=== PATIENT | female | born 1960 | race African-American/Black ===

== ENCOUNTER 2019-08-06 11:22 | Emergency (ER) | payer OTHER, SELFPAY ==
[2019-08-06 11:31] VITALS: BP 119/72; PULSE 82; RESP 16; TEMP 36.3; O2SAT 100
--- NOTE | 2019-08-06 11:45 | ED.BACK ---
HPI - Back Pain/Injury General Chief Complaint: Back Pain/Injury Stated Complaint: BACK/SIDE PAIN Source: patient Mode of arrival: ambulatory Limitations: no limitations History of Present Illness HPI Narrative: 59-year-old female presents to urgent with complaints of left low back pain for the past 3 to 4 months. Patient reports that she was evaluated here and by her primary care provider for same complaint. Patient has been taking Flexeril as needed and also completed a round of prednisone. Patient reports that the pain is much worse with movement or deep breathing. Patient denies spinal tenderness. Patient denies numbness, tingling, fever, bites, chills or urinary problems MD elicited complaint: back pain Pertinent past history: prior back pain Onset (ago): month(s) (3-4 months ) Timing: intermittent Quality: sharp Radiation: none Exacerbating factors: movement Relieving factors: none Associated symptoms: denies other symptoms Work related injury: No Related Data Home Medications Medication Instructions Recorded Confirmed albuterol sulfate INHALATION 05/09/19 07/16/19 amitriptyline 25 mg PO 05/09/19 07/16/19 bupropion HCl 100 mg PO 05/09/19 07/16/19 fluticasone propionate INTRANASAL 05/09/19 07/16/19 levothyroxine 05/09/19 07/16/19 metoprolol tartrate 05/09/19 07/16/19 rosuvastatin mg 05/09/19 07/16/19 tiotropium bromide [Spiriva with INHALATION 05/09/19 07/16/19 HandiHaler] triamterene-hydrochlorothiazid cap 05/09/19 07/16/19 Allergies Allergy/AdvReac Type Severity Reaction Status Date / Time morphine Allergy Mild ITCHING,RASH, Verified 06/23/19 13:37 HIVES propoxyphene Allergy Mild RASH/HIVES Verified 06/23/19 13:37 ampicillin Allergy Unknown RASH/HIVES Verified 06/23/19 13:37 aspirin Allergy Unknown Abdominal Verified 06/23/19 13:37 Pain clindamycin Allergy Unknown Hives Verified 06/23/19 13:37 doxycycline Allergy Unknown Hives Verified 06/23/19 13:37 erythromycin base Allergy Unknown RASH/HIVES Verified 06/23/19 13:37 hydrocodone Allergy Unknown Hives Verified 06/23/19 13:37 Penicillins Allergy Unknown Hives Verified 06/23/19 13:37 Sulfa (Sulfonamide Allergy Unknown Swelling Verified 06/23/19 13:37 Antibiotics) of Lip/Tongue/Throat acetaminophen AdvReac Unknown TOLERATES Verified 06/23/19 13:37 APAP IF EATS PRIOR TO DOSE HYDROCODONE BIT Allergy Unknown RASH/HIVES Uncoded 03/05/19 08:49 Review of Systems Review of Systems: All systems reviewed & are unremarkable except as noted in HPI and below Constitutional: Constitutional: Denies chills, Denies fatigue, Denies fever(s) and Denies weakness Cardiovascular: Cardiovascular: Denies chest pain and Denies radiating jaw, neck or arm pain Respiratory: Respiratory: Denies cough, Denies dyspnea and Denies wheezing Gastrointestinal: Gastrointestinal: Denies abdominal pain, Denies constipation, Denies diarrhea, Denies nausea and Denies vomiting Musculoskeletal: Musculoskeletal: Reports back pain, Denies myalgias, Denies arthralgias and Denies muscle cramps Neurologic: Denies vertigo, Denies dizziness and Denies syncope Endocrine: Endocrine: Denies fatigue [facility] Family History Family History Father Family history of malignant neoplasm Family history of heart disease in male family member before age 55 Social History Social History Smoking status: Never smoker Alcohol intake: current Exam Const: General: healthy appearing, no acute distress and alert; No diaphoretic Orientation/consciousness: patient oriented x3 Limitations: No altered mental status Eyes: Pupils: Equal, round and reactive pupils present Neck: Neck: normal visual inspection and no lymphadenopathy Resp: Effort & Inspection: normal respiratory effort, not labored and not tachypneic Auscultation: clear to auscultation bilaterally and no
== END 2019-08-06 12:00 | disposition home or self-care (01) ==
PROVIDERS: Emergency Provider Nurse Practitioner Family; PCP Internal Medicine
DX: M54.5 Low back pain (principal)
CPT/HCPCS: 99213; G0463

== ENCOUNTER 2019-11-01 12:20 | Emergency (ER) | payer OTHER, SELFPAY ==
[2019-11-01 12:31] VITALS: BP 137/75; PULSE 73; RESP 18; TEMP 36.7; O2SAT 100
--- NOTE | 2019-11-01 12:32 | ED.URI ---
HPI - URI/Sore Throat General Chief Complaint: Upper Respiratory Infection Stated Complaint: sore throat Time Seen by Provider: 11/01/19 12:33 Source: patient and RN notes reviewed History of Present Illness HPI Narrative: Patient is a 59-year-old female that presents the urgent care with complaints of a 4 to 5-day history of left jaw pain radiating to her throat and left neck. Patient states that she has been clenching her teeth at night due to her increase of anxiety . Patient states that she takes anxiety and depression medication. Patient states that she does have a history of TMJ. Patient also reports of some discomfort on the left side of her neck radiating to the ear at times. Patient denies any fever, nausea, vomiting, upper respiratory symptoms. No other acute complaints. No acute distress noted. Patient read the plan of care. Related Data Home Medications Medication Instructions Recorded Confirmed albuterol sulfate INHALATION 05/09/19 08/14/19 bupropion HCl 100 mg PO 05/09/19 08/14/19 fluticasone propionate INTRANASAL 05/09/19 08/14/19 levothyroxine 05/09/19 08/14/19 metoprolol tartrate 05/09/19 07/16/19 rosuvastatin mg 05/09/19 07/16/19 loratadine mg 11/01/19 methocarbamol mg 11/01/19 tiotropium bromide [Spiriva with INHALATION 11/01/19 HandiHaler] triamterene-hydrochlorothiazid cap 11/01/19 Allergies Allergy/AdvReac Type Severity Reaction Status Date / Time morphine Allergy Mild ITCHING,RASH, Verified 06/23/19 13:37 HIVES propoxyphene Allergy Mild RASH/HIVES Verified 06/23/19 13:37 ampicillin Allergy Unknown RASH/HIVES Verified 06/23/19 13:37 aspirin Allergy Unknown Abdominal Verified 06/23/19 13:37 Pain clindamycin Allergy Unknown Hives Verified 06/23/19 13:37 doxycycline Allergy Unknown Hives Verified 06/23/19 13:37 erythromycin base Allergy Unknown RASH/HIVES Verified 06/23/19 13:37 hydrocodone Allergy Unknown Hives Verified 06/23/19 13:37 Penicillins Allergy Unknown Hives Verified 06/23/19 13:37 Sulfa (Sulfonamide Allergy Unknown Swelling Verified 06/23/19 13:37 Antibiotics) of Lip/Tongue/Throat acetaminophen AdvReac Unknown TOLERATES Verified 06/23/19 13:37 APAP IF EATS PRIOR TO DOSE HYDROCODONE BIT Allergy Unknown RASH/HIVES Uncoded 03/05/19 08:49 Review of Systems Review of Systems: Narrative: CONSTITUTIONAL: Denies fever, chills, or sweats. EYES: Denies visual changes, redness, or discharge. ENT: Reports of mild pain to the left jaw, left ear and possible sore throat CARDIOVASCULAR: Denies chest pain, palpitations, or edema. RESPIRATORY: Denies cough or dyspnea. GASTROINTESTINAL: Denies abdominal pain, nausea, vomiting, or diarrhea. GENITOURINARY: Denies dysuria or hematuria. SKIN: Denies rash or itching. MUSCULOSKELETAL: Denies back pain, joint pain, or myalgia. NEUROLOGIC: Denies headache, numbness, or weakness. All other systems reviewed are negative, except as documented in HPI. PMFSH Social History Social History Smoking status: Never smoker Alcohol intake: current Comments At the time of my signature, I reviewed and agree with the nursing past medical, surgical, social, and family history. There is no relevant family history pertinent to the patient complaint. Exam Narrative: Exam Narrative: GENERAL: This is a well-nourished, well-developed patient, in no apparent distress. HEAD: normocephalic, atraumatic. EYES: PERRL. Sclera clear/white. Vision is grossly intact. EARS: External ears normal, auditory canals clear and without drainage, TMs normal without perforation. Hearing grossly intact. NOSE: External nose normal with no obvious nasal discharge, nares without redness, no rhinorrhea. THROAT: Mucous membranes moist, posterior pharynx clear. Small pinpoint cold sore noted to the left posterior oropharynx. Pain with left TMJ palpated assessment and mild snapping NECK: Neck supple, non
== END 2019-11-01 13:07 | disposition home or self-care (01) ==
PROVIDERS: Emergency Provider Nurse Practitioner Family; PCP Internal Medicine
DX: M26.622 Arthralgia of left temporomandibular joint (principal); I25.10 Atherosclerotic heart disease of native coronary artery without angina pectoris; I10 Essential (primary) hypertension; J44.9 Chronic obstructive pulmonary disease, unspecified; Z86.73 Personal history of transient ischemic attack (TIA), and cerebral infarction without residual deficits
CPT/HCPCS: 99211; G0463

== ENCOUNTER 2020-03-24 02:12 | Outpatient (CLI) | payer OTHER, SELFPAY ==
[2020-03-24 18:39] LABS: SARS-CoV-2 RNA PCR Negative
== END 2020-03-24 02:13 | disposition home or self-care (01) ==
LOC: ANHCOVIDDT 02:12
PROVIDERS: PCP Internal Medicine; Visit Provider Internal Medicine Gastroenterology
DX: Z01.812 Encounter for preprocedural laboratory examination (principal); Z11.59 Encounter for screening for other viral diseases
CPT/HCPCS: 87635; C9803; U0003

== ENCOUNTER 2020-03-26 01:33 | Day surgery (SDC) | payer OTHER, SELFPAY ==
[2020-03-18 14:54] VITALS: BMI 26.6
[2020-03-26 09:33] VITALS: BP 113/96; PULSE 100; RESP 16; TEMP 35.4; O2SAT 98; BMI 25.1
[2020-03-26] MEDS: LACTATED RINGERS 1,000 ML 150 ML IV CONT (09:50)
--- NOTE | 2020-03-26 10:11 | PM.HPGS ---
History of Present Illness History of Present Illness Consent: Risks, benefits, and alternatives have been discussed and questions answered. Patient agrees to proceed with procedure. Chief complaint: nausea, IBS, weight loss Narrative: Phyllis Torre is a 59 year old female with nausea, IBS with chronic diarrhea, last colonoscopy years ago, also recently weight loss. Review of Systems Constitutional: Constitutional: Denies headache(s) and Denies weakness Eyes: Eyes: Denies blurry vision ENT: Reports Normal hearing present, Denies headache(s) and Denies neck pain Cardiovascular: Cardiovascular: Denies chest pain and Denies dyspnea Respiratory: Respiratory: Denies dyspnea Gastrointestinal: Gastrointestinal: Reports no additional gastrointestinal complaints Genitourinary: Genitourinary: Denies dysuria Musculoskeletal: Musculoskeletal: Denies neck pain Integumentary/Breasts: Skin/Breast: Denies dry skin Neurologic: Reports Normal hearing present, Denies headache(s) and Denies weakness Psychiatric: Psychiatric: Denies anxiety Endocrine: Endocrine: Denies change in body appearance Hematologic/Lymphatic: Hematologic/Lymphatic: Denies easy bleeding Allergic/Immunologic: Allergic/Immunologic: Denies urticaria PMFSH Past Medical History Medical History (Updated 02/20/20 @ 15:12 by Ezequiel Merlos MD) Alcohol use disorder Dyshidrosis Elevated liver enzymes Irritable bowel syndrome with diarrhea Nausea Weight loss Social History Social History Smoking packs per day: 0.5 Smoking cigarettes per day: 10.0 Smoking status: Current every day smoker Alcohol intake: current Drinks per week: 21 Living arrangements: with family Gender identity (if verbalized by the patient): Female Spiritual care concerns: No Meds Home Medications and Allergies Home Medications Medication Instructions Recorded Confirmed Type bupropion HCl 100 mg PO BID 05/09/19 03/18/20 History fluticasone propionate 1 spray INTRANASAL DAILY 05/09/19 03/18/20 History potassium chloride 10 mEq 10 meq PO BID #180 tablet 05/19/19 03/18/20 Rx tablet,extended release paroxetine HCl 30 mg tablet 30 mg PO DAILY #90 tablet 05/26/19 03/18/20 Rx esomeprazole magnesium 40 mg 40 mg PO DAILY #90 cap 07/16/19 03/18/20 Rx capsule,delayed release allopurinol 300 mg tablet 300 mg PO DAILY #90 tablet 08/11/19 03/18/20 Rx amitriptyline 25 mg tablet 25 mg PO .hs #90 tablet 09/12/19 03/18/20 Rx loratadine 10 mg PO DAILY 11/01/19 03/18/20 History tiotropium bromide [Spiriva with 18 mcg INHALATION DAILY 11/01/19 03/26/20 History HandiHaler] triamterene-hydrochlorothiazid 1 cap PO DAILY 11/01/19 03/18/20 History albuterol sulfate 90 mcg/actuation 2 inhalation INHALATION Q4-6H #8.5 11/05/19 03/26/20 Rx aerosol inhaler gm rosuvastatin 10 mg tablet 10 mg PO DAILY #90 tablet 11/13/19 03/18/20 Rx triamcinolone acetonide 0.1 % 1 applic TOPICAL BID #60 ml 12/17/19 03/18/20 Rx lotion levothyroxine 50 mcg tablet 50 mcg PO DAILY #90 tablet 01/05/20 03/18/20 Rx peg 3350-electrolytes 236 240 ml PO Q10M #4000 ml 02/27/20 03/18/20 Rx gram-22.74 gram-6.74 gram-5.86 gram solution colchicine 0.6 mg capsule See Rx Instructions .ROUTE 03/15/20 03/18/20 Rx .COMPLEX #60 cap cyclobenzaprine 10 mg PO DAILY 03/18/20 03/18/20 History metoprolol tartrate 25 mg PO BID 03/18/20 03/18/20 History Allergies Allergy/AdvReac Type Severity Reaction Status Date / Time morphine Allergy Mild ITCHING,RASH, Verified 03/26/20 09:33 HIVES propoxyphene Allergy Mild RASH/HIVES Verified 03/26/20 09:33 ampicillin Allergy Unknown RASH/HIVES Verified 03/26/20 09:33 aspirin Allergy Unknown Abdominal Verified 03/26/20 09:33 Pain clindamycin Allergy Unknown Hives Verified 03/26/20 09:33 doxycycline Allergy Unknown Hives Verified 03/26/20 09:33 erythromycin base Allergy Unknown RASH/HIVES Ve
--- NOTE | 2020-03-26 10:12 | P.PNAN_ITS ---
Anes - Initial Pre Proc Eval Procedure: Operation Date: 03/26/20 10:30 Proposed Procedures p Esophagogastroduodenoscopy & Colonoscopy - Ezequeil Merlos MD Date/Time: 03/26/20 10:12 Surgeon: Ezequiel Merlos MD Pre Op Diagnosis: nausea, IBS, weight loss Patient Data Age: 59 Gender: F Height: 5 ft 6 in Weight: 70.7 kg Last Vital Signs Temp 95.7 F L 03/26/20 09:33 Pulse 100 03/26/20 09:33 Resp 16 03/26/20 09:33 BP 113/96 H 03/26/20 09:33 Pulse Ox 98 03/26/20 09:33 Allergies Allergy/AdvReac Type Severity Reaction Status Date / Time morphine Allergy Mild ITCHING,RASH, Verified 03/26/20 09:33 HIVES propoxyphene Allergy Mild RASH/HIVES Verified 03/26/20 09:33 ampicillin Allergy Unknown RASH/HIVES Verified 03/26/20 09:33 aspirin Allergy Unknown Abdominal Verified 03/26/20 09:33 Pain clindamycin Allergy Unknown Hives Verified 03/26/20 09:33 doxycycline Allergy Unknown Hives Verified 03/26/20 09:33 erythromycin base Allergy Unknown RASH/HIVES Verified 03/26/20 09:33 hydrocodone Allergy Unknown Hives Verified 03/26/20 09:33 Penicillins Allergy Unknown Hives Verified 03/26/20 09:33 Sulfa (Sulfonamide Allergy Unknown Swelling Verified 03/26/20 09:33 Antibiotics) of Lip/Tongue/Throat acetaminophen AdvReac Unknown TOLERATES Verified 03/18/20 14:47 APAP IF EATS PRIOR TO DOSE HYDROCODONE BIT Allergy Unknown RASH/HIVES Uncoded 03/18/20 14:47 Home Medications Medication Instructions Recorded Confirmed Type bupropion HCl 100 mg PO BID 05/09/19 03/18/20 History fluticasone propionate 1 spray INTRANASAL DAILY 05/09/19 03/18/20 History potassium chloride 10 mEq 10 meq PO BID #180 tablet 05/19/19 03/18/20 Rx tablet,extended release paroxetine HCl 30 mg tablet 30 mg PO DAILY #90 tablet 05/26/19 03/18/20 Rx esomeprazole magnesium 40 mg 40 mg PO DAILY #90 cap 07/16/19 03/18/20 Rx capsule,delayed release allopurinol 300 mg tablet 300 mg PO DAILY #90 tablet 08/11/19 03/18/20 Rx amitriptyline 25 mg tablet 25 mg PO .hs #90 tablet 09/12/19 03/18/20 Rx loratadine 10 mg PO DAILY 11/01/19 03/18/20 History tiotropium bromide [Spiriva with 18 mcg INHALATION DAILY 11/01/19 03/26/20 History HandiHaler] triamterene-hydrochlorothiazid 1 cap PO DAILY 11/01/19 03/18/20 History albuterol sulfate 90 mcg/actuation 2 inhalation INHALATION Q4-6H #8.5 11/05/19 03/26/20 Rx aerosol inhaler gm rosuvastatin 10 mg tablet 10 mg PO DAILY #90 tablet 11/13/19 03/18/20 Rx triamcinolone acetonide 0.1 % 1 applic TOPICAL BID #60 ml 12/17/19 03/18/20 Rx lotion levothyroxine 50 mcg tablet 50 mcg PO DAILY #90 tablet 01/05/20 03/18/20 Rx peg 3350-electrolytes 236 240 ml PO Q10M #4000 ml 02/27/20 03/18/20 Rx gram-22.74 gram-6.74 gram-5.86 gram solution colchicine 0.6 mg capsule See Rx Instructions .ROUTE 03/15/20 03/18/20 Rx .COMPLEX #60 cap cyclobenzaprine 10 mg PO DAILY 03/18/20 03/18/20 History metoprolol tartrate 25 mg PO BID 03/18/20 03/18/20 History Patient hx anesthesia problems: none Family hx anesthesia problems: none PMFSH Past Medical History Medi
[2020-03-26 10:41] VITALS: BP 96/51; PULSE 71; RESP 18; O2SAT 99
[2020-03-26 10:51] VITALS: BP 97/54; PULSE 77; RESP 18; O2SAT 100
[2020-03-26 11:01] VITALS: BP 117/63; PULSE 76; RESP 19; O2SAT 100
== END 2020-03-26 11:14 | disposition home or self-care (01) ==
PROVIDERS: PCP Internal Medicine; Visit Provider Internal Medicine Gastroenterology
PROC: 0DJ08ZZ Inspection of Upper Intestinal Tract, Via Natural or Artificial Opening Endoscopic (ICD-10-PCS; CPT 43235; principal; 2020-03-26 10:30)
DX: K52.831 Collagenous colitis (principal); K52.832 Lymphocytic colitis; R11.0 Nausea; R63.4 Abnormal weight loss; K64.8 Other hemorrhoids; K29.70 Gastritis, unspecified, without bleeding; K44.9 Diaphragmatic hernia without obstruction or gangrene; L30.1 Dyshidrosis [pompholyx]; F17.200 Nicotine dependence, unspecified, uncomplicated; Z72.89 Other problems related to lifestyle; R74.8 Abnormal levels of other serum enzymes
CPT/HCPCS: 45380; 43239; 88305; J2704; J7120

== ENCOUNTER 2020-04-12 08:10 | Outpatient (CLI) | payer OTHER, SELFPAY ==
--- NOTE | ~2020-04-12 | US_ITS ---
EXAMINATION: US right upper quadrant DATE: 04/12/2020 09:17 INDICATION: Abnormal levels of other serum enzymes. TECHNIQUE: Multiple grayscale and Doppler ultrasound images of the abdomen were obtained. COMPARISON: Ultrasound 02/18/2016, chest CT 10/22/2017 FINDINGS: The visualized portions of the head, body, and tail of the pancreas are normal. There is di ffuse hepatic steatosis. No liver surface nodularity. There is normal flow in main portal vein. The g allbladder is absent. The common duct is normal and measures 2 mm. IMPRESSION: 1. Diffuse hepatic steatosis. Reviewed, dictated and finalized at location A.
== END 2020-04-12 08:11 | disposition home or self-care (01) ==
PROVIDERS: PCP Internal Medicine; Visit Provider Internal Medicine Gastroenterology
DX: R74.8 Abnormal levels of other serum enzymes (principal); K76.0 Fatty (change of) liver, not elsewhere classified
CPT/HCPCS: 76705

== ENCOUNTER 2020-07-29 11:30 | Outpatient (NON) | payer OTHER, SELFPAY ==
[2020-07-29 21:41] LABS: SARS-CoV-2 RNA PCR Negative
== END 2020-07-29 11:31 ==
LOC: ANHCOVIDDT 11:31
PROVIDERS: Family Provider Internal Medicine; PCP Internal Medicine; Visit Provider Internal Medicine
DX: Z20.822 Contact with and (suspected) exposure to COVID-19 (principal); R68.89 Other general symptoms and signs
CPT/HCPCS: C9803; U0003; U0005

== ENCOUNTER → 2020-09-17 10:32 | Outpatient (CLI) | payer OTHER, SELFPAY ==
--- NOTE | ~2020-09-17 | CT_ITS ---
EXAMINATION: CT brain wo con DATE: 09/17/2020 10:46 INDICATION: Unspecified symptoms and signs involving cognitive functions and awareness. Headache. Mem ory loss. Loss of coordination. TECHNIQUE: Computed tomography (CT) of the head was performed without intravenous contrast. The mA wa s adjusted according to patient size. Iterative reconstruction technique was employed. The dose-lengt h product was 599.57 mGy-cm. COMPARISON: Head CT 11/04/2008 FINDINGS: There is no intracranial hemorrhage, acute infarction, or abnormal intracranial mass lesion . The ventricles are normal in size. There is mild mucosal thickening in the paranasal sinuses. The o rbits are normal. The mastoid air cells are normal. IMPRESSION: 1. Normal brain. Reviewed, dictated and finalized at location A. IMPRESSION: 1. Normal brain.
== END ==
PROVIDERS: PCP Internal Medicine; Visit Provider Internal Medicine
DX: R41.9 Unspecified symptoms and signs involving cognitive functions and awareness (principal)
CPT/HCPCS: 70450

== ENCOUNTER 2020-09-22 11:45 | Emergency (ER) | payer OTHER, SELFPAY ==
--- NOTE | ~2020-09-22 | XR_ITS ---
XR lumbar spine 2-3V 09/22/2020 12:57 Indication: Low back pain Procedure: 3 views lumbar spine Comparison: No prior studies for comparison. Findings: There is mild disc narrowing at all lumbar levels. There are mild lower lumbar facet degene rative changes. No fracture or traumatic malalignment. There is atherosclerosis. Normal alignment. Th ere are cholecystectomy clips. Impression: 1: Mild lumbar spondylosis. Reviewed, dictated and finalized at location A. Impression: 1: Mild lumbar spondylosis.
[2020-09-22 12:08] VITALS: BP 143/74; PULSE 81; RESP 16; TEMP 36; O2SAT 100
--- NOTE | 2020-09-22 12:26 | ED.GENADULT ---
HPI - General Adult General Chief complaint: Back Pain/Injury Stated complaint: fell mid back Time Seen by Provider: 09/22/20 12:26 Source: patient and RN notes reviewed Mode of arrival: ambulatory Limitations: no limitations History of Present Illness HPI narrative: 60-year-old -[place] female presents with complaints of diffused lower back pain for the past 9 days. Phyllis reports falling on buttocks and has continuos pain in back which radiates to right groin. No treatment. Recent fall. Denies numbness or tingling. Denies fever or chills. No new upper or lower extremity pain or weakness. Exacerbating factors consist of prolong movement, standing, and bending. Denies nausea, vomiting, or abdominal pain. Tolerating po intake well. Denies problems with urinating or having a bowel movement, LBM this morning per patient and normal. No flank pain or hematuria or dysuria. The patient reports she have not been diagnosed with COVID-19. The patient reports she is not waiting for the results of a COVID-19 lab test. The patient reports she do not have weakness or fatigue. The patient reports she do not have a new or worsening cough or shortness of breath. Denies chest pain. The patient reports she do not have any rhinorrhea, congestion, sore throat, loss of taste or smell, and diarrhea. Denies recent traveling. Denies concerns for COVID-19 or exposures been home with limited outdoor exposure except for essential household needs and return home. At this time, patient is not suspected of having COVID-19. Some parts of this dictation were generated by voice recognition software and may contain typographical and/or grammatical inaccuracies. Related Data Home Medications Medication Instructions Recorded Confirmed bupropion HCl 100 mg PO BID 05/09/19 08/03/20 fluticasone propionate 1 spray INTRANASAL DAILY 05/09/19 08/03/20 loratadine 10 mg PO DAILY 11/01/19 08/03/20 tiotropium bromide [Spiriva with 18 mcg INHALATION DAILY 11/01/19 08/03/20 HandiHaler] triamterene-hydrochlorothiazid 1 cap PO DAILY 11/01/19 08/03/20 cyclobenzaprine 10 mg PO DAILY 03/18/20 08/03/20 metoprolol tartrate 25 mg PO BID 03/18/20 08/03/20 Allergies Allergy/AdvReac Type Severity Reaction Status Date / Time morphine Allergy Mild ITCHING,RASH, Verified 06/23/20 13:19 HIVES propoxyphene Allergy Mild RASH/HIVES Verified 06/23/20 13:19 ampicillin Allergy Unknown RASH/HIVES Verified 06/23/20 13:19 aspirin Allergy Unknown Abdominal Verified 06/23/20 13:19 Pain clindamycin Allergy Unknown Hives Verified 06/23/20 13:19 doxycycline Allergy Unknown Hives Verified 06/23/20 13:19 erythromycin base Allergy Unknown RASH/HIVES Verified 06/23/20 13:19 hydrocodone Allergy Unknown Hives Verified 06/23/20 13:19 Penicillins Allergy Unknown Hives Verified 06/23/20 13:19 Sulfa (Sulfonamide Allergy Unknown Swelling Verified 06/23/20 13:19 Antibiotics) of Lip/Tongue/Throat acetaminophen AdvReac Unknown TOLERATES Verified 06/23/20 13:19 APAP IF EATS PRIOR TO DOSE HYDROCODONE BIT Allergy Unknown RASH/HIVES Uncoded 06/23/20 13:19 Review of Systems Review of Systems: Narrative: CONSTITUTIONAL: Denies fever, chills, sweats. EYES: Denies visual changes, redness, discharge. ENT: Denies rhinorrhea, congestion, sore throat, otalgia. CARDIOVASCULAR: Denies chest pain, palpitations, edema. RESPIRATORY: Denies dyspnea, wheezing, cough. GASTROINTESTINAL: Denies abdominal pain, nausea, vomiting, diarrhea. GENITOURINARY: Denies dysuria, hematuria, abnormal discharge. SKIN: Denies rash or itching. MUSCULOSKELETAL: Complains of diffused lower back pain. Denies joint pain or myalgia. NEUROLOGIC: Denies numbness or focal weakness. PSYCHIATRIC: Denies anxiety or depression. All systems reviewed & are unremarkable except as noted in HPI and below. [facility] Past Medical History Medical History (Updated 09/26/20 @ 15:55 by DERRICK Dinero) [facility]
[2020-09-22] MEDS: KETOROLAC (*BKC) 60 MG/2 ML VIAL IM (12:38)
== END 2020-09-22 13:48 | disposition home or self-care (01) ==
PROVIDERS: Emergency Provider Nurse Practitioner Family; PCP Internal Medicine
DX: M54.5 Low back pain (principal); W19.XXXA Unspecified fall, initial encounter; I12.9 Hypertensive chronic kidney disease with stage 1 through stage 4 chronic kidney disease, or unspecified chronic kidney disease; N18.9 Chronic kidney disease, unspecified; M50.30 Other cervical disc degeneration, unspecified cervical region; E89.0 Postprocedural hypothyroidism; F32.9 Major depressive disorder, single episode, unspecified
CPT/HCPCS: 72100; 96372; 99213; G0463; J1885

== ENCOUNTER → 2020-11-03 07:58 | Outpatient (CLI) | payer OTHER, SELFPAY ==
--- NOTE | ~2020-11-03 | XR_ITS ---
EXAMINATION: XR hip RT min 2V DATE: 11/03/2020 08:28 INDICATION: Right hip pain TECHNIQUE: Two views of right hip were obtained. COMPARISON: CT, 06/05/2014 FINDINGS: Bone alignment is normal. There is no fracture. Mild osteoarthritis is noted. There is a [place] of the proximal femur. IMPRESSION: 1. Mild osteoarthritis. Reviewed, dictated and finalized at location A. IMPRESSION: 1. Mild osteoarthritis.
== END ==
PROVIDERS: PCP Internal Medicine; Visit Provider Internal Medicine
DX: M16.11 Unilateral primary osteoarthritis, right hip (principal)
CPT/HCPCS: 73502

== ENCOUNTER 2020-11-04 12:08 | Emergency (ER) | payer OTHER, SELFPAY ==
--- NOTE | ~2020-11-04 | XR_ITS ---
EXAMINATION: XR pelvis 1-2V EXAM DATE: 11/04/2020 13:14 INDICATION: Pelvic pain, more on the right. TECHNIQUE: Pelvis frontal projection(s) obtained and reviewed. Correlation is made to right hip exami [facility] from yesterday. FINDINGS: There is 1.3 cm sclerotic focus right intertrochanteric region appears to be stable compare d to a CT scan 2009 consistent with bone island. There are no acute fractures or dislocations identif ied. There is no subcutaneous gas. The soft tissue is unremarkable. There are no radiopaque forei gn bodies. There is mild symmetric bilateral hip primary osteoarthritis. No evidence of avascular n ecrosis. IMPRESSION: Mild symmetric bilateral hip osteoarthritis. Bone island. Reviewed, dictated and finalized at location B.
--- NOTE | ~2020-11-04 | CT_ITS ---
EXAMINATION: CT lumbar spine wo [facility] EXAM DATE: 11/04/2020 13:07 INDICATION: Fell 1 month ago. Worsening back pain. TECHNIQUE: Spiral CT of the lumbar spine was performed without contrast. Axial, coronal and sagittal images lumbar spine were reviewed. The dose-length product (DLP) for this examination was 876.08 mG y-cm. The exposure was tailored according to patient size (auto mA exposure control), and iterative reconstruction (ASIR) was used as additional dose reduction technique. There is no prior study for comparison. FINDINGS: There are no acute fractures identified. Sacroiliac joints are intact. Paraspinal soft tiss ue is unremarkable. Mild disc disease at all lumbar levels. The vertebral bodies are aligned in the A P dimension. Level by level evaluation: T12-L1: Disc does not extend beyond the endplate margin. Facet arthropathy: None. Neural foraminal stenosis: No stenosis. Central canal stenosis: No stenosis. L1-L2: Disc does not extend beyond the endplate margin. Facet arthropathy: Mild bilateral. Neural foraminal stenosis: No stenosis. Central canal stenosis: No stenosis. L2-L3: There is a mild diffuse disc bulge. Facet arthropathy: Mild. Neural foraminal stenosis: Minimal bilateral. Central canal stenosis: Minimal. L3-L4: There is a mild to moderate diffuse disc bulge. Facet arthropathy: Mild. Neural foraminal stenosis: Mild to moderate left, mild right. Central canal stenosis: Mild. L4-L5: There is a mild to moderate diffuse disc bulge. Facet arthropathy: Mild to moderate. Neural foraminal stenosis: Moderate bilateral. Central canal stenosis: Mild to moderate. L5-S1: There is a mild to moderate diffuse disc bulge. Facet arthropathy: Mild to moderate. Neural foraminal stenosis: Mild to moderate bilateral. Central canal stenosis: Mild. IMPRESSION: 1. Mild to moderate lumbar spondylosis. 2. No acute or subacute fractures. Reviewed, dictated and finalized at location B.
[2020-11-04 12:13] VITALS: BP 124/74; PULSE 73; RESP 18; TEMP 36.1; O2SAT 98
--- NOTE | 2020-11-04 14:58 | ED.GENADULT ---
HPI - General Adult General Chief complaint: Extremity Injury, Lower Stated complaint: right hip pain, fell a month ago Time Seen by Provider: 11/04/20 12:26 Source: patient, family, RN notes reviewed and old records reviewed Mode of arrival: ambulatory Limitations: no limitations History of Present Illness HPI narrative: Patient is a 60-year-old female who presents with 6 weeks duration of right groin pelvic pain after sustaining a ground-level fall seen primary care for this had outpatient x-rays was also seen at an urgent care and had x-rays which were unremarkable patient presents today noting she has continued to have aching pain worse with activity and movement patient has continued to stay busy and ambulate and shopping which could be exacerbating the pain is located in the right hip does not radiate has been taking Tylenol with minimal improvement scheduled to see orthopedic surgery this month Related Data Home Medications Medication Instructions Recorded Confirmed bupropion HCl 100 mg PO BID 05/09/19 08/03/20 fluticasone propionate 1 spray INTRANASAL DAILY 05/09/19 08/03/20 loratadine 10 mg PO DAILY 11/01/19 08/03/20 tiotropium bromide [Spiriva with 18 mcg INHALATION DAILY 11/01/19 08/03/20 HandiHaler] triamterene-hydrochlorothiazid 1 cap PO DAILY 11/01/19 08/03/20 cyclobenzaprine 10 mg PO DAILY 03/18/20 08/03/20 metoprolol tartrate 25 mg PO BID 03/18/20 08/03/20 Allergies Allergy/AdvReac Type Severity Reaction Status Date / Time morphine Allergy Mild ITCHING,RASH, Verified 11/04/20 14:34 HIVES propoxyphene Allergy Mild RASH/HIVES Verified 11/04/20 14:34 ampicillin Allergy Unknown RASH/HIVES Verified 11/04/20 14:34 aspirin Allergy Unknown Abdominal Verified 11/04/20 14:34 Pain clindamycin Allergy Unknown Hives Verified 11/04/20 14:34 doxycycline Allergy Unknown Hives Verified 11/04/20 14:34 erythromycin base Allergy Unknown RASH/HIVES Verified 11/04/20 14:34 hydrocodone Allergy Unknown Hives Verified 11/04/20 14:34 Penicillins Allergy Unknown Hives Verified 11/04/20 14:34 Sulfa (Sulfonamide Allergy Unknown Swelling Verified 11/04/20 14:34 Antibiotics) of Lip/Tongue/Throat acetaminophen AdvReac Unknown TOLERATES Verified 11/04/20 14:34 APAP IF EATS PRIOR TO DOSE Review of Systems Review of Systems: All systems reviewed & are unremarkable except as noted in HPI and below PMFSH Past Medical History Medical History Alcohol use disorder Chronic bronchitis, obstructive Collagenous colitis Dyshidrosis Elevated liver enzymes Hypertensive chronic kidney disease with stage 1 through stage 4 chronic kidney disease, or unspecified chronic kidney disease Irritable bowel syndrome with diarrhea Major depressive disorder, single episode, moderate Migraine without aura and with status migrainosus, not intractable Nausea Other cervical disc degeneration, unspecified cervical region Postprocedural hypothyroidism Weight loss Surgical History Surgical History History of cervical spinal surgery History of cholecystectomy History of hysterectomy Family History Family History Father Family history of malignant neoplasm Family history of heart disease in male family member before age 55 Social History Social History Smoking packs per day: 0.5 Smoking cigarettes per day: 10.0 Smoking status: Current every day smoker Tobacco type: cigarettes Alcohol intake: current Drinks per week: 21 Substance use: never Substance use type: does not use Gender identity (if verbalized by the patient): Female Spiritual care concerns: No Exam Narrative: Exam Narrative: GENERAL: Well-appearing, well-nourished, and in no acute distress. HEAD: Normocephalic, atr
[2020-11-04] MEDS: LIDOCAINE 5% PATCH 1 PATCH TRANSDERM (15:27)
[2020-11-04] MEDS: METAXALONE 800 MG TABLET PO (15:28)
== END 2020-11-04 15:35 | disposition home or self-care (01) ==
PROVIDERS: Emergency Provider Emergency Medicine; PCP Internal Medicine
DX: M25.551 Pain in right hip (principal); I12.9 Hypertensive chronic kidney disease with stage 1 through stage 4 chronic kidney disease, or unspecified chronic kidney disease; N18.9 Chronic kidney disease, unspecified; K58.0 Irritable bowel syndrome with diarrhea; F32.9 Major depressive disorder, single episode, unspecified; E89.0 Postprocedural hypothyroidism; M50.30 Other cervical disc degeneration, unspecified cervical region; J44.9 Chronic obstructive pulmonary disease, unspecified; F17.210 Nicotine dependence, cigarettes, uncomplicated; M16.0 Bilateral primary osteoarthritis of hip; M47.816 Spondylosis without myelopathy or radiculopathy, lumbar region
CPT/HCPCS: 72131; 72170; 99284; A9270

== ENCOUNTER 2020-12-01 10:23 | Outpatient (CLI) | payer OTHER, SELFPAY ==
--- NOTE | ~2020-12-01 | XR_ITS ---
EXAMINATION: XR lg joint inject/asp w image DATE: 12/01/2020 11:05 INDICATION: Unilateral primary osteoarthritis, right hip. TECHNIQUE: A time-out was performed to verify the patient's name, date of , and procedure to b e performed. The procedure including the risks, benefits, and alternatives was discussed with the pat ient. Risks discussed included bleeding and infection. The patient understood the risks and agreed to proceed. The skin overlying the right hip joint was prepped and draped in usual sterile fashion. A nesthetic was administered with 1% lidocaine subcutaneously. A 22 G needle was advanced under fluoro scopic guidance into the joint. Injection of 1 mL of Omnipaque 240 confirmed intra-articular positio n of the needle. Subsequently, injectate consisting of 5 mL 1% lidocaine and 2 mL 10 mg/mL Kenalog w as instilled. The needle was removed and the entry site was cleaned and dressed. There were no imme diate complications. Fluoroscopy exposure time was 0.1 minutes. The total number of images was 2. FINDINGS: Real-time fluoroscopy demonstrates the needle in the right hip joint. Patient's pain prior to procedure:01/08. Patient's pain following the procedure: 02/08. IMPRESSION: 1. Fluoroscopy guided right hip joint injection of local anesthetic and steroid. Reviewed, dictated and finalized at location A. IMPRESSION: 1. Fluoroscopy guided right hip joint injection of local anesthetic and steroid .
== END 2020-12-01 10:24 | disposition home or self-care (01) ==
PROVIDERS: PCP Internal Medicine; Visit Provider Orthopaedic Surgery
DX: M16.11 Unilateral primary osteoarthritis, right hip (principal)
CPT/HCPCS: 20610; 77002; J3301; Q9966

== ENCOUNTER 2021-01-12 12:47 | Outpatient (CLI) | payer OTHER, SELFPAY ==
--- NOTE | ~2021-01-12 | MR_ITS ---
EXAMINATION: MR hip RT wo con DATE: 01/12/2021 13:58 INDICATION: Right hip pain TECHNIQUE: Magnetic resonance imaging (MRI) of the right hip was performed without intravenous contr ast. Sequences included full-field axial PD-weighted FS FSE and T1-weighted FSE, coronal of the pelvi s with PD-weighted FS FSE, small field of view of the right hip with axial PD-weighted FS FSE, sagit lucy PD-weighted FS FSE and coronal PD weighted FS FSE. Additional radial T1-weighted FGR oriented ort hogonal to the acetabular rim were obtained for evaluation of the labrum. COMPARISON: None FINDINGS: Bones/labrum/cartilage: Alignment is normal. Large low signal intensity bone island at the intertrochanteric right femur whic h appears unchanged dating back to CT dated 08/27/2009. There is avascular necrosis with double line s ign along the margins of the region which involves a majority of the cephalad half of the femoral hea d. There is also a rim sign along portions of the margin of the region of avascular necrosis with flu id signal intensity cleft which appears to extend across the articular cortex at the posterior superi or lateral aspect of the femoral head suggesting developing fragmentation and potential instability. No evident avascular necrosis at the contralateral left femoral head. No pathologic marrow replacing process. Old osteoarthritis at the right hip with partial thickness cartilage loss primarily at the m argins of the joint space with mild subarticular cystic change at the superolateral rim of the right acetabulum. There are small marginal osteophytes along the acetabulum which extends into the base of the acetabular labrum with decrease in size of the more peripheral labral tissue. There is a more dis crete tear of the anterosuperior labrum. Mild lumbar spondylosis. Fluid: Small right hip joint effusion. Physiologic amount fluid in the contralateral left hip joint. No othe r abnormal fluid collections. Soft tissues: No asymmetric muscle atrophy of the pelvis or proximal thighs. The iliopsoas, gluteal and proximal gloria mstring tendons are normal. Mild increased fluid signal at the left ischial tuberosity origin of the left hamstring tendons consistent with mild left ischial bursitis. The uterus is not identified and h as likely been surgically resected. Limited evaluation of visceral organs of the pelvis is otherwi se unremarkable. No pathologically enlarged pelvic/inguinal lymphadenopathy. IMPRESSION: 1. Extensive avascular necrosis involving the majority of the cephalad aspect of the right femoral he ad with fluid filled cleft along a portion of the margin of the region of osteonecrosis including inv olvement of the cortex suggesting developing fragmentation and potential instability but without iliana apse of the articular cortex. 2. Mild right hip osteoarthritis with small tear of the anterosuperior labrum. 2. Likely reactive small right hip joint effusion. Reviewed, dictated and finalized at location A. IMPRESSION: 1. Extensive avascular necrosis involving the majority of the cephalad aspect o f the right femoral head with fluid filled cleft along a portion of the margin of the region of osteonecrosis including involvement of the cortex suggesting d eveloping fragmentation and potential instability but without collapse of the a rticular cortex. 2. Mild right hip osteoarthritis with small tear of the anterosuperior labrum. 2. Likely reactive small right hip joint effusion.
== END 2021-01-12 12:48 ==
PROVIDERS: PCP Internal Medicine; Visit Provider Orthopaedic Surgery
DX: M25.551 Pain in right hip (principal); M87.9 Osteonecrosis, unspecified; M16.11 Unilateral primary osteoarthritis, right hip; M25.451 Effusion, right hip
CPT/HCPCS: 73721

== ENCOUNTER 2021-06-28 07:58 | Outpatient (CLI) | payer OTHER, SELFPAY ==
--- NOTE | 2021-06-28 08:56 | ECG_ITS ---
Measurements Intervals [place] Rate: 73 P: -20 TX: 178 QRS: 28 QRSD: 87 T: 20 QT: 408 QTc: 450 Interpretive Statements SINUS RHYTHM POOR R WAVE PROGRESSION, ANTERIOR LEADS BORDERLINE ST-T WAVE ABNORMALITY- DIFFUSE LEADS BASELINE WANDER- I, III BORDERLINE ECG Electronically Signed On 06-28-2021 9:45:17 CASHIER RECEPTIONIST by Miguel Rockwell D.O.
[2021-06-28 09:37] LABS: Basophils Percent Auto 0.1 % (0.2-1.2); Eosinophils Absolute Auto 0.2 K/mm3 (0-0.3); Eosinophils Percent Auto 2.9 % (0-4.4); Hematocrit 37.5 % (37.0-47.0); Hemoglobin 12.6 g/dL (12.0-15.0); Immature Granulocyte Absolute 0.02 K/mm3 (0.00-0.031); Immature Granulocyte Percent A 0.3 % (0-0.5); Lymphocytes Percent Auto 22.2 % (18.3-44.2); Mean Corpuscular HGB Conc 33.6 g/dl (32-36); Mean Corpuscular Hemoglobin 30.1 pg (26-34); Mean Corpuscular Volume 89.7 fl (80-100); Mean Platelet Volume 9.5 fl (7.4-10.4); Monocytes Absolute Auto 0.3 K/mm3 (0.1-0.6); Monocytes Percent Auto 4.4 % (2.6-8.5); Neutrophils Percent Auto 70.1 % (45.5-73.1); Platelet Count Result 195 k/mm3 (150-375); Red Blood Count 4.18 M/mm3 (4.2-5.4); Red Cell Distribution Width 13.1 % (11.5-14.5); White Blood Count 7.2 K/mm3 (4.5-10.0)
[2021-06-28 09:47] LABS: Albumin Level 4.5 g/dL (3.5-5.1)
[2021-06-28 09:48] LABS: Prothrombin Time 12.8 Seconds (11.1-14.7); Urine Cotinine NEGATIVE
[2021-06-28 09:49] LABS: Partial Thromboplastin Time 32.9 SECONDS (22.3-36.8)
[2021-06-28 09:51] LABS: Anion Gap 4 mmol/L (8-16); Blood Urea Nitrogen 16 mg/dL (7-17); Carbon Dioxide 27 mmol/L (22-30); Chloride 103 mmol/L (98-107); Estimated Glomerular Filt Rate > 60; Glucose 103 mg/dL (65-110); Sodium 134 mmol/L (137-145)
[2021-06-28 10:04] LABS: Hemoglobin A1C 6.2 % (<5.7)
== END 2021-06-28 07:59 | disposition home or self-care (01) ==
LOC: ANHSURGERY 08:01
PROVIDERS: Anesthesiology; PCP Internal Medicine; Visit Provider Orthopaedic Surgery
DX: Z01.818 Encounter for other preprocedural examination (principal); N18.30 Chronic kidney disease, stage 3 unspecified; M87.051 Idiopathic aseptic necrosis of right femur
CPT/HCPCS: 80048; 80307; 82040; 83036; 85025; 85610; 85730; 86850; 86900; 86901; 87081; 93005

== ENCOUNTER → 2021-07-05 02:23 | Outpatient (CLI) | payer OTHER, SELFPAY ==
[2021-07-06 20:50] LABS: SARS-CoV-2 RNA PCR Negative
== END ==
PROVIDERS: PCP Internal Medicine; Visit Provider Internal Medicine
DX: Z20.822 Contact with and (suspected) exposure to COVID-19 (principal); R68.89 Other general symptoms and signs
CPT/HCPCS: C9803; U0003; U0005

== ENCOUNTER 2021-07-06 07:27 | Emergency (ER) | payer OTHER, SELFPAY ==
--- NOTE | ~2021-07-06 | US_ITS ---
EXAMINATION: US venous doppler [facility] DATE: 07/06/2021 10:33 INDICATION: Left lower limb pain. TECHNIQUE: Grayscale ultrasound images without and with compression and Doppler ultrasound images of the left lower extremity veins were obtained. COMPARISON: Ultrasound 09/09/2018 FINDINGS: The visualized portions of left common femoral vein, profunda (deep) femoral vein, femoral vein, popl iteal vein, peroneal veins, posterior tibial veins, and greater saphenous vein outflow are patent. IMPRESSION: 1. No deep venous thrombosis. Reviewed, dictated and finalized at location A. ON FARMER
--- NOTE | ~2021-07-06 | CT_ITS ---
EXAMINATION: CTA chest PE protocol DATE: 07/06/2021 09:47 INDICATION: Shortness of breath. TECHNIQUE: Computed tomography angiography (CTA) of the chest was performed with 100 mL Omnipaque-350 intravenous contrast timed to evaluate the pulmonary arteries. Coronal maximum intensity projection 3D-reconstructions were created by the technologist. Automated exposure control and iterative reconst ruction technique were employed. The dose-length product was 379.39 mGy-cm. COMPARISON: Chest CT 10/22/2017 FINDINGS: There is mild emphysema. There is mild atelectasis bilaterally. There are trace pleural eff usions. The heart size is normal. No pericardial effusion. There are coronary artery calcifications. There is no pulmonary embolus. There are changes of cholecystectomy. There are changes of anterior fu reggie procedure in cervical spine. IMPRESSION: 1. No pulmonary embolus. 2. Mild emphysema. Reviewed, dictated and finalized at location A. [employer]FF SERVICES MANAGER
--- NOTE | ~2021-07-06 | XR_ITS ---
EXAMINATION: XR chest 1V portable DATE: 07/06/2021 08:49 INDICATION: Cough. Congestion. Sore throat. TECHNIQUE: A single frontal view of the chest was obtained. COMPARISON: Chest 2 views 10/22/2017, chest CT 10/22/2017 FINDINGS: There is mild atelectasis at the lung bases. No pleural effusion or pneumothorax. The heart size is normal. There are surgical clips in left axilla. There are changes of anterior fusion proced ure in cervical spine. There are surgical clips in right neck. IMPRESSION: 1. Mild atelectasis at the lung bases. Reviewed, dictated and finalized at location A. MATION QA LEAD
[2021-07-06 07:32] VITALS: BP 148/84; PULSE 94; RESP 16; TEMP 37.2; O2SAT 98
[2021-07-06 07:35] VITALS: BP 148/84; PULSE 94; RESP 20; TEMP 37.2; O2SAT 98
--- NOTE | 2021-07-06 08:06 | ED.GENADULT ---
HPI - General Adult General Chief complaint: Upper Respiratory Infection Stated complaint: cough Time Seen by Provider: 07/06/21 07:38 History of Present Illness HPI narrative: Patient is a 61-year-old female who presents ER with cough. Persistent over the last 5 days. She obtained a Covid test yesterday and has not received the results. Reports this feels similar to the asthma flare she has had a couple years ago and thinks she needs a Z-Meir and steroids. Denies fever or body aches. She is without nausea/vomiting/diarrhea. No loss of taste or smell. She was exposed to a family member who had Covid just before . Patient also reports discomfort posterior left leg that she is concerned could be a blood clot. Related Data Home Medications Medication Instructions Recorded Confirmed loratadine 10 mg PO QAM 11/01/19 06/30/21 tiotropium bromide [Spiriva with 18 mcg INHALATION DAILY 11/01/19 06/30/21 HandiHaler] melatonin 10 mg tablet 10 mg PO QHS 11/23/20 06/30/21 allopurinol 300 mg QAM 06/28/21 06/30/21 bupropion HCl 100 mg PO BID 06/28/21 06/30/21 esomeprazole magnesium 40 mg QAM 06/28/21 06/30/21 levothyroxine [Euthyrox] 50 mcg QAM 06/28/21 06/30/21 paroxetine HCl 30 mg HS 06/28/21 06/30/21 rosuvastatin 40 mg PO QAM 06/28/21 06/30/21 bupropion HCl PO 07/06/21 colchicine mg 07/06/21 Allergies Allergy/AdvReac Type Severity Reaction Status Date / Time morphine Allergy Mild ITCHING,RASH, Unverified 07/06/21 07:42 HIVES propoxyphene Allergy Mild RASH/HIVES Verified 06/30/21 10:25 ampicillin Allergy Unknown RASH/HIVES Verified 06/30/21 10:25 aspirin Allergy Unknown Abdominal Verified 06/30/21 10:25 Pain clindamycin Allergy Unknown Hives Verified 06/30/21 10:25 doxycycline Allergy Unknown Hives Verified 06/30/21 10:25 erythromycin base Allergy Unknown RASH/HIVES Verified 06/30/21 10:25 hydrocodone Allergy Unknown Hives Verified 06/30/21 10:25 Penicillins Allergy Unknown Hives Verified 06/30/21 10:25 Sulfa (Sulfonamide Allergy Unknown Swelling Verified 06/30/21 10:25 Antibiotics) of Lip/Tongue/Throat Review of Systems Review of Systems: All systems reviewed & are unremarkable except as noted in HPI and below Constitutional: Constitutional: Denies chills, Denies fever(s) and Denies weakness ENT: Denies nasal congestion and Denies sore throat Cardiovascular: Cardiovascular: Denies chest pain, Denies rapid heart rate and Denies radiating jaw, neck or arm pain Respiratory: Respiratory: Reports cough, Reports dyspnea and Denies wheezing Gastrointestinal: Gastrointestinal: Denies abdominal pain, Denies nausea and Denies vomiting PMFSH Past Medical History Medical History Alcohol use disorder Avascular necrosis of bone of right hip Chronic bronchitis, obstructive Collagenous colitis Dyshidrosis Elevated liver enzymes Hypertensive chronic kidney disease with stage 1 through stage 4 chronic kidney disease, or unspecified chronic kidney disease Irritable bowel syndrome with diarrhea Major depressive disorder, single episode, moderate Migraine without aura and with status migrainosus, not intractable Nausea Other cervical disc degeneration, unspecified cervical region Postprocedural hypothyroidism Right leg pain Weight loss Surgical History Surgical History History of cervical spinal surgery History of cholecystectomy History of hysterectomy Family History Family History Father Family history of malignant neoplasm Family history of heart disease in male family member before age 55 Other Sickle cell anemia Social History Social History Smoking packs per day: 0.5 Smoking cigarettes per day: 10.0 Smoking status: Former smoker Tobacco type: cigarettes Second hand tobacco
[2021-07-06 08:55] LABS: Basophils Percent Auto 0.3 % (0.2-1.2); Eosinophils Absolute Auto 0.2 K/mm3 (0-0.3); Eosinophils Percent Auto 3.3 % (0-4.4); Hematocrit 36.8 % (37.0-47.0); Hemoglobin 12.2 g/dL (12.0-15.0); Immature Granulocyte Absolute 0.01 K/mm3 (0.00-0.031); Immature Granulocyte Percent A 0.1 % (0-0.5); Lymphocytes Absolute Auto 1.92 K/mm3 (0.9-3.2); Lymphocytes Percent Auto 27.9 % (18.3-44.2); Mean Corpuscular HGB Conc 33.2 g/dl (32-36); Mean Corpuscular Hemoglobin 29.5 pg (26-34); Mean Corpuscular Volume 89.1 fl (80-100); Mean Platelet Volume 9.2 fl (7.4-10.4); Monocytes Absolute Auto 0.6 K/mm3 (0.1-0.6); Neutrophils Absolute Auto 4.2 K/mm3 (1.3-6.7); Neutrophils Percent Auto 60.4 % (45.5-73.1); Platelet Count Result 242 k/mm3 (150-375); Red Blood Count 4.13 M/mm3 (4.2-5.4); White Blood Count 6.9 K/mm3 (4.5-10.0)
[2021-07-06] MEDS: BENZONATATE 100 MG CAPSULE 200 MG PO (08:55)
[2021-07-06 08:58] LABS: Alanine Aminotransferase 27 U/L (4-35); Albumin Level 4.3 g/dL (3.5-5.1); Alkaline Phosphatase 146 U/L (38-126); Anion Gap 10 mmol/L (8-16); Aspartate Amino Transferase 33 U/L (14-36); Bilirubin,Total 0.4 mg/dL (0.2-1.3); Blood Urea Nitrogen 11 mg/dL (7-17); Calcium 10.1 mg/dL (8.4-10.2); Carbon Dioxide 26 mmol/L (22-30); Chloride 102 mmol/L (98-107); Estimated CRCL calculation 54 ml/min; Estimated Glomerular Filt Rate > 60; Glucose 110 mg/dL (65-110); Potassium 3.7 mmol/L (3.4-5.0); Sodium 138 mmol/L (137-145)
[2021-07-06 09:00] VITALS: PULSE 95; RESP 18; O2SAT 96
[2021-07-06 09:02] LABS: D Dimer 2.03 ug/mL (<0.48)
[2021-07-06 09:03] VITALS: BP 132/79
[2021-07-06 12:00] VITALS: BP 108/83; PULSE 84; O2SAT 99
[2021-07-06 12:46] VITALS: BP 131/77; PULSE 81; RESP 20; TEMP 36.6; O2SAT 100
== END 2021-07-06 12:50 | disposition home or self-care (01) ==
PROVIDERS: Emergency Provider Emergency Medicine; PCP Internal Medicine
DX: J40 Bronchitis, not specified as acute or chronic (principal); Z20.822 Contact with and (suspected) exposure to COVID-19; F17.210 Nicotine dependence, cigarettes, uncomplicated; I12.9 Hypertensive chronic kidney disease with stage 1 through stage 4 chronic kidney disease, or unspecified chronic kidney disease; N18.9 Chronic kidney disease, unspecified; K58.9 Irritable bowel syndrome, unspecified; F32.9 Major depressive disorder, single episode, unspecified
CPT/HCPCS: 36415; 71045; 71275; 80053; 85025; 85380; 93971; 99284; A9270; Q9967

== ENCOUNTER → 2021-07-19 09:49 | Outpatient (CLI) | payer OTHER, SELFPAY ==
[2021-07-19 19:53] LABS: SARS-CoV-2 RNA PCR Negative
== END ==
PROVIDERS: PCP Internal Medicine; Visit Provider Internal Medicine
DX: R09.89 Other specified symptoms and signs involving the circulatory and respiratory systems (principal); Z20.822 Contact with and (suspected) exposure to COVID-19
CPT/HCPCS: C9803; U0003; U0005

== ENCOUNTER 2021-08-08 09:20 | Outpatient (CLI) | payer OTHER, SELFPAY ==
--- NOTE | ~2021-08-08 | CT_ITS ---
EXAMINATION: CT sinus wo con DATE: 08/08/2021 09:43 INDICATION: Chronic sinusitis. Chronic congestion. TECHNIQUE: Computed tomography (CT) of the paranasal sinuses was performed without contrast. Iterativ e reconstruction technique was employed. Exam dose: 303.01 mGy-cm total exam DLP. COMPARISON: None FINDINGS: There is rightward deviation of nasal septum. There is jocelyne bullosa of both middle nasal turbinates. There is symmetric prominent soft tissue swe lling of the middle and inferior nasal turbinates. There is minimal mucoperiosteal soft tissue thickening of the frontal sinuses and ethmoid air cells. There is minimal opacity along the roof of the right maxillary sinus and the right maxillary ostium, without occlusion of the infundibulum. The mastoid air cells are normally developed and aerated. IMPRESSION: Rightward deviation of nasal septum Jocelyne bullosa of both middle nasal turbinates; soft tissue swelling of the middle and inferior nasal turbinates Minimal mucosal thickening of the paranasal sinuses including at the right maxillary ostium Reviewed, dictated and finalized at Location A. Reviewed, dictated and finalized at location A. ORS MOTIVATIONAL IMPRESSION: Rightward deviation of nasal septum Jocelyne bullosa of both middle nasal turbinates; soft tissue swelling of the mid dle and inferior nasal turbinates Minimal mucosal thickening of the paranasal sinuses including at the right maxi llary ostium
== END 2021-08-08 09:21 ==
PROVIDERS: PCP Internal Medicine; Visit Provider Internal Medicine
DX: J32.9 Chronic sinusitis, unspecified (principal); J34.2 Deviated nasal septum; J34.89 Other specified disorders of nose and nasal sinuses; M79.89 Other specified soft tissue disorders
CPT/HCPCS: 70486

== ENCOUNTER 2021-10-07 10:00 | Outpatient (CLI) | payer OTHER, SELFPAY ==
--- NOTE | 2021-10-07 12:44 | WPDPFTINT ---
PFT Procedure Performed PFT Procedure Performed Spirometry with Pre/Post Bronchodilator Plethysmography (Lung Vol) Diffusing Cap (DLCO) Flow Vol Loop PFT Interpretation This is a pulmonary function test with pre and post-bronchodilator spirometry, plethysmography and diffusing capacity. The test was performed and results interpreted in accordance with the 2019 and 2005 ATS/ERS Task Force guidelines respectively using the Global Lung Function Initiative-2012 reference equations. Patient demonstrated good effort and cooperation. Reproducibility criteria were met. The quality of the pre bronchodilator spirometry maneuver was Grade A and post bronchodilator spirometry maneuver was Grade A. Findings: Spirometry: The contour the inspiratory and expiratory flow tracing are normal. The pre bronchodilator FVC is 2.93 L, 103% predicted. The pre bronchodilator FEV1 is 2.12 L, 95% predicted. The FEV1: FVC ratio 72%. The post bronchodilator FVC is 2.77 L, representing a 5% decrease. The post bronchodilator FEV1 is 2.10 L, representing 1% decrease. The post bronchodilator FEV1: FVC ratio is 76%. Plethysmography: The total lung capacity is 4.75 L, 101% predicted. The functional residual capacity is 2.17 L, 73% predicted. The residual volume is 1.80 L, 90% predicted. Diffusion capacity: The diffusing capacity unadjusted for hemoglobin and carboxyhemoglobin is 13.8, 63% predicted. The diffusing capacity adjusted for alveolar volume is 3.55, 82% predicted. Impression: The spirometry is normal without evidence of an obstructive abnormality. There is no significant improvement after inhaling a single dose of albuterol. The diffusing capacity unadjusted for hemoglobin and carboxyhemoglobin is mildly decreased and normalizes when adjusted for alveolar volume. There are no prior studies for comparison
== END 2021-10-07 10:01 | disposition home or self-care (01) ==
PROVIDERS: PCP Internal Medicine; Visit Provider Internal Medicine Pulmonary Disease
DX: R06.00 Dyspnea, unspecified (principal)
CPT/HCPCS: 94060; 94375; 94726; 94729

== ENCOUNTER 2021-11-08 09:51 | Outpatient (CLI) | payer OTHER, SELFPAY ==
[2021-11-08 11:26] LABS: Basophils Percent Auto 0.2 % (0.2-1.2); Eosinophils Absolute Auto 0.1 K/mm3 (0-0.3); Eosinophils Percent Auto 2.5 % (0-4.4); Hematocrit 37.8 % (37.0-47.0); Hemoglobin 12.2 g/dL (12.0-15.0); Immature Granulocyte Absolute 0.02 K/mm3 (0.00-0.031); Immature Granulocyte Percent A 0.4 % (0-0.5); Mean Corpuscular HGB Conc 32.3 g/dl (32-36); Mean Corpuscular Hemoglobin 29.3 pg (26-34); Mean Corpuscular Volume 90.9 fl (80-100); Mean Platelet Volume 9.6 fl (7.4-10.4); Monocytes Absolute Auto 0.3 K/mm3 (0.1-0.6); Monocytes Percent Auto 5.4 % (2.6-8.5); Neutrophils Absolute Auto 3.2 K/mm3 (1.3-6.7); Neutrophils Percent Auto 56.5 % (45.5-73.1); Platelet Count Result 191 k/mm3 (150-375); Red Blood Count 4.16 M/mm3 (4.2-5.4); Red Cell Distribution Width 13.7 % (11.5-14.5); White Blood Count 5.7 K/mm3 (4.5-10.0)
[2021-11-08 11:35] LABS: Urine Cotinine NEGATIVE
[2021-11-08 11:36] LABS: Hemoglobin A1C 5.9 % (<5.7)
[2021-11-08 11:38] LABS: Albumin Level 4.4 g/dL (3.5-5.1)
[2021-11-08 11:40] LABS: Anion Gap 7 mmol/L (8-16); Blood Urea Nitrogen 21 mg/dL (7-17); Calcium 9.4 mg/dL (8.4-10.2); Carbon Dioxide 30 mmol/L (22-30); Chloride 103 mmol/L (98-107); Estimated Glomerular Filt Rate > 60; Glucose 100 mg/dL (65-110); INR 1.1; Prothrombin Time 13.3 Seconds (11.1-14.7); Sodium 140 mmol/L (137-145)
[2021-11-08 11:41] LABS: Partial Thromboplastin Time 36.7 SECONDS (22.3-36.8)
== END 2021-11-08 09:52 | disposition home or self-care (01) ==
PROVIDERS: Anesthesiology; PCP Internal Medicine; Visit Provider Orthopaedic Surgery
DX: Z01.812 Encounter for preprocedural laboratory examination (principal); M87.051 Idiopathic aseptic necrosis of right femur; N18.30 Chronic kidney disease, stage 3 unspecified; Z51.81 Encounter for therapeutic drug level monitoring; Z79.899 Other long term (current) drug therapy
CPT/HCPCS: 36415; 80048; 80307; 82040; 83036; 85025; 85610; 85730; 87081

== ENCOUNTER 2021-11-22 00:27 | Day surgery (SDC) | payer OTHER, SELFPAY ==
[2021-11-08 10:19] VITALS: BP 113/74; PULSE 64; RESP 16; TEMP 36.1; O2SAT 98; BMI 28.2
--- NOTE | 2021-11-08 10:37 | PC.NURSE ---
Report to the Outpatient Waiting Room, entrance under the green pavilion located off [address], at time __6:00AM on date ___11/22/21____. OR Time: _7:30AM . - You and your visitor will be asked a series of questions to screen for COVID 19 for your protection. - Only one visitor is allowed at this time. - The patient visitor is requested to leave or wait in car when not with patient. - A mask is required within the hospital. Patients may have clear liquids (water, carbonated beverages, clear teas, apple juice) until 3 hours prior to surgery with a maximum of 20 ounces. - No food from midnight until time of surgery - Infants may have breast milk until 4 hours before surgery, formula 6 hours prior to surgery. - Children will be allowed to drink immediately following surgery. If applicable, please bring a bottle or sippy cup to assist with drinking. Juice, water, soda, and popsicles are readily available. For infants on formula, please bring formula the day of surgery. Pacifiers are allowed. Take the following medications with a SIP of water the morning of surgery: ___ADVAIR DISCUS, OTHER INHALERS NEEDED, LEVOTHYROXINE, BUPROPION, METOPROLOL Medications to discontinue per physician ALL VITAMINS/SUPPLEMENTS 3 DAYS PRE-OP.__XERALTO IS TO BE STARTED AFTER SURGERY/NOT TAKING PRE-OP Date to take last dose___11/18/21 Please no make-up, nail lithuanian, hairspray, perfume, deodorant, or body powder the day of surgery. No jewelry (including any body piercings) or valuables the day of surgery, leave them at home. Please take a shower or bath the night before, or the morning of, surgery with an antibacterial soap. Wear comfortable, loose fitting clothing. Children are encouraged to wear pajamas. - Jewelry must be removed prior to entering the operating room. Rings and piercings that are not removed may be cut off. - The hospital will not accept responsibility for valuables. - Please leave all valuables, including medications, at home the day of surgery. If you are going home after surgery, a licensed tractor trailer driver must drive you home. - NO public transportation without another adult. - We recommend that an adult stay with you for 24 hours following discharge. - We also recommend that you do not drive, make important decision, drink alcoholic beverages, or take any drugs that were not prescribed by your health care provider for at least 24 hours after your discharge time. For Pediatric surgeries, we recommend two adults accompany the child home (only one inside the building at this time). Follow any additional instructions given to you from your surgeon. If you or anyone in your household have experienced Covid symptoms in the past week, please notify your surgeon or the nurse liaison at the phone number below for possible testing. Telephone instructions given to _PATIENT and asked if any additional questions and then verbalized understanding. Patient advised to call surgeon office or pre surgery nurse liaison [phone] if any additional questions.
--- NOTE | 2021-11-21 16:55 | WPDANESEPPF ---
Anes - Initial Pre Proc Eval Procedure: Operation Date: 11/22/21 07:30 Proposed Procedures p Right Total Hip Arthroplasty Anterior Approach - Cristiano Garzon MD Date/Time: 11/21/21 16:55 Surgeon: Cristiano Garzon MD Pre Op Diagnosis: stage 3 avn right hip Patient Data Age: 61 Gender: F Height: 1.68 m Weight: 79.4 kg Last Vital Signs Temp 36.1 C L 11/08/21 10:19 Pulse 64 11/08/21 10:19 Resp 16 11/08/21 10:19 BP 113/74 11/08/21 10:19 Pulse Ox 98 11/08/21 10:19 Allergies Allergy/AdvReac Type Severity Reaction Status Date / Time Sulfa (Sulfonamide Allergy Severe Swelling Verified 11/22/21 06:25 Antibiotics) of Lip/Tongue/Throat ampicillin Allergy Intermediate RASH/HIVES Verified 11/22/21 06:25 clindamycin Allergy Intermediate Hives Verified 11/22/21 06:25 doxycycline Allergy Intermediate Hives Verified 11/22/21 06:25 erythromycin base Allergy Intermediate RASH/HIVES Verified 11/22/21 06:25 hydrocodone Allergy Intermediate Rash Verified 11/22/21 06:25 Penicillins Allergy Intermediate Hives/AGITA Verified 11/22/21 06:25 TION morphine Allergy Mild ITCHING,RASH, Verified 11/22/21 06:25 HIVES propoxyphene Allergy Mild NIGHTMARES/ Verified 11/22/21 06:25 TREMORS/YORDY H/HIVES aspirin AdvReac Intermediate Abdominal Verified 11/22/21 06:25 Pain Home Medications Medication Instructions Recorded Confirmed Type loratadine 10 mg tablet 10 mg PO QAM 11/01/19 11/22/21 History triamcinolone acetonide 0.1 % 1 applic topical BID #60 mL 12/17/19 11/22/21 Rx lotion potassium chloride 10 mEq 10 meq PO BID #180 tabs 09/20/20 11/22/21 Rx tablet,extended release melatonin 10 mg tablet 10 mg PO QHS 11/23/20 11/22/21 History amitriptyline 25 mg tablet 25 mg PO .hs #90 tabs 01/10/21 11/22/21 Rx metoprolol tartrate 25 mg tablet 25 mg PO BID #180 tabs 06/06/21 11/22/21 Rx bupropion HCl 100 mg tablet 100 mg PO BID 06/28/21 11/22/21 History esomeprazole magnesium 40 mg 40 mg PO QAM 06/28/21 11/22/21 History capsule,delayed release paroxetine HCl 30 mg tablet 30 mg PO HS 06/28/21 11/22/21 History rosuvastatin 40 mg tablet 40 mg PO QAM 06/28/21 11/22/21 History fluticasone propionate 50 1 spray intranasal DAILY PRN 06/29/21 11/22/21 Rx mcg/actuation nasal Congestion #16 grams spray,suspension rivaroxaban 10 mg tablet (Xarelto) 10 mg PO DAILY S/P Right Hip repla 07/04/21 11/22/21 Rx #14 tabs albuterol sulfate 90 mcg/actuation 2 inh inhalation Q4-6H PRN 08/16/21 11/22/21 Rx aerosol inhaler Wheezing #6.7 grams levothyroxine 50 mcg tablet 50 mcg PO QAM #90 tabs 10/07/21 11/22/21 Rx (Euthyrox) acetaminophen 650 mg 1,300 mg PO BID 11/08/21 11/22/21 History tablet,extended release (Tylenol Arthritis Pain) fluticasone 500 mcg-salmeterol 50 1 inh inhalation Q12H 11/08/21 11/22/21 History mcg/dose blistr powdr for inhalation (Wixela Inhub) ipratropium 0.5 mg-albuterol 3 mg 3 ml inhalation QID PRN Dyspnea 11/08/21 11/22/21 History (2.5 mg base)/3 mL nebulization soln triamterene 37.5 1 cap PO QAM 11/08/21 11/22/21 History mg-hydrochlorothiazide 25 mg capsule Advair Diskus 500 mcg-50 mcg/dose See Rx Instructions .Route 11/16/21 11/22/21 Rx powder for inhalation (fluticasone .COMPLEX #60 ea propion-salmeterol) montelukast 10 mg tablet 10 mg PO DAILY 11/22/21 11/22/21 History ECG: Date of Service: 06/28/21 Procedure(s): CA 12 lead EKG Accession Number(s): [id number] cc: ~ ? Measurements Intervals? [place]? Rate: ? 73 ? P:? -20 NM: ? 178? QRS:? 28 QRSD: ? 87 ? T:? 20 QT: ? 408? QTc:? 450? Interpretive Statements SINUS RHYTHM POOR R WAVE PROG
[2021-11-22] VITALS (15 sets, daily range): BP systolic 120–145; BP diastolic 62–95; PULSE 68–87; RESP 13–20; TEMP 36.1–36.8; O2SAT 94–100; BMI 10.0
--- NOTE | ~2021-11-22 | XR_ITS ---
EXAMINATION: XR surgery orthopedic DATE: 11/22/2021 10:17 INDICATION: Anterior approach right total hip arthroplasty. TECHNIQUE: 2 fluoroscopic images of the right hip were obtained during procedure performed by Dr. Efrain mejia. Radiologist was not present for the imaging or procedure. The amount of fluoroscopy time used duri ng this procedure was 0.5 minutes. COMPARISON: 09/28/2021 FINDINGS: Interval placement of a noncemented right total hip arthroplasty which appears well seated in near-an atomic alignment. No fracture. Expected soft tissue gas the operative bed. IMPRESSION: 1. Expected appearance during right total hip arthroplasty. See procedure note for further detail. Reviewed, dictated and finalized at location B.
[2021-11-22] MEDS: LACTATED RINGERS 1,000 ML 30 ML IV CONT ×2 (06:43→11:07)
[2021-11-22] MEDS: ACETAMINOPHEN 500 MG TABLET 1000 MG PO (06:51)
[2021-11-22] MEDS: TRANEXAMIC ACID 1,000MG/ISO100 1,000 MG/100 ML BAG 200 MG IVPB (07:08)
--- NOTE | 2021-11-22 07:09 | WPDHPUPDATE1 ---
History and Physical Update Update Date/Time: 11/22/21 07:09 History and Physical has been reviewed, including an updated exam of the patient. There are NO changes in the patient's condition. Risks, benefits, and alternatives have been discussed and questions answered. Patient agrees to proceed with procedure.
[2021-11-22] MEDS: ceFAZolin 2 GM/D5W 50 ML 2 GM/50 ML BAG IVPB ×3 (07:35→23:42)
[2021-11-22] MEDS: ceFAZolin SODIUM 1 GM VIAL IV PUSH (10:10)
--- NOTE | 2021-11-22 10:59 | W.PM.PROC2 ---
Procedure Note - Detailed Date of Procedure 11/22/21 Pre-op Diagnosis stage 3 avn right hip Post-op Diagnosis Same Procedure Performed right total hip replacement through anterior approach with fluoroscopic assistance Surgeon Cristiano Garzon MD Supply Coordinator Sandra Newberry Anesthesia General Description of Procedure The patient was identified, proper side identified, and then taken to the operating room. After induction of general anesthesia with intubation, she was then transferred over to the [place] table positioning supine in the usual manner for an anterior hip procedure. Positioning was assessed fluoroscopically after which the right hip and thigh was prepped and draped in the usual sterile fashion. 10 cc of the arthroplasty solution was injected into the subcutaneous tissue over the TFL muscle belly. Longitudinal incision was made over the muscle belly. Subcutaneous tissue was sharply dissected down to the TFL fascia which was incised in line with the fibers the TFL. The TFL was retracted laterally and the rectus femoris medially. The rectus fascia was divided. The branches of the anterior femoral circumflex artery were identified and cauterized allowing for access to the hip capsule. Pericapsular fatty tissue was removed. The capsule was divided in an inverted T-fashion. The neck cut was made one fingerbreadth above the level of the lesser trochanter. Head fragment was removed and the acetabulum cleared of debris. Acetabulum was sequentially reamed under fluoroscopic visualization up to 49 mm. A size 50 G7 cup was inserted under fluoroscopic visualization in approximately 40? of abduction and 15? of anteversion following the patient's anatomy. The liner for the size 36 head was placed. The femur was then delivered up into the wound with the appropriate releases. The proximal femur was prepared for the size 10 stem and a trial reduction was undertaken. Overall alignment was assessed fluoroscopically in the AP and lateral views noting it to be satisfactory. Trial components were removed. The wound was irrigated with pulsatile lavage. The real size 10 high offset micro plasty stem was then seated in about 15? of anteversion. This did not follow the patient's femoral neck as it was a in neutral to slight retroversion. This construct with a minus three, size 36 head gave excellent jain of leg lengths and stability so the real size 36, minus three bushing and ceramic head was attached to the neck of the femoral component after it had been cleaned and dried. Hip was again reduced and stability assessed, and it was noted to be stable. After final lavage of the wound, the periarticular tissues were injected with an additional 50 cc of the arthroplasty solution. A 3 minute dilute Betadine wash was left in place and then cleaned out . The capsule was reapproximated with #2 Vicryl suture, the TFL fascia with 0 looped PDS suture, the subcu with two of strata fix in the deeper layers and two of strata fix subcuticular stitch. Tissue adhesive was used for the skin. Sterile dressing was applied. He tolerated the procedure well. He was transferred back to a bed and taken to recovery area in stable condition. There were no known intraoperative complications. Estimated blood loss was 150 cc. She received perioperative antibiotics. Estimated Blood Loss 150 Drains No Packing No Pathology None sent Complications No immediate complications Condition Stable Disposition PACU
--- NOTE | 2021-11-22 11:20 | SUR.PHASEI ---
RN asked the body design checker if x-rays were needed in PACU and she stated, no. The GEOPHYSICIST confirmed as well.
[2021-11-22] MEDS: fentaNYL CITRATE INJ (*CRX) 100 MCG/2 ML VIAL 25 MCG IV PUSH ×4 (11:45→12:18)
--- NOTE | 2021-11-22 12:40 | ADMGEN ---
This patient, Phyllis Torre, was admitted to Medical Room 242-01. Patient/family oriented to hospital policies and general routines including ID bracelet, bed and alarms, visiting hours, pain management, procedures, bathroom and other care routines, personal items, smoking policy, room service/diet, and visiting hours. Information on how to activate the Rapid Response Team has been discussed. Patient/Family are encouraged to report perceived risks to care and to ask questions if they do not understand what they are told or what they should do.
--- NOTE | 2021-11-22 12:46 | PC.NURSE ---
patient to room 242 from OR
[2021-11-22] MEDS: SODIUM CHLORIDE 0.9% IV 1,000 ML 125 ML IV CONT (13:21)
--- NOTE | 2021-11-22 13:34 | PCOTNOTE ---
Attempted to evaluate pt. for occupational therapy. Pt. too drowsy to follow directions. Will follow for evaluation when appropriate
[2021-11-22] MEDS: LORATADINE 10 MG TABLET PO (13:38)
[2021-11-22] MEDS: ROSUVASTATIN 10 MG TABLET 40 MG PO (13:38)
[2021-11-22] MEDS: MONTELUKAST SODIUM 10 MG TABLET PO (13:38)
[2021-11-22] MEDS: PANTOPRAZOLE 40 MG TABLET PO (13:38)
[2021-11-22] MEDS: TRIAMTERENE 37.5 MG/HCTZ 25 MG (MAXZIDE) TABLET 1 TAB PO (13:38)
--- NOTE | 2021-11-22 16:00 | WPDCN ---
Assessment and Plan Assessment and plan (1) Avascular necrosis of bone of right hip: Code(s): M87.051 - Idiopathic aseptic necrosis of right femur Status: Chronic Assessment and Plan: Postoperative day 0 status post right total hip replacement through anterior approach. Wound care, pain control, and DVT prophylaxis deferred to Dr. Garzon. (2) Chronic obstructive pulmonary disease: Code(s): J44.9 - Chronic obstructive pulmonary disease, unspecified Status: Acute Assessment and Plan: No acute issues or bronchospasm. Continue maintenance inhalers. (3) Hypertension: Code(s): I10 - Essential (primary) hypertension Status: Acute Assessment and Plan: Blood pressures were reviewed and they are stable. Continue antihypertensives and monitor closely. (4) Other hyperlipidemia: Code(s): E78.49 - Other hyperlipidemia Status: Acute Assessment and Plan: Continue statin check LFTs in a.m. (5) Hypothyroidism: Code(s): E03.9 - Hypothyroidism, unspecified Status: Acute Assessment and Plan: Continue levothyroxine and check TSH. Additional Plan Thank you for allowing us to participate in this patient's care. Please do not hesitate to contact us with any questions. Supervising physician for this medical consultation is Dr. Jose Kebede. HPI Data of Consult Date/Time: 11/22/21 16:00 Requesting Physician: Cristiano Garzon MD Reason for consultation: Postoperative medical management. Consult Narrative Narrative: This is a pleasant 61-year-old female with hypertension, dyslipidemia, mild nonobstructive coronary artery disease noted on cardiac catheterization in September 2017, COPD, asthma, and hypothyroidism whom the hospitalist service has been consulted for help managing her medical conditions postoperatively. She presented today for elective right total hip replacement due to ongoing right hip and groin pain related to stage III avascular necrosis of that right hip. Her surgery was performed under general anesthesia with no immediate complications documented an estimated blood loss of 150 mL. Postoperatively she is in a quite a bit of pain, stating that she has a significant ache in her groin although she seems a bit somnolent at the time my evaluation. She has been up with physical therapy and was doing okay. She denies fever, chills, sweats, nausea, and vomiting. She also denies paresthesias, skin color, and temperature changes distal to the surgical site. Review of Systems Review of Systems: Twelve systems were reviewed. No recent cold or flu symptoms. No chest pain or shortness of breath. No personal or family history of venous thromboembolism. Except as documented, all other systems were reviewed and are negative. [facility] Past Medical History Medical History (Updated 11/22/21 @ 21:30 by Omayra Lopez PA-C) Alcohol use disorder Anxiety Asthma Chronic interstitial cystitis without hematuria Chronic kidney disease, stage III (moderate) Chronic obstructive pulmonary disease Collagenous colitis Degenerative disc disease History of fall from ladder Hypertension Irritable bowel syndrome with diarrhea Major depressive disorder, single episode, moderate Migraine headache Mild coronary artery disease Mild, nonobstructive coronary artery disease on cardiac catheterization in September 2017. Followed by Dr. Mireles. Other hyperlipidemia Postprocedural hypothyroidism Tobacco abuse Surgical History Surgical History (Updated 11/22/21 @ 21:24 by Omayra Lopez PA-C) History of cardiac catheterization (09/2017) Mild, nonobstructive coronary artery disease. About 30% stenosis in the mid-LAD with minor irregularities in the proximal mid RCA. History of cervical spinal surgery History of cholecystectomy History of hysterectomy History of left breast biopsy History of resectio
[2021-11-22] MEDS: TAPENTADOL HCL (*CRX) 50 MG TABLET PO ×2 (17:07→20:14)
[2021-11-22] MEDS: METOPROLOL TARTRATE 25 MG TABLET PO (17:27)
[2021-11-22] MEDS: POTASSIUM CHLORIDE 10 MEQ TABLET.ER PO (17:27)
[2021-11-22] MEDS: SENNA/DOCUSATE SODIUM TABLET 2 TAB PO (17:27)
[2021-11-22] MEDS: buPROPion HCL 100 MG TABLET PO (17:33)
[2021-11-22] MEDS: TRIAMCINOLONE ACET 0.1% CREAM 15 GM TUBE 1 APPLIC TOPICAL (17:34)
[2021-11-22] MEDS: ACETAMINOPHEN 325 MG TABLET 650 MG PO ×2 (17:40→23:42)
[2021-11-22] MEDS: FAMOTIDINE 20 MG TABLET PO (20:14)
[2021-11-22] MEDS: PARoxetine 10 MG TABLET 30 MG PO (20:14)
[2021-11-22] MEDS: MELATONIN 5 MG TABLET 10 MG PO (20:14)
[2021-11-22] MEDS: AMITRIPTYLINE HCL 25 MG TABLET PO (22:13)
[2021-11-23 00:19] VITALS: BP 127/62; PULSE 70; RESP 20; TEMP 36.3; O2SAT 94
[2021-11-23] MEDS: TAPENTADOL HCL (*CRX) 50 MG TABLET PO ×4 (00:19→11:30)
[2021-11-23 03:57] VITALS: BP 121/62; PULSE 73; RESP 18; TEMP 36.3; O2SAT 92
[2021-11-23] MEDS: ACETAMINOPHEN 325 MG TABLET 650 MG PO ×2 (05:11→12:09)
[2021-11-23] MEDS: LEVOTHYROXINE SODIUM 50 MCG TABLET PO (05:11)
[2021-11-23 05:39] LABS: Hematocrit 33.6 % (37.0-47.0); Hemoglobin 11.3 g/dL (12.0-15.0); Mean Corpuscular HGB Conc 33.6 g/dl (32-36); Mean Corpuscular Hemoglobin 29.7 pg (26-34); Mean Corpuscular Volume 88.4 fl (80-100); Mean Platelet Volume 10.3 fl (7.4-10.4); Platelet Count Result 192 k/mm3 (150-375); Red Cell Distribution Width 13.9 % (11.5-14.5); White Blood Count 12.2 K/mm3 (4.5-10.0)
[2021-11-23 05:49] LABS: Alanine Aminotransferase 43 U/L (6-35); Albumin Level 4.2 g/dL (3.5-5.1); Alkaline Phosphatase 111 U/L (38-126); Anion Gap 9 mmol/L (8-16); Aspartate Amino Transferase 76 U/L (14-36); Bilirubin,Total 0.8 mg/dL (0.2-1.3); Blood Urea Nitrogen 16 mg/dL (7-17); Calcium 8.7 mg/dL (8.4-10.2); Carbon Dioxide 24 mmol/L (22-30); Chloride 97 mmol/L (98-107); Estimated CRCL calculation 70 ml/min; Estimated Glomerular Filt Rate > 60; Glucose 122 mg/dL (65-110); Magnesium 1.7 mg/dL (1.6-2.3); Potassium 4.1 mmol/L (3.4-5.0); Sodium 130 mmol/L (137-145)
[2021-11-23 06:56] LABS: Thyroid Stimulating Hormone Reflex 0.743 uIU/mL (0.465-4.68)
--- NOTE | 2021-11-23 07:26 | PM.DS ---
DS: Admitting Diagnosis Discharge Date 11/23/2021 Admitting Diagnosis Avascular necrosis of right hip DS: Discharge Diagnosis Discharge Diagnosis (1) S/P total right hip arthroplasty: Code(s): Z96.641 - Presence of right artificial hip joint Status: Acute Assessment and Plan: 61-year-old female postop day 1 after total right hip replacement with Dr. Garzon. She did struggle yesterday with therapy and is struggling again this morning to really get the hip moving. She was informed that she needs to continue with therapy exercises and keep the leg elevated with a pillow under the calf to decrease swelling and edema of the leg. Plan to see her in the office in 2 weeks for wound check. (2) Chronic obstructive pulmonary disease: Code(s): J44.9 - Chronic obstructive pulmonary disease, unspecified Status: Acute Assessment and Plan: No acute issues or bronchospasm. Continue maintenance inhalers. (3) Hypertension: Code(s): I10 - Essential (primary) hypertension Status: Acute Assessment and Plan: Blood pressures were reviewed and stable. Continue antihypertensives and monitor. (4) Hypothyroidism: Code(s): E03.9 - Hypothyroidism, unspecified Status: Acute Assessment and Plan: Continue levothyroxine. TSH within normal range. (5) Other hyperlipidemia: Code(s): E78.49 - Other hyperlipidemia Status: Acute Assessment and Plan: Continue statin. Mildly elevated LFTs this morning. Monitor and plan for follow-up with PCP. DS: Summary Hospital Course Reason for hospitalization: Observation after outpatient procedure. Hospital Course: 61-year-old female who underwent right total hip replacement with Dr. Garzon. She was seen by therapy yesterday and plan to be seen again today prior to discharge. Hospitalist was consulted due to patient's chronic hypertension, hyperlipidemia, COPD and hyperthyroidism. Labs were drawn this morning which revealed slight anemia, hyponatremia and mildly elevated LFTs. Anemia and hyponatremia likely secondary to recent surgical procedure. Mildly elevated LFTs likely due to patient's statin medication. Status at Discharge Functional status at discharge: uses cane/walker Overall status at discharge: patient is progressing back to baseline Time Spent with Patient Time attestation: Total time spent providing and/or coordinating discharge services: Time spent: Less than 30 minutes Exam Const: General: comfortable and no acute distress HENMT: Mouth: Yes moist mucous membranes Eyes: General: appearance normal, both eyes and all related structures Resp: Effort & Inspection: normal respiratory effort GI: Inspection: non-distended GI Palp: No Tenderness to palpation present (GI) Skin: General skin exam: normal color and no rashes or lesions noted Extrem: Other: Exam of the right lower extremity reveals a clean and dry surgical dressing. Mild swelling to the right lower extremity noted. She is able to wiggle her toes without difficulty and denies any numbness down the leg. Neurovascular status of the right lower extremity is unremarkable. Psych: Mental Status: mental status grossly normal DS: Data Data Completed and Pending Labs on day of discharge: Labs from last 24 hours 11/23/21 11/23/21 11/23/21 05:01 05:01 05:01 WBC 12.2 H RBC 3.80 L Hgb 11.3 L Hct 33.6 L MCV 88.4 MCH 29.7 MCHC 33.6 RDW 13.9 Plt Count 192 MPV 10.3 Sodium 130 L Potassium 4.1 Chloride 97 L Carbon Dioxide 24 Anion Gap 9 BUN 16 Creatinine 0.80 Estim Creat Clear Calc 70 Estimated GFR > 60 Glucose 122 H Calcium 8.7 Magnesium 1.7 Total Bilirubin 0.8 AST 76 H ALT 43 H Alkaline Phosphatase 111 Total Protein 7.0 Albumin 4.2 TSH (Reflex) 0.743 Blood Type Antibody Screen 11/22/21 06:11 WBC RBC Hgb Hct MCV MCH MCHC
--- NOTE | 2021-11-23 07:30 | WPDANESPN ---
Anes - Prog Note Post-Op Date/Time: 11/23/21 07:30 Cardiovascular status: normal Respiratory status: normal Airway patency: baseline Mental status: baseline Post-Op hydration status: normal Vital Signs: Last Vital Signs Temp 97.3 F L 11/23/21 03:57 Pulse 73 11/23/21 03:57 Resp 18 11/23/21 03:57 BP 121/62 11/23/21 03:57 Pulse Ox 92 11/23/21 03:57 O2 Del Method Room Air 11/22/21 20:00 O2 Flow Rate 2 11/22/21 14:55 Pain Score (VAS): 07/11 I/O: Intake & Output 11/22/21 11/22/21 11/23/21 15:59 23:59 07:59 Intake Total 550 450 290 Output Total 1200 Balance 550 450 -910 Laboratory Tests 11/23/21 05:01 11/23/21 05:01 11/22/21 11/23/21 11/23/21 06:11 05:01 05:01 WBC 12.2 H RBC 3.80 L Hgb 11.3 L Hct 33.6 L MCV 88.4 MCH 29.7 MCHC 33.6 RDW 13.9 Plt Count 192 MPV 10.3 Sodium 130 L Potassium 4.1 Chloride 97 L Carbon Dioxide 24 Anion Gap 9 BUN 16 Creatinine 0.80 Estim Creat Clear Calc 70 Estimated GFR > 60 Glucose 122 H Calcium 8.7 Magnesium 1.7 Total Bilirubin 0.8 AST 76 H ALT 43 H Alkaline Phosphatase 111 Total Protein 7.0 Albumin 4.2 TSH (Reflex) Blood Type O Positive Antibody Screen Negative 11/23/21 05:01 WBC RBC Hgb Hct MCV MCH MCHC RDW Plt Count MPV Sodium Potassium Chloride Carbon Dioxide Anion Gap BUN Creatinine Estim Creat Clear Calc Estimated GFR Glucose Calcium Magnesium Total Bilirubin AST ALT Alkaline Phosphatase Total Protein Albumin TSH (Reflex) 0.743 Blood Type Antibody Screen Post-procedural complaints: none Patient Feedback: Patient satisfied with anesthetic care.
[2021-11-23] MEDS: TRIAMCINOLONE ACET 0.1% CREAM 15 GM TUBE 1 APPLIC TOPICAL (09:39)
[2021-11-23] MEDS: ROSUVASTATIN 10 MG TABLET 40 MG PO (09:39)
[2021-11-23 09:40] VITALS: PULSE 82
[2021-11-23] MEDS: FAMOTIDINE 20 MG TABLET PO (09:40)
[2021-11-23] MEDS: TRIAMTERENE 37.5 MG/HCTZ 25 MG (MAXZIDE) TABLET 1 TAB PO (09:40)
[2021-11-23] MEDS: METOPROLOL TARTRATE 25 MG TABLET PO (09:40)
[2021-11-23] MEDS: MONTELUKAST SODIUM 10 MG TABLET PO (09:40)
[2021-11-23] MEDS: LORATADINE 10 MG TABLET PO (09:41)
[2021-11-23] MEDS: POTASSIUM CHLORIDE 10 MEQ TABLET.ER PO (09:41)
[2021-11-23] MEDS: SENNA/DOCUSATE SODIUM TABLET 2 TAB PO (09:41)
[2021-11-23] MEDS: polyethylene glycoL 3350 17 GM POWD.PACK PO (09:42)
[2021-11-23] MEDS: PANTOPRAZOLE 40 MG TABLET PO (09:42)
[2021-11-23] MEDS: RIVAROXABAN 10 MG TABLET PO (09:42)
[2021-11-23] MEDS: ceFAZolin 2 GM/D5W 50 ML 2 GM/50 ML BAG IVPB (09:42)
[2021-11-23] MEDS: buPROPion HCL 100 MG TABLET PO (09:53)
[2021-11-23 09:54] VITALS: PULSE 82
[2021-11-23 10:08] VITALS: BP 144/72; PULSE 77; RESP 18; TEMP 36.4; O2SAT 98
[2021-11-23] MEDS: FLUTICASONE/SALMETEROL 230-21 MCG INHALER 1 PUFF 2 PUFF INHALATION (10:19)
[2021-11-23 10:20] VITALS: O2SAT 94
== END 2021-11-23 12:20 | disposition home or self-care (01) ==
LOC: ANHSURGERY 06:00 → ANH2MED 12:46
PROVIDERS: Physician Assistant; PCP Internal Medicine; Visit Provider Orthopaedic Surgery
PROC: (CPT 27130; principal; 2021-11-22 07:30)
DX: M87.051 Idiopathic aseptic necrosis of right femur (principal); J44.9 Chronic obstructive pulmonary disease, unspecified; E78.49 Other hyperlipidemia; I12.9 Hypertensive chronic kidney disease with stage 1 through stage 4 chronic kidney disease, or unspecified chronic kidney disease; N18.30 Chronic kidney disease, stage 3 unspecified; I25.10 Atherosclerotic heart disease of native coronary artery without angina pectoris; E89.0 Postprocedural hypothyroidism; F41.9 Anxiety disorder, unspecified; K58.0 Irritable bowel syndrome with diarrhea; F32.1 Major depressive disorder, single episode, moderate; Z87.891 Personal history of nicotine dependence; Z79.01 Long term (current) use of anticoagulants; Z79.51 Long term (current) use of inhaled steroids
CPT/HCPCS: 27130; 36415; 80053; 83735; 84443; 85027; 86850; 86900; 86901; 97110; 97116; 97161; 97165; 97530; 97535; A9270; C1776; J0171; J0330; J0690; J1100; J1170; J2250; J2370; J2405; J2704; J2710; J2795; J3010; J7030; J7120

== ENCOUNTER 2021-12-15 09:00 | Outpatient (RCR) | payer OTHER, SELFPAY ==
[2021-11-14 12:33] VITALS: BP_SYST 170
--- NOTE | 2021-11-14 13:41 | PTOPEVAL ---
Thank you for referring Phyllis Torre to [facility].? The patient is scheduled to be seen for therapy 2 x/week for 4 weeks. Please review, sign, date and return this plan of care KENA. I agree with and certify that the following plan of care is medically necessary. Referring Physician Date Attending Provider: Tl Barrett APN Referring Provider: Dr. Cristiano Garzon MD Diagnosis right shoulder pain Onset 6 months ago Additional Evaluation Detail She will having THR next Sun due to AVN. carlos NTOS decompression x ~20 yrs. S/p extra rib removal carlos Subjective Information She had a fall 09/19 when her Query Text:As Reported By Patient/ legs gave out. She landed on Family her buttocks. She has been using a walker due to her hip issues. C/o pain in the ant chest region to the lateral GH joint region. She reports limitations with reaching motion and ADL's due to pain.She is performing some shoulder stretching motions. Pain Assessment Right Shoulder(s) Reported Pain Level 7 Pain Description Radiating,Sharp,Soreness Pain Radiation Right Arm Pain Frequency Chronic Lowest Pain Intensity 2 Greatest Pain Intensity 8 Pain Aggravating Factors ADL's,Exercise/Activity Upper Extremity Range of Motion Scapular/ Shoulder Range of Motion Left Shoulder Flexion - Active 160 Shoulder Extension - Active 60 Shoulder Abduction - Active 160 Shoulder Medial Rotation - Active T7:Reach Behind the Back Right Shoulder Flexion - Active 135 Shoulder Flexion - Passive 170 Shoulder Extension - Active 60 Shoulder Abduction - Active 160 Shoulder Abduction - Passive 170 Shoulder Medial Rotation - Active 80 Shoulder Medial Rotation - Active T7:Reach Behind the Back Shoulder Lateral Rotation - Active 90 Scapular/Shoulder Range of Motion Pain Limitations Upper Extremity Muscle Strength Testing General Upper Extremity Strength Gross Upper Extremity Strength Comments left shoulder flex/abd: 4/5, ext: 5/5, med/lat. rotation 5/ 5 Scapular/Shoulder Right Scapular Retraction - Middle Trapezius 2+ Poor + Scapular Retraction - Lower Trapezius 2+ Poor + Shoulder Flexion Strength 4- Good - Shoulder Extension Strength 4+ Good + Shoulder Abduction Strength 4- Good - Shoulder Medial Rotation Strength 4 Good Shoulder Lateral Rotation Strengt
--- NOTE | 2021-12-15 09:53 | PTOPEVAL ---
PHYSICAL THERAPY DISCHARGE NOTE Thank you for referring Phyllis Torre to [facility].? Phyllis participated in physical therapy to address right shoulder pain after a fall. She has met all goals and presents with no shoulder pain today. She will be d/c'd from PT. Please review, sign, date and return this plan of care KENA. I agree with and certify that the following plan of care is medically necessary. Referring Physician Date Attending Provider: Tl Barrett APN Discharge right shoulder pain Subjective Information Shoulder has been doing very Query Text:As Reported By Patient/ well and states it is very Family good. Pain Score Pain Score 0: Self Report Upper Extremity Range of Motion Scapular/ Shoulder Range of Motion Left Shoulder Flexion - Active 160 Shoulder Extension - Active 60 Shoulder Abduction - Active 160 Shoulder Medial Rotation - Active T7 Query Text:Reach Behind the Back Right Shoulder Flexion - Active 160 Shoulder Extension - Active 60 Shoulder Abduction - Active 160 Shoulder Medial Rotation - Active 80 Shoulder Medial Rotation - Active T7 Query Text:Reach Behind the Back Shoulder Lateral Rotation - Active 90 Scapular/Shoulder Range of Motion Pain Limitations Upper Extremity Muscle Strength Testing Scapular/Shoulder Right Scapular Retraction - Middle Trapezius 3 Fair Scapular Retraction - Lower Trapezius 3 Fair Shoulder Flexion Strength 5 Normal Shoulder Extension Strength 4+ Good + Shoulder Abduction Strength 5 Normal Shoulder Medial Rotation Strength 5 Normal Shoulder Lateral Rotation Strength 5 Normal PT Clinical Summary Shoulder Pain and Disability Index (SPADI) 10% impaired Assessment: Phyllis presents with normal shoulder ROM and strength and has restored scapulo-humberal rhythm. She has no pain in the shoulder. Cristiana is ready to D/C form PT.
== END 2021-12-15 11:57 | disposition home or self-care (01) ==
LOC: ANHPT 09:00
PROVIDERS: PCP Internal Medicine; Referring Provider Nurse Practitioner; Visit Provider Nurse Practitioner
DX: M25.512 Pain in left shoulder (principal)
CPT/HCPCS: 97035; 97110; 97112; 97140; 97162

== ENCOUNTER 2021-12-24 17:33 | Emergency (ER) | payer OTHER, SELFPAY ==
[2021-12-24 17:42] VITALS: BP 138/88; PULSE 74; RESP 16; TEMP 36.4; O2SAT 100
[2021-12-24] MEDS: diphenhydrAMINE HCl CAP 25 MG CAPSULE PO (18:21)
[2021-12-24] MEDS: FAMOTIDINE 20 MG TABLET PO (18:21)
[2021-12-24] MEDS: methylPREDNISolone SOD SUCC 125 MG VIAL IM (18:21)
--- NOTE | 2021-12-24 18:44 | ED.SKABFB ---
HPI - Skin/Abscess/Foreign Bdy General Chief complaint: Allergic Reaction Stated complaint: Allergic Reaction Time Seen by Provider: 12/24/21 18:00 Source: patient Mode of arrival: ambulatory Limitations: no limitations History of Present Illness HPI narrative: 61 yo F presents with swelling to L side of face since this AM. States that she was in her granddaughters car and touched her air freshener. Thinks it caused an allergic reaction. hx of several allergic reactions, a lot related to fragrances . No SOB or difficulty swallowing. Speaking in full sentences. Finished prednisone over a wk ago for allergic reaction to tramadol. Plans to see an allergest. All systems reviewed and negative except as noted above. Related Data Home Medications Medication Instructions Recorded Confirmed loratadine 10 mg tablet 10 mg PO QAM 11/01/19 12/14/21 melatonin 10 mg tablet 10 mg PO QHS 11/23/20 12/14/21 bupropion HCl 100 mg tablet 100 mg PO BID 06/28/21 12/14/21 rosuvastatin 40 mg tablet 40 mg PO QAM 06/28/21 12/14/21 acetaminophen 650 mg 1,300 mg PO BID 11/08/21 12/14/21 tablet,extended release (Tylenol Arthritis Pain) ipratropium 0.5 mg-albuterol 3 mg 3 ml inhalation QID PRN Dyspnea 11/08/21 12/14/21 (2.5 mg base)/3 mL nebulization soln triamterene 37.5 1 cap PO QAM 11/08/21 12/14/21 mg-hydrochlorothiazide 25 mg capsule montelukast 10 mg tablet 10 mg PO DAILY 11/22/21 12/14/21 Allergies Allergy/AdvReac Type Severity Reaction Status Date / Time Sulfa (Sulfonamide Allergy Severe Swelling Verified 12/19/21 09:19 Antibiotics) of Lip/Tongue/Throat ampicillin Allergy Intermediate RASH/HIVES Verified 12/19/21 09:19 clindamycin Allergy Intermediate Hives Verified 12/19/21 09:19 doxycycline Allergy Intermediate Hives Verified 12/19/21 09:19 erythromycin base Allergy Intermediate RASH/HIVES Verified 12/19/21 09:19 hydrocodone Allergy Intermediate Rash Verified 12/19/21 09:19 Penicillins Allergy Intermediate Hives/AGITA Verified 12/19/21 09:19 TION tramadol Allergy Intermediate Hives Verified 12/19/21 09:19 morphine Allergy Mild ITCHING,RASH, Verified 12/19/21 09:19 HIVES propoxyphene Allergy Mild NIGHTMARES/ Verified 12/19/21 09:19 TREMORS/YORDY H/HIVES aspirin AdvReac Intermediate Abdominal Verified 12/19/21 09:19 Pain Review of Systems Review of Systems: CONSTITUTIONAL: Denies fever, chills, or sweats. EYES: Denies visual changes, redness, or discharge. ENT: Denies rhinorrhea, congestion, sore throat, or otalgia. CARDIOVASCULAR: Denies chest pain, palpitations, or edema. RESPIRATORY: Denies cough or dyspnea. GASTROINTESTINAL: Denies abdominal pain, nausea, vomiting, or diarrhea. GENITOURINARY: Denies dysuria or hematuria. SKIN: Denies rash or itching. Swelling to left side of face. MUSCULOSKELETAL: Denies back pain, joint pain, or myalgia. NEUROLOGIC: Denies headache, numbness, or weakness. PSYCHIATRIC: Denies anxiety or depression. All other systems reviewed are negative, except as documented in HPI. [facility] Past Medical History Medical History Alcohol use disorder Anxiety Asthma Chronic interstitial cystitis without hematuria Chronic kidney disease, stage III (moderate) Chronic obstructive pulmonary disease Collagenous colitis Degenerative disc disease History of fall from ladder Hypertension Irritable bowel syndrome with diarrhea Major depressive disorder, single episode, moderate Migraine headache Mild coronary artery disease Mild, nonobstructive coronary artery disease on cardiac catheterization in September 2017. Followed by Dr. Mireles. Other hyperlipidemia Postprocedural hypothyroidism Tobacco abuse Surgical History Surgical History History of cardiac catheterization (09/2017) Mild, nonobstructive coronary artery disease. About 30% stenosis in the mid-LAD with minor
== END 2021-12-24 18:52 | disposition home or self-care (01) ==
PROVIDERS: Emergency Provider Nurse Practitioner Family; PCP Internal Medicine
DX: R22.0 Localized swelling, mass and lump, head (principal); T78.40XA Allergy, unspecified, initial encounter; Z87.891 Personal history of nicotine dependence; I12.9 Hypertensive chronic kidney disease with stage 1 through stage 4 chronic kidney disease, or unspecified chronic kidney disease; N18.30 Chronic kidney disease, stage 3 unspecified; J44.9 Chronic obstructive pulmonary disease, unspecified; I25.10 Atherosclerotic heart disease of native coronary artery without angina pectoris; F41.9 Anxiety disorder, unspecified; F32.A Depression, unspecified; E89.0 Postprocedural hypothyroidism
CPT/HCPCS: 96372; 99213; A9270; G0463; J2930

== ENCOUNTER 2022-01-05 16:45 | Inpatient (IN) | payer OTHER, SELFPAY ==
[2022-01-05] VITALS (27 sets, daily range): BP systolic 100–156; BP diastolic 69–105; PULSE 81–114; RESP 16–30; TEMP 35.9–36.4; O2SAT 98–100; BMI 28.8
--- NOTE | ~2022-01-05 | XR_ITS ---
XR abdomen NG/feed tube insert DATE: 01/05/2022 21:41 INDICATION: NG tube placement TECHNIQUE: Portable supine AP view on 01/05/2022 2138 hours COMPARISON: None FINDINGS: NG tube is present in the lower body of the stomach, the proximal side-port 9.5 cm distal t o the diaphragmatic hiatus. Nonspecific bowel gas pattern. There is bilateral excretion of contrast material without evidence of hydroureteronephrosis. Included skeletal structures are unremarkable. IMPRESSION: NG tube in lower body of stomach Reviewed, dictated and finalized at [facility]. Reviewed, dictated and finalized at location A.
--- NOTE | ~2022-01-05 | CT_ITS ---
EXAMINATION: CT soft tissue neck w con DATE: 01/05/2022 21:40 INDICATION: Airway edema TECHNIQUE: Computed tomography (CT) of the neck was performed with 75 mL Omnipaque-350 intravenous co ntrast. Automated exposure control and iterative reconstruction technique were employed. Exam dose: 531.58 mGy-cm total exam DLP. COMPARISON: 01/05/2022 chest FINDINGS: Bilateral carotid siphon internal carotid artery calcifications are noted. An endotracheal tube is present in the trachea; there is generalized soft tissue swelling in the oral pharynx and supraglottic region causing severe narrowing of the airway. Above the colonic region the airway is completely compromised except for the lumen of the endotracheal tube. No abscess cavity is identified. The parotid and submandibular glands are unremarkable. The thyroid gland appears normal. No cervical mass lesion or lymphadenopathy is noted. No superior mediastinal mass lesion or lymphadenopathy. Normal diameter of the thoracic aortic arch. The lung apices are clear. There is a nasogastric tube in the esophagus. Status post anterior interbody spinal fusion at C3-C6. IMPRESSION: Prominent nonspecific soft tissue swelling of the oropharynx and supraglottic area compr omising the supraglottic airway, which is maintained only by the endotracheal tube in the supraglotti c area Reviewed, dictated and finalized at [facility]. Reviewed, dictated and finalized at location A. IMPRESSION: Prominent nonspecific soft tissue swelling of the oropharynx and s upraglottic area compromising the supraglottic airway, which is maintained only by the endotracheal tube in the supraglottic area
--- NOTE | ~2022-01-05 | XR_ITS ---
EXAMINATION: XR chest 1V portable DATE: 01/07/2022 05:54 INDICATION: Respiratory failure TECHNIQUE: frontal view of the chest was obtained. COMPARISON: Chest radiograph dated 01/05/22 FINDINGS: Endotracheal tube tip 4.6 cm above the alexey. Nasogastric tube extends below the left hemidiaphragm with distal tip collimated off the study. Lung volumes are decreased and there are new airspace opacities at the medial aspect of the bilateral lower lung zones which could represent atelectasis or pneumonia. The cardiomediastinal silhouette is normal. Cholecystectomy clips in right upper quadrant. Surgical clips at the right side of the neck and at the left axilla. Plate and screw fixation for cervical anterior spinal fusion. IMPRESSION: 1. Decreased lung volumes with new airspace opacities at the medial aspect of the bilateral lower jacinto g zones which could represent atelectasis or pneumonia. Reviewed, dictated and finalized at location A. IMPRESSION: 1. Decreased lung volumes with new airspace opacities at the medial aspect of t he bilateral lower lung zones which could represent atelectasis or pneumonia.
--- NOTE | ~2022-01-05 | XR_ITS ---
EXAMINATION: XR chest PICC line DATE: 01/07/2022 11:37 INDICATION: PICC line insertion TECHNIQUE: frontal view of the chest was obtained. COMPARISON: Chest radiograph dated 01/07/2022 FINDINGS: Left upper extremity peripherally inserted central venous catheter (PICC) tip at the superior labral junction. Endotracheal tube tip 4.0 cm above the alexey. Nasogastric tube extends below the left h emidiaphragm with distal tip collimated off the study. Persistent opacities at the medial aspect of the bilateral lower lung zones. No pleural effusion or p neumothorax. Cardiomediastinal silhouette is normal. Surgical clips at the left axilla and right neck . Partially visualized plate and screw fixation for anterior cervical spinal fusion. IMPRESSION: 1. Left MD PICC line tip at the superior cavoatrial junction. 2. Opacities at the medial aspect of the bilateral lower lung zones which could represent atelectasis or pneumonia. Reviewed, dictated and finalized at location A.
--- NOTE | ~2022-01-05 | XR_ITS ---
EXAMINATION: XR chest ET placement INDICATION: Endotracheal tube insertion TECHNIQUE: Portable AP chest at 1747 hours COMPARISON: 07/06/2021 FINDINGS: The endotracheal tube ends approximately 3.9 cm above the alexey. The lungs are free of acu te opacities. No pleural effusion or pneumothorax. The cardiomediastinal silhouette is normal. Surgic al clips are noted in the right neck, the left axilla, and the right upper quadrant. There are partia lly imaged changes of cervical fusion procedure. IMPRESSION: 1. Endotracheal tube approximately 3.9 cm above the alexey. No acute cardia pulmonary abnormality. Reviewed, dictated and finalized at location B. IMPRESSION: 1. Endotracheal tube approximately 3.9 cm above the alexey. No acute cardia pul monary abnormality.
--- NOTE | ~2022-01-05 | XR_ITS ---
EXAMINATION: XR chest 1V portable DATE: 01/08/2022 07:40 INDICATION: Respiratory failure TECHNIQUE: frontal view of the chest was obtained. COMPARISON: Chest radiograph dated 01/07/2022 FINDINGS: Endotracheal tube tip 2.7 cm above the alexey. Nasogastric tube in the stomach. Left upper extremity peripherally inserted central venous catheter (PICC) tip at the superior cavoatrial junction. Persistent airspace opacities at the medial aspect of the bilateral lower lung zones. No pulmonary ed shruthi, pleural effusion or pneumothorax. The cardiomediastinal silhouette is normal. Cholecystectomy cl ips the additional surgical clips at the left axilla. IMPRESSION: 1. Persistent opacities at the medial aspect of the bilateral lower lung zones which could represent atelectasis or pneumonia. Reviewed, dictated and finalized at location A.
--- NOTE | 2022-01-05 16:59 | ED.GENADULT ---
HPI - General Adult General Chief complaint: Unspecified <RAFFI Nelson Last Filed: 01/05/22 17:14> Stated complaint: tongue swelling <RAFFI Nelson Last Filed: 01/05/22 17:14> Time Seen by Provider: 01/05/22 16:52 <RAFFI Nelson Last Filed: 01/05/22 17:14> History of Present Illness HPI narrative: Patient is a 61-year-old female with a history of frequent allergic reactions here for evaluation of tongue swelling for the past 7 hours. Patient states that the right side of her tongue was mildly swollen this morning and is increased in nature ever since, now swollen down the right side of her neck. She has taken 2 Benadryl without relief. Does note trouble swallowing but denies itchiness or throat tightness, difficulty breathing. No new medications or known exposures to allergens. No ACEI use. <RAFFI Nelson Last Filed: 01/05/22 17:14> Related Data Home medications: Home Medications Medication Instructions Recorded Confirmed loratadine 10 mg tablet 10 mg PO QAM 11/01/19 12/14/21 melatonin 10 mg tablet 10 mg PO QHS 11/23/20 12/14/21 bupropion HCl 100 mg tablet 100 mg PO BID 06/28/21 12/14/21 rosuvastatin 40 mg tablet 40 mg PO QAM 06/28/21 12/14/21 acetaminophen 650 mg 1,300 mg PO BID 11/08/21 12/14/21 tablet,extended release (Tylenol Arthritis Pain) ipratropium 0.5 mg-albuterol 3 mg 3 ml inhalation QID PRN Dyspnea 11/08/21 12/14/21 (2.5 mg base)/3 mL nebulization soln montelukast 10 mg tablet 10 mg PO DAILY 11/22/21 12/14/21 <RAFFI Nelson Last Filed: 01/05/22 17:14> Allergies/adverse reactions: Allergies Allergy/AdvReac Type Severity Reaction Status Date / Time Sulfa (Sulfonamide Allergy Severe Swelling Verified 01/05/22 16:59 Antibiotics) of Lip/Tongue/Throat ampicillin Allergy Intermediate RASH/HIVES Verified 01/05/22 16:59 clindamycin Allergy Intermediate Hives Verified 01/05/22 16:59 doxycycline Allergy Intermediate Hives Verified 01/05/22 16:59 erythromycin base Allergy Intermediate RASH/HIVES Verified 01/05/22 16:59 hydrocodone Allergy Intermediate Rash Verified 01/05/22 16:59 Penicillins Allergy Intermediate Hives/AGITA Verified 01/05/22 16:59 TION tramadol Allergy Intermediate Hives Verified 01/05/22 16:59 morphine Allergy Mild ITCHING,RASH, Verified 01/05/22 16:59 HIVES propoxyphene Allergy Mild NIGHTMARES/ Verified 01/05/22 16:59 TREMORS/YORDY H/HIVES aspirin AdvReac Intermediate Abdominal Verified 12/19/21 09:19 Pain <Misty Westbrook PA-C - Last Filed: 01/05/22 17:14> Review of Systems Review of Systems: Gen: Denies fevers or chills Eyes: Denies eye pain or visual change ENT: Reports tongue swelling. Respiratory: Denies shortness of breath or cough CV: Denies chest pain or palpitations GI: Denies abdominal pain nausea, emesis or diarrhea : denies burning, urgency, frequency or hematuria Musculoskeletal: Denies back pain or muscle pain Neuro: Denies numbness, tingling, weakness or focal weakness Skin: Denies rash Except as documented, all other systems reviewed and negative <Misty Westbrook PA-C - Last Filed: 01/05/22 17:14> [facility] Past Medical History Medical History: Medical History Alcohol use disorder Anxiety Asthma Chronic interstitial cystitis without hematuria Chronic kidney disease, stage III (moderate) Chronic obstructive pulmonary disease Collagenous colitis Degenerative disc disease History of fall from ladder Hypertension Irritable bowel syndrome with diarrhea Major depressive disorder, single episode, moderate Migraine headache Mild coronary artery disease Mild, nonobstructive coronary artery disease on cardiac catheterization in September 2017. Followed by Dr. Mireles. Other hyperlipidemia Postprocedural hypothyroidism Tobacco abuse <Misty Quinn
[2022-01-05] MEDS: EPINEPHrine HCL INJ 1 MG/ML AMPUL 0.3 MG IM (17:14)
[2022-01-05] MEDS: FAMOTIDINE 20 MG/2 ML VIAL IV PUSH ×2 (17:18→22:22)
[2022-01-05] MEDS: diphenhydrAMINE HCl INJ 50 MG/ML VIAL 25 MG IV PUSH ×2 (17:19→22:22)
[2022-01-05] MEDS: methylPREDNISolone SOD SUCC 125 MG VIAL IV PUSH (17:19)
--- NOTE | 2022-01-05 17:27 | PC.NURSE ---
pt conditioning worsening and tongue swelling increasing after medications. EDP at bedside for intubation.
--- NOTE | 2022-01-05 17:30 | PM.IMHP ---
H&P: HPI History of Present Illness Date/Time: 01/05/22 17:30 Chief Complaint: Tongue swelling. Narrative: This is a 61-year-old female with hypertension, dyslipidemia, mild nonobstructive coronary artery disease noted on cardiac cath in September 2017, COPD, asthma, and hypothyroidism who presented to the ED for evaluation of tongue swelling for the past 7 hours. She woke up this morning with swelling of the right side of her tongue and that has gotten progressively worse over the past 7 hours. She took Benadryl at home without much relief and thus she came in for evaluation. In the ED she continued to have progressive swelling and difficulties tolerating secretions and she was electively intubated. On chart review it is noted that the patient recently had a right hip replacement on 11/22/2021 and she was taking tramadol but developed hives to her arms and she was put on a short course of prednisone several weeks ago. It is noted that she was seen at urgent care on 12/24/2021 with swelling to the left side of her face which she thought may have been due to exposure to an air freshener in her granddaughter scar as she apparently has history of allergic reactions to fragrances. She was given another 5 day course of prednisone in addition to famotidine. Prior to these recent episodes, she apparently has not had a history of angioedema. There is no reports of hereditary angioedema and she is not on an GIL-inhibitor. She has been taking naproxen but has no known and said allergies though aspirin is listed which causes abdominal pain. Review of Systems Review of Systems: Unable to obtain given current clinical condition. [facility] Past Medical History Medical History (Updated 01/05/22 @ 23:47 by Omayra Lopez PA-C) Alcohol use disorder Significantly cut back on alcohol consumption in May 2021. Anxiety Asthma Chronic interstitial cystitis without hematuria Chronic kidney disease, stage III (moderate) Chronic obstructive pulmonary disease Collagenous colitis Degenerative disc disease History of fall from ladder Hypertension Irritable bowel syndrome with diarrhea Major depressive disorder, single episode, moderate Migraine headache Mild coronary artery disease Mild, nonobstructive coronary artery disease on cardiac catheterization in September 2017. Followed by Dr. Mireles. Other hyperlipidemia Postprocedural hypothyroidism Tobacco abuse Surgical History Surgical History History of cardiac catheterization (09/2017) Mild, nonobstructive coronary artery disease. About 30% stenosis in the mid-LAD with minor irregularities in the proximal mid RCA. History of cervical spinal surgery History of cholecystectomy History of hysterectomy History of left breast biopsy History of resection of rib Bilateral for thoracic outlet obstruction. History of total right hip arthroplasty (11/22/21) Family History Family History Father Family history of malignant neoplasm Family history of heart disease in male family member before age 55 Other Sickle cell anemia Social History Social History (Updated 01/05/22 @ 23:47 by Omayra Lopez PA-C) Social History: Code status: Full code. Smoking packs per day: 0.5 Smoking cigarettes per day: 10.0 Years smoked: 25 Smoking pack-years: 12.50 Smoking status: Current every day smoker Tobacco type: cigarettes Second hand tobacco smoke exposure: No Smoking end date: 10/06/21 Additional smoking assessment comments: SMOKING INTERMITTENLY, LAST CIG 10/06/21 Alcohol intake: current Drinks per week: 1 Alcohol use details: IN PAST 6/NIGHT (42/WK), REDUCED ALCOHOL ~05/2021 Substance use: never Substance use type: does not use Living arrangements: with family Additional living arrangements comments: Lives in [place] with her and son. 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
--- NOTE | 2022-01-05 17:33 | PC.NURSE ---
EDP at bedside. 30mg of Etomidate administered.100mg of Succinylcholine administered.
--- NOTE | 2022-01-05 17:35 | PC.NURSE ---
EDP attempting intubation. pt being ventilated w/ bag valve mask.
--- NOTE | 2022-01-05 17:40 | PC.NURSE ---
pt intubated at this time. 6.5 mm tube. 23cm at the lip.
--- NOTE | 2022-01-05 17:43 | PC.NURSE ---
60mg of Propofol administered SHAUNA Winters.
[2022-01-05] MEDS: PROPOFOL IV EMULSION 100 ML 2.38 MG IV CONT (17:47)
--- NOTE | 2022-01-05 17:56 | PC.NURSE ---
pt hooked up to Ventilator.
--- NOTE | 2022-01-05 18:08 | PC.NURSE ---
4mg of Versed administered per ART Winters.
[2022-01-05] MEDS: FENTANYL 2,500MCG/NS250ML(*CRX 2,500 MCG/250 ML BAG IV CONT (18:28)
[2022-01-05] MEDS: MIDAZOLAM 100MG/NS 100ML(*CRX) 100 MG/100 ML BAG IV CONT (18:31)
[2022-01-05 18:43] LABS: Alveolar/Arterial O2 Gradient 174.5 mmHg; Base Excess ABG -2.9 mEq/l (+/-2.0); Device VENTILATOR; Fractional Inspired Oxygen 50 %; HCO3 ABG 20.9 mEq/l (22.0-26.0); Modified Allen's Test Pass; Oxygen Content ABG 18.1 %vol (16.0-22.0); Oxygen Saturation ABG 98.9 % (95.0-100.0); Oxyhemoglobin 96.2 % THb (90.0-100.0); PCO2 ABG 33.8 mmHg (35.0-45.0); PO2 FiO2 Ratio Arterial Blood 2.88 %; Site Drawn RIGHT RADIAL; Total Hemoglobin 13.2 g/dL (12.0-18.0)
[2022-01-05 18:44] LABS: Arterial Blood Gas PEEP 5 cmH2O; Arterial Blood Gas Tidal Volume 400 ml; Arterial Blood Gas Vent Mode CMV; Arterial Blood Gas Ventilator rate 16 /MIN
[2022-01-05] MEDS: SODIUM CHLORIDE 0.9% IV 1,000 ML 125 ML IV CONT (19:03)
[2022-01-05 19:07] LABS: Basophils Percent Auto 0.2 % (0.2-1.2); Eosinophils Absolute Auto 0.1 K/mm3 (0-0.3); Eosinophils Percent Auto 0.7 % (0-4.4); Hematocrit 37.2 % (37.0-47.0); Hemoglobin 12.1 g/dL (12.0-15.0); Immature Granulocyte Absolute 0.07 K/mm3 (0.00-0.031); Immature Granulocyte Percent A 0.7 % (0-0.5); Lymphocytes Absolute Auto 0.87 K/mm3 (0.9-3.2); Lymphocytes Percent Auto 9.3 % (18.3-44.2); Mean Corpuscular HGB Conc 32.5 g/dl (32-36); Mean Corpuscular Hemoglobin 29.4 pg (26-34); Mean Corpuscular Volume 90.5 fl (80-100); Mean Platelet Volume 9.4 fl (7.4-10.4); Monocytes Absolute Auto 0.3 K/mm3 (0.1-0.6); Monocytes Percent Auto 3.2 % (2.6-8.5); Neutrophils Absolute Auto 8.1 K/mm3 (1.3-6.7); Neutrophils Percent Auto 85.9 % (45.5-73.1); Platelet Count Result 163 k/mm3 (150-375); Red Blood Count 4.11 M/mm3 (4.2-5.4); White Blood Count 9.4 K/mm3 (4.5-10.0)
[2022-01-05 19:16] LABS: Alanine Aminotransferase 32 U/L (6-35); Albumin Level 4.3 g/dL (3.5-5.1); Alkaline Phosphatase 154 U/L (38-126); Anion Gap 5 mmol/L (8-16); Aspartate Amino Transferase 34 U/L (14-36); Bilirubin,Total 1.3 mg/dL (0.2-1.3); Blood Urea Nitrogen 12 mg/dL (7-17); Calcium 9.1 mg/dL (8.4-10.2); Carbon Dioxide 24 mmol/L (22-30); Chloride 104 mmol/L (98-107); Estimated CRCL calculation 54 ml/min; Estimated Glomerular Filt Rate > 60; Glucose 144 mg/dL (65-110); Potassium 3.5 mmol/L (3.4-5.0); Sodium 133 mmol/L (137-145)
[2022-01-05 19:18] LABS: Prothrombin Time 13.2 Seconds (11.1-14.7)
[2022-01-05 19:19] LABS: Partial Thromboplastin Time 32.9 SECONDS (22.3-36.8)
[2022-01-05] MEDS: MIDAZOLAM HCL (*CRX) 2 MG/2 ML VIAL (19:25)
--- NOTE | 2022-01-05 19:25 | PC.NURSE ---
gave pt 2mg of Versed per ART Winters. Steel Plate Caulker requesting for Versed to be administered at 7mg/hr.
--- NOTE | 2022-01-05 19:33 | PC.NURSE ---
multiple attempts at OG/NG without success.
[2022-01-05 19:43] LABS: SARS-CoV-2 RNA PCR Negative
[2022-01-05 20:00] LABS: CRP 3.9 mg/dL (<1.0)
[2022-01-05 20:22] LABS: Erythrocyte Sedimentation Rate 81 mm/hr (0-20)
--- NOTE | 2022-01-05 22:57 | PC.NURSE ---
This patient, Phyllis Torre, was admitted to Intensive Care Unit-2 [id number]. Patient/family oriented to hospital policies and general routines including ID bracelet, bed and alarms, visiting hours, pain management, procedures, bathroom and other care routines, personal items, smoking policy, room service/diet, and visiting hours. Information on how to activate the Rapid Response Team has been discussed. Patient/Family are encouraged to report perceived risks to care and to ask questions if they do not understand what they are told or what they should do.
[2022-01-06] VITALS (33 sets, daily range): BP systolic 92–122; BP diastolic 52–75; PULSE 50–98; RESP 16–22; TEMP 36.2–36.9; O2SAT 97–100
[2022-01-06] MEDS: SODIUM CHLORIDE 0.9% IV 1,000 ML 999 ML IV CONT (00:54)
[2022-01-06] MEDS: methylPREDNISolone SOD SUCC 125 MG VIAL 60 MG IV PUSH ×4 (00:54→17:11)
[2022-01-06] MEDS: SODIUM CHLORIDE 0.9% IV 1,000 ML 125 ML IV CONT ×3 (00:54→17:13)
[2022-01-06 04:57] LABS: Alveolar/Arterial O2 Gradient 89.9 mmHg; Carboxyhemoglobin 0.3 % THb (0-2.0); Fractional Inspired Oxygen 30 %; HCO3 ABG 21.2 mEq/l (22.0-26.0); Methemoglobin ABG 0.4 %THb (0-1.5); Oxygen Content ABG 15.2 %vol (16.0-22.0); Oxygen Saturation ABG 96.3 % (95.0-100.0); Oxyhemoglobin 94.5 % THb (90.0-100.0); PCO2 ABG 35.1 mmHg (35.0-45.0); PO2 ABG 82.8 mmHg (80.0-100.0); PO2 FiO2 Ratio Arterial Blood 2.76 %; Reduced Hemoglobin 4.8 %THb (0-5.0); Total Hemoglobin 11.4 g/dL (12.0-18.0); pH ABG 7.399 (7.350-7.450)
[2022-01-06 04:59] LABS: Device VENTILATOR; Modified Allen's Test Pass; Site Drawn RIGHT RADIAL
[2022-01-06 05:01] LABS: Arterial Blood Gas PEEP 5 cmH2O; Arterial Blood Gas Tidal Volume 400 ml; Arterial Blood Gas Vent Mode CMV; Arterial Blood Gas Ventilator rate 16 /MIN
[2022-01-06] MEDS: diphenhydrAMINE HCl INJ 50 MG/ML VIAL 25 MG IV PUSH ×3 (05:16→17:10)
[2022-01-06] MEDS: MIDAZOLAM 100MG/NS 100ML(*CRX) 100 MG/100 ML BAG IV CONT (07:42)
[2022-01-06 08:14] LABS: Basophils Percent Auto 0.1 % (0.2-1.2); Hemoglobin 11.8 g/dL (12.0-15.0); Immature Granulocyte Absolute 0.06 K/mm3 (0.00-0.031); Immature Granulocyte Percent A 0.8 % (0-0.5); Lymphocytes Absolute Auto 0.82 K/mm3 (0.9-3.2); Lymphocytes Percent Auto 10.7 % (18.3-44.2); Mean Corpuscular HGB Conc 31.1 g/dl (32-36); Mean Corpuscular Hemoglobin 28.9 pg (26-34); Mean Corpuscular Volume 93.1 fl (80-100); Mean Platelet Volume 9.8 fl (7.4-10.4); Monocytes Absolute Auto 0.2 K/mm3 (0.1-0.6); Monocytes Percent Auto 2.5 % (2.6-8.5); Neutrophils Absolute Auto 6.6 K/mm3 (1.3-6.7); Neutrophils Percent Auto 85.9 % (45.5-73.1); Platelet Count Result 139 k/mm3 (150-375); Red Blood Count 4.08 M/mm3 (4.2-5.4); Red Cell Distribution Width 14.6 % (11.5-14.5); White Blood Count 7.6 K/mm3 (4.5-10.0)
[2022-01-06 08:33] LABS: Anion Gap 6 mmol/L (8-16); Blood Urea Nitrogen 12 mg/dL (7-17); Calcium 7.8 mg/dL (8.4-10.2); Carbon Dioxide 18 mmol/L (22-30); Chloride 110 mmol/L (98-107); Estimated CRCL calculation 69 ml/min; Estimated Glomerular Filt Rate > 60; Glucose 147 mg/dL (65-110); Potassium 3.7 mmol/L (3.4-5.0); Sodium 134 mmol/L (137-145)
[2022-01-06] MEDS: MONTELUKAST SODIUM 10 MG TABLET PO (09:15)
[2022-01-06] MEDS: ENOXAPARIN 40 MG/0.4 ML SYRINGE SUB-Q (09:15)
[2022-01-06] MEDS: BUDESONIDE 3 MG CAP.SR.24H 6 MG PO (09:15)
[2022-01-06] MEDS: FAMOTIDINE 20 MG/2 ML VIAL IV PUSH ×2 (09:15→20:11)
--- NOTE | 2022-01-06 11:29 | WPDCNINT ---
Assessment and Plan Assessment and plan (1) Acute respiratory failure: Code(s): J96.00 - Acute respiratory failure, unspecified whether with hypoxia or hypercapnia Status: Acute Assessment and Plan: Acute Respiratory failure secondary to angioedema. Patient does have a history of asthma/COPD details of which are unknown. Patient does not appear to be in exacerbation of either Patient was intubated with difficulty in ER and has a size 6 ET tube Continue full mechanical ventilation support to prevent hypoxemia/hypercarbia and end organ damage. ABG and PCXR reviewed and will repeat in am. Low tidal volume ventilation strategy to prevent volutrauma Her weaning will depend on improvement of her neck swelling ENT consulted and Dr. Bonilla is planning to do fiberoptic laryngoscopy later today May need to repeat CT scan in 24-48 hours Bronchodilators (2) Angioedema: Code(s): T78.3XXA - Angioneurotic edema, initial encounter Status: Acute Assessment and Plan: Etiology unknown at this point patient does have history of multiple allergic reactions in the past. She presented to ER in November with swelling of her left side of her face. To that she had allergic reaction to tramadol. CRP 3.9, ESR 81, Complement C4 level was elevated at 50.4 Patient is not on any Zachery inhibitors or NSAIDs Tryptase level has been sent out Check C1 esterase inhibitor She did get epinephrine in the ER Continue Solu-Medrol, Benadryl, Pepcid. Add loratadine Patient is currently hemodynamic stable (3) Hypothyroidism: Code(s): E03.9 - Hypothyroidism, unspecified Status: Acute Assessment and Plan: Resume levothyroxine (4) Hypertension: Code(s): I10 - Essential (primary) hypertension Status: Acute Assessment and Plan: Blood pressure adequately controlled this time hold antihypertensive Additional Plan DVT prophylaxis -Lovenox Stress ulcer prophylaxis -patient on Pepcid Nutrition -start Tube Feeds Code Status - Full Code Patient's and daughter updated at bedside Total Critical Care Time - 35 minutes Due to a high probability of clinically significant, life threatening deterioration, the patient required my highest level of preparedness to intervene emergently and I personally spent this critical care time directly and personally managing the patient. This critical care time included obtaining a history; examining the patient; pulse oximetry; ordering and review of studies; arranging urgent treatment with development of a management plan; evaluation of patient's response to treatment; frequent reassessment; and discussions with other providers. It was exclusive of separately billable procedures and treating other patients and teaching time. Please see Assessment and Plan section and the rest of the note for further information on patient assessment and treatment [facility] Consult Note Consult date: 01/06/22 Reason for consult: Acute respiratory failure, angioedema HPI: Phyllis Torre is a 61-year-old female with past medical history of hypertension, dyslipidemia, mild nonobstructive coronary artery disease noted on cardiac cath in September 2017, COPD, asthma, and hypothyroidism who presented to the ED for evaluation of tongue swelling for the past 7 hours. Patient has multiple allergies listed on her allergy list. She had ER visit last month with complaint of swelling of left side of face she was treated with steroids. Prior to that she had allergic reaction to tramadol which was started after her hip surgery. Yesterday she presented chief complaint of swelling of her right side of the tongue since morning. Her swelling had gotten progressively worse over the day. She took Benadryl at home without much relief and thus she came in for evaluation with her In the ED she continued to have progressive swelling and difficulties tolerating secretions and she was electively intubated.
[2022-01-06] MEDS: LORATADINE 10 MG TABLET FEED TUBE (11:50)
[2022-01-06 12:13] LABS: Glucose Point of Care 114 mg/dl (65-105)
[2022-01-06 14:35] LABS: Procalcitonin 0.2 ng/mL
--- NOTE | 2022-01-06 14:57 | WPDCN ---
Assessment and Plan Assessment and plan (1) Angioedema: Code(s): T78.3XXA - Angioneurotic edema, initial encounter Status: Acute Assessment and Plan: Scope shows significant boggy angioedema of the vocal processes. Otherwise fairly normal exam. Tongue edema may be related to biting on tongue. Recommend aggressive bite block usage make sure the patient is never biting her tongue. Would do steroids, typical dose we used in training was 8-10 mg of Decadron q.8 hours or something comparable. Call me with any questions happy to reschedule. (2) Acute respiratory failure: Code(s): J96.00 - Acute respiratory failure, unspecified whether with hypoxia or hypercapnia Status: Acute HPI Data of Consult Date/Time: 01/06/22 14:57 Requesting Physician: Sanjuana Smith DO Primary Care Provider: Mamadou Momin MD Consult Narrative Narrative: Phyllis Torre is a 61 year old female with a history of a recent swelling of the face mouth. Intubated yesterday electively for oral swelling loss of airway. ENT consult for angioedema airway evaluation. Review of Systems Review of Systems: ROS unobtainable: Yes unobtainable due to endotracheal tube PMFSH Past Medical History Medical History Alcohol use disorder Significantly cut back on alcohol consumption in May 2021. Anxiety Asthma Chronic interstitial cystitis without hematuria Chronic kidney disease, stage III (moderate) Chronic obstructive pulmonary disease Collagenous colitis Degenerative disc disease History of fall from ladder Hypertension Irritable bowel syndrome with diarrhea Major depressive disorder, single episode, moderate Migraine headache Mild coronary artery disease Mild, nonobstructive coronary artery disease on cardiac catheterization in September 2017. Followed by Dr. Mireles. Other hyperlipidemia Postprocedural hypothyroidism Tobacco abuse Surgical History Surgical History History of cardiac catheterization (09/2017) Mild, nonobstructive coronary artery disease. About 30% stenosis in the mid-LAD with minor irregularities in the proximal mid RCA. History of cervical spinal surgery History of cholecystectomy History of hysterectomy History of left breast biopsy History of resection of rib Bilateral for thoracic outlet obstruction. History of total right hip arthroplasty (11/22/21) Family History Family History Father Family history of malignant neoplasm Family history of heart disease in male family member before age 55 Other Sickle cell anemia Social History Social History Social History: Code status: Full code. Smoking packs per day: 0.5 Smoking cigarettes per day: 10.0 Years smoked: 25 Smoking pack-years: 12.50 Smoking status: Current every day smoker Tobacco type: cigarettes Second hand tobacco smoke exposure: No Smoking end date: 10/06/21 Additional smoking assessment comments: SMOKING INTERMITTENLY, LAST CIG 10/06/21 Alcohol intake: current Drinks per week: 1 Alcohol use details: IN PAST 6/NIGHT (42/WK), REDUCED ALCOHOL ~05/2021 Substance use: never Substance use type: does not use Living arrangements: with family Additional living arrangements comments: Lives in [place] with her and son. Occupation/Education: retired Spiritual care concerns: No Meds Home Medications and Allergies Home Medications Medication Instructions Recorded Confirmed Type loratadine 10 mg tablet 10 mg PO QAM 11/01/19 01/05/22 History melatonin 10 mg tablet 10 mg PO QHS 11/23/20 01/05/22 History metoprolol tartrate 25 mg tablet 25 mg PO BID #180 tabs 06/06/21 01/05/22 Rx bupropion HCl 100 mg tablet 100 mg PO BID 06/28/21 01/05/22 History rosuvastatin 40 mg tablet 40 mg PO QAM
[2022-01-06] MEDS: MIDAZOLAM HCL (*CRX) 2 MG/2 ML VIAL 4 MG IV PUSH ×2 (15:25→20:50)
--- NOTE | 2022-01-06 15:36 | WPDPROCEDUR ---
Procedures Laryngoscopy Laryngoscopy Comments: Lubricant applied to the flexible scope in the ICU. Flexible is a flexible scope passed through the left nasal passage this occurred after consent was given by the family. Normal nasal passage normal nasopharynx normal oropharynx the pharyngeal laryngeal examination is significant for exquisite bogginess of the laryngeal inlet almost completely obstructing it.
[2022-01-06 17:41] LABS: Glucose Point of Care 134 mg/dl (65-105)
[2022-01-07] VITALS (32 sets, daily range): BP systolic 90–137; BP diastolic 60–83; PULSE 53–109; RESP 14–22; TEMP 36.4–37.2; O2SAT 93–100
[2022-01-07] LABS: Glucose Point of Care 139 mg/dl (65-105)
[2022-01-07] MEDS: diphenhydrAMINE HCl INJ 50 MG/ML VIAL 25 MG IV PUSH ×5 (00:37→23:10)
[2022-01-07] MEDS: methylPREDNISolone SOD SUCC 125 MG VIAL 60 MG IV PUSH ×5 (00:37→23:10)
[2022-01-07] MEDS: SODIUM CHLORIDE 0.9% IV 1,000 ML 125 ML IV CONT (01:32)
[2022-01-07] MEDS: FENTANYL 2,500MCG/NS250ML(*CRX 2,500 MCG/250 ML BAG 7.5 MCG IV CONT (01:36)
[2022-01-07] MEDS: MIDAZOLAM HCL (*CRX) 2 MG/2 ML VIAL 4 MG IV PUSH ×2 (03:23→22:21)
[2022-01-07 04:51] LABS: Hematocrit 32.4 % (37.0-47.0); Hemoglobin 10.4 g/dL (12.0-15.0); Mean Corpuscular HGB Conc 32.1 g/dl (32-36); Mean Corpuscular Hemoglobin 29.5 pg (26-34); Mean Corpuscular Volume 91.8 fl (80-100); Mean Platelet Volume 9.9 fl (7.4-10.4); Platelet Count Result 158 k/mm3 (150-375); Red Blood Count 3.53 M/mm3 (4.2-5.4); Red Cell Distribution Width 14.6 % (11.5-14.5)
[2022-01-07 05:03] LABS: Alanine Aminotransferase 24 U/L (6-35); Albumin Level 3.6 g/dL (3.5-5.1); Alkaline Phosphatase 107 U/L (38-126); Anion Gap 6 mmol/L (8-16); Aspartate Amino Transferase 24 U/L (14-36); Bilirubin,Total 0.1 mg/dL (0.2-1.3); Blood Urea Nitrogen 17 mg/dL (7-17); Calcium 8.7 mg/dL (8.4-10.2); Carbon Dioxide 22 mmol/L (22-30); Chloride 109 mmol/L (98-107); Estimated CRCL calculation 69 ml/min; Estimated Glomerular Filt Rate > 60; Glucose 187 mg/dL (65-110); Magnesium 1.9 mg/dL (1.6-2.3); Potassium 3.8 mmol/L (3.4-5.0); Sodium 137 mmol/L (137-145)
[2022-01-07 05:18] LABS: Alveolar/Arterial O2 Gradient 88.4 mmHg; Base Excess ABG -3.8 mEq/l (+/-2.0); Carboxyhemoglobin 0.2 % THb (0-2.0); Fractional Inspired Oxygen 30 %; HCO3 ABG 21.5 mEq/l (22.0-26.0); Methemoglobin ABG 0.5 %THb (0-1.5); Oxyhemoglobin 93.1 % THb (90.0-100.0); PCO2 ABG 40.1 mmHg (35.0-45.0); PO2 ABG 78.4 mmHg (80.0-100.0); PO2 FiO2 Ratio Arterial Blood 2.61 %; Reduced Hemoglobin 6.2 %THb (0-5.0); Total Hemoglobin 11.4 g/dL (12.0-18.0); pH ABG 7.347 (7.350-7.450)
[2022-01-07 05:19] LABS: Arterial Blood Gas Ventilator rate 16 /MIN; Device VENTILATOR; Modified Allen's Test Unable to perform; Site Drawn RIGHT RADIAL
[2022-01-07 05:20] LABS: Arterial Blood Gas PEEP 5 cmH2O; Arterial Blood Gas Tidal Volume 400 ml; Arterial Blood Gas Vent Mode CMV
[2022-01-07] MEDS: LEVOTHYROXINE SODIUM 50 MCG TABLET FEED TUBE (05:27)
[2022-01-07] MEDS: MIDAZOLAM 100MG/NS 100ML(*CRX) 100 MG/100 ML BAG IV CONT (08:15)
[2022-01-07] MEDS: FAMOTIDINE 20 MG/2 ML VIAL IV PUSH ×2 (08:31→20:06)
[2022-01-07] MEDS: BUDESONIDE 3 MG CAP.SR.24H 6 MG PO (08:31)
[2022-01-07] MEDS: ENOXAPARIN 40 MG/0.4 ML SYRINGE SUB-Q (08:31)
[2022-01-07] MEDS: LORATADINE 10 MG TABLET FEED TUBE (08:32)
[2022-01-07] MEDS: MONTELUKAST SODIUM 10 MG TABLET PO (08:32)
--- NOTE | 2022-01-07 08:33 | WPDINTPN ---
Progress Note: A&P Assessment and Plan (1) Acute respiratory failure: Code(s): J96.00 - Acute respiratory failure, unspecified whether with hypoxia or hypercapnia Status: Acute Assessment and Plan: Acute Respiratory failure secondary to angioedema. Patient does have a history of asthma/COPD details of which are unknown. Patient does not appear to be in exacerbation of either Patient was intubated with difficulty in ER and has a size 6 ET tube Flexible bronchoscopy was done by ENT on 01/06 and significant amount of swelling was seen at laryngeal inlet. I checked cuff leak today and there was no significant drop in tidal volumes on a ventilator when her cuff was deflated. I will repeat CT scan of soft tissue neck in 24 hours Continue current treatment at this time Will continue mechanical ventilation at this time and treatment. Continue full mechanical ventilation support to prevent hypoxemia/hypercarbia and end organ damage. ABG and PCXR reviewed and will repeat in am. Low tidal volume ventilation strategy to prevent volutrauma Her weaning will depend on improvement of her neck swelling Hold sedation holiday still avoid losing endotracheal tube (2) Angioedema: Code(s): T78.3XXA - Angioneurotic edema, initial encounter Status: Acute Assessment and Plan: Etiology unknown at this point patient does have history of multiple allergic reactions in the past. She presented to ER in November with swelling of her left side of her face. Prior to that she had allergic reaction to tramadol. She has never been officially tested for allergies and has not seen a specialist CRP 3.9, ESR 81, Complement C4 level was elevated at 50.4 Patient is not on any Zachery inhibitors or NSAIDs Tryptase level has been sent out Pending C1 esterase inhibitor She did get epinephrine in the ER Continue Solu-Medrol, Benadryl, Pepcid and loratadine Patient is currently hemodynamic stable Plan to repeat CT scan tomorrow ENT is following (3) Hypothyroidism: Code(s): E03.9 - Hypothyroidism, unspecified Status: Acute Assessment and Plan: Continue levothyroxine (4) Hypertension: Code(s): I10 - Essential (primary) hypertension Status: Acute Assessment and Plan: Blood pressure adequately controlled this time hold antihypertensive Additional Plan DVT prophylaxis -Lovenox Stress ulcer prophylaxis -patient on Pepcid Nutrition -continue Tube Feeds Code Status - Full Code 01/06 Patient's and daughter updated at bedside Total Critical Care Time - 32 minutes Due to a high probability of clinically significant, life threatening deterioration, the patient required my highest level of preparedness to intervene emergently and I personally spent this critical care time directly and personally managing the patient. This critical care time included obtaining a history; examining the patient; pulse oximetry; ordering and review of studies; arranging urgent treatment with development of a management plan; evaluation of patient's response to treatment; frequent reassessment; and discussions with other providers. It was exclusive of separately billable procedures and treating other patients and teaching time. Please see Assessment and Plan section and the rest of the note for further information on patient assessment and treatment Subjective Date/time seen: 01/07/22 08:33 Overnight events reviewed. Afebrile Continues to be on mechanical ventilation Continues to be sedated with Versed and fentanyl Vitals acceptable Review of Systems Review of Systems: ROS unobtainable: Yes unobtainable due to endotracheal tube, unobtainable due to medical condition and unobtainable due to mental status Exam Narrative: General: Pt is sedated, intubated and on mechanical ventilation Lungs/Chest: Trachea central Coarse BS B/L, No crackles or wheezing. Cardiac: RRR. Normal S1 S2. No murmurs Circulation: Pedal pulses
--- NOTE | 2022-01-07 11:20 | P.PNCROSS_ITS ---
Event Note Event Note Event Note: Spoke to transfer center at [facility] and they state that [facility] is not current ly accepting any transfers I spoke to [facility] and they have have placed patient on wait list. They will accept patient was they have a bed available. I spoken to Dr. Valdes and Dr. Pierre will be accepting physician.
[2022-01-07 12:15] LABS: Glucose Point of Care 159 mg/dl (65-105)
--- NOTE | 2022-01-07 14:11 | PM.IMPN ---
Progress Note: A&P Assessment and Plan (1) Acute respiratory failure: Code(s): J96.00 - Acute respiratory failure, unspecified whether with hypoxia or hypercapnia Status: Acute Assessment and Plan: Per Critical Care notation: Acute Respiratory failure secondary to angioedema. Patient does have a history of asthma/COPD details of which are unknown. Patient does not appear to be in exacerbation of either Patient was intubated with difficulty in ER and has a size 6 ET tube Flexible bronchoscopy was done by ENT on 01/06 and significant amount of swelling was seen at laryngeal inlet. I checked cuff leak today and there was no significant drop in tidal volumes on a ventilator when her cuff was deflated. I will repeat CT scan of soft tissue neck in 24 hours Continue current treatment at this time Will continue mechanical ventilation at this time and treatment. Continue full mechanical ventilation support to prevent hypoxemia/hypercarbia and end organ damage. ABG and PCXR reviewed and will repeat in am. Low tidal volume ventilation strategy to prevent volutrauma Her weaning will depend on improvement of her neck swelling Hold sedation holiday still to avoid losing endotracheal tube 01/07: Chart reviewed, spoke with patient's family, unsure of etiology of recurrent hives and angioedema since having her hip replaced November 22. Agree with transfer to [facility] for allergy/immunology consultation. Differential diagnosis includes mast cell activation syndrome versus idiopathic urticaria/angioedema ???Reaction to hardware/physiologic versus emotional stress from hip surgery (2) Angioedema: Code(s): T78.3XXA - Angioneurotic edema, initial encounter Status: Acute Assessment and Plan: Etiology unknown at this point patient does have history of multiple allergic reactions in the past. She presented to ER in November with swelling of her left side of her face. Prior to that she had allergic reaction to tramadol. She has never been officially tested for allergies and has not seen a specialist CRP 3.9, ESR 81, Complement C4 level was elevated at 50.4 Patient is not on any Zachery inhibitors or NSAIDs Tryptase level has been sent out Pending C1 esterase inhibitor She did get epinephrine in the ER Continue Solu-Medrol, Benadryl, Pepcid and loratadine Patient is currently hemodynamic stable Plan to repeat CT scan tomorrow ENT is following 01/07: Appreciate ENT and critical care consultation, continue current management, follow-up CT results tomorrow (3) Hypothyroidism: Code(s): E03.9 - Hypothyroidism, unspecified Status: Acute Assessment and Plan: Continue levothyroxine (4) Hypertension: Code(s): I10 - Essential (primary) hypertension Status: Acute Assessment and Plan: Blood pressure adequately controlled this time hold antihypertensive Additional Plan DVT prophylaxis -Lovenox Stress ulcer prophylaxis -patient on Pepcid Nutrition -continue Tube Feeds Code Status - Full Code Subjective Date/time seen: 01/07/22 14:11 Interval history: int/sed Family at bedside, the states that ever since patient had her hip replaced November 22 she has had intermittent hives and episodes of [id number] angioedema. She has been to the ER several times for treatment of this and was on Benadryl and prednisone at home. However, the last episode became so severe that the patient was unable to breathe. She had severe angioedema requiring intubation in the ER. She remains intubated and sedated at this time. No overnight events noted. Review of Systems Review of Systems: ROS unobtainable: Yes unobtainable due to endotracheal tube Exam Narrative: General: Pt is sedated, intubated and on mechanical ventilation Lungs/Chest: Coarse BS B/L, No crackles or wheezing. Cardiac: RRR. Normal S1 S2. No murmurs Circulation: Pedal pulses are intact and symmetrical. Extremities: No clubbing, cyanosis or ed
[2022-01-07 17:18] LABS: Glucose Point of Care 165 mg/dl (65-105)
[2022-01-07] MEDS: CENTRAL LINE FLUSH 10 ML IV PUSH ×2 (18:00→20:07)
[2022-01-07] MEDS: MINERAL OIL/WHITE PETROLATUM OINTMENT 1 APPLIC EACH EYE (20:07)
[2022-01-07 23:23] LABS: Glucose Point of Care 178 mg/dl (65-105)
[2022-01-08] VITALS (11 sets, daily range): BP systolic 129–164; BP diastolic 65–84; PULSE 46–95; RESP 16–19; TEMP 36.4–36.9; O2SAT 93–98
[2022-01-08] MEDS: MIDAZOLAM HCL (*CRX) 2 MG/2 ML VIAL 4 MG IV PUSH (02:19)
[2022-01-08] MEDS: MIDAZOLAM 100MG/NS 100ML(*CRX) 100 MG/100 ML BAG IV CONT (04:04)
[2022-01-08] MEDS: FENTANYL 2,500MCG/NS250ML(*CRX 2,500 MCG/250 ML BAG 10 MCG IV CONT (04:05)
[2022-01-08] MEDS: diphenhydrAMINE HCl INJ 50 MG/ML VIAL 25 MG IV PUSH (05:32)
[2022-01-08] MEDS: methylPREDNISolone SOD SUCC 125 MG VIAL 60 MG IV PUSH (05:32)
[2022-01-08] MEDS: LEVOTHYROXINE SODIUM 50 MCG TABLET FEED TUBE (05:33)
[2022-01-08] MEDS: CENTRAL LINE FLUSH 10 ML IV PUSH (05:33)
[2022-01-08 05:41] LABS: Carboxyhemoglobin 0.3 % THb (0-2.0); Fractional Inspired Oxygen 30 %; HCO3 ABG 23.6 mEq/l (22.0-26.0); Methemoglobin ABG 0.4 %THb (0-1.5); Oxygen Content ABG 16.5 %vol (16.0-22.0); Oxygen Saturation ABG 97.7 % (95.0-100.0); Oxyhemoglobin 96.4 % THb (90.0-100.0); PCO2 ABG 38.9 mmHg (35.0-45.0); PO2 ABG 102.2 mmHg (80.0-100.0); PO2 FiO2 Ratio Arterial Blood 3.41 %; Reduced Hemoglobin 2.9 %THb (0-5.0); Total Hemoglobin 12.1 g/dL (12.0-18.0); pH ABG 7.401 (7.350-7.450)
[2022-01-08 05:42] LABS: Site Drawn RIGHT RADIAL
[2022-01-08 05:43] LABS: Arterial Blood Gas PEEP 5 cmH2O; Arterial Blood Gas Tidal Volume 400 ml; Arterial Blood Gas Vent Mode CMV; Arterial Blood Gas Ventilator rate 16 /MIN; Device VENTILATOR; Modified Allen's Test Pass
[2022-01-08 05:51] LABS: Hematocrit 31.5 % (37.0-47.0); Mean Corpuscular HGB Conc 31.7 g/dl (32-36); Mean Corpuscular Hemoglobin 29.7 pg (26-34); Mean Corpuscular Volume 93.5 fl (80-100); Mean Platelet Volume 9.6 fl (7.4-10.4); Platelet Count Result 154 k/mm3 (150-375); Red Blood Count 3.37 M/mm3 (4.2-5.4); Red Cell Distribution Width 14.6 % (11.5-14.5); White Blood Count 8.8 K/mm3 (4.5-10.0)
[2022-01-08 06:04] LABS: Alanine Aminotransferase 28 U/L (6-35); Albumin Level 3.3 g/dL (3.5-5.1); Alkaline Phosphatase 98 U/L (38-126); Anion Gap 5 mmol/L (8-16); Aspartate Amino Transferase 27 U/L (14-36); Bilirubin,Total 0.2 mg/dL (0.2-1.3); Blood Urea Nitrogen 25 mg/dL (7-17); Calcium 8.7 mg/dL (8.4-10.2); Carbon Dioxide 24 mmol/L (22-30); Chloride 109 mmol/L (98-107); Estimated CRCL calculation 81 ml/min; Estimated Glomerular Filt Rate > 60; Glucose 135 mg/dL (65-110); Magnesium 2.3 mg/dL (1.6-2.3); Potassium 4.5 mmol/L (3.4-5.0); Sodium 138 mmol/L (137-145)
--- NOTE | 2022-01-08 08:56 | WPDINTPN ---
Progress Note: A&P Assessment and Plan (1) Acute respiratory failure: Code(s): J96.00 - Acute respiratory failure, unspecified whether with hypoxia or hypercapnia Status: Acute Assessment and Plan: Acute Respiratory failure secondary to angioedema. Patient does have a history of asthma/COPD details of which are unknown. Patient does not appear to be in exacerbation of either Patient was intubated with difficulty in ER and has a size 6 ET tube Flexible bronchoscopy was done by ENT on 01/06 and significant amount of swelling was seen at laryngeal inlet. 01/07 I checked cuff leak today and there was no significant drop in tidal volumes on a ventilator when her cuff was deflated. Plan was to repeat CT scan of soft tissue neck today Patient's son requested patient to be transferred to either [facility] or [facility] yesterday. I spoke to both transfer centers and patient has been accepted by [facility] and is awaiting transfer hence will hold further imaging and testing at this point and defer further management and weaning from ventilator to accepting physician team. Continue current treatment at this time Will continue mechanical ventilation at this time and treatment. Continue full mechanical ventilation support to prevent hypoxemia/hypercarbia and end organ damage. ABG and PCXR reviewed and will repeat in am. Low tidal volume ventilation strategy to prevent volutrauma Her weaning will depend on improvement of her neck swelling Hold sedation holiday still avoid losing endotracheal tube (2) Angioedema: Code(s): T78.3XXA - Angioneurotic edema, initial encounter Status: Acute Assessment and Plan: Etiology unknown at this point patient does have history of multiple allergic reactions in the past. She presented to ER in November with swelling of her left side of her face. Prior to that she had allergic reaction to tramadol. She has never been officially tested for allergies and has not seen a specialist CRP 3.9, ESR 81, Complement C4 level was elevated at 50.4 Patient is not on any Zachery inhibitors or NSAIDs Tryptase level has been sent out Pending C1 esterase inhibitor She did get epinephrine in the ER Continue Solu-Medrol, Benadryl, Pepcid and loratadine Patient is currently hemodynamic stable ENT is following Reviewed database of drugs that can cause angioedema and there have been some reports of angioedema associated with metoprolol and paroxetine.? Patient on both of these drugs but are currently off. (3) Hypothyroidism: Code(s): E03.9 - Hypothyroidism, unspecified Status: Acute Assessment and Plan: Continue levothyroxine (4) Hypertension: Code(s): I10 - Essential (primary) hypertension Status: Acute Assessment and Plan: Blood pressure adequately controlled this time hold antihypertensive Additional Plan DVT prophylaxis -Lovenox Stress ulcer prophylaxis -patient on Pepcid Nutrition -currently Tube Feeds are on hold Code Status - Full Code Patient has a bed at [facility] and we are waiting for EMS to transfer patient at this time Patient's was updated at bedside Total Critical Care Time - 30 minutes Due to a high probability of clinically significant, life threatening deterioration, the patient required my highest level of preparedness to intervene emergently and I personally spent this critical care time directly and personally managing the patient. This critical care time included obtaining a history; examining the patient; pulse oximetry; ordering and review of studies; arranging urgent treatment with development of a management plan; evaluation of patient's response to treatment; frequent reassessment; and discussions with other providers. It was exclusive of separately billable procedures and treating other patients and teaching time. Please see Assessment and Plan section and the rest of the note for
[2022-01-08] MEDS: MONTELUKAST SODIUM 10 MG TABLET PO (09:00)
[2022-01-08] MEDS: FAMOTIDINE 20 MG/2 ML VIAL IV PUSH (09:00)
[2022-01-08] MEDS: ENOXAPARIN 40 MG/0.4 ML SYRINGE SUB-Q (09:00)
[2022-01-08] MEDS: BUDESONIDE 3 MG CAP.SR.24H 6 MG PO (09:00)
[2022-01-08] MEDS: LORATADINE 10 MG TABLET FEED TUBE (09:01)
[2022-01-08 09:19] LABS: Glucose Point of Care 129 mg/dl (65-105)
--- NOTE | 2022-01-08 11:24 | PC.NURSE ---
Pt discharged via ambulance. VSS stable at discharge. PICC intact, Fentanyl and Versed infusing. RN at [facility] updated on patient condition, recent meds, and ETA.
[2022-01-12 05:57] LABS: C1 Esterase Inhibitor >100 % (>=68)
--- NOTE | 2022-01-14 12:47 | PM.TDS ---
Transfer Discharge Sum: Prov Provider Date of admission: 01/05/22 18:05 Primary care physician: Mamadou Momin MD Admitting clinician: Sanjuana Smith DO Consults: 01/05/22 18:07 Consult to Physician Routine Comment: aware Consulting Provider: Jorge Bonilla inbound call center representative/MD group to consult: Chad Reason for consultation: respiratory fialure, angioedema Has provider been notified: Yes 01/06/22 Consult to Physician Routine Comment: Consulting Provider: Osvaldo Bonilla inbound call center representative/MD group to consult: ENT Reason for consultation: Angioedema Has provider been notified: Yes DS: Admitting Diagnosis Discharge Date 01/08/22 Admitting Diagnosis Angioedema DS: Discharge Diagnosis Discharge Diagnosis (1) Acute respiratory failure: Code(s): J96.00 - Acute respiratory failure, unspecified whether with hypoxia or hypercapnia Status: Acute Assessment and Plan: Acute Respiratory failure secondary to angioedema. Patient does have a history of asthma/COPD details of which are unknown. Patient does not appear to be in exacerbation of either Patient was intubated with difficulty in ER and has a size 6 ET tube Flexible bronchoscopy was done by ENT on 01/06 and significant amount of swelling was seen at laryngeal inlet. 01/07 I checked cuff leak today and there was no significant drop in tidal volumes on a ventilator when her cuff was deflated. Plan was to repeat CT scan of soft tissue neck today Patient's son requested patient to be transferred to either [facility] or [facility] yesterday. I spoke to both transfer centers and patient has been accepted by [facility] and is awaiting transfer hence will hold further imaging and testing at this point and defer further management and weaning from ventilator to accepting physician team. Continue current treatment at this time Will continue mechanical ventilation at this time and treatment. Continue full mechanical ventilation support to prevent hypoxemia/hypercarbia and end organ damage. ABG and PCXR reviewed and will repeat in am. Low tidal volume ventilation strategy to prevent volutrauma Her weaning will depend on improvement of her neck swelling Hold sedation holiday still avoid losing endotracheal tube (2) Angioedema: Code(s): T78.3XXA - Angioneurotic edema, initial encounter Status: Acute Assessment and Plan: Etiology unknown at this point patient does have history of multiple allergic reactions in the past. She presented to ER in November with swelling of her left side of her face. Prior to that she had allergic reaction to tramadol. She has never been officially tested for allergies and has not seen a specialist CRP 3.9, ESR 81, Complement C4 level was elevated at 50.4 Patient is not on any Zachery inhibitors or NSAIDs Tryptase level has been sent out Pending C1 esterase inhibitor She did get epinephrine in the ER Continue Solu-Medrol, Benadryl, Pepcid and loratadine Patient is currently hemodynamic stable ENT is following Reviewed database of drugs that can cause angioedema and there have been some reports of angioedema associated with metoprolol and paroxetine.? Patient on both of these drugs but are currently off. (3) Hypothyroidism: Code(s): E03.9 - Hypothyroidism, unspecified Status: Acute Assessment and Plan: Continue levothyroxine (4) Hypertension: Code(s): I10 - Essential (primary) hypertension Status: Acute Assessment and Plan: Blood pressure adequately controlled this time hold antihypertensive Plan Transfer range to [facility] and was completed sometime during the day of January 08, 2022, patient was not seen by the hospitalist team prior to discharge was only seen by the ICU team Transfer Discharge Sum: Med Medications Active and Home Medications: Home Medications loratadine 10 mg tablet 10 mg PO QAM 11/01/19 [History
== END 2022-01-08 10:55 | disposition short-term general hospital (02) | DRG 915 ==
LOC: ANHED 17:28 → ANHICU 20:27
PROVIDERS: Physician Assistant; Admitting Provider Student in an Organized Health Care Education/Training Program; Emergency Provider Emergency Medicine; PCP Internal Medicine; Visit Provider Internal Medicine
DX: T78.3XXA Angioneurotic edema, initial encounter (principal); J96.01 Acute respiratory failure with hypoxia; E03.9 Hypothyroidism, unspecified; E78.5 Hyperlipidemia, unspecified; I25.10 Atherosclerotic heart disease of native coronary artery without angina pectoris; J44.9 Chronic obstructive pulmonary disease, unspecified; Z20.822 Contact with and (suspected) exposure to COVID-19; I12.9 Hypertensive chronic kidney disease with stage 1 through stage 4 chronic kidney disease, or unspecified chronic kidney disease; N18.30 Chronic kidney disease, stage 3 unspecified; Z96.641 Presence of right artificial hip joint; Z90.49 Acquired absence of other specified parts of digestive tract; Z90.710 Acquired absence of both cervix and uterus; Z87.891 Personal history of nicotine dependence
CPT/HCPCS: 31500; 36415; 36569; 36600; 51702; 70491; 71045; 80048; 80053; 82375; 82805; 82948; 83050; 83520; 83735; 84145; 85025; 85027; 85610; 85652; 85730; 86140; 86160; 94003; 96365; 96372; 96375; 99291; A9270; C1751; C9803; J0171; J0330; J1200; J1650; J2250; J2704; J2930; J3010; J7030; Q9967; U0003; U0005

== ENCOUNTER 2022-02-27 14:00 | Outpatient (CLI) | payer OTHER, SELFPAY ==
--- NOTE | ~2022-02-27 | CT_ITS ---
EXAMINATION: CT brain wo con DATE: 02/27/2022 14:25 INDICATION: Neurological deficits. Weakness. TECHNIQUE: Computed tomography (CT) of the head was performed without intravenous contrast. The mA wa s adjusted according to patient size. Iterative reconstruction technique was employed. The dose-lengt h product was 674.51 mGy-cm. COMPARISON: Head CT 09/17/2020 FINDINGS: There is no intracranial hemorrhage, acute infarction, or abnormal intracranial mass lesion . The ventricles are normal in size. The orbits are normal. The paranasal sinuses are clear. The mast oid air cells are normal. IMPRESSION: 1. Normal brain. Reviewed, dictated and finalized at location A. IMPRESSION: 1. Normal brain.
== END 2022-02-27 14:01 ==
LOC: MICIMG 14:01
PROVIDERS: PCP Family Medicine; Visit Provider Family Medicine
DX: R29.818 Other symptoms and signs involving the nervous system (principal)
CPT/HCPCS: 70450

== ENCOUNTER 2022-05-29 09:06 | Outpatient (CLI) | payer OTHER, SELFPAY ==
[2022-05-29 09:57] LABS: Anion Gap 8 mmol/L (8-16); Blood Urea Nitrogen 13 mg/dL (7-17); Calcium 9.8 mg/dL (8.4-10.2); Carbon Dioxide 28 mmol/L (22-30); Chloride 102 mmol/L (98-107); Estimated Glomerular Filt Rate > 60; Glucose 92 mg/dL (65-110); INR 1.1; Potassium 3.7 mmol/L (3.4-5.0); Prothrombin Time 13.3 Seconds (11.1-14.7); Sodium 138 mmol/L (137-145)
[2022-05-29 09:58] LABS: Partial Thromboplastin Time 35.7 SECONDS (22.3-36.8)
[2022-05-29 10:00] LABS: Hematocrit 37.5 % (37.0-47.0); Hemoglobin 12.3 g/dL (12.0-15.0)
== END 2022-05-29 09:07 | disposition home or self-care (01) ==
LOC: ANHSURGERY 09:10
PROVIDERS: Anesthesiology; PCP Family Medicine; Visit Provider Otolaryngology
DX: N18.30 Chronic kidney disease, stage 3 unspecified (principal); D64.9 Anemia, unspecified; Z01.818 Encounter for other preprocedural examination
CPT/HCPCS: 36415; 80048; 85014; 85018; 85610; 85730

== ENCOUNTER 2022-06-06 01:46 | Day surgery (SDC) | payer OTHER, SELFPAY ==
[2022-05-24 12:04] VITALS: BMI 26.9
--- NOTE | 2022-05-24 12:10 | PC.NURSE ---
Report to the Outpatient Waiting Room, entrance under the green pavilion located off [facility], at time 6:00 on date 06/06/22. Planned Procedure Time: 7:30. Time changes happen often and if your time is changed the preop area will call you the afternoon before. - You and your visitor will be asked to self-screen and do not enter if you have any COVID symptoms. - Only one visitor is requested with a max of two and NO children visitors are allowed at this time. - The patient visitor may be requested to leave or wait in car when not with patient due to distancing restrictions. - A mask is optional within the hospital. Patients may have clear liquids (water, carbonated beverages, clear teas, apple juice) until 3 hours prior to surgery (4:30) with a maximum of 20 ounces. - No food from midnight until time of surgery Take the following medications with a SIP of water the morning of surgery: INHALERS, AMLODIPINE, CITALOPRAM, LEVOTHYROXINE, METOPROLOL, PREDNISONE Medications to discontinue per physician: VITAMINS/SUPPLEMENTS Date to take last dose: 06/02/22 Please no make-up, nail danish, hairspray, perfume, deodorant, or body powder the day of surgery. No jewelry (including any body piercings) or valuables the day of surgery, leave them at home. Please take a shower or bath the night before, or the morning of, surgery with an antibacterial soap. Wear comfortable, loose fitting clothing. - Jewelry must be removed prior to entering the operating room. Rings and piercings that are not removed may be cut off. - The hospital will not accept responsibility for valuables. - Please leave all valuables, including medications, at home the day of surgery. If you are going home after surgery, a licensed catshovel driver must drive you home. - NO public transportation without another adult if you receive anesthesia. - We recommend that an adult stay with you for 24 hours following discharge. - We also recommend that you do not drive, make important decision, drink alcoholic beverages, or take any drugs that were not prescribed by your health care provider for at least 24 hours after your discharge time. Follow any additional instructions given to you from your surgeon. If you or anyone in your household have experienced Covid symptoms in the past week, please notify your surgeon or the nurse liaison at the phone number below for possible testing. Telephone instructions given to PT & SPOUSE and asked if any additional questions and then verbalized understanding. Patient advised to call surgeon office or pre surgery nurse liaison [phone] if any additional questions.
--- NOTE | 2022-06-05 17:00 | PM.IMHP ---
H&P: HPI History of Present Illness Date/Time: 06/05/22 17:00 Chief Complaint: pharyngeal granuloma/lesion Narrative: planned surgical procedure Review of Systems Review of Systems: All systems reviewed & are unremarkable except as noted in HPI and below [facility] Past Medical History Medical History Alcohol use disorder Significantly cut back on alcohol consumption in May 2021. Anxiety Asthma Chronic interstitial cystitis without hematuria Chronic kidney disease, stage III (moderate) Chronic obstructive pulmonary disease Collagenous colitis Degenerative disc disease History of fall from ladder Hypertension Irritable bowel syndrome with diarrhea Major depressive disorder, single episode, moderate Migraine headache Mild coronary artery disease Mild, nonobstructive coronary artery disease on cardiac catheterization in September 2017. Followed by Dr. Mireles. Other hyperlipidemia Postprocedural hypothyroidism Tobacco abuse Surgical History Surgical History History of cardiac catheterization (09/2017) Mild, nonobstructive coronary artery disease. About 30% stenosis in the mid-LAD with minor irregularities in the proximal mid RCA. History of cervical spinal surgery History of cholecystectomy History of hysterectomy History of left breast biopsy History of resection of rib Bilateral for thoracic outlet obstruction. History of total right hip arthroplasty (11/22/21) anterior approach November 22, 2021 Family History Family History Father Family history of malignant neoplasm Family history of heart disease in male family member before age 55 Other Sickle cell anemia Social History Social History Social History: Code status: Full code. Caffeine-daily Smoking packs per day: 0.5 Smoking cigarettes per day: 10.0 Years smoked: 20 Smoking pack-years: 10.00 Smoking status: Former smoker Tobacco type: cigarettes Second hand tobacco smoke exposure: No Smoking end date: 05/02/21 Additional smoking assessment comments: SMOKING INTERMITTENLY, LAST CIG 10/06/21 Alcohol intake: former Drinks per week: 1 Alcohol use details: QUIT MAY 2021 Substance use: never Substance use type: does not use Additional living arrangements comments: Lives in [place] with her and son. Spiritual care concerns: No Meds Home Medications and Allergies Home Medications Medication Instructions Recorded Confirmed Type metoprolol tartrate 25 mg tablet 25 mg PO BID #180 tabs 06/06/21 05/24/22 Rx albuterol sulfate 90 mcg/actuation 2 inh inhalation Q4-6H PRN 08/16/21 05/24/22 Rx aerosol inhaler Wheezing #6.7 grams ipratropium 0.5 mg-albuterol 3 mg 3 ml inhalation QID PRN Dyspnea 11/08/21 05/24/22 History (2.5 mg base)/3 mL nebulization soln potassium chloride 10 mEq 10 meq PO BID #180 tabs 02/21/22 05/24/22 Rx tablet,extended release amlodipine 5 mg tablet 5 mg PO DAILY #90 tabs 02/28/22 05/24/22 Rx fluticasone propionate 50 1 spray intranasal DAILY PRN 03/14/22 05/24/22 Rx mcg/actuation nasal Congestion #16 grams spray,suspension ferrous sulfate 325 mg (65 mg 325 mg PO DAILY #30 tabs 03/20/22 05/24/22 Rx iron) tablet,delayed release levothyroxine 50 mcg tablet 50 mcg PO DAILY #30 tabs 03/20/22 05/24/22 Rx rosuvastatin 40 mg tablet (Crestor) 40 mg PO DAILY #90 tabs 03/20/22 05/24/22 Rx citalopram 20 mg tablet (Celexa) 20 mg PO DAILY #30 tabs 04/06/22 05/24/22 Rx hydrochlorothiazide 25 mg tablet 25 mg PO DAILY #30 tabs 05/11/22 05/24/22 Rx prednisone 5 mg tablet 5 mg PO DAILY #10 tabs 05/23/22 05/24/22 Rx montelukast 10 mg tablet 10 mg PO DAILY #90 tabs 05/24/22 Rx famotidine 20 mg tablet (Pepcid) 20 mg PO BID #90 tabs 06/01/22 Rx Allergies Allergy/AdvReac Type Se
[2022-06-06] VITALS (9 sets, daily range): BP systolic 99–147; BP diastolic 49–70; PULSE 50–63; RESP 10–16; TEMP 36.1–36.2; O2SAT 94–100
[2022-06-06] MEDS: LACTATED RINGERS 1,000 ML 30 ML IV CONT (06:40)
--- NOTE | 2022-06-06 07:10 | WPDANESEPPF ---
Anes - Initial Pre Proc Eval Procedure: Operation Date: 06/06/22 07:30 Proposed Procedures p Microdirect Laryngoscopy with Excision of Right Vocal Cord Granuloma - Osvaldo Bonilla MD Date/Time: 06/06/22 07:10 Surgeon: Osvaldo Bonilla MD Pre Op Diagnosis: dysphonia Patient Data Age: 62 Gender: F Height: 1.63 m Weight: 69.2 kg Last Vital Signs Temp 36.1 C L 06/06/22 06:46 Pulse 50 L 06/06/22 06:46 Resp 16 06/06/22 06:46 BP 99/67 L 06/06/22 06:46 Pulse Ox 100 06/06/22 06:46 O2 Del Method Room Air 06/06/22 06:46 Allergies Allergy/AdvReac Type Severity Reaction Status Date / Time NSAIDS (Non-Steroidal Allergy Severe Swelling Verified 06/06/22 06:26 Anti-Inflamma Sulfa (Sulfonamide Allergy Severe Swelling Verified 06/06/22 06:26 Antibiotics) of Lip/Tongue/Throat ampicillin Allergy Intermediate RASH/HIVES Verified 06/06/22 06:26 clindamycin Allergy Intermediate Hives Verified 06/06/22 06:26 doxycycline Allergy Intermediate Hives Verified 06/06/22 06:26 erythromycin base Allergy Intermediate RASH/HIVES Verified 06/06/22 06:26 hydrocodone Allergy Intermediate Rash Verified 06/06/22 06:26 Penicillins Allergy Intermediate Hives/AGITA Verified 06/06/22 06:26 TION tramadol Allergy Intermediate Hives Verified 06/06/22 06:26 morphine Allergy Mild ITCHING,RASH, Verified 06/06/22 06:26 HIVES propoxyphene Allergy Mild NIGHTMARES/ Verified 06/06/22 06:26 TREMORS/YORDY H/HIVES aspirin AdvReac Intermediate Abdominal Verified 06/06/22 06:26 Pain Home Medications Medication Instructions Recorded Confirmed Type metoprolol tartrate 25 mg tablet 25 mg PO BID #180 tabs 06/06/21 06/06/22 Rx albuterol sulfate 90 mcg/actuation 2 inh inhalation Q4-6H PRN 08/16/21 06/06/22 Rx aerosol inhaler Wheezing #6.7 grams ipratropium 0.5 mg-albuterol 3 mg 3 ml inhalation QID PRN Dyspnea 11/08/21 06/06/22 History (2.5 mg base)/3 mL nebulization soln potassium chloride 10 mEq 10 meq PO BID #180 tabs 02/21/22 06/06/22 Rx tablet,extended release amlodipine 5 mg tablet 5 mg PO DAILY #90 tabs 02/28/22 06/06/22 Rx fluticasone propionate 50 1 spray intranasal DAILY PRN 03/14/22 06/06/22 Rx mcg/actuation nasal Congestion #16 grams spray,suspension ferrous sulfate 325 mg (65 mg 325 mg PO DAILY #30 tabs 03/20/22 06/06/22 Rx iron) tablet,delayed release levothyroxine 50 mcg tablet 50 mcg PO DAILY #30 tabs 03/20/22 06/06/22 Rx rosuvastatin 40 mg tablet (Crestor) 40 mg PO DAILY #90 tabs 03/20/22 06/06/22 Rx citalopram 20 mg tablet (Celexa) 20 mg PO DAILY #30 tabs 04/06/22 06/06/22 Rx hydrochlorothiazide 25 mg tablet 25 mg PO DAILY #30 tabs 05/11/22 06/06/22 Rx prednisone 5 mg tablet 5 mg PO DAILY #10 tabs 05/23/22 06/06/22 Rx montelukast 10 mg tablet 10 mg PO DAILY #90 tabs 05/24/22 06/06/22 Rx famotidine 20 mg tablet (Pepcid) 20 mg PO BID #90 tabs 06/01/22 06/06/22 Rx Patient hx anesthesia problems: other (slow to awaken) Family hx anesthesia problems: none Results Review: All pre-operative results and documents have been reviewed as part of the pre-operative evaluation. [facility] Past Medical History Medical History Alcohol use disorder Significantly cut back on alcohol consumption in May 2021. Anxiety Asthma Chronic interstitial cystitis without hematuria Chronic kidney disease, stage III (moderate) Chronic obstructive pulmonary disease Collagenous colitis Degenerative disc disease History of fall from ladder Hypertension Irritable bowel syndrome with diarrhea Major depressive disorder, single episode, moderate Migraine headache Mild coronary artery disease Mild, nonobstructive coronary artery disease on cardiac catheterization in September 2017. Followed by Dr. Mireles. Other hyperlipidemia Postprocedural hypothyroidism Tobacco abuse Surgical History Surgical History (Reviewed 06/06/22 @ 07:11 by Jerod Lazar
--- NOTE | 2022-06-06 07:13 | WPDHPUPDATE1 ---
History and Physical Update Update Date/Time: 06/06/22 07:13 History and Physical has been reviewed, including an updated exam of the patient. There are NO changes in the patient's condition. Risks, benefits, and alternatives have been discussed and questions answered. Patient agrees to proceed with procedure. Lesion is technically right sided.
[2022-06-06] MEDS: OXYMETAZOLINE HCL 0.05% NAS 15 ML BTL (*BKC) 1 SPRAY NASAL (07:45)
--- NOTE | 2022-06-06 08:15 | W.PM.PROC2 ---
Procedure Note - Detailed Date of Procedure 06/06/22 Pre-op Diagnosis dysphonia vocal cord lesion Post-op Diagnosis Same Procedure Performed direct laryngoscopy endoscope excision of right vocal cord lesion Surgeon Osvaldo Bonilla MD Anesthesia General Indications see above Findings fairly large right-sided supraglottic lesion based off the a transition point from a retinoid mucosa to false cord. appears to be a granuloma Description of Procedure patient identified consent verified. Patient brought operating room. Time-out performed. General anesthesia induced. Endotracheal tube secured taped left lower lip. patient prepped draped positioned 2nd time-out performed. Maxillary tooth mouth guard laryngoscope placed lesion was visible it was grabbed with cupped forceps at the stalk and removed there was minimal bleeding Afrin-soaked pledgets were placed. Photos were taken prior and post. The stalk was then cauterized with silver nitrate. Patient tolerated the procedure well there were no complications which were immediate. Laryngoscope was removed no bleeding no damage to any surrounding structures maxillary tooth mouth guard removed. Care the patient given Anesthesiology. Really no blood loss patient tolerated the procedure well no complications patient taken to PACU. Estimated Blood Loss 0 Drains No Packing No Pathology Yes Complications No immediate complications Condition Stable Disposition PACU
[2022-06-06] MEDS: fentaNYL CITRATE INJ (*CRX) 100 MCG/2 ML VIAL 25 MCG IV PUSH ×3 (08:38→09:31)
--- NOTE | 2022-06-06 09:43 | SUR.PHASEII ---
PATIENT WAS OFFERED OXYCODONE ELIXIR FOR THROAT PAIN BUT AFTER DISCUSSING WITH IS NOW DECLINING IT RE: CONCERNS ABOUT A POSSIBLE ALLERGIC REACTION. TAKING FLUIDS WELL. OKAY'D TAKING FENTANYL FOR NOW.
== END 2022-06-06 10:32 | disposition home or self-care (01) ==
PROVIDERS: PCP Family Medicine; Visit Provider Otolaryngology
PROC: 0CJS8ZZ Inspection of Larynx, Via Natural or Artificial Opening Endoscopic (ICD-10-PCS; CPT 31540; principal; 2022-06-06 07:30)
DX: J38.3 Other diseases of vocal cords (principal); J39.2 Other diseases of pharynx; R49.0 Dysphonia; Z79.51 Long term (current) use of inhaled steroids; J44.9 Chronic obstructive pulmonary disease, unspecified; I12.9 Hypertensive chronic kidney disease with stage 1 through stage 4 chronic kidney disease, or unspecified chronic kidney disease; N18.30 Chronic kidney disease, stage 3 unspecified; E78.49 Other hyperlipidemia; E89.0 Postprocedural hypothyroidism; F41.9 Anxiety disorder, unspecified; K58.0 Irritable bowel syndrome with diarrhea; F32.1 Major depressive disorder, single episode, moderate; I25.10 Atherosclerotic heart disease of native coronary artery without angina pectoris; Z87.891 Personal history of nicotine dependence
CPT/HCPCS: 31540; 88305; 88333; 88342; A9270; J0330; J1100; J2250; J2405; J2704; J3010; J7120

== ENCOUNTER 2024-09-07 08:49 | Observation (INO) | payer MEDICARE, OTHER, SELFPAY ==
[2024-09-07] VITALS (54 sets, daily range): BP systolic 105–145; BP diastolic 51–88; PULSE 51–91; RESP 12–25; TEMP 36.6–36.7; O2SAT 97–100; BMI 25.2
--- NOTE | ~2024-09-07 | XR_ITS ---
Portable chest x-ray Comparison: 01/08/2022 Clinical History: Right upper extremity weakness Findings: Questionable 1.7 cm right upper lobe density/calcification versus shadow related to anteri or first rib. Lungs are otherwise clear. Cardiomediastinal silhouette is stable. Bones and soft tiss ues are unremarkable. Impression: Questionable 1.7 cm right upper lobe nodule, likely calcified, versus shadow related to the anterior first rib. Chest CT advised to further evaluate. Reviewed, dictated and finalized at location . Impression: Questionable 1.7 cm right upper lobe nodule, likely calcified, versus shadow re lated to the anterior first rib. Chest CT advised to further evaluate.
--- NOTE | ~2024-09-07 | CT_ITS ---
Non-contrast Head CT History: Right upper extremity weakness COMPARISON: 02/27/2022 Technique: Axial non-contrast imaging of the brain was performed. Dose reduction technique was used on this scan by utilizing automated exposure control and iterative reconstruction technique. The dose -length product (DLP) was 605.33 mGy-cm. Findings: There is no evidence of intracranial hemorrhage, mass lesion, or acute infarct. Brain par enchyma appears normal. The ventricles and subarachnoid spaces are normal in size. The calvarium ap pears normal. The visualized paranasal sinuses and mastoid air cells are clear. Impression: No significant abnormality seen. Reviewed, dictated and finalized at location . Impression: No significant abnormality seen.
--- NOTE | ~2024-09-07 | CT_ITS ---
CT Scan of the Chest without Contrast: Clinical Indication: Pulmonary nodule Technique: Contiguous sections were acquired throughout the chest without intravenous contrast. Dose reduction technique was used on this scan by utilizing automated exposure control and iterative recon struction technique. The dose-length product (DLP) was 119.56 mGy-cm. Findings: There is no evidence of any significant mediastinal, hilar or axillary lymphadenopathy. Coronary alicja ry calcifications are present. There is no evidence of pleural or pericardial effusion. The lungs are clear. No pulmonary nodules or infiltrates are noted. Images through the upper abdomen reveal no abnormalities. Impression: Clear lungs. No pulmonary abnormality evident. Reviewed, dictated and finalized at location M. Impression: Clear lungs. No pulmonary abnormality evident.
--- OUTSIDE RECORDS SUMMARY | 2024-09-07 08:51 | XMS_ITS | Patient Health Summary ---
Author Organization [facility] Address [address] [place] [address] Care Team Providers Care Rn Maternity Name Role Phone Samira Weinstein MD Primary Care Provider [phone] Note from [facility],non-owned Affiliates and Associated Physician Practices is amultiple site organization consisting of ambulatory clinics and hospital sitesin [place], [place], [place] and [place]. This disclosure is being madepursuant to the Care Everywhere program and may not contain all information available regarding this patient. Last updated 18.[facility] Allergies * Ampicillin(Urticaria) -Medium Criticality * Aspirin(GI Discomfort) * Clindamycin(Urticaria) -Medium Criticality * Doxycycline(Urticaria) -Medium Criticality * Erythromycin(Urticaria) -Medium Criticality * Hydrocodone(Urticaria) -Medium Criticality * Morphine(Urticaria) -Medium Criticality * Nsaids(Angioedema) -High Criticality * Penicillins(Urticaria) -Medium Criticality * Propoxyphene(Urticaria) -Medium Criticality * Sulfa Drugs(Swelling) * Tramadol(Urticaria) -Medium Criticality Medications * Be aware that medications may not be up to date on this document. Alwaysverify current medications with the patient. * omeprazole (PriLOSEC) 10 MG capsule Take 1 (one) capsule by mouth daily before breakfast * albuterol HFA (Proventil; Ventolin; Proair) 108 (90 Base) MCG/ACT inhaler (Started 06/11/2023) Inhale 2 (two) puffs by mouth every 6 hours as needed for Shortness of Breath or Wheezing 2 refills by 06/10/2024 * ciprofloxacin (Cipro) 750 MG tablet(Started 12/25/2023) TAKE ONE TABLET BY MOUTH ONCE FOR 1 DOSE ONE HOUR BEFORE DENTAL PROCEDURES. 5 refills by 12/24/2024 * hydroCHLOROthiazide (Hydrodiuril) 25 MG tablet(Started 02/27/2024) Take 1 (one) tablet by mouth once daily * ferrous gluconate 324 (38 Fe) MG tablet(Started 03/06/2024) Take 1 (one) tablet by mouth daily with breakfast 1 refill by 03/06/2025 * rosuvastatin (Crestor) 40 MG tablet(Started 03/25/2024) TAKE 1 TABLET BY MOUTH AT BEDTIME 3 refills by 03/25/2025 * levothyroxine (Synthroid) 50 MCG tablet(Started 05/23/2024) Take 1 tablet by mouth once daily * fexofenadine (Carlyn) 180 MG tablet(Started 05/26/2024) Take 1 (one) tablet by mouth once daily * vitamin D (Cholecaciferol) 125 MCG (5000 UT) capsule(Started 05/26/2024) Take 1 (one) capsule by mouth once daily * fluticasone propionate (Flonase) 50 MCG/ACT nasal spray(Started 05/26/2024) [place] 2 (two) sprays into each nostril once daily as needed Reasons: Nonallergic Rhinitis, Stuffy Nose * metoprolol tartrate IR (Lopressor) 25 MG tablet(Started 06/10/2024) Take 1 (one) tablet by mouth 2 times daily * montelukast (Singulair) 10 MG tablet(Started 06/10/2024) Take 1 (one) tablet by mouth once daily * citalopram (CeleXA) 20 MG tablet(Started 08/05/2024) Take 1 (one) tablet by mouth once daily * potassium chloride ER (Klor-Con M) 20 MEQ tablet(Started 08/25/2024) Take 1 (one) tablet by mouth once daily 1 refill by 08/25/2025 * amLODIPine (Norvasc) 5 MG tablet(Started 09/04/2024) Take 1 tablet by mouth once daily 3 refills by 09/04/2025 * minoxidil (Loniten) 2.5 MG tablet(Started 09/03/2024) Take 0.5 (one-half) tablet by mouth once daily 6 refills by 09/03/2025 Ended Medications* amLODIPine (Norvasc) 5 MG tablet(Started 02/27/2024) (Discontinued) Take 1 (one) tablet by mouth once daily * potassium chloride ER (Klor-Con M) 20 MEQ tablet(Started 05/07/2024) (Discontinued) Take 1 (one) tablet by mouth once daily 1 refill by 05/07/2025 Active Problems Problem Noted Date Diagnosed Date Difficult intubation 09/01/2024 History of right hip replacement 09/01/2024 DDD (degenerative disc disease), lumbar 12/09/19 24 HTN (hypertension) 01/08/2022 KEISHA (generalized anxiety disorder) 01/08/2022 Asthma-COPD overlap syndrome 01/08/2022 Tobacco use disorder 01/08/2022 Hypothyroidism 01/08/2022 IBS (irritable bowel syndrome) 01/08/2022 Hyperlipidemia 01/08/2022 Resolved Problems Problem Noted Date Diagnosed Date Resolved Date Vitamin D deficiency 06/11/2023 025 Eczema 06/11/2023 09/01/2024 Well woman exam with routine gynecological exam 10/11/2022 12/22/2022 Pelvic joint pain, left 10/11/2022 03/0 08/2024 Vaginal itching 10/11/2022 06/11/2023 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 (FLUZONE HIGH-DOSE TRIVALENT; 65Y+) (HD-IIV3)(Given 04/07/2024) * PNEUMOCOCCAL PCV20 CONJ VAC IM(Given 09/24/2023) * RSV ABRYSVO PREG OR 60y+ 0.5mL(Given 06/11/2023) * TD (ADULT), 5 LF TETANUS TOXOID, ADSORBED, PF(Given 11/28/1995) * TDAP (7yrs+)(Given 12/13/2022) * iNFLUENZA VACCINE, RECOM-HERNÁNDEZ, QUADR. (FLUBLOCK QUADRIVALENT; 18Y+) (RIV4)(Given 03/12/2018) Social History Tobacco Use Types Packs/Day Years Used Date Smoking Tobacco: Every Day Cigarettes Smokeless Tobacco: Never Tobacco Cessation:Ready to Q uit: No; Counseling Given: No Alcohol Use Standard Drinks/Week Comments Yes 4 (1 standard drink = 0.6 oz pur e alcohol) AUDIT-C Answer Date Recorded Q1: How often do you have a drink containing alcohol? Never 01/16/2022 Q2: How many drinks containi ng alcohol do you have on a typical day when you are drinking? Patient does not drink Q3: How often do you have si x or more drinks on one occasion? Never 01/16/2022 PHQ-2 Answer Date Recorded Patient Health Questionnaire-2 Score 0 09/01/2024 Hunger Vital Sign Answer Date Recorded Within the past 12 months, y ou worried that your food would run out before you got the money to buy more. Never true 01/10/20 22 Within the past 12 months, t he food you bought just didn't last and you didn't have money to get more. Never true 01/09/2022 Sex and Gender Information Value Date Recorded Sex Assigned at Female 05/24/2024 12:37 PM AIRSET MOLDER Gender Identity Female 05/24/2024 12:37 PM AIRSET MOLDER Sexual Orientation Straight 05/24/2024 12 :37 PM AIRSET MOLDER Last Filed Vital Signs Vital Sign Reading Time Taken Comments Blood Pressure 138/78 09/01/2024 8:46 AM AIRSET MOLDER Pulse 54 09/01/2024 8:46 AM AIRSET MOLDER Temperature 36.6 C (97.9 F) 09/01/2024 8:46 AM AIRSET MOLDER Respiratory Rate 14 09/01/2024 8:46 AM AIRSET MOLDER Oxygen Saturation 100% 09/01/2024 8:46 AM AIRSET MOLDER Inhaled Oxygen Concentration 21% 01/16/2022 6 :15 AM CDT Weight 65.8 kg (145 lb) 09/01/2024 8:46 AM AIRSET MOLDER Height 162.6 cm (5' 4.02 ) 09/01/2024 8:46 AM CS T Body Mass Index 24.88 09/01/2024 8:46 AM AIRSET MOLDER Procedures * MAMMO BILAT DIAGNOSTIC W DIONICIO(Performed 08/04/2024) Performed for Follow-up exam * MAMMO LEFT DIAGNOSTIC W DIONICIO(Performed 01/14/2024) Performed for Abnormal mammogram * XR LUMBAR SPINE 2 OR 3VW(Performed 12/03/2023) Performed for Lumbar sprain, initial encounter * T4 FREE(Performed 12/03/2023) Performed for Hypothyroidism due to acquired atrophy of thyroid * TSH(Performed 12/03/2023) Performed for Hypothyroidism due to acquired atrophy of thyroid * VITAMIN D 25-HYDROXY(Performed 12/03/2023) Performed for Vitamin D deficiency * COMPREHENSIVE METABOLIC PANEL(Performed 12/03/2023) Performed for Hyperlipidemia, unspecified hyperlipidemia type * HEMOGLOBIN A1C(Performed 12/03/2023) Performed for Prediabetes * LIPID PROFILE(Performed 12/03/2023) Performed for Hyperlipidemia, unspecified hyperlipidemia type * MAMMO BILAT DIAGNOSTIC W DIONICIO(Performed 08/06/2023) Performed for Abnormal findings on diagnostic imaging of breast * MAMMO LEFT DIAGNOSTIC W DIONICIO(Performed 03/19/2023) Performed for Abnormal mammogram * [place] LARYNGOSCOPY,FLEX FIBER,DIAGNOSTIC(Performed 02/06/2023) Performed for Laryngeal granuloma, Sore throat * SURESWAB VAGINOSIS/VAGINITIS PLUS(Performed 10/13/2022) Performed for Vaginal itching * PAP IMAGE-GUIDED W HPV(Performed 10/11/2022) Performed for Well woman exam with routine gynecological exam * HPV GENOTYPES 16,18/45(Performed 10/11/2022) Performed for Well woman exam with routine gynecological exam * HPV DETECTION HIGH RISK BRISSA(Performed 10/11/2022) Performed for Well woman exam with routine gynecological exam * MAMMO LEFT DIAGNOSTIC W DIONICIO(Performed 09/13/2022) Performed for Abnormal mammogram * PATHOLOGY TISSUE EXAM (STL)(Performed 09/12/2022) Performed for Screen for colon cancer * COLONOSCOPY SCREEN(Performed 09/12/2022) Performed for Screen for colon cancer * ENDOSCOPY, COLON, SCREENING(Performed 09/12/2022) Performed for Screen for colon cancer * DEXA BONE DENSITY AXIAL SKELETON(Performed 08/23/2022) Performed for Post-menopausal * MAMMO BILAT SCREENING W DIONICIO(Performed 08/23/2022) Performed for Encounter for screening mammogram for breast cancer * T4 FREE(Performed 08/15/2022) Performed for Hypothyroidism due to acquired atrophy of thyroid * TSH(Performed 08/15/2022) Performed for Hypothyroidism due to acquired atrophy of thyroid * VITAMIN B12(Performed 08/15/2022) Performed for Vitamin B12 deficiency * VITAMIN D 25-HYDROXY(Performed 08/15/2022) Performed for Vitamin D deficiency * CBC W/O DIFFERENTIAL(Performed 08/15/2022) Performed for Preventative health care * COMPREHENSIVE METABOLIC PANEL(Performed 08/15/2022) Performed for Preventative health care * HEMOGLOBIN A1C(Performed 08/15/2022) Performed for Preventative health care * LIPID PROFILE(Performed 08/15/2022) Performed for Preventative health care * IMMUNOSCORE IGE INTERP(Performed 06/16/2022) Performed for Chronic rhinitis * ALLERGEN RESPIRATORY PNL REGION 8 ([place])(Performed 06/16/2022) Performed for Chronic rhinitis * BASIC METABOLIC PANEL (CALCIUM TOTAL)(Performed 01/30/2022) * BASIC METABOLIC PANEL (CALCIUM TOTAL)(Performed 01/28/2022) * BASIC METABOLIC PANEL (CALCIUM TOTAL)(Performed 01/26/2022) * CARDIAC EKG ORDER(Performed 01/25/2022) * BASIC METABOLIC PANEL (CALCIUM TOTAL)(Performed 01/25/2022) * BASIC METABOLIC PANEL (CALCIUM TOTAL)(Performed 01/23/2022) * COMPREHENSIVE METABOLIC PANEL(Performed 01/20/2022) * CBC W AUTO DIFFERENTIAL(Performed 01/20/2022) * GLUCOSE - POINT OF CARE(Performed 01/19/2022) * PHOSPHORUS BLOOD(Performed 01/19/2022) * COMPREHENSIVE METABOLIC PANEL(Performed 01/19/2022) * MAGNESIUM BLOOD(Performed 01/19/2022) * CBC W AUTO DIFFERENTIAL(Performed 01/19/2022) * GLUCOSE - POINT OF CARE(Performed 01/18/2022) * GLUCOSE - POINT OF CARE(Performed 01/18/2022) * MAGNESIUM BLOOD(Performed 01/18/2022) * CBC W AUTO DIFFERENTIAL(Performed 01/18/2022) * RENAL FUNCTION PANEL(Performed 01/18/2022) * GLUCOSE - POINT OF CARE(Performed 01/17/2022) * GLUCOSE - POINT OF CARE(Performed 01/17/2022) * GLUCOSE - POINT OF CARE(Performed 01/17/2022) * GLUCOSE - POINT OF CARE(Performed 01/17/2022) * MAGNESIUM BLOOD(Performed 01/17/2022) * CBC W AUTO DIFFERENTIAL(Performed 01/17/2022) * RENAL FUNCTION PANEL(Performed 01/17/2022) * BASIC METABOLIC PANEL (CALCIUM TOTAL)(Performed 01/16/2022) * GLUCOSE - POINT OF CARE(Performed 01/16/2022) * MRI BRAIN WWO CONTRAST(Performed 01/16/2022) Performed for Encephalopathy * GLUCOSE - POINT OF CARE(Performed 01/16/2022) * GLUCOSE - POINT OF CARE(Performed 01/16/2022) * URINE MICROSCOPIC ONLY REFLEX TO CULTURE(Performed 01/16/2022) * URINALYSIS REFLEX MICROSCOPIC REFLEX CULTURE(Performed 01/16/2022) * CULTURE URINE(Performed 01/16/2022) * MAGNESIUM BLOOD(Performed 01/16/2022) * CBC W AUTO DIFFERENTIAL(Performed 01/16/2022) * RENAL FUNCTION PANEL(Performed 01/16/2022) * GLUCOSE - POINT OF CARE(Performed 01/16/2022) * GLUCOSE - POINT OF CARE(Performed 01/15/2022) * GLUCOSE - POINT OF CARE(Performed 01/15/2022) * MAGNESIUM BLOOD(Performed 01/15/2022) * CBC W AUTO DIFFERENTIAL(Performed 01/15/2022) * RENAL FUNCTION PANEL(Performed 01/15/2022) * GLUCOSE - POINT OF CARE(Performed 01/15/2022) * GLUCOSE - POINT OF CARE(Performed 01/15/2022) * GLUCOSE - POINT OF CARE(Performed 01/14/2022) * GLUCOSE - POINT OF CARE(Performed 01/14/2022) * GLUCOSE - POINT OF CARE(Performed 01/14/2022) * GLUCOSE - POINT OF CARE(Performed 01/14/2022) * GLUCOSE - POINT OF CARE(Performed 01/14/2022) * MAGNESIUM BLOOD(Performed 01/14/2022) * CBC W AUTO DIFFERENTIAL(Performed 01/14/2022) * RENAL FUNCTION PANEL(Performed 01/14/2022) * GLUCOSE - POINT OF CARE(Performed 01/13/2022) * GLUCOSE - POINT OF CARE(Performed 01/13/2022) * GLUCOSE - POINT OF CARE(Performed 01/13/2022) * GLUCOSE - POINT OF CARE(Performed 01/13/2022) * GLUCOSE - POINT OF CARE(Performed 01/13/2022) * MAGNESIUM BLOOD(Performed 01/13/2022) * CBC W AUTO DIFFERENTIAL(Performed 01/13/2022) * RENAL FUNCTION PANEL(Performed 01/13/2022) * GLUCOSE - POINT OF CARE(Performed 01/13/2022) * EKG 12-LEAD(Performed 01/12/2022) Performed for Angioedema, initial encounter * GLUCOSE - POINT OF CARE(Performed 01/12/2022) * GLUCOSE - POINT OF CARE(Performed 01/12/2022) * GLUCOSE - POINT OF CARE(Performed 01/12/2022) * GLUCOSE - POINT OF CARE(Performed 01/12/2022) * GLUCOSE - POINT OF CARE(Performed 01/12/2022) * MAGNESIUM BLOOD(Performed 01/12/2022) * CBC W AUTO DIFFERENTIAL(Performed 01/12/2022) * RENAL FUNCTION PANEL(Performed 01/12/2022) * GLUCOSE - POINT OF CARE(Performed 01/12/2022) * GLUCOSE - POINT OF CARE(Performed 01/11/2022) * GLUCOSE - POINT OF CARE(Performed 01/11/2022) * CT NECK SOFT TISSUE WO CONT(Performed 01/11/2022) Performed for Hard to intubate, sequela * GLUCOSE - POINT OF CARE(Performed 01/11/2022) * GLUCOSE - POINT OF CARE(Performed 01/11/2022) * MAGNESIUM BLOOD(Performed 01/11/2022) * CBC W AUTO DIFFERENTIAL(Performed 01/11/2022) * RENAL FUNCTION PANEL(Performed 01/11/2022) * GLUCOSE - POINT OF CARE(Performed 01/11/2022) * GLUCOSE - POINT OF CARE(Performed 01/11/2022) * GLUCOSE - POINT OF CARE(Performed 01/10/2022) * GLUCOSE - POINT OF CARE(Performed 01/10/2022) * GLUCOSE - POINT OF CARE(Performed 01/10/2022) * GLUCOSE - POINT OF CARE(Performed 01/10/2022) * GLUCOSE - POINT OF CARE(Performed 01/10/2022) * GLUCOSE - POINT OF CARE(Performed 01/10/2022) * IMMUNOSCORE IGE INTERP(Performed 01/10/2022) * ALLERGEN ALPHA GAL IGE(Performed 01/10/2022) * MAGNESIUM BLOOD(Performed 01/10/2022) * CBC W AUTO DIFFERENTIAL(Performed 01/10/2022) * RENAL FUNCTION PANEL(Performed 01/10/2022) * GLUCOSE - POINT OF CARE(Performed 01/09/2022) * GLUCOSE - POINT OF CARE(Performed 01/09/2022) * GLUCOSE - POINT OF CARE(Performed 01/09/2022) * GLUCOSE - POINT OF CARE(Performed 01/09/2022) * GLUCOSE - POINT OF CARE(Performed 01/09/2022) * GLUCOSE - POINT OF CARE(Performed 01/09/2022) * T4 FREE(Performed 01/09/2022) * TSH REFLEX FREE T4(Performed 01/09/2022) * MAGNESIUM BLOOD(Performed 01/09/2022) * CBC W AUTO DIFFERENTIAL(Performed 01/09/2022) * RENAL FUNCTION PANEL(Performed 01/09/2022) * IRON + TRANSFERRIN PANEL(Performed 01/09/2022) * COMPLEMENT C1 ESTERASE INHIBITOR FUNCTION ACTIVITY(Performed 01/09/2022) * COMPLEMENT C1 ESTERASE INHIBITOR ANTIGEN(Performed 01/09/2022) * COMPLEMENT C4(Performed 01/09/2022) * GLUCOSE - POINT OF CARE(Performed 01/09/2022) * GLUCOSE - POINT OF CARE(Performed 01/08/2022) * BLOOD GASES ART + COOX PANEL(Performed 01/08/2022) * GLUCOSE - POINT OF CARE(Performed 01/08/2022) * XR ABDOMEN KUB PORTABLE(Performed 01/08/2022) Performed for Angioedema, initial encounter * XR CHEST 1VW PORTABLE(Performed 01/08/2022) Performed for Angioedema, initial encounter * PHOSPHORUS BLOOD(Performed 01/08/2022) * MAGNESIUM BLOOD(Performed 01/08/2022) * BLOOD GASES ART + COOX PANEL(Performed 01/08/2022) * CBC W AUTO DIFFERENTIAL(Performed 01/08/2022) * COMPREHENSIVE METABOLIC PANEL(Performed 01/08/2022) * FECAL LEUKOCYTES(Performed 05/13/2014) * CULTURE STOOL+ E COLI SHIGA-LIKE TOXIN(Performed 05/13/2014) * GIARDIA SCREEN DFA(Performed 05/13/2014) * CRYPTOSPORIDIUM ANTIGEN(Performed 05/13/2014) * C DIFFICILE GDH AG + TOXIN A+B(Performed 05/13/2014) Results * Mammo Bilat Diagnostic W Dionicio (08/04/2024 8:32 AM AIRSET MOLDER) Only the most recent of2 resultswithin the time period is included. Anatomical Region Laterality Modality Breast Bilateral Mammography 08/04/2024 8:16 AM AIRSET MOLDER Impressions 08/04/2024 9:04 AM AIRSET MOLDER IMPRESSION: 1.Unchanged two adjacent benign groups of calcifications within the left breast, unchanged over a 2 year interval. 2.No right mammographic evidence of malignancy. RECOMMENDATION: Screening mammography in one year, pending no interval breast concerns. Dr. Bhandari discussed the examination findings and recommendations with the patient at the time of the examination. Patient will also receive the exam results by lay letter. OVERALL ASSESSMENT: BI-RADS CATEGORY 2: BENIGN. Report dictated by Saeed Bhandari M.D. (founder president and ceo). Silviano Johnson MD, PhD and Willian Hwang [facility] also assisted in the evaluation and interpretation of the study. I, Rabia Del Castillo MD, FACR have personally reviewed and interpreted this examination/study. > Interpreting Provider: Rabia Del Castillo MD, FACR on 08/04/2024 9:04 AM Narrative 08/04/2024 9:04 AM AIRSET MOLDER EXAMINATIONS: BILATERAL DIGITAL DIAGNOSTIC MAMMOGRAM AND BREAST TOMOSYNTHESIS LOCATION: [facility] EXAM DATE: 08/04/2024 HISTORY: Follow-up to a probably benign finding on prior breast imaging. 64-year-old female presenting for 2 year follow-up of probably benign 2 adjacent groups of coarse calcifications in the medial left breast. RISK ASSESSMENT CALCULATION: Patient completed a breast cancer risk assessment during her appointment 08/04/2024. Based upon the information she provided and her mammographic breast density, her lifetime risk of developing breast cancer is 6 % (Average Risk <15%; Intermediate / Moderate Risk 15-19; High Risk > 20%). Risk assessment based upon the BRCAPRO model. COMPARISON: Prior breast imaging studies dating back to 2014. TECHNIQUE: Diagnostic left mammography was performed.Tomosynthesis (3D) and reconstructed synthetic 2-D images acquired. Bilateral craniocaudal and mediolateral oblique projections obtained. Left true lateral and left craniocaudal and true lateral spot magnification compression views obtained. A total of 7 images were obtained. Scar marker placed on the left breast. Transpara AI was utilized. BREAST COMPOSITION: Category C: The breasts are heterogeneously dense which may obscure small masses. FINDINGS: Right breast: No suspicious findings or evidence of malignancy. No change from prior. Left breast: Within the medial breast, mid to posterior depth, 5 cm from the nipple on the craniocaudal view are two directly adjacent small groups of coarse heterogenous calcifications. These span approximately 0.8 cm and are unchanged back to August 2022. Kay Tillman APRN-DENTAL SPECIALIST MAMMO ORDE CHIQUITA * (ABNORMAL) MAMMO LEFT DIAGNOSTIC W DIONICIO (01/14/2024 10:41 AM CDT) Only the most recent of3 resultswithin the time period is included. Anatomical Region Laterality Modality Breast Left Mammography 01/14/2024 10:4 1 AM CDT Impressions 01/14/2024 11:00 AM CDT : Unchanged probably benign groups of coarse heterogenous calcifications in the medial left breast, unchanged over nearly a 1.5 year interval. RECOMMENDATION: Bilateral diagnostic mammography in August 2024. Dr. Del Castillo discussed the examination findings and recommendations with the patient at the time of the examination. Patient will also receive the exam results by lay letter. OVERALL ASSESSMENT: BI-RADS CATEGORY 3: PROBABLY BENIGN. > Interpreting Provider: Rabia Del Castillo MD on 01/14/2024 11:00 AM Narrative 01/14/2024 11:00 AM CDT EXAMINATIONS: LEFT DIGITAL DIAGNOSTIC MAMMOGRAM AND BREAST TOMOSYNTHESIS WITH CAD LOCATION: [facility] EXAM DATE: 01/14/2024 HISTORY: Follow-up to a probably benign finding on prior breast imaging. Follow-up of probably benign 2 adjacent groups of coarse calcifications in the medial left breast. RISK ASSESSMENT CALCULATION: Patient completed a breast cancer risk assessment during her appointment 08/06/2023. Based upon the information she provided and her mammographic breast density, her lifetime risk of developing breast cancer is 8 % (Average Risk <15%; Intermediate / Moderate Risk 15-19; High Risk > 20%). Risk assessment based upon the Tyrer-Cuzick v8 model. COMPARISON: Prior studies back to 2018. TECHNIQUE: Diagnostic left mammography was performed.Tomosynthesis (3D) and reconstructed synthetic 2-D images acquired. Left CC, MLO, true lateral and CC and true lateral spot magnification compression views. A total of 5 images were obtained. Scar marker placed on the left breast. Computer-aided detection (CAD) was utilized. BREAST COMPOSITION: Category C: The breasts are heterogeneously dense which may obscure small masses. FINDINGS: Again noted are 2 directly adjacent small groups of coarse heterogenous microcalcifications in a rounded configuration, 4 cm from the nipple on the MLO view. The calcifications span approximately 0.8 cm in extent. These are in the mid depth. These are unchanged back to August 2022. Kay Tillman CUSTOMS INVESTIGATOR-DENTAL SPECIALIST MAMMO ORDE CHIQUITA * XR LUMBAR SPINE 2 OR 3VW (12/03/2023 10:08 AM CDT) Anatomical Region Laterality Modality Spine Radiographic Vale ging 12/03/2023 10:1 7 AM CDT Narrative 12/04/2023 9:42 AM CDT PROCEDURE: XR LUMBAR SPINE 2 OR 3VW DATE/TIME OF EXAM: 12/03/2023 10:08 AM CLINICAL INFORMATION: None relevant/not provided if blank. Indication: S33.5XXA: Sprain of ligaments of lumbar spine, initial encounter Additional History: FINDINGS/IMPRESSION: Clips are seen in the right upper abdomen. Degenerative changes are seen at L5-S1 with disc space narrowing. No gross compression fracture is seen. Lateral spinal alignment appears normal. There may be facet osteoarthritis at L4-L5 and L5-S1. Right hip arthroplasty changes are seen. Edited by Mireille Collier on 12/04/2023 9:38 AM > Interpreting Provider: Rad Bowers MD on 12/04/2023 9:42 AM Procedure Note Rad Bowers MD - 12/04/2023 PROCEDURE: XR LUMBAR SPINE 2 OR 3VW DATE/TIME OF EXAM: 12/03/2023 10:08 AM CLINICAL INFORMATION: None relevant/not provided if blank. Indication: S33.5XXA: Sprain of ligaments of lumbar spine, initial encounter Additional History: FINDINGS/IMPRESSION: Clips are seen in the right upper abdomen. Degenerative changes are seenat L5-S1 with disc space narrowing. No gross compression fracture is seen. Lateral spinal alignment appears normal. There may be facetosteoarthritis at L4-L5 and L5-S1. Right hip arthroplasty changes are seen. Edited by Mireille Collier on 12/04/2023 9:38 AM > Interpreting Provider: Rad Bowers MD on 12/04/2023 9:42 AM Kay Cooper Primo CUSTOMS INVESTIGATOR-DENTAL SPECIALIST DIAGNOSTIC IMAGING ORDERABLES * HEMOGLOBIN A1C (12/03/2023 9:40 AM CDT) Only the most recent of2 resultswithin the time period is included. Hemoglobin A1c 5.5 <5.7 % [facility] INSURANCE BILL Comment: AVERAGE GLUCOSE MG/DL BLOOD 111 mg/dL HbA1c Interpretation: Normal: < 5.7% Pre-diabetes: 5.7-6.4% Diabetes: Equal to or greater than 6.5% Test results diagnostic of diabetes should be repeated for c onfirmation. Treatment target values recommended by ADA and other clinica l organizations should be used to evaluate metabolic control in patients. This test should not replace glucose testing for patients wi th Type 1 diabetes, pediatric patients, or women. Falsely low HbA The [employer] assay for the measurement of HbA1c is a [facility] Glycohemoglobin Standardization Program (NGSP) certified method. FASTING Blood BLOOD SPECIMEN / Unknown 12/03/2023 9:40 AM CDT 12/03/2023 Narrative Resulting Agency Comment Lab Testing performed at: [address] [id number] Luz Velasquez MD LAB - CHEMISTRY ORDE UVALDOLES [facility] INSURANCE BILL [address] [place] [address] * VITAMIN D 25-HYDROXY (12/03/2023 9:40 AM CDT) Only the most recent of2 resultswithin the time period is included. Pathologist [facility] Vitamin D, 25 Hydroxy 78.5 30 - 80 ng/mL [facility] INSURANCE BILL Comment: Vitamin D Status: Deficiency <20 ng/mL Insufficiency 20-30 ng/mL Sufficiency 30-100 ng/mL Toxicity >100 ng/mL FASTING Blood BLOOD SPECIMEN / Unknown 12/03/2023 9:40 AM CDT 12/03/2023 Narrative Resulting Agency Comment Lab Testing performed at: [address] [phone] Luz Velasquez MD LAB - CHEMISTRY STELLA PORRAS Performing Organization Address [facility]/ZIP Co de Phone Number [facility] INSURANCE BILL [address] [place] [address] * (ABNORMAL) COMPREHENSIVE METABOLIC PANEL (12/03/2023 9:40 AM CDT) Only the most recent of5 resultswithin the time period is included. Pathologist [facility] Glucose 82 70 - 105 mg/dL [facility] INSURANCE BILL BUN 13 7 - 26 mg/dL [facility] INSURANCE BILL Creatinine 0.79 0.57 - 1.11 mg/dL [facility] INSURANCE BILL eGFR by CKD-EPI 83(L) >=90 mL/min/1.7 3 m2 [facility] INSURANCE BILL Sodium 141 136 - 145 mmol/L [facility] INSURANCE BILL Potassium 3.8 3.5 - 5.1 mmol/L [facility] INSURANCE BILL Chloride 103 98 - 107 mmol/L [facility] INSURANCE BILL CO2 29 22 - 29 mmol/L [facility] INSURANCE BILL Calcium 10.0 8.4 - 10.4 mg/dL [facility] INSURANCE BILL Protein Total 6.7 6.4 - 8.3 gm/dL [facility] INSURANCE BILL Albumin 4.1 3.4 - 5.0 gm/dL [facility] INSURANCE BILL Bilirubin Total 0.8 0.2 - 1.2 mg/dL [facility] INSURANCE BILL Alkaline Phosphatase 108 40 - 150 U/L [facility] INSURANCE BILL AST 26 5 - 34 U/L [facility] INSURANCE BILL ALT 21 0 - 55 U/L [facility] INSURANCE BILL Comment:FASTING Blood BLOOD SPECIMEN / Unknown 12/03/2023 9:40 AM CDT 12/03/2023 Narrative Resulting Agency Comment Lab Testing performed at: [address] [phone] Luz Velasquez MD LAB - CHEMISTRY STELLA PORRAS Performing Organization Address City/[facility]/ZIP Co de Phone Number [facility] INSURANCE BILL [address] [place] [address] * TSH (12/03/2023 9:40 AM CDT) Only the most recent of2 resultswithin the time period is included. TSH 0.4522 0.35 - 4.94 uIU/mL [facility] INSURANCE BILL Comment:FASTING Blood BLOOD SPECIMEN / Unknown 12/03/2023 9:40 AM CDT 12/03/2023 Narrative Resulting Agency Comment Lab Testing performed at: [address] [phone] Luz Velasquez MD LAB - CHEMISTRY STELLA PORRAS [facility] INSURANCE BILL [address] [place] [address] * T4 FREE (12/03/2023 9:40 AM CDT) Only the most recent of3 resultswithin the time period is included. T4 Free 1.14 0.70 - 1.50 ng/dL [facility] INSURANCE BILL Comment:FASTING Blood BLOOD SPECIMEN / Unknown 12/03/2023 9:40 AM CDT 12/03/2023 Narrative Resulting Agency Comment Lab Testing performed at: [address] [phone] Luz Velasquez MD LAB - CHEMISTRY STELLA PORRAS Performing Organization Address City/[facility]/ZIP Co de Phone Number [facility] INSURANCE BILL [address] [place] [address] * LIPID PROFILE (12/03/2023 9:40 AM CDT) Only the most recent of2 resultswithin the time period is included. Cholesterol 191 <200 mg/dL [facility] INSURANCE BILL Triglycerides 62 <150 mg/dL [facility] INSURANCE BILL HDL Cholesterol 65 >40 mg/dL [facility] INSURANCE BILL VLDL Calculated 12 <=30 mg/dL [facility] INSURANCE BILL LDL Calculated 114 <130 mg/dL [facility] INSURANCE BILL Comment:FASTING Blood BLOOD SPECIMEN / Unknown 12/03/2023 9:40 AM CDT 12/03/2023 Narrative Resulting Agency Comment Lab Testing performed at: [address] [phone] Luz Velasquez MD LAB - CHEMISTRY STELLA PORRAS Performing Organization Address [facility] Co de Phone Number [facility] INSURANCE BILL [address] [place] [address] * [place] LARYNGOSCOPY,FLEX FIBER,DIAGNOSTIC (02/06/2023 8:29 AM CDT) Narrative Claudio Vaughn MD - 02/06/2023 8:29 AM CDT Claudio Vaughn MD 02/06/2023 10:08 AM Procedure Note Endoscopy Type: Laryngoscopy without stroboscopy [address]999 Endoscope: Flexible 4mm Scope Anesthesia: Lidocaine 2% and Neosynephrine 1/2% (nasal) Procedure Details: The patient was sitting upright in a chair with the head in a slightly anterior sniffing position. The topical anesthesia was administered and then adequate time was allowed for an anesthetic effect. The endoscope was passed thru the nasal cavity with the tongue retracted anteriorly. The tip of the endoscope was positioned in the oropharynx which allowed a complete view of the base of tongue, vallecula, pyriform recesses, epiglottis, bilateral true and false vocal folds, the interarytenoid and post cricoid region, and the immediate subglottis. Findings: No polyps or mucopurulence in bilateral nasal cavities. Palate rises symmetrically. No masses or lesions noted in nasopharynx, oropharynx, or hypopharynx. Good TVF movement bilaterally. Resolution of prior granuloma. Condition: Stable. Patient tolerated procedure well. Complications: None Dr. aBzan was present for the entirety of the procedure. Moe Bazan MD PROCEDURE/MINOR SURG ICAL ORDERABLES * SUREAB VAGINOSIS/VAGINITIS PLUS (10/13/2022 1:00 AM CDT) Pathologist [facility] Bacterial Vaginosis NEGATIVE NEGATIVE [facility] Mirna species NOT DETECTED NOT DETECTED [facility] Mirna glabrata BRISSA NOT DETECTED NOT DETECTED [facility] Comment: Mirna species C. albicans, C. tropicalis, C. parapsilosis, and/or C. dubliniensis can be detected, but not differentiated, in the Mirna spp. result. Trichomonas vaginalis TMA NOT DETECTED NOT DETECTED [facility] Chlamydia trachomatis RNA NOT DETECTED NOT DETECTED [facility] GC RNA NOT DETECTED NOT DETECTED [facility] Comment: For additional information, please refer to https://education.[employer]faq/AIY982 (This link is being provided for information/ educational purposes only.) NO COLLECTION DATE RECEIVED. WE HAVE USED THE DATE THE SPECIMEN WAS RECEIVED BY THIS LABORATORY THE COLLECTION DATE. IF THIS IS INCORRECT, PLEASE CONTACT CLIENT SERVICES. PHONE NUMBER: [phone] Test Performed at: [facility] [address] [place] [address] OLIVERIO HOLMAN MD Microbiology VAGINAL SWAB / Unknown 10/12/2022 1:01 AM CDT Susi Cordova CUSTOMS INVESTIGATOR-DENTAL SPECIALIST LAB - MICROBIOLOGY ORDERABLES [facility] [address] [place] [address] * (ABNORMAL) HPV DETECTION HIGH RISK BRISSA (10/11/2022 3:17 PM CDT) Pathologist [facility] High Risk Human Papilloma Result Detected( A) Not detected 10/13/2022 4:39 PM CDT [facility] High Risk Human Papilloma Interp 10/13/2022 4:39 PM CDT [facility] Comment:High Risk Human Raúl lloma Virus - Detected Pathology/Cytolo gy MISCELLANEOUS SAMPLES / Unknown 10/11/2022 3:17 PM CDT 10/12/2022 11:40 AM CDT Narrative [facility] - 10/13/2022 4:39 PM CDT Nucleic acid isolated from the specimen was analyzed with a nucleic acid amplification test (FDA approved Gen-Probe HPV Assay) to detect high risk human papilloma virus (Types: 16, 18, 31, 33, 35, 39, 45, 51, 52, 56, 58, 59, 66, and 68). The reference range is Not Detected . Comment: These test results should not be used as the sole basis for clinical assessment and treatment of patients. These results should always be correlated with other available data (cytology, histology, and clinical information). Susi STONE LAB - MICROBIOLOGY ORDERABLES Performing Organization Address City/State/[facility] Co de Phone Number [facility] [address] [phone] * PAP IMAGE-GUIDED W HPV (10/11/2022 3:17 PM CDT) Case Report Gynecologic Cytology Report Case: [id number] Authorizing Provider: Susi Cordova APRN-CNP Collected: 10/11/2022 03:17 PM Ordering Location: [facility] Obstetrics Received: 10/12/2022 11:40 AM Gynecology [facility] Women[facility] First Screen: Moe Cabrera Specimen: THINPREP - IMAGE GUIDED, Cervix/Endocervix 10/18/2022 3:28 PM CDT [facility] LMP 2008 10/18/2022 3:28 PM CDT [facility] Menstrual Status Hysterectomy 2022 3:28 PM CDT [facility] Specimen Adequacy Satisfactory for evaluation. 10/18/2022 3:28 PM CDT [facility] Categorization Negative for intraepithelial lesion or malignancy. 10/18/2022 3:28 PM CDT [facility] Interpretation [employer] Negative for intraepithelial lesion or malignancy. 10/18/2022 3:28 PM CDT [facility] Pap Footnote The Pap Smear is a screening test. False positive and false negative results occur. Negative results do not preclude abnormalities, thus clinical correlation is required. This specimen was evaluated by the ThinPrep Imaging System along with an additional manual rescreening by a back tender cylinder and/or pathologist. 10/18/2022 3:28 PM CDT [facility] Embedded Images 3:28 PM CDT [facility] Pathology/Cytolo gy MISCELLANEOUS SAMPLES / Unknown 10/11/2022 3:17 PM CDT 10/12/2022 11:40 AM CDT Susi Cordova APRN-DENTAL SPECIALIST LAB - PATHOLOGY/CY TOLOGY ORDERABLES Performing Organization Address City/State/[facility] Co de Phone Number [facility] [address] [phone] * HPV GENOTYPES 16,18/45 (10/11/2022 3:17 PM CDT) Human papillomavirus Genotype 16 by TMA Not detected Not detected 10/16/2022 12:10 PM CDT [facility] Human papillomavirus Genotype 18/45 by TMA Not detected Not detected 10/16/2022 12:10 PM CDT [facility] Pathology/Cytolo gy MISCELLANEOUS SAMPLES / Unknown 10/11/2022 3:17 PM CDT 10/12/2022 11:40 AM CDT Narrative [facility] - 10/16/2022 12:10 PM CDT This test detects E6/E7 viral messenger RNA of high-risk HPV types 16, 18, 31, 33, 35, 39, 45, 51, 52, 56, 58, 59, 66, and 68 associated with cervical cancer and its precursor lesions. Cross-reactivity with low risk HPV genotypes 26, 67, 70, and 82 may occur. Sensitivity may be affected by specimen collection methods, stage of infection, and the presence of interfering substances. Results should be interpreted in conjunction with other available laboratory and clinical data. Susi Cordova APRN-DENTAL SPECIALIST LAB - MICROBIOLOGY ORDERABLES [facility] [address] [phone] * PATHOLOGY TISSUE EXAM (STL) (09/12/2022 9:37 AM CDT) Case Report Surgical Pathology Report Case: [id number] Authorizing Provider: Eric Garcia MD Collected: 09/12/2022 09:37 AM Ordering Location: [facility] Received: 09/12/2022 10:35 AM Pathologist: Nava Shook MD Specimen: Polyp Rectal 09/13/2022 11:58 AM CDT [facility] Final Diagnosis Polyp, rectum, polypectomy: - Hyperplastic polyp 09/13/2022 11:58 AM CDT [facility] Clinical History Screening for colon cancer. 09/13/2022 11:58 AM CDT [facility] Gross Description The specimen is identified with patient's name and date of . Received in formalin, specimen A, polyp rectal is a light-willis mucosal tissue, 0.4 x 0.3 x 0.2 cm. Entirely submitted in cassette A1. LJ 09/13/2022 11:58 AM CDT [facility] Microscopic Description There is no diagnostic evidence of dysplasia, or malignancy 09/13/2022 11:58 AM CDT [facility] Disclaimer All histochemical and/or immunohistochemical results are interpreted with controls that demonstrate appropriate staining reactions before reporting results. Note on use of immunocytochemistry reagents: This test was developed and its performance characteristic determined by [facility], Department of Laboratory Medicine. It has not been cleared or approved by the U.S. Food and Drug Administration (FDA). The FDA has determined that such clearance or approval is not necessary. The test is used for clinical purpose. It should not be regarded as investigational or for research. This laboratory is certified to perform high complexity testing. The performance characteristics of the IHC/NOVA assays have been validated on formalin-fixed paraffin embedded tissues only. The assays have not been validated on decalcified tissues. Results should be interpreted with caution. 09/13/2022 11:58 AM CDT [facility] Embedded Images 09/13/2022 11:58 AM CDT [facility] Pathology/Cytolo gy RECTAL POLYP / Unknown 09/12/2022 9:37 AM CDT 09/12/2022 10:35 AM CDT Comment:Pre-op diagnosis: Screen for colon cancer [Z12.11] Eric Garcia MD LAB - PATHOLOGY/CYTO LOGY ORDERABLES [facility] [address] [place], [place] [id number] * ENDOSCOPY, COLON, SCREENING (09/12/2022 7:47 AM CDT) Report Endoscopy POC _ Patient Name: Phyllis Torre Procedure Date: 09/12/2022 7:47 AM Date of : 1960 Admit Type: Outpatient Age: 62 Gender: Female Ethnicity: Not or Race: Black or Attending MD: Osvaldo Santa MD _ Procedure: Colonoscopy Indications: Screening for colorectal malignant neoplasm Providers: Osvaldo Santa MD (Doctor), Toma Almaraz RN, Eloise Juan, Program Planner Referring MD: Luz Velasquez MD (Referring MD) Medicines: Monitored Anesthesia Care Complications: No immediate complications. _ Estimated Blood Loss: Estimated blood loss: none. Procedure: Pre-Anesthesia Assessment: - Prior to the procedure, a History and Physical was performed, and patient medications and allergies were reviewed. The patient's tolerance of previous anesthesia was also reviewed. The risks and benefits of the procedure and the sedation options and risks were discussed with the patient. All questions were answered, and informed consent was obtained. Prior Anticoagulants: The patient has taken no previous anticoagulant or antiplatelet agents. ASA Grade Assessment: II - A patient with mild systemic disease. After reviewing the risks and benefits, the patient was deemed in satisfactory condition to undergo the procedure. After I obtained informed consent, the scope was passed under direct vision. Throughout the procedure, the patient's blood pressure, pulse, and oxygen saturations were monitored continuously. The Colonoscope was introduced through the anus and advanced to the cecum, identified by appendiceal orifice and ileocecal valve. The colonoscopy was performed without difficulty. The patient tolerated the procedure well. The quality of the bowel preparation was fair. The ileocecal valve, appendiceal orifice, and rectum were photographed. Impression: - Preparation of the colon was fair. - One 2 mm polyp in the rectum, removed with a cold biopsy forceps. Resected and retrieved. Findings: A 2 mm polyp was found in the rectum. The polyp was sessile. The polyp was removed with a cold biopsy forceps. Resection and retrieval were complete. Estimated blood loss: none. _ Recommendation: - Written discharge instructions were provided to the patient. - The signs and symptoms of potential delayed complications were discussed with the patient. - Patient has a contact number available for emergencies. - Return to normal activities tomorrow. - Resume previous diet. - Continue present medications. - Await pathology results. - Repeat colonoscopy in 5 years for surveillance based on pathology results. Procedure Code(s): --- Professional --- 01264, Colonoscopy, flexible; with biopsy, single or multiple --- Technical --- 44857, Colonoscopy, flexible; with biopsy, single or multiple Diagnosis Code(s): --- Professional --- Z12.11, Encounter for screening for malignant neoplasm of colon K62.1, Rectal polyp --- Technical --- Z12.11, Encounter for screening for malignant neoplasm of colon K62.1, Rectal polyp CPT copyright 2019 [employer]. All rights reserved. The codes documented in this report are preliminary and upon receptionist scheduler review may be revised to meet current compliance requirements. Osvaldo Santa MD 09/12/2022 9:42:19 AM This report has been signed electronically. Number of Addenda: 0 Note Initiated On: 09/12/2022 7:47 AM [facility] 09/12/2022 7:47 AM CDT Eric Garcia MD GI PROCEDURE ORDERAB LES [facility] * DEXA BONE DENSITY AXIAL SKELETON (08/23/2022 9:54 AM [facility]) Anatomical Region Laterality Modality Other 08/23/2022 3:05 PM [facility] Narrative 08/23/2022 3:07 PM [facility] PROCEDURE: DEXA BONE DENSITY AXIAL SKELETON, DATE/TIME OF EXAM: 08/23/2022 9:54 AM, LOCATION [facility] INDICATION: Z78.0: Post-menopausal COMPARISON: No similar prior LEFT FEMORAL NECK: Bone mineral density (g/cm2): 0.852 Current T-score: -0.7 LUMBAR SPINE (L1-L4): Bone mineral density (g/cm2): 1.22 Current T-score: 0.6 BONE DENSITY ASSESSMENT: WHO Category: Normal FRAX CALCULATION was not performed due to T score of spine total, total femoral neck at or above -1.0. Please see the PACS images for additional details. World Health Organization definitions of standard deviations relative to the mean T-score: Normal bone density = -1.0 and above Osteopenia = between -1.0 and -2.5 Osteoporosis = -2.5 and below > Dictated by Misael Wiggins (Director Family) 08/23/2022 3:07 PM Mathew Bowman DO have personally reviewed and interpreted this examination/study. > Interpreting Provider: Mathew Damian DO on 08/23/2022 3:07 PM Procedure Note Mathew Damian DO - 08/23/2022 PROCEDURE: DEXA BONE DENSITY AXIAL SKELETON, DATE/TIME OF EXAM:08/23/2022 9:54 AM, LOCATION [facility] INDICATION: Z78.0: Post-menopausal COMPARISON: No similar prior LEFT FEMORAL NECK: Bone mineral density (g/cm2): 0.852 Current T-score: -0.7 LUMBAR SPINE (L1-L4): Bone mineral density (g/cm2): 1.22 Current T-score: 0.6 BONE DENSITY ASSESSMENT: WHO Category: Normal FRAX CALCULATION was not performed due to T score of spine total, total femoral neck at or above -1.0. Please see the PACS images for additional details. World Health Organization definitions of standard deviations relative to the mean T-score: Normal bone density = -1.0 and above Osteopenia = between -1.0 and -2.5 Osteoporosis = -2.5 and below > Dictated by Misael Wiggins (Director Family) 08/23/2022 3:07 PM Mathew Bowman DO have personally reviewed and interpreted this examination/study. > Interpreting Provider: Mathew Damian DO on 08/23/2022 3:07 PM Luz Velasquez MD DEXA ORDERABLES * MAMMO BILAT SCREENING W DIONICIO (08/23/2022 9:53 AM [facility]DER) Anatomical Region Laterality Modality Breast Bilateral Mammography 08/23/2022 10:3 7 AM [facility] Impressions 08/23/2022 12:02 PM [facility] : 1. Two small adjacent groups of coarse heterogeneous microcalcifications in the upper inner quadrant of the left breast. 2. No right mammographic evidence of malignancy. RECOMMENDATION: Diagnostic left mammogram. If indicated at that time, left breast ultrasound will be performed. Patient will be contacted and scheduled to return for the additional imaging. OVERALL ASSESSMENT: BI-RADS CATEGORY 0: INCOMPLETE: NEED ADDITIONAL IMAGING EVALUATION. Report dictated by Saw Sykes M.D. (founder president and ceo) with assistance from Stephanie Grimaldo M.D. (founder president and ceo). I, Rabia Del Castillo MD have personally reviewed and interpreted this examination/study. > Interpreting Provider: Rabia Del Castillo MD on 08/23/2022 12:02 PM Narrative 08/23/2022 12:02 PM [facility] EXAMINATION: DIGITAL MAMMO BILAT SCREENING W DIONICIO AND WITH CAD DATE: 08/23/2022 HISTORY: Screening. COMPARISON: Prior breast imaging studies back to 2013, with the most recent dated 05/15/2018. TECHNIQUE: Tomosynthesis (3D) and reconstructed synthetic 2-D images acquired and reviewed in the bilateral craniocaudal and mediolateral oblique projections, with a total of 5 images obtained. Scar marker placed on the left breast. Computer-aided detection (CAD) was utilized. BREAST PARENCHYMAL COMPOSITION: Category C: The breasts are heterogeneously dense which may obscure small masses. FINDINGS: Right breast: No suspicious findings or evidence of malignancy. Left breast: 2 small adjacent groups of coarse heterogeneous microcalcifications in the medial mid depth breast upper inner quadrant 5 cm from the nipple on the craniocaudal view. Luz Velasquez MD MAMMO ORDERABLES * CBC W/O DIFFERENTIAL (08/15/2022 11:36 AM [facility]) WBC 6.8 3.4 - 10.8 x10E3/uL [facility] ACCOUNT BILL RBC 4.98 3.77 - 5.28 x10E6/uL [facility] ACCOUNT BILL Hemoglobin 13.5 11.1 - 15.9 g/dL [facility] ACCOUNT BILL Hematocrit 41.7 34.0 - 46.6 % [facility] ACCOUNT BILL MCV 84 79 - 97 fL [facility] ACCOUNT BILL MCH 27.1 26.6 - 33.0 pg [facility] ACCOUNT BILL MCHC 32.4 31.5 - 35.7 g/dL [facility] ACCOUNT BILL RDW 14.4 11.7 - 15.4 % [facility] ACCOUNT BILL Platelet Count 216 150 - 450 x10E3/uL [facility] ACCOUNT BILL nRBC NOT AVAILABLE [facility] ACCOUNT BILL Comment:Result cannot be obt ained for this observation. Blood BLOOD SPECIMEN / Unknown 08/15/2022 11:36 AM [facility] 08/15/2022 Narrative Resulting Agency Comment Lab Testing performed at: [facility] [address] [facility] [phone] Luz Velasquez MD LAB - HEMATOLOGY ORD ERABLES Performing Organization Address City/[facility]/ZIP Co de Phone Number [facility] ACCOUNT BILL [address] [place] [address] * VITAMIN B12 (08/15/2022 11:36 AM [facility]DER) [facility] Vitamin B12 712 232 - 1,245 pg/mL [facility] ACCOUNT BILL Blood BLOOD SPECIMEN / Unknown 08/15/2022 11:36 AM [facility] 08/15/2022 Narrative Resulting Agency Comment Lab Testing performed at: [facility] [address] [facility] [phone] Luz Velasquez MD LAB - CHEMISTRY ORDE RABLES [facility] ACCOUNT BILL [address] [place] [address] * IMMUNOSCORE IGE INTERP (06/16/2022 12:30 PM [facility]) Only the most recent of2 resultswithin the time period is included. [facility] Immunocap Score See Note 8:51 PM [facility] [employer] ([facility]) Comment: REFERENCE INTERVAL: Allergen, Interpretation Less than 0.10 kU/L......Class 0.....No significant level detected 0.10-0.34 kU/L...........Class 0/1...Clinical relevance undetermined 0.35-0.70 kU/L...........Class 1.....Low 0.71-3.50 kU/L...........Class 2.....Moderate 3.51-17.50 kU/L..........Class 3.....High 17.51-50.00 kU/L.........Class 4.....Very High 50.01-100.00 kU/L........Class 5.....Very High Greater than 100.00kU/L..Class 6.....Very High Allergen results of 0.10-0.34 kU/L are intended for specialist use as the clinical relevance is undetermined. Even though increasing ranges are reflective of increasing concentrations of allergen-specific IgE, these concentrations may not correlate with the degree of clinical response or skin testing results when challenged with a specific allergen. The correlation of allergy laboratory results with clinical history and in vivo reactivity to specific allergens is essential. A negative test may not rule out clinical allergy or even anaphylaxis. Performed By: [facility] [address] [place] [address] [employer]ulic [employer] In Operator: Cedrick Suresh MD, PhD Blood BLOOD SPECIMEN / Unknown Lab Venipuncture / Unknown 06/16/2022 12:30 PM [facility] 06/17/2022 11:25 AM [facility] M[facility]DER Barrett Sharma MD LAB - SEROLOGY ORDER B[facility] [employer] [facility]) [address] [place] [address], [facility] * ALLERGEN RESPIRATORY PROF (IL,MO,IA) IGE (06/16/2022 12:30 PM [facility] M[facility]DER) IgE Total 10 <=214 kU/L 06/18/2022 8:33 PM [facility] M[facility] ([facility]) Comment: REFERENCE INTERVAL: Immunoglobulin E, Serum Access complete set of age- and/or gender-specific reference intervals for this test in the [facility] Test Directory ([employer]). Allergen Camarillo Elder <0.10 <=0.34 kU/L 06/18/2022 8:33 PM [facility] M[facility]DER [facility] ([facility]) Allergen Alternaria alternata <0.10 <=0.34 kU/L 06/18/2022 8:33 PM [facility] ([facility]) Allergen Crisp Maple <0.10 <=0.34 kU/L 06/18/2022 8:33 PM [facility] M[facility] ([facility]) Allergen Cat Dander <0.10 <=0.34 kU/L 06/18/2022 8:33 PM [facility]SET M[facility] ([facility]) Allergen Mountain Arkoma <0.10 <=0.34 kU/L 06/18/2022 8:33 PM [facility] ([facility]) Allergen [place] Tree <0.10 <=0.34 kU/L 06/18/2022 8:33 PM [facility] ([facility]) Allergen Rough Pigweed <0.10 <=0.34 kU/L 06/18/2022 8:33 PM [facility] ([facility]) Allergen Iranian Thistle <0.10 <=0.34 kU/L 06/18/2022 8:33 PM [facility] ([facility]) Allergen Cristiano Grass <0.10 <=0.34 kU/L 06/18/2022 8:33 PM [facility] ([facility]) Allergen Hormodendrum <0.10 <=0.34 kU/L 06/18/2022 8:33 PM [facility] ([facility]) Allergen Elm <0.10 <=0.34 kU/L 06/18/2022 8:33 PM [facility] ([facility]) Allergen St[place] <0.10 <=0.34 kU/L 06/18/2022 8:33 PM [facility] ([facility]) Allergen A fumigatus IgE <0.10 <=0.34 kU/L 06/18/2022 8:33 PM [facility] ([facility]) Allergen Dermatophagoides pteronyssinus <0.10 <=0.34 kU/L 06/18/2022 8:33 PM [facility] M[facility]DER [facility] ([facility]) Allergen Dermatophagoides farinae <0.10 <=0.34 kU/L 06/18/2022 8:33 PM [facility] ([facility]) Allergen Bermuda Grass <0.10 <=0.34 kU/L 06/18/2022 8:33 PM [facility] ([facility]) Allergen White Navjot <0.10 <=0.34 kU/L 06/18/2022 8:33 PM [facility] ([facility]) Allergen P. Notatum <0.10 <=0.34 kU/L 06/18/2022 8:33 PM [facility] ([facility]) Allergen Common Ragweed <0.10 <=0.34 kU/L 06/18/2022 8:33 PM [facility]) Allergen Cockroach Malay <0.10 <=0.34 kU/L 06/18/2022 8:33 PM [facility]) Allergen Redmond Tree <0.10 <=0.34 kU/L 06/18/2022 8:33 PM [facility] ([facility]) Allergen [place] Tree <0.10 <=0.34 kU/L 06/18/2022 8:33 PM [facility]) Allergen Pecan Tree <0.10 <=0.34 kU/L 06/18/2022 8:33 PM [facility]) Allergen Mouse Epithelium IgE <0.10 <=0.34 kU/L 06/18/2022 8:33 PM [facility]) Allergen Mucor racemosus <0.10 <=0.34 kU/L 06/18/2022 8:33 PM [facility]) Allergen White Machipongo Tree IgE <0.10 <=0.34 kU/L 06/18/2022 8:33 PM [facility]) Allergen Dog Dander <0.10 <=0.34 kU/L 06/18/2022 8:33 PM [facility] ([facility]) Comment: Performed By: [facility] [address] [place] [id number] [employer]ulic Press In Operator: Cedrick Suresh MD, PhD Blood BLOOD SPECIMEN / Unknown Lab Venipuncture / Unknown 06/16/2022 12:30 PM [facility] M[facility]DER 06/17/2022 11:25 AM [facility] Barrett Sharma MD LAB - CHEMISTRY ORDSandra PORRAS [facility] ([facility]) [address] [place] [id number], [facility] * (ABNORMAL) BASIC METABOLIC PANEL (CALCIUM TOTAL) (01/30/2022 4:59 AM CDT) Only the most recent of6 resultswithin the time period is included. Glucose 132(H) 70 - 105 mg/dL 01/30/2022 11:17 AM CDT [facility] Sodium 139 136 - 145 mmol/L 01/30/2022 11:17 AM CDT [facility] Potassium 3.5 3.5 - 5.1 mmol/L 01/30/2022 11:17 AM CDT [facility] Chloride 108(H) 98 - 107 mmol/L 01/30/2022 11:17 AM CDT [facility] CO2 21(L) 23 - 31 mmol/L 01/30/2022 11:17 AM CDT [facility] Calcium 9.5 8.4 - 10.4 mg/dL 01/30/2022 11:17 AM CDT [facility] Anion Gap 10 8 - 18 mmol/L 01/30/2022 11:17 AM CDT [facility] BUN 4(L) 9.8 - 20.1 mg/dL 01/30/2022 11:17 AM CDT [facility] Creatinine 0.72 0.57 - 1.11 mg/dL 01/30/2022 11:17 AM CDT [facility] eGFR by CKD-EPI >90 >=90 mL/min/1.7 3 m2 01/30/2022 11:17 AM CDT [facility] Blood BLOOD SPECIMEN / Unknown Venipuncture / Unknown 01/30/2022 4:59 AM CDT 01/30/2022 10:34 AM CDT Augustin Chapman MD LAB - CHEMISTRY STELLA PORRSA [facility] [address] [id number] * CARDIAC EKG ORDER (01/25/2022 11:43 AM CDT) Narrative 01/25/2022 11:43 AM CDT Ordered by an unspecified provider. Scanned Document CARDIAC SERVICES ORD ERABLES * (ABNORMAL) CBC W AUTO DIFFERENTIAL (01/20/2022 4:08 AM CDT) Only the most recent of13 resultswithin the time period is included. WBC 11.9(H) 4.4 - 10.7 x10E9/L 01/20/2022 4:45 AM CDT [facility] WBC Corrected 01/20/2022 4:45 AM CDT [facility] RBC 4.85 3.80 - 5.20 x10E12/L 01/20/2022 4:45 AM CDT [facility] Hemoglobin 14.5 12.0 - 15.6 gm/dL 01/20/2022 4:45 AM CDT [facility] Hematocrit 42.8 35.9 - 45.5 % 01/20/2022 4:45 AM CDT [facility] MCV 88.2 80.7 - 98.3 fl 01/20/2022 4:45 AM CDT [facility] MCH 29.9 26.7 - 34.0 pg 01/20/2022 4:45 AM CDT [facility] MCHC 33.9 30.8 - 35.9 gm/dL 01/20/2022 4:45 AM CDT [facility] Platelet Count 240 153 - 416 x10E9/L 01/20/2022 4:45 AM CDT [facility] RDW-CV 14.1 12.1 - 14.9 % 01/20/2022 4:45 AM CDT [facility] MPV 9.7 9.4 - 12.9 fl 01/20/2022 4:45 AM CDT [facility] Neutrophils % 61.6 44.0 - 73.0 % 01/20/2022 4:45 AM CDT [facility] Lymphocytes % 29.8 20.0 - 43.0 % 01/20/2022 4:45 AM CDT [facility] Monocytes % 7.6 5.0 - 13.0 % 01/20/2022 4:45 AM CDT [facility] Eosinophils % 0.2 0.0 - 6.0 % 01/20/2022 4:45 AM CDT [facility] Basophils % 0.1 0.0 - 2.0 % 01/20/2022 4:45 AM CDT [facility] Immature Granulocytes 0.7 0 - 1 % 01/20/2022 4:45 AM CDT [facility] Neutrophil Absolute 7.31(H) 2.01 - 7.14 x10E9/L 01/20/2022 4:45 AM CDT [facility] Lymphocytes Absolute 3.54 1.07 - 3.94 x10E9/L 01/20/2022 4:45 AM CDT [facility] Monocytes Absolute 0.90 0.26 - 1.07 x10E9/L 01/20/2022 4:45 AM CDT [facility] Eosinophils Absolute 0.02 0 - 0.47 x10E9/L 01/20/2022 4:45 AM CDT [facility] Basophils Absolute 0.01 0 - 0.08 x10E9/L 01/20/2022 4:45 AM CDT [facility] Immature Granulocytes Absolute 0.08(H) 0.00 - 0.06 x10E9/L 01/20/2022 4:45 AM CDT [facility] nRBC Auto 0 /100 WBC 01/20/2022 4:45 AM CDT [facility] Blood BLOOD SPECIMEN / Unknown Venipuncture / Unknown 01/20/2022 4:08 AM CDT 01/20/2022 4:34 AM CDT Christian Victoria MD LAB - HEMATOLOGY ORD ERABLES [facility] [address] [place] [address] * GLUCOSE - POINT OF CARE (01/19/2022 10:45 AM CDT) Only the most recent of53 resultswithin the time period is included. [facility] Glucose WB/POC 92 70 - 115 mg/dL 01/19/2022 11:38 AM CDT [facility] Specimen Type Cap Fingerstick 2021 11:38 AM CDT [facility] Blood BLOOD SPECIMEN / Unknown 01/19/2022 10:45 AM CDT 01/19/2022 11:38 AM CDT Carlitos Barton MD LAB - POINT OF CARE ORDERABLES Performing Organization Address City/[facility]/ZIP Co de Phone Number [address] [address], [facility] [phone] * PHOSPHORUS BLOOD (01/19/2022 3:16 AM CDT) Only the most recent of2 resultswithin the time period is included. Phosphorus 3.2 2.9 - 5.1 mg/dL 01/19/2022 4:19 AM CDT [facility] Blood BLOOD SPECIMEN / Unknown Lab Venipuncture / Unknown 01/19/2022 3:16 AM CDT 01/19/2022 3:54 AM CDT Carlitos Barton MD LAB - CHEMISTRY STELLA PORRAS Performing Organization Address [facility] Co de Phone Number [address] [address], [facility] [phone] * MAGNESIUM BLOOD (01/19/2022 3:16 AM CDT) Only the most recent of12 resultswithin the time period is included. Magnesium 2.1 1.6 - 2.6 mg/dL 01/19/2022 4:19 AM CDT [facility] Blood BLOOD SPECIMEN / Unknown Lab Venipuncture / Unknown 01/19/2022 3:16 AM CDT 01/19/2022 3:54 AM CDT Maximus Escalera MD LAB - CHEMISTRY STELLA PORRAS Performing Organization Address City/[facility]/ZIP Co de Phone Number [address] [address], [facility] [phone] * (ABNORMAL) RENAL FUNCTION PANEL (01/18/2022 3:39 AM T) Only the most recent of10 resultswithin the time period is included. BUN 21 7 - 26 mg/dL 01/18/2022 4:28 AM [facility] Creatinine 0.80 0.56 - 0.96 mg/dL 01/18/2022 4:28 AM [facility] Sodium 145 136 - 145 mmol/L 01/18/2022 4:28 AM [facility] Potassium 3.2(L) 3.5 - 4.5 mmol/L 01/18/2022 4:28 AM [facility] Chloride 106 98 - 107 mmol/L 01/18/2022 4:28 AM [facility] CO2 21(L) 22 - 29 mmol/L 01/18/2022 4:28 AM [facility] Glucose 73 70 - 115 mg/dL 01/18/2022 4:28 AM [facility] Albumin 3.7 3.4 - 5.0 g/dL 01/18/2022 4:28 AM [facility] Calcium 10.1 8.4 - 10.2 mg/dL 01/18/2022 4:28 AM [facility] Phosphorus 3.4 2.9 - 5.1 mg/dL 01/18/2022 4:28 AM [facility] Anion Gap 21(H) 8 - 18 01/18/2022 4:28 AM [facility] BUN/Creatinine Ratio 26(H) 7 - 23 01/18/2022 4:28 AM [facility] Osmolality Calculated 302(H) 270 - 300 mOsm/kg 01/18/2022 4:28 AM [facility] eGFR by CKD-EPI 83(L) >=90 mL/min/1.7 3 m2 01/18/2022 4:28 AM [facility] Blood BLOOD SPECIMEN / Unknown Lab Venipuncture / Unknown 01/18/2022 3:39 AM CDT 01/18/2022 3:58 AM T Maximus Escalera MD LAB - CHEMISTRY STELLA PORRAS [facility] Organization Address City/State/ZIP Co de Phone Number [facility] [address] [place] [address], [facility] [phone] * MRI BRAIN WWO CONTRAST (01/16/2022 7:27 PM CDT) Anatomical Region Laterality Modality Head Magnetic Resonan ce 01/17/2022 8:4 4 AM CDT Impressions 01/17/2022 9:41 AM CDT IMPRESSION: 1.Motion limited study. 2.No demonstrated acute intracranial abnormality. Dictated by Cristo Calles MD (founder president and ceo) I, Dr. MARYJANE MORALES M.D. have personally reviewed and interpreted this examination/study. This report was electronically signed by MARYJANE MORALES M.D. on 01/17/2022 9:41 AM . Narrative 01/17/2022 9:41 AM CDT Contrast enhanced MRI of brain CLINICAL INFORMATION: G93.40: Encephalopathy TECHNIQUE: MRI of the brain was performed with and without intravenous contrast according to standard protocol. 8 ml Gadavist was administered intravenously. COMPARISON: None FINDINGS: Evaluation is limited due to significant motion artifact on several sequences. Within these limitations, the following observations are made: There is no acute infarct or MR evidence of large volume intracranial hemorrhage. There is no intracranial mass or mass effect. There is no extra-axial fluid collection. Moderate generalized cerebral volume loss is noted. No significant focal abnormalities in the supratentorial parenchyma. Mild chronic microvascular ischemic changes are seen in the elida. The sella is unremarkable. No abnormal intracranial enhancement is noted. However, evaluation limited due to motion artifact. There is no significant opacification of the paranasal sinuses and tympanomastoid cavities. The orbits are unremarkable. Procedure Note Maryjane Morales MD - 01/17/2022 Contrast enhanced MRI of brain CLINICAL INFORMATION: G93.40: Encephalopathy TECHNIQUE: MRI of the brain was performed with and without intravenous contrast according to standard protocol. 8 ml Gadavist was administered intravenously. COMPARISON: None FINDINGS: Evaluation is limited due to significant motion artifact on several sequences. Within these limitations, the following observations aremade: There is no acute infarct or MR evidence of large volume intracranial hemorrhage. There is no intracranial mass or mass effect. There is no extra-axial fluid collection. Moderate generalized cerebral volume lossis noted. No significant focal abnormalities in the supratentorial parenchyma. Mild chronic microvascular ischemic changes are seen in the elida. The sella is unremarkable. No abnormal intracranial enhancement is noted. However, evaluationlimited due to motion artifact. There is no significant opacification of the paranasal sinuses and tympanomastoid cavities. The orbits are unremarkable. IMPRESSION: 1.Motion limited study. 2.No demonstrated acute intracranial abnormality. Dictated by Cristo Calles MD (founder president and ceo) I, Dr. MARYJANE MORALES M.D. have personally reviewed and interpreted this examination/study. This report was electronically signed by MARYJANE MORALES M.D. on 01/17/2022 9:41 AM . Selam Diaz MD MR ORDERABLES * (ABNORMAL) URINE MICROSCOPIC ONLY REFLEX TO CULTURE (01/16/2022 10:35 AM CDT) Reflex Status Culture to follow 01/16/2022 10:49 AM CDT [facility] RBC UA 11-20(A) None Seen, 0-2, 3-5 /HPF 01/16/2022 10:49 AM [facility] WBC UA 51-100(A) None Seen, 0-5 /HPF 01/16/2022 10:49 AM CDT [facility] Bacteria UA Trace(A) None /HPF 01/16/2022 10:49 AM [facility] Squamous Epithelial Cells UA 0-2 None Seen, 0-2, 3-5 /HPF 01/16/2022 10:49 AM T [facility] Amorphous Crystals Rare(A) None /HPF 01/16/2022 10:49 AM T [facility] Urine URINE SPECIMEN OBTAINED BY CLEAN CATCH PROCEDURE / Unknown Collection / Unknown 01/16/2022 10:35 AM CDT 01/16/2022 10:41 AM CDT [facility] - 01/16/2022 10:49 AM CDT Selam Diaz MD LAB - URINALYSI S ORDERABLES Performing Organization Address City/[facility]/ZIP Co de Phone Number [facility] [address] [place] [address], [facility] [phone] * (ABNORMAL) URINALYSIS REFLEX MICROSCOPIC REFLEX CULTURE (01/16/2022 10:35 AM CDT) Color UA Straw Straw, Yellow 01/16/2022 10:49 AM CDT [facility] Clarity UA t Cloudy(A) Clear 01/16/2022 10:49 AM CDT [facility] Specific [place] UA 1.015 1.005 - 1.030 01/16/2022 10:49 AM CDT [facility] pH UA 7.0 5.0 - 8.0 pH 01/16/2022 10:49 AM T [facility] Protein UA Negative Negative 01/16/2022 10:49 AM T [facility] Glucose UA Negative Negative 01/16/2022 10:49 AM CDT [facility] Ketone UA Negative Negative 01/16/2022 10:49 AM T [facility] Bilirubin UA Negative Negative 01/16/2022 10:49 AM T [facility] Blood UA 2+(A) Negative 01/16/2022 10:49 AM [facility] Nitrite UA Negative Negative 01/16/2022 10:49 AM T [facility] Leukocyte Esterase 2+(A) Negative 01/16/2022 10:49 AM [facility] Urobilinogen UA Negative Negative mg/dL 01/16/2022 10:49 AM [facility] Urine URINE SPECIMEN OBTAINED BY CLEAN CATCH PROCEDURE / Unknown Collection / Unknown 01/16/2022 10:35 AM CDT 01/16/2022 10:41 AM CDT Selam Diaz MD LAB - URINALYSI S ORDERABLES [facility] [address] [place] [address], [facility] [phone] * CULTURE URINE (01/16/2022 10:35 AM CDT) Culture Urine 10,000-50,000 CFU/mL urogenital kathleen SHARRON 01/17/2022 6:12 PM CDT [facility] Urine URINE SPECIMEN OBTAINED BY CLEAN CATCH PROCEDURE / Unknown Collection / Unknown 01/16/2022 10:35 AM CDT 01/16/2022 10:49 AM CDT Selam Diaz MD LAB - MICROBIOL OGY ORDERABLES [facility] [address] [place] [address], [facility] [phone] * EKG 12-LEAD (01/12/2022 9:05 PM CDT) Pathologist [facility] Ventricular Rate 70 BPM [facility] Atrial Rate 70 BPM [facility] P-R Interval 136 ms [facility] QRS Duration ms 70 ms [facility] Q-T Interval ms 434 ms [facility] QTC Calculation (Bezet) 468 ms [facility] MUSE Calculated P [place] 9 degrees [facility] MUSE Calculated R [place] 65 degrees [facility] MUSE Calculated T [place] 98 degrees [facility] MUSE Interpretation EKG NORMAL SINUS RHYTHM NORMAL ECG NO PREVIOUS ECGS AVAILABLE Confirmed by fellow LISBETH GALLEGO MD ([id number]) on 01/16/2022 9:30:43 AM Confirmed by Kary Gold Deana ([id number]) on 01/16/2022 10:13:16 PM [facility] MUSE 01/12/2022 9:05 PM CDT 01/16/2022 10:13 PM CDT Selam Diaz MD ECG ORDERABLES Performing Organization Address [facility] Co de Phone Number [facility] MUSE * CT NECK SOFT TISSUE WO CONT (01/11/2022 1:59 PM CDT) Anatomical Region Laterality Modality Head Computed Tomogra phy 01/12/2022 4:10 AM CDT Impressions 01/12/2022 10:17 AM CDT IMPRESSION: 1.Mild diffuse edema involving the nasopharyngeal and oropharyngeal soft tissues, compatible with patient's known angioedema. 2.The patient is intubated. A nasoenteric tube is seen through the right nostril. 3.No suspicious mass in the neck or cervical lymphadenopathy by CT size criteria. 4.Suspected small hiatal hernia. 5.Postoperative findings of ACDF at C3-C6 with associated mild spinal canal stenosis. This report was electronically signed by MARCELINA RADER on 01/12/2022 10:17 AM . Narrative 01/12/2022 10:[address] NECK SOFT TISSUE WO CONT DATE: 01/11/2022 2:00 PM EXAMINATION: Computed tomography (CT) of the neck with contrast HISTORY: T88.4XXS: Hard to intubate, sequela. 61 year oldfemalolman is currently admitted for angioedema. The allergy/immunology service was consulted forangioedema. Pt transferred from OSH for angioedema. C4 at OSH (50.4, high) at OSH. C1 inhibitor &function from OSH still pending per MICU resident today. Pt recently had hip surgery/replacement in October 2021. She continued to have pain despite taking tramadol Rx at home. She was prescribed Rx for naproxen in mid November 2021. She has had 2 episodes of face swelling without return to baseline before this admission. This admission represents her 3rd episode of swelling. The prior 2 were treated with steroids &possibly anti-histamines per family at bedside and via telephone. The prior 2 episodes were not associated with airway compromise per family, but pt did have significant facial swelling. Family currently unsure if the first episode occurred before or after initiation of naproxen Rx, but they will work on obtaining those records. TECHNIQUE: CT of the neck was performed without contrast according to standard protocol. COMPARISON: No prior study is available for comparison at the time of this dictation. FINDINGS: The patient is intubated. A nasoenteric tube is seen through the right nostril and through the esophagus is also noted. There is diffuse edema involving the nasopharynx and oropharynx with thickening of the Waldeyer's ring lymphoid tissues including the nasopharyngeal soft tissues, the tonsillar pillars, the soft palate, and the uvula resulting in nasopharyngeal airway stenosis which is coapted around the nasoenteric tube. Minimal lymphedema of the larynx. The airways at and below the level of the hypopharynx and the laryngopharynx are patent. There are a few small scattered cervical lymph nodes which are nonspecific. No cervical lymphadenopathy by CT size criteria. The muscles of the neck appear normal. There is atherosclerotic disease involving the carotid bifurcations. The internal jugular veins appear normal. Fascial planes are preserved and the deep spaces of the neck appear normal. The remaining visualized airway are patent. Ventriculomegaly disproportionate to sulcal dilation concerning for normal pressure hydrocephalus. There are atherosclerotic calcifications of the carotid siphons. The visualized portions of the posterior fossa and brain appear otherwise grossly normal. Postoperative findings of ACDF at C3-C6 with osseous fusion of the surgical levels. There is cervical degenerative disc and joint disease. Borderline developmental cervical spinal canal stenosis and superimposed multilevel degenerative disc and joint disease with diffuse disc bulge/disc osteophyte complex resulting in mild or [id number] spinal canal stenosis at multiple levels. The visualized orbits appear grossly unremarkable. There is mild paranasal sinus disease. There is a suspected hiatal hernia. The visible lung apices are clear. Procedure Note Marcelina Rader MD - 01/12/2022 CT NECK SOFT TISSUE WO CONT DATE: 01/11/2022 2:00 PM EXAMINATION: Computed tomography (CT) of the neck with contrast HISTORY: T88.4XXS: Hard to intubate, sequela. 61 year oldfemalewho is currently admitted for angioedema. The allergy/immunology service was consulted forangioedema. Pt transferred from OSH for angioedema. C4 atOSH (50.4, high) at OSH. C1 inhibitor &function from OSH still pending per MICU resident today. Pt recently had hip surgery/replacement in October2021. She continued to have pain despite taking tramadol Rx at home. She was prescribed Rx for naproxen in mid November 2021. She has had 2 episodes of face swelling without return to baseline before this admission. This admission represents her 3rd episode of swelling. The prior 2 weretreated with steroids &possibly anti-histamines per family at bedside and via telephone. The prior 2 episodes were not associated with airwaycompromise per family, but pt did have significant facial swelling. Familycurrently unsure if the first episode occurred before or after initiation of naproxen Rx, but they will work on obtaining those records. TECHNIQUE: CT of the neck was performed without contrast according to standard protocol. COMPARISON: No prior study is available for comparison at the time ofthis dictation. FINDINGS: The patient is intubated. A nasoenteric tube is seen through the right nostril and through the esophagus is also noted. There is diffuse edema involving the nasopharynx and oropharynx with thickening of theWaldeyer's ring lymphoid tissues including the nasopharyngeal soft tissues, the tonsillar pillars, the soft palate, and the uvula resulting in nasopharyngeal airway stenosis which is coapted around the nasoenteric tube. Minimal lymphedema of the larynx. The airways at and below thelevel of the hypopharynx and the laryngopharynx are patent. There are a few small scattered cervical lymph nodes which are nonspecific. No cervical lymphadenopathy by CT size criteria. Themuscles of the neck appear normal. There is atherosclerotic disease involvingthe carotid bifurcations. The internal jugular veins appear normal. Fascial planes are preserved and the deep spaces of the neck appear normal. The remaining visualized airway are patent. Ventriculomegalydisproportionate to sulcal dilation concerning for normal pressure hydrocephalus. Thereare atherosclerotic calcifications of the carotid siphons. The visualized portions of the posterior fossa and brain appear otherwise grosslynormal. Postoperative findings of ACDF at C3-C6 with osseous fusion of the surgical levels. There is cervical degenerative disc and joint disease. Borderline developmental cervical spinal canal stenosis and superimposed multilevel degenerative disc and joint disease with diffuse disc bulge/disc osteophyte complex resulting in mild or dspb-jq-wfevwolvixebrv canal stenosis at multiple levels. The visualized orbits appear grossly unremarkable. There is mild paranasal sinus disease. There is asuspected hiatal hernia. The visible lung apices are clear. IMPRESSION: 1.Mild diffuse edema involving the nasopharyngeal and oropharyngeal soft tissues, compatible with patient's known angioedema. 2.The patient is intubated. A nasoenteric tube is seen through the right nostril. 3.No suspicious mass in the neck or cervical lymphadenopathy by CT size criteria. 4.Suspected small hiatal hernia. 5.Postoperative findings of ACDF at C3-C6 with associated mild spinal canal stenosis. This report was electronically signed by MARCELINA RADER on01/12/2022 10:17 AM . Selam Diaz MD CT ORDERABLES * ALLERGEN ALPHA GAL IGE (01/10/2022 5:07 AM CDT) Pathologist [facility] Allergen Alpha Gal IgE <0.10 <=0.09 kU/L 01/11/2022 9:39 PM CDT [facility] ([facility]) Comment: INTERPRETIVE INFORMATION: Allergen, Food, Alpha-Gal, IgE Allergen results of 0.10-0.34 kU/L are intended for specialist use as the clinical relevance is undetermined. Even though increasing ranges are reflective of increasing concentrations of allergen-specific IgE, these concentrations may not correlate with the degree of clinical response or skin testing results when challenged with a specific allergen. The correlation of allergy laboratory results with clinical history and in vivo reactivity to specific allergens is essential. A negative test may not rule out clinical allergy or even anaphylaxis. Performed By: [facility] [employer] [address] [place] [address] Hydraulic Press In Operator: Cedrick Suresh MD, PhD Blood BLOOD SPECIMEN / Unknown Venipuncture / Unknown 01/10/2022 5:07 AM CDT 01/10/2022 5:19 AM CDT Selam Diaz MD LAB - SEROLOGY ORDERABLES Performing Organization Address City/[facility]/ZIP Co de Phone Number [facility]) [address] [place] [address] * (ABNORMAL) TSH REFLEX FREE T4 (01/09/2022 4:23 AM CDT) [facility] TSH 0.093(L) 0.350 - 4.940 uIU/mL 01/09/2022 5:45 AM CDT [facility] LABORATORY [facility] Blood BLOOD SPECIMEN / Unknown Venipuncture / Unknown 01/09/2022 4:23 AM CDT 01/09/2022 4:45 AM CDT Maximus Escalera MD LAB - CHEMISTRY ORDSandra PORRAS [address] [address], [facility] [phone] * COMPLEMENT C1 ESTERASE INHIBITOR FUNCTION ACTIVITY (01/09/2022 4:23 AM CDT) [facility] Complement C1 Esterase Inhibitor Functional 119 >=41 % 01/11/2022 4:42 PM CDT [facility] ([facility]) Comment: INTERPRETIVE INFORMATION: [id number] Inhib. Functional 68% or greater ........ Normal 41% - 67% ............. Indeterminate 40% or less ........... Abnormal Performed By: [facility] [address] [place] [address] Hydraulic Press In Operator: Cedrick Suresh MD, PhD Blood BLOOD SPECIMEN / Unknown Venipuncture / Unknown 01/09/2022 4:23 AM CDT 01/09/2022 4:50 AM CDT Maximus Escalera MD LAB - CHEMISTRY STELLA PORRAS [facility]) [address] [place] [address] * (ABNORMAL) COMPLEMENT C1 ESTERASE INHIBITOR ANTIGEN (01/09/2022 4:23 AM CDT) [facility] C1 Esterase Inhibitor 44(H) 21 - 39 mg/dL 01/11/2022 1:09 PM CDT [facility] ([facility]) Blood BLOOD SPECIMEN / Unknown Venipuncture / Unknown 01/09/2022 4:23 AM CDT 01/09/2022 4:50 AM CDT Narrative [facility] ([facility]) - 01/11/2022 1:09 PM CDT Performed at: [facility] [id number] Occupational Therapist Aide: Sandrine Lyman MD, Phone: [phone] Maximus Escalera MD LAB - CHEMISTRY STELLA PORRAS [facility] ([facility]) [address] [place] [address], [facility] * COMPLEMENT C4 (01/09/2022 4:23 AM CDT) [facility] Complement C4 41 15 - 57 mg/dL 01/09/2022 5:28 AM CDT [facility] Blood BLOOD SPECIMEN / Unknown Venipuncture / Unknown 01/09/2022 4:23 AM CDT 01/09/2022 4:45 AM CDT Maximus Escalera MD LAB - SEROLOGY ORDER [facility] [address] [place] [address], [facility] [phone] * (ABNORMAL) IRON + TRANSFERRIN PANEL (01/09/2022 4:23 AM CDT) [facility] Iron 38(L) 40 - 150 ug/dL 01/09/2022 6:02 AM CDT [facility] Transferrin 245 174 - 382 mg/dL 01/09/2022 6:02 AM CDT [facility] Transferrin Saturation % 12(L) 16 - 50 % 01/09/2022 6:02 AM T [facility] TIBC Calculated 306 240 - 450 ug/dL 01/09/2022 6:02 AM CDT [facility] Blood BLOOD SPECIMEN / Unknown Venipuncture / Unknown 01/09/2022 4:23 AM CDT 01/09/2022 4:50 AM CDT Maximus Escalera MD LAB - CHEMISTRY ORDE RABTRINO [facility] [address] [place] [address], [facility] [phone] * (ABNORMAL) BLOOD GASES ART + COOX PANEL (01/08/2022 5:13 PM CDT) Only the most recent of2 resultswithin the time period is included. Pathologist [facility] pH Arterial 7.46(H) 7.35 - 7.45 pH 01/08/2022 5:29 PM CDT [facility] pO2 Arterial 81 80 - 100 mmHg 01/08/2022 5:29 PM CDT [facility] pCO2 Arterial 36 35 - 45 mmHg 5:29 PM [facility] HCO3 Arterial 26 20 - 30 mmol/l 01/08/2022 5:29 PM [facility] BE Arterial 1.8 -2.0 - 2.0 mmol/L 01/08/2022 5:29 PM [facility] Oxyhemoglobin Arterial 95.3 % 01/08/2022 5:29 PM [facility] Dexoyhemoglobin (HHB) % 2.0 % 01/08/2022 5:29 PM [facility] Methemoglobin 1.2 0.0 - 2.0 % 01/08/2022 5:29 PM [facility] Carboxyhemoglobin 1.4 0.0 - 2.0 % 2021 5:29 PM [facility] O2 Content Arterial 13.9 Interpret within clinical context mg/dL 01/08/2022 5:29 PM [facility] Hemoglobin by COOX 10.3(L) 12.0 - 15.6 g/dL 01/08/2022 5:29 PM [facility] O2 Saturation Arterial 98 90 - 100 % 01/08/2022 5:29 PM [facility] FI O2 Arterial 40.0 % 01/08/2022 5:29 PM [facility] Blood, arterial ARTERIAL BLOOD SPECIMEN / Unknown Arterial Puncture / Unknown 01/08/2022 5:13 PM CDT 01/08/2022 5:26 PM CDT [facility] - 01/08/2022 5:29 PM CDT Carboxyhemoglobin Normal Concentration: Non-smokers: 0-2%; Smokers: 0-9%; Toxic: >20% Jose Osuna MD LAB - BLOOD GAS ES ORDERABLES [facility] [address] [place] [address], [facility] [phone] * XR ABDOMEN KUB PORTABLE (01/08/2022 12:45 PM CDT) Anatomical Region Laterality Modality Abdomen Radiographic Vale ging 01/08/2022 7:12 PM CDT Impressions 01/08/2022 10:25 PM CDT IMPRESSION: An enteric tube courses below the diaphragm with the tip and side port positioned in the gastric body. Report drafted by Fern Danielle MD (Director Family). Dr. PB Bowman have personally reviewed and interpreted this examination/study. This report was electronically signed by PB MONTGOMERY on 01/08/2022 10:25 PM . Narrative 01/08/2022 10:25 PM CDT EXAMINATION: XR ABDOMEN KUB PORTABLE HISTORY: T78.3XXA: Angioedema, initial encounter COMPARISON: No prior study is available for comparison. Procedure Note Pb Montgomery MD - 01/08/2022 EXAMINATION: XR ABDOMEN KUB PORTABLE HISTORY: T78.3XXA: Angioedema, initial encounter COMPARISON: No prior study is available for comparison. IMPRESSION: An enteric tube courses below the diaphragm with the tip and side port positioned in the gastric body. Report drafted by Fern Danielle MD (Director Family). Dr. PB Bowman have personally reviewed and interpreted this examination/study. This report was electronically signed by PB MONTGOMERY on 01/08/2022 10:25 PM . Maximus Escalera MD DIAGNOSTIC IMAGING O RDERABLES * XR CHEST 1VW PORTABLE (01/08/2022 12:45 PM CDT) Anatomical Region Laterality Modality Chest Radiographic Vale ging 01/08/2022 2:20 PM CDT Impressions 01/08/2022 10:25 PM CDT FINDINGS/IMPRESSION: Lines and tubes: The endotracheal tube terminates in the mid thoracic trachea. Enteric tube courses below the diaphragm. Left upper extremity PICC terminates in the right atrium. There is hazy opacities in the right perihilar region which may represent airspace disease. There is linear atelectasis at the left lung base. No pleural effusion or pneumothorax. The cardiomediastinal silhouette is normal. Cervical fusion hardware is partially visualized. Report drafted by Fern Danielle MD (Director Family). Dr. PB Bowman have personally reviewed and interpreted this examination/study. This report was electronically signed by PB MONTGOMERY on 01/08/2022 10:25 PM . Narrative 01/08/2022 10:25 PM CDT EXAMINATION: XR CHEST 1VW PORTABLE HISTORY: T78.3XXA: Angioedema, initial encounter COMPARISON: No prior study is available for comparison. Procedure Note Pb Montgomery MD - 01/08/2022 EXAMINATION: XR CHEST 1VW PORTABLE HISTORY: T78.3XXA: Angioedema, initial encounter COMPARISON: No prior study is available for comparison. FINDINGS/IMPRESSION: Lines and tubes: The endotracheal tube terminates in the mid thoracic trachea. Enteric tube courses below the diaphragm. Left upper extremity PICC terminates in the right atrium. There is hazy opacities in the right perihilar region which mayrepresent airspace disease. There is linear atelectasis at the left lung base. No pleural effusion or pneumothorax. The cardiomediastinal silhouette is normal. Cervical fusion hardware is partially visualized. Report drafted by Fern Danielle MD (Director Family). I, Dr. PB MONTGOMERY have personally reviewed and interpreted this examination/study. This report was electronically signed by PB MONTGOMERY on 01/08/2022 10:25 PM . Maximus Escalera MD DIAGNOSTIC IMAGING O RDERABLES * GIARDIA SCREEN DFA (05/13/2014 6:15 AM AIRSET MOLDER) Pathologist [facility] Giardia Antigen Screen No Giardia Lamblia Cysts seen. Negative [facility] Stool specimen (specimen) STOOL SPECIMEN / Unknown 05/13/2014 6:15 AM AIRSET MOLDER 05/13/2014 2:06 PM AIRSET MOLDER Narrative [facility] - 05/14/2014 1:54 PM AIRSET MOLDER AndersonSpecimen#[id number] Paulino Loc/Rm/Bed: NONPATLAB// Historical Provider LAB - MICROBIOLOG Y ORDERABLES [address] [phone] * CULTURE STOOL+ E COLI SHIGA-LIKE TOXIN (05/13/2014 6:15 AM AIRSET MOLDER) Culture Feces No Salmonella, Shigella, Yersinia, Campylobacter or Escherichia Coli 0157:H7 isolated. Negative for Shiga Toxin by Immunoassay. [facility] Stool specimen (specimen) STOOL SPECIMEN / Unknown 05/13/2014 6:15 AM AIRSET MOLDER 05/13/2014 2:06 PM AIRSET MOLDER [facility] - 05/16/2014 2:31 PM AIRSET MOLDER AndersonSpecimen#[id number] Paulino Loc/Rm/Bed: NONPATLAB// Historical Provider LAB - MICROBIOLOG Y ORDERABLES Performing Organization Address [facility] Co de Phone Number [address] [phone] * CLOSTRIDIUM DIFFICILE [facility] + TOXIN A+B (05/13/2014 6:15 AM AIRSET MOLDER) C difficile Antigen Negative Negative [facility] C difficile Toxin Negative Negative [facility] Stool specimen (specimen) STOOL SPECIMEN / Unknown 05/13/2014 6:15 AM AIRSET MOLDER 05/13/2014 2:06 PM AIRSET MOLDER [facility] - 05/13/2014 7:50 PM AIRSET MOLDER AndersonSpecimen#[id number] Paulino Loc/Rm/Bed: NONPATLAB// Historical Provider LAB - MICROBIOLOG Y ORDERABLES Performing Organization Address [facility] Co de Phone Number [address] [phone] * FECAL LEUKOCYTES (05/13/2014 6:15 AM AIRSET MOLDER) Fecal Leukocytes No White Blood Cells seen. [facility] Stool specimen (specimen) STOOL SPECIMEN / Unknown 05/13/2014 6:15 AM AIRSET MOLDER 05/13/2014 2:06 PM AIRSET MOLDER [facility] - 05/13/2014 4:24 PM AIRSET MOLDER AndersonSpecimen#[id number] Paulino Loc/Rm/Bed: NONPATLAB// Historical Provider LAB - BODY FLUID ORDERABLES [address] [phone] * CRYPTOSPORIDIUM ANTIGEN (05/13/2014 6:15 AM AIRSET MOLDER) Cryptosporidium Antigen Screen No Cryptosporidium Oocysts seen. Negative [facility] Stool specimen (specimen) STOOL SPECIMEN / Unknown 05/13/2014 6:15 AM AIRSET MOLDER 05/13/2014 2:06 PM AIRSET MOLDER Narrative [facility] - 05/14/2014 1:53 PM AIRSET MOLDER AndersonSpecimen#[id number] Paulino Loc/Rm/Bed: NONPATLAB// Historical Provider LAB - MICROBIOLOG Y ORDERABLES Performing Organization Address City/[facility] Co de Phone Number [address] [phone] Care Teams Rn Maternity Relationship Specialty Start Date End Date Samira Weinstein MD [address] [place] [id number] PCP - General Internal Medicine 09/01/24
--- OUTSIDE RECORDS SUMMARY | 2024-09-07 08:51 | XMS_ITS | Clinical Summary ---
Author Organization [facility] Giselle stringer Address [address] [place] [id number] Phone Care Team Providers Care Inside Plant Supervisor Name Role Phone Unavailable Primary Care Provider Unavailabl e Medications Medication Sig Dispensed Refills Start Date End Date Status amitriptyline (ELAVIL) 25 MG tablet 05/20/2014 Active levothyroxine (SYNTHROID, LEVOTHROID) 50 MCG tablet 05/20/2014 Active triamterene-hydroCHLOROthiazid e (MAXZIDE-25) 37.5-25 MG per tablet 12/22/2013 Active esomeprazole (NEXIUM) [address] capsule 05/20/2014 Active PARoxetine (PAXIL) 30 MG tablet 12/22/2013 Active metoprolol tartrate (LOPRESSOR) 50 MG tablet one daily 01/28/2014 Active Active Problems Problem Noted Date Diagnosed Date Essential (primary) hypertension 10/06/2013 Pain in joint 10/06/2013 Pain in joint involving shoulder region 10/07/19 14 Overview (09/14/2018): Converted unresolved ICD9, potential mismatch. Chronic kidney disease, stage 3 (moderate) 10/06 Acute kidney failure 10/06/2013 Social History Tobacco Use Types Packs/Day Years Used Date Smoking Tobacco: Never Assessed Sex and Gender Information Value Date Recorded Sex Assigned at Not on file Gender Identity Not on file Sexual Orientation Not on file Last Filed Vital Signs Vital Sign Reading Time Taken Comments Blood Pressure 92/60 05/20/2014 12:01 AM QUALITY PROJECT MANAGER Pulse 72 05/20/2014 12:01 AM QUALITY PROJECT MANAGER Temperature 36.6 C (97.8 F) 05/20/2014 12:01 AM QUALITY PROJECT MANAGER Respiratory Rate - - Oxygen Saturation - - Inhaled Oxygen Concentration - - Weight 74.4 kg (164 lb) 05/20/2014 12:01 AM QUALITY PROJECT MANAGER Height 167.6 cm (5' 6 ) 05/20/2014 12:01 AM QUALITY PROJECT MANAGER Body Mass Index 26.47 05/20/2014 12:01 AM QUALITY PROJECT MANAGER Plan of Treatment Not on file
--- OUTSIDE RECORDS SUMMARY | 2024-09-07 08:51 | XMS_ITS | Referral Summary ---
Author Organization [facility] Address [address] [place] [address] Care Team Providers Care Central Supply Technician Name Role Phone Unavailable Primary Care Provider Unavailabl e Allergies Active Allergy Reactions Criticality Noted Date Comments Clindamycin Unknown 07/06/2015 Doxycycline Unknown,Urticaria Medium 07/06/2015 Hydrocodone Unknown 07/06/2015 Morphine Urticaria Medium 03/12/2018 Opioids - Morphine Analogues Penicillins Unknown,Urticaria Medium 07/06/2015 Sulfa (Sulfonamide Antibiotics) Unknown,Swelling Medium 07/06/2015 Medications allopurinol (ZYLOPRIM) 300 mg tablet Take 1 tablet by mouth daily. 08/12/2016 Active amitriptyline (ELAVIL) 25 mg tablet Take 1 tablet by mouth daily. 04/30/2017 Active levothyroxine (LEVO-T) 50 mcg tablet Take 1 tablet by mouth daily. 08/15/2016 Active potassium chloride ER (KLOR-CON 10) 10 mEq CR tablet Take 1 tablet by mouth every 12 hours. 12/21/2016 Active triamterene-hyd roCHLOROthiazid e (DYAZIDE) 37.5-25 mg per capsule Take 1 capsule by mouth daily. 05/29/2017 Active tiotropium (SPIRIVA WITH HANDIHALER) 18 mcg per inhalation capsule Place 1 capsule into inhaler and inhale daily. 03/21/2017 Active albuterol HFA (PROAIR HFA) 90 mcg/actuation inhaler Inhale 2 puffs every 4 hours. 03/21/[address] (NexIUM) 40 mg capsule 09/19/2017 Active PARoxetine (PAXIL) 30 mg tablet Take 1 tablet by mouth daily. 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 Take 1 tablet by mouth once daily 90 tablet 12/05/2021 Active buPROPion SR (WELLBUTRIN SR) 100 mg 12 hr tablet Take 1 tablet by mouth twice daily 60 tablet 12/07/2021 Active Active Problems Problem Noted Date Diagnosed Date Fibrocystic breast changes 05/15/2018 History of insertion of T-tube into biliary trac t 05/09/2017 Social History Tobacco Use Types Packs/Day Years Used Date Smoking Tobacco: Every Day Cigarettes Smokeless Tobacco: Never Tobacco Cessation:Ready to Q uit: Yes Alcohol Use Standard Drinks/Week Comments No 0 (1 standard drink = 0.6 oz pur e alcohol) Personal Safety Answer Date Recorded Getting School Help Needed Not on file Comments No Sex and Gender Information Value Date Recorded Sex Assigned at Not on file Legal Sex Female 1:01 AM BUNG DROPPER Gender Identity Not on file Sexual Orientation Not on file Last Filed Vital Signs Vital Sign Reading Time Taken Comments Blood Pressure 130/82 01/05/2021 11:39 AM CDT Pulse 94 01/05/2021 11:39 AM CDT Temperature - - Respiratory Rate - - Oxygen Saturation 98% 01/05/2021 11:39 AM CDT Inhaled Oxygen Concentration - - Weight 76.7 kg (169 lb) 01/05/2021 11:39 AM CDT Height 167.6 cm (5' 6 ) 01/05/2021 11:39 AM CDT Body Mass Index 27.28 01/05/2021 11:39 AM CDT Plan of Treatment Not on file Insurance [employer] OPEN ACCESS [employer] [facility]
--- OUTSIDE RECORDS SUMMARY | 2024-09-07 08:51 | XMS_ITS | Clinical Summary ---
Author Organization [facility] Address [address] [place] [id number] Care Team Providers Care Reel Worker Name Role Phone John Clinton MD Primary Care Provider Unav ailable Social History Tobacco Use Types Packs/Day Years Used Date Smoking Tobacco: Never Assessed Comments Unknown Sex and Gender Information Value Date Recorded Sex Assigned at Not on file Legal Sex Female 5:28 PM CDT Gender Identity Not on file Sexual Orientation Not on file Plan of Treatment Health Maintenance Due Date Last Done Comments Colorectal Cancer Screening Colonoscopy (10 Years) 1958 Hepatitis C 1976 DTaP, Tdap and Td Vaccines ( 1 - Tdap) 1977 Mammogram Screening 1998 Zoster Vaccines (1 of 2) 2008 Dexa Scan (General) 2023 Pneumococcal Vaccine: 65+ Ye ars (1 of 1 - PCV) 2023 COVID-19 Vaccine ( - 2023-2 5 season) 2024 Influenza Adult (#1) 2024 RSV Immunization or 60+ Years (1 - 1-dose 75+ series) 2033 Meningococcal B Vaccine Aged Out No l onger eligible based on patient's age to complete this topic Meningococcal Vaccine Aged Out No katy yelitza eligible based on patient's age to complete this topic Pneumococcal Vaccine: Pediat rics (0 to 5 Years) and At-Risk Patients (6 to 64 Years) Aged Out No longer eligible b ased on patient's age to complete this topic RSV Immunizations Under 20 Months Aged Out No longer eligible based on patient's age to complete this topic Care Teams Reel Worker Relationship Specialty Start Date End Date John Clinton MD PCP - General 08/11/10
--- OUTSIDE RECORDS SUMMARY | 2024-09-07 08:51 | XMS_ITS | Encounter Summary ---
Author Organization [facility] Address [facility]3 [facility] [place] [address] Care Team Providers Care Edge Inker Heels Name Role Phone Luz Velasquez MD Primary Care Provider Unavail Pcp, [facility] Primary Care Provider Unavailable Samira Weinstein MD Primary Care Provider [phone] Reason for Visit * Reason Onset Date Comments MEDICATION REFILL 03/20/2024 Encounter Details Date Type Department Care Team (Late st Contact Info) Description 03/20/2024 Refill [facility] - Internal Medicine [address] [place] [phone] Luz Velasquez MD MEDICATION REFILL Social History Tobacco Use Types Packs/Day Years Used Date Smoking Tobacco: Every Day Cigarettes Smokeless Tobacco: Never Alcohol Use Standard Drinks/Week Comments Yes 4 [...] Date Recorded Patient Health Questionnaire-2 Score 0 12/03/2023 Hunger Vital Sign Answer Date Recorded Within [...] Sex Assigned at Female 05/24/2024 12:37 PM ROUGHER MACHINE OPERATOR Gender Identity Female 05/24/2024 12:37 PM ROUGHER MACHINE OPERATOR Sexual Orientation Straight 05/24/2024 12 :37 PM ROUGHER MACHINE OPERATOR documented as of this encounter Functional Status Functional Status Response Date of Assess ment Is person deaf or have serious hearing difficult y? No 01/16/2022 Is person blind or have serious difficulty seein g? No 01/16/2022 Does person have serious dif ficulty walking/climbing stairs? No 01/16/2022 Does person have difficulty dressing/bathing? Ye s 01/16/2022 Does person have difficulty doing errands alone? Yes 01/16/2022 Cognitive Status Response Date of Assessm ent Does person have difficulty concentrating/remembering/making decisions? Yes 01/16/2022 documented as of this encounter Plan of Treatment Upcoming Encounters Date Type Department Care Team (Late st Contact Info) Description 03/09/2025 8:20 AM CDT Office Visit [facility] - Internal Medicine [address] [facility] [address] [place] [phone] [place] [address] [place] [address] [address] [place] [phone] 03/11/2025 12:50 PM CDT Office Visit [facility] - Dermatology [address] [place] [address], [place] [phone] Paul Velazquez MD [address] [place] [address] [place] [phone] 08/10/2025 8:00 AM ROUGHER MACHINE OPERATOR Appointment [address] [address] documented as of this encounter Visit Diagnoses Not on filedocumented in this encounter Care Teams Edge Inker Heels Relationship Specialty Start Date End Date Luz Velasuqez MD PCP - General Internal Medicine 08/15/22 04/30/24 Pcp, [facility] PCP - General 05/01/24 5 Samira Weinstein MD [address] [phone] PCP - General Internal Medicine 09/01/24 documented as of this encounter
--- OUTSIDE RECORDS SUMMARY | 2024-09-07 08:51 | XMS_ITS | Encounter Summary ---
Author Organization [facility] Address [facility]3 [place] [address] Care Team Providers Care Insurance Office Supervisor Name Role Phone Luz Velasquez MD Primary Care Provider Unavail Pcp, [facility] Primary Care Provider Unavailable Samira Weinstein MD Primary Care Provider [phone] Reason for Visit * Reason Onset Date Comments MEDICATION REFILL 03/18/2024 Encounter Details Date Type Department Care Team (Late st Contact Info) Description 03/18/2024 Refill [facility] - Internal Medicine [address] [place] [phone] Luz Velasquez MD MEDICATION REFILL Social History [...] Sex Assigned at Female 05/24/2024 12:37 PM EAP CONSULTANT Gender Identity Female 05/24/2024 12:37 PM EAP CONSULTANT Sexual Orientation Straight 05/24/2024 12 :37 PM EAP CONSULTANT documented as of this encounter Functional Status [...] Description 03/09/2025 8:20 AM CDT Office Visit [facility] - Internal Medicine [address] [facility] [address] [place] [phone] [place] [address] [place] [address] [address] [place] [phone] 03/11/2025 12:50 PM CDT Office Visit [facility] - Dermatology [address] [place] [address], [place] [phone] Paul Velazquez MD [address] [place] [address] [place] [phone] 08/10/2025 8:00 AM EAP CONSULTANT Appointment [address] [address] documented as of this encounter Visit Diagnoses Not on filedocumented in this encounter Care Teams Insurance Office Supervisor Relationship Specialty Start Date End Date Luz Velasquez MD PCP - General Internal Medicine 08/15/22 04/30/24 Pcp, [facility] PCP - General 05/01/24 5 Samira Weinstein MD [address] [phone] PCP - General Internal Medicine 09/01/24 documented as of this encounter
--- OUTSIDE RECORDS SUMMARY | 2024-09-07 08:51 | XMS_ITS | Encounter Summary ---
Author Organization [facility] Address [facility]3 [facility] [address] Care Team Providers Care Multicraft Operator Name Role Phone Mamadou Momin MD Primary Care Provider [phone] Encounter Details Date Type Department Care Team (Latest Contact Info) Description 01/19/2022 11:28 AM CDT Hospital Encounter [address]rd [place] [address] [place] [address] [place] [address] [employer] Social History Tobacco Use Types Packs/Day Years [...] Sex Assigned at Female 05/24/2024 12:37 PM ASPARAGUS BUNCHER Gender Identity Female 05/24/2024 12:37 PM ASPARAGUS BUNCHER Sexual Orientation Straight 05/24/2024 12 :37 PM ASPARAGUS BUNCHER COVID-19 Exposure Response Date Recorded In the last 10 days, have yo u been in contact with someone who was confirmed or suspected to have Coronavirus/COVID-19? No / Unsure 11/02/2022 1:40 PM CDT documented as of this encounter Functional Status [...] Description 03/09/2025 8:20 AM CDT Office Visit [facility] - Internal Medicine [address] [facility] [address] [place] [phone] Samira Weinstein MD [address] [place] [address] [address] [place] [phone] 03/11/2025 12:50 PM CDT Office Visit [facility] - Dermatology [address] [place] [address], [facility] [phone] Paul Velazquez MD [address] [place] [address] [place] [phone] 08/10/2025 8:00 AM ASPARAGUS BUNCHER Appointment [address] [place] [address] documented as of this encounter Visit Diagnoses Not on filedocumented in this encounter Care Teams Multicraft Operator Relationship Specialty Start Date End Date Mamadou Momin MD [address] [place] [address] PCP - General 05/19/08 06/12/22 documented as of this encounter
--- OUTSIDE RECORDS SUMMARY | 2024-09-07 08:51 | XMS_ITS | Clinical Summary ---
Author Organization 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 pectoris Take 1 tablet by mouth once daily 90 tablet 12/05/2021 Active buPROPion SR (WELLBUTRIN SR) 100 mg 12 hr tablet Take 1 tablet by mouth twice daily 60 tablet 12/07/2021 Active Active Problems Problem Noted Date Diagnosed Date Fibrocystic breast changes 05/15/2018 History of insertion of T-tube into biliary trac t 05/09/2017 Surgical History Surgery Date Site/Laterality Comments TONSILLECTOMY CHOLECYSTECTOMY HYSTERECTOMY Medical History Medical History Date Comments Hypertension Hyperlipidemia Thyroid disease Anxiety COPD (chronic obstructive pulmonary disease) (HC C) Family History Medical History Relation Name Comments Cancer Father Relation Name Status Comments Father (Age 57) Mother Alive Social History Tobacco Use Types Packs/Day Years [...] on file Legal Sex Female 1:01 AM PAPER INSERTER Gender Identity Not on file Sexual Orientation Not on file Obstetrics History Last Filed Vital Signs Vital Sign Reading [...] Plan of Treatment Not on file Insurance Network OPEN ACCESS Network [facility]
--- OUTSIDE RECORDS SUMMARY | 2024-09-07 08:51 | XMS_ITS | Referral Summary ---
Author Organization [facility] Address [employer] [place] [address] Care Team Providers Care Hydroponics Grower Name Role Phone Samira Weinstein MD Primary Care Provider [phone] [facility],non-owned Affiliates and Associated Physician Practices is amultiple site organization consisting of ambulatory clinics and hospital sitesin [place], [place], [place] and [place]. This disclosure is being madepursuant to the Care Everywhere program and may not contain all information available regarding this patient. Last updated 18.[facility] Encounters Date Type Department Care Team Description 09/03/2024 8:40 AM SPLUNK DASHBOARD DEVELOPER Office Visit [facility] - Dermatology [address] [place] [phone] Paul Velazquez MD Other specified nonscarring hair loss (Primary Dx); Hair loss 09/02/2024 Travel 09/01/2024 8:40 AM SPLUNK DASHBOARD DEVELOPER Office Visit [facility] - Internal Medicine [address] [phone] Samira Weinstein MD Primary hypertension (Primary Dx); Asthma-COPD overlap syndrome (HCC); Hypothyroidism due to acquired atrophy of thyroid; KEISHA (generalized anxiety disorder); History of right hip replacement; Tobacco use disorder; Hyperlipidemia, unspecified hyperlipidemia type; Hair loss; Need for shingles vaccine 08/26/2024 Refill [facility] Internal Medicine [address] [place] [phone] Luz Velasquez MD Refill Request 08/24/2024 Refill [facility] Internal Medicine [address] [place] [address] [address] [place] [address] Luz Velasquez MD MEDICATION REFILL 08/04/2024 Refill [facility] Internal Medicine [address] [place] [phone] Luz Velasquez MD Refill Request 08/04/2024 Refill [facility] Internal Medicine [address] [place] [phone] Samira Weinstein MD MEDICATION REFILL 08/04/2024 Travel 08/04/2024 7:45 AM SPLUNK DASHBOARD DEVELOPER - 08/04/2024 11:59 PM SPLUNK DASHBOARD DEVELOPER Hospital Encounter [facility] [address] [place] [phone] Kay Tillman, CANDY SPREADER-PLATE CLEANER Discharge Disposition: Home or Self Care from Last 3 Months Allergies Active Allergy Reactions Criticality Noted Date Comments Ampicillin Urticaria Medium 03/12/2018 Aspirin GI Discomfort 01/08/2022 Clindamycin Urticaria Medium 01/08/2022 Doxycycline Urticaria Medium 03/12/2018 Erythromycin Urticaria Medium 01/08/2022 Hydrocodone Urticaria Medium 01/08/2022 Morphine Urticaria Medium 03/12/2018 Nsaids Angioedema High 01/11/2022 Requiring intubation Penicillins Urticaria Medium 03/12/2018 Propoxyphene Urticaria Medium 01/08/2022 Sulfa Drugs Swelling 03/12/2018 Tramadol Urticaria Medium 01/08/2022 Medications * Be aware that medications may not be up to date on this document. Alwaysverify current medications with the patient. Medication Sig Dispensed Refills Start Date End Date Status omeprazole (PriLOSEC) 10 MG capsule Take 1 (one) capsule by mouth daily before breakfast Active albuterol HFA (Proventil; Ventolin; Proair) 108 (90 Base) MCG/ACT inhaler Inhale 2 (two) puffs by mouth every 6 hours as needed for Shortness of Breath or Wheezing 8.5 g 2 3 Active ciprofloxacin (Cipro) 750 MG tabletIndication s:Need for antibiotic prophylaxis for dental procedure TAKE ONE TABLET BY MOUTH ONCE FOR 1 DOSE ONE HOUR BEFORE DENTAL PROCEDURES. 1 tablet 5 4 Active hydroCHLOROthiaz ericka (Hydrodiuril) 25 MG tablet Take 1 (one) tablet by mouth once daily 100 tablet 4 Active ferrous gluconate 324 (38 Fe) MG tablet Take 1 (one) tablet by mouth daily with breakfast 100 tablet 1 4 Active rosuvastatin (Crestor) 40 MG tablet TAKE 1 TABLET BY MOUTH AT BEDTIME 100 tablet 3 4 Active levothyroxine (Synthroid) 50 MCG tabletIndication s:Hypothyroidism due to acquired atrophy of thyroid Take 1 tablet by mouth once daily 100 tablet 4 Active fexofenadine (Carlyn) 180 MG tablet Take 1 (one) tablet by mouth once daily 4 Active vitamin D (Cholecaciferol) 125 MCG (5000 UT) capsule Take 1 (one) capsule by mouth once daily 4 Active fluticasone propionate (Flonase) 50 MCG/ACT nasal sprayIndications :Nasal Congestion,Nonal lergic Rhinitis [place] 2 (two) sprays into each nostril once daily as needed Reasons: Nonallergic Rhinitis, Stuffy Nose 4 Active metoprolol tartrate IR (Lopressor) 25 MG tabletIndication s:Primary hypertension Take 1 (one) tablet by mouth 2 times daily 180 tablet 4 Active montelukast (Singulair) 10 MG tablet Take 1 (one) tablet by mouth once daily 90 tablet 4 Active citalopram (CeleXA) 20 MG tablet Take 1 (one) tablet by mouth once daily 90 tablet 5 Active potassium chloride ER (Klor-Con M) 20 MEQ tablet Take 1 (one) tablet by mouth once daily 100 tablet 1 5 Active amLODIPine (Norvasc) 5 MG tabletIndication s:Primary hypertension Take 1 tablet by mouth once daily 100 tablet 3 5 Active minoxidil (Loniten) 2.5 MG tablet Take 0.5 (one-half) tablet by mouth once daily 15 tablet 6 5 Active amLODIPine (Norvasc) 5 MG tabletIndication s:Primary hypertension Take 1 (one) tablet by mouth once daily 100 tablet 4 09/05/19 25 Discontinued potassium chloride ER (Klor-Con M) 20 MEQ tablet Take 1 (one) tablet by mouth once daily 100 tablet 1 4 08/24/19 25 Discontinued(Reo rder) Active Problems Problem Noted Date Diagnosed Date [...] 025 Angioedema, initial encounter 01/07/2022 06/11/2023 Immunizations Name Administration Dates Next Due YAMILE ZENDEJAS 12+YR 30MCG/0.3mL 04/07/2024 INFLUENZA VACCINE 04/18/2023,05/22/2006 INFLUENZA VACCINE, HIGH-DOSE , TRIV. (FLUZONE HIGH-DOSE TRIVALENT; 65Y+) (HD-IIV3) 04/07/2024 PNEUMOCOCCAL PCV20 CONJ VAC IM 09/24/2023 RSV ABRYSVO PREG OR 60y+ 0.5mL 06/11/2023 TD (ADULT), 5 LF TETANUS TOXOID, ADSORBED, PF TDAP (7yrs+) 12/13/2022 iNFLUENZA VACCINE, RECOM-HERNÁNDEZ, QUADR. (FLUBLOCK QUADRIVALENT; 18Y+) (RIV4) 03/12/2018 Social History Tobacco Use Types Packs/Day Years [...] Sex Assigned at Female 05/24/2024 12:37 PM SPLUNK DASHBOARD DEVELOPER Gender Identity Female 05/24/2024 12:37 PM SPLUNK DASHBOARD DEVELOPER Sexual Orientation Straight 05/24/2024 12 :37 PM SPLUNK DASHBOARD DEVELOPER Last Filed Vital Signs Vital Sign Reading Time Taken Comments Blood Pressure 138/78 09/01/2024 8:46 AM SPLUNK DASHBOARD DEVELOPER Pulse 54 09/01/2024 8:46 AM SPLUNK DASHBOARD DEVELOPER Temperature 36.6 C (97.9 F) 09/01/2024 8:46 AM SPLUNK DASHBOARD DEVELOPER Respiratory Rate 14 09/01/2024 8:46 AM SPLUNK DASHBOARD DEVELOPER Oxygen Saturation 100% 09/01/2024 8:46 AM SPLUNK DASHBOARD DEVELOPER Inhaled Oxygen Concentration 21% 01/16/2022 6 :15 AM CDT Weight 65.8 kg (145 lb) 09/01/2024 8:46 AM SPLUNK DASHBOARD DEVELOPER Height 162.6 cm (5' 4.02 ) 09/01/2024 8:46 AM CS T Body Mass Index 24.88 09/01/2024 8:46 AM SPLUNK DASHBOARD DEVELOPER Functional Status Functional Status Response Date of [...] person have difficulty concentrating/remembering/making decisions? Yes 01/16/2022 Plan of Treatment Upcoming Encounters Date Type Department Care Team (Late st Contact Info) Description 03/09/2025 8:20 AM CDT Office Visit [facility] - Internal Medicine [address] [place] [address] [address] [place] [address] Samira Weinstein MD [address] [place] [phone] 03/11/2025 12:50 PM CDT Office Visit [facility] - Dermatology [address] [place] [address], [facility] [place] [phone] Paul Velazquez MD [address] [place] [address] [place] [phone] 08/10/2025 8:00 AM SPLUNK DASHBOARD DEVELOPER Appointment [address] [phone] Procedures Procedure Name Priority Date/Time Associated Diagnosis Comments MAMMO BILAT DIAGNOSTIC W DIONICIO Routine 08/04/2024 8:32 AM SPLUNK DASHBOARD DEVELOPER Follow-up exam ENDOSCOPY, COLON, SCREENING Routine 09/12/2022 7:47 AM CDT Screen for colon cancer DEXA BONE DENSITY AXIAL SKELETON Routine 08/23/2022 9:54 AM SPLUNK DASHBOARD DEVELOPER Post-menopausal from Last 3 Months or Most Recently Relevant to Health Maintenance Results * Mammo Bilat Diagnostic W Dionicio (08/04/2024 8:32 AM SPLUNK DASHBOARD DEVELOPER) Anatomical Region Laterality Modality Breast Bilateral Mammography 08/04/2024 8:16 AM SPLUNK DASHBOARD DEVELOPER Impressions 08/04/2024 9:04 AM SPLUNK DASHBOARD DEVELOPER IMPRESSION: 1.Unchanged two adjacent benign groups of [...] BENIGN. Report dictated by Saeed Bhandari M.D. (human resources vice president). Silviano Johnson MD, PhD and Willian Hwang [facility] also assisted in the evaluation and interpretation of the study. I, Rabia Del Castillo MD, FACR have personally reviewed and interpreted this examination/study. > Interpreting Provider: Rabia Del Castillo MD, FACR on 08/04/2024 9:04 AM Narrative 08/04/2024 9:04 AM SPLUNK DASHBOARD DEVELOPER EXAMINATIONS: BILATERAL DIGITAL DIAGNOSTIC MAMMOGRAM AND BREAST TOMOSYNTHESIS LOCATION: [facility] EXAM DATE: 08/04/2024 HISTORY: Follow-up to a [...] are unchanged back to August 2022. Kay Cooper Primo CANDY SPREADER-PLATE CLEANER MAMMO STELLA PORRAS * ENDOSCOPY, COLON, SCREENING (09/12/2022 7:47 AM CDT) Report Endoscopy POC _ Patient Name: Phyllis Torre Procedure Date: 09/12/2022 7:47 AM Date of : 1960 Admit Type: Outpatient Age: 62 Gender: Female Ethnicity: Not or Race: Black or Attending MD: Osvaldo Santa MD _ Procedure: Colonoscopy Indications: Screening for colorectal malignant neoplasm Providers: Osvaldo Santa MD (Doctor), Toma Almaraz RN, Eloise Juan, Director Client Referring MD: Luz Velasquez MD (Referring MD) [...] pathology results. Procedure Code(s): --- Professional --- 49346, Colonoscopy, flexible; with biopsy, single or multiple --- Technical --- 88812, Colonoscopy, flexible; with biopsy, single or multiple Diagnosis Code(s): --- Professional --- Z12.11, Encounter for screening for malignant neoplasm of colon K62.1, Rectal polyp --- Technical --- Z12.11, Encounter for screening for malignant neoplasm of colon K62.1, Rectal polyp CPT copyright 2019 [employer]. All rights reserved. The codes documented in this report are preliminary and upon anesthesiology tech review may be revised to meet current compliance requirements. Osvaldo Santa MD 09/12/2022 9:42:19 AM This report has been signed electronically. Number of Addenda: 0 Note Initiated On: 09/12/2022 7:47 AM [facility] ENDOSCOPY 09/12/2022 7:47 AM CDT Eric Garcia MD GI PROCEDURE ORDERAB LES [facility] ENDOSCOPY * DEXA BONE DENSITY AXIAL SKELETON (08/23/2022 9:54 AM SPLUNK DASHBOARD DEVELOPER) Anatomical Region Laterality Modality Other 08/23/2022 3:05 PM SPLUNK DASHBOARD DEVELOPER Narrative 08/23/2022 3:07 PM SPLUNK DASHBOARD DEVELOPER PROCEDURE: DEXA BONE DENSITY AXIAL SKELETON, DATE/TIME OF EXAM: 08/23/2022 9:54 AM, LOCATION [facility] INDICATION: Z78.0: Post-menopausal COMPARISON: No similar prior [...] and below > Dictated by Misael Wiggins (Vibratory Pile Driver) 08/23/2022 3:07 PM Mathew Bowman DO have personally reviewed and interpreted this examination/study. > Interpreting Provider: Mathew Damian DO on 08/23/2022 3:07 PM Procedure Note Mathew Damian DO - 08/23/2022 PROCEDURE: DEXA BONE DENSITY AXIAL SKELETON, DATE/TIME OF EXAM:08/23/2022 9:54 AM, LOCATION [facility] INDICATION: Z78.0: Post-menopausal COMPARISON: No similar prior [...] and below > Dictated by Misael Wiggins (Vibratory Pile Driver) 08/23/2022 3:07 PM Mathew Bowman DO have personally reviewed and interpreted this examination/study. > Interpreting Provider: Mathew Damian DO on 08/23/2022 3:07 PM Luz HERRERA ORDERABLES from Last 3 Months or Most Recently Relevant to Health Maintenance Advance Directives Documents on File Type Date Recorded Patient Box Annealer Expl anation Adv Directive/Living Will/POA 01/25/2022 9:54 AM * Full Code (Latest Code Status on File) Date Activated Date Inactivated Comments 01/19/2022 7:30 PM 01/31/2022 11:19 AM * Full Code Date Activated Date Inactivated Comments 01/08/2022 11:45 AM 01/19/2022 7:05 PM Care Teams Hydroponics Grower Relationship Specialty Start Date End Date Samira Weinstein MD [address] [place] [phone] PCP - General Internal Medicine 09/01/24
--- OUTSIDE RECORDS SUMMARY | 2024-09-07 08:51 | XMS_ITS | Clinical Summary ---
Author Organization [facility] Address [address] [place] [address] Care Team Providers Care Gift Manager Name Role Phone Samira Weinstein MD Primary Care Provider [phone] Source Comments [facility],non-owned Affiliates and Associated Physician Practices is amultiple site organization consisting of ambulatory clinics and hospital sitesin [place], [place], [place] and [place]. This disclosure is being madepursuant to the Care Everywhere program and may not contain all information available regarding this patient. Last updated 18.[facility] Allergies Active Allergy Reactions Criticality Noted Date [...] MCG/ACT nasal sprayIndications :Nasal Congestion,Nonal lergic Rhinitis [place] 2 (two) sprays into each nostril once [...] 01/08/2022 025 Angioedema, initial encounter 01/07/2022 06/11/2023 Encounters Date Type Department Care Team Description 09/03/2024 8:40 AM EDUCATIONAL DIAGNOSTICIAN Office Visit [facility] - Dermatology [address] [place] [address] Paul Velazquez MD Other specified nonscarring hair loss (Primary Dx); Hair loss 09/02/2024 Travel 09/01/2024 8:40 AM EDUCATIONAL DIAGNOSTICIAN Office Visit [facility] Internal Medicine [address] [place] [phone] Samira Weinstein MD Primary hypertension (Primary Dx); Asthma-COPD overlap syndrome (HCC); Hypothyroidism due to acquired atrophy of thyroid; KEISHA (generalized anxiety disorder); History of right hip replacement; Tobacco use disorder; Hyperlipidemia, unspecified hyperlipidemia type; Hair loss; Need for shingles vaccine 08/26/2024 Refill [facility] Internal Medicine [address] [place] [phone] Luz Velasquez MD Refill Request 08/24/2024 Refill [facility] Internal Medicine [address] [place] [phone] Luz Velasquez MD MEDICATION REFILL 08/04/2024 7:45 AM EDUCATIONAL DIAGNOSTICIAN - 08/04/2024 11:59 PM [facility] Hospital Encounter [address] [address] Kay Tillman, OLIMPIA-GATHERING WORKER Discharge Disposition: Home or Self Care 08/04/2024 Refill [facility] Internal Medicine [address] [place] [phone] Luz Velasquez MD Refill Request 08/04/2024 Refill [facility] Internal Medicine [address] [place] [phone] Samira Weinstein MD MEDICATION REFILL 08/04/2024 Travel from Last 3 Months Immunizations Name Administration Dates Next Due COVID PFIZER 12+YR 30MCG/0.3mL 04/07/2024 INFLUENZA VACCINE 04/18/2023,05/22/2006 INFLUENZA VACCINE, HIGH-DOSE , TRIV. (FLUZONE HIGH-DOSE TRIVALENT; 65Y+) (HD-IIV3) 04/07/2024 PNEUMOCOCCAL PCV20 CONJ VAC IM 09/24/2023 RSV ABRYSVO PREG OR 60y+ 0.5mL 06/11/2023 TD (ADULT), 5 LF TETANUS TOXOID, ADSORBED, PF TDAP (7yrs+) 12/13/2022 iNFLUENZA VACCINE, RECOM-HERNÁNDEZ, QUADR. (FLUBLOCK QUADRIVALENT; 18Y+) (RIV4) 03/12/2018 Family History Medical History Relation Name Comments Hypertension Brother Cancer - Liver Father Heart Failure Father Hypertension Father Cancer - Colon Maternal Aunt None Known Maternal Grandfather None Known Maternal Grandmother Alzheimer's Disease Mother Heart Failure Mother DVT - Deep Vein Thrombosis Other wesley Gordillo Known Paternal Grandfather Cancer - Lung Paternal Grandmother Hypertension Sister Blindness Neg Hx Glaucoma Neg Hx Macular Degeneration Neg Hx Relation Name Status Comments Brother Alive Father Maternal Aunt Alive Maternal Grandfather Maternal Grandmother Mother Other wesley delgado aunt Paternal Grandfather Paternal Grandmother Sister Alive Social History Tobacco Use Types Packs/Day [...] Sex Assigned at Female 05/24/2024 12:37 PM EDUCATIONAL DIAGNOSTICIAN Gender Identity Female 05/24/2024 12:37 PM EDUCATIONAL DIAGNOSTICIAN Sexual Orientation Straight 05/24/2024 12 :37 PM EDUCATIONAL DIAGNOSTICIAN Last Filed Vital Signs Vital Sign Reading Time Taken Comments Blood Pressure 138/78 09/01/2024 8:46 AM EDUCATIONAL DIAGNOSTICIAN Pulse 54 09/01/2024 8:46 AM EDUCATIONAL DIAGNOSTICIAN Temperature 36.6 C (97.9 F) 09/01/2024 8:46 AM EDUCATIONAL DIAGNOSTICIAN Respiratory Rate 14 09/01/2024 8:46 AM EDUCATIONAL DIAGNOSTICIAN Oxygen Saturation 100% 09/01/2024 8:46 AM EDUCATIONAL DIAGNOSTICIAN Inhaled Oxygen Concentration 21% 01/16/2022 6 :15 AM CDT Weight 65.8 kg (145 lb) 09/01/2024 8:46 AM EDUCATIONAL DIAGNOSTICIAN Height 162.6 cm (5' 4.02 ) 09/01/2024 8:46 AM CS T Body Mass Index 24.88 09/01/2024 8:46 AM EDUCATIONAL DIAGNOSTICIAN Plan of Treatment Upcoming Encounters Date Type Department Care Team (Late st Contact Info) Description 03/09/2025 8:20 AM CDT Office Visit [facility] - Internal Medicine [address] [place] [phone] Samira Weinstein MD [address] [place] [address] [address] [place] [phone] 03/11/2025 12:50 PM CDT Office Visit [facility] [place] [facility] - Dermatology [address] [place] [address], [place] [phone] Paul Velazquez MD [address] [place] [address] [place] [phone] 08/10/2025 8:00 AM EDUCATIONAL DIAGNOSTICIAN Appointment [address] [phone] Health Maintenance Due Date Last Done Comments COLOGUARD (AGES 45-75) - COLON CA SCREENING 1958 CT COLONOGRAPHY - COLON CA SCREENING 1958 FIT - COLON CA SCREENING 1958 FLEX SIG - COLON CA SCREENING 1958 HEPATITIS C SCREENING 04/24/1976 ZOSTER VACCINE (1 of 2) 2008 MEDICARE AWV 12 MONTHS 05/26/2025 05/26/2024 MAMMOGRAM 08/04/2026 08/04/2024, 10/2023, 08/23/2022, Additional history exists COLONOSCOPY - COLON CA SCREENING 09/13/2027 09/12/2022, 09/12/2022 Colorectal Cancer Screening 09/13/2027 COLON MONITORING 09/12/2032 09/12/2022, 09/12/2022 DTAP/TDAP/TD VACCINES (3 - Td or Tdap) 12/13/2032 12/13/2022, 11/28/1995 BONE DENSITY TESTING Completed 08/23/2022 Respiratory Syncytial Virus (RSV) Vaccine Pt: or over 60 yrs Completed 06/11/2023 PNEUMOCOCCAL VACCINE 50+ Completed 09/24/2023 COVID-19 VACCINE Completed 04/07/2024, , 04/09/2022, Additional history exists INFLUENZA VACCINE Completed 04/07/2024, , 04/18/2023, Additional history exists DEPRESSION SCREENING Completed 09/01/2024, 09/24/2023, 08/15/2022, Additional history exists HEPATITIS B VACCINE Aged Out No longe r eligible based on patient's age to complete this topic HIB VACCINE Aged Out No longer eligi ble based on patient's age to complete this topic HPV VACCINE Aged Out No longer eligi ble based on patient's age to complete this topic MENINGOCOCCAL (Group B) VACCINE Aged Out No longer eligible based on patient's age to complete this topic MENINGOCOCCAL VACCINE Aged Out No katy yelitza eligible based on patient's age to complete this topic Procedures Procedure Name Priority Date/Time Associated Diagnosis Comments MAMMO BILAT DIAGNOSTIC W DIONICIO Routine 08/04/2024 8:32 AM EDUCATIONAL DIAGNOSTICIAN Follow-up exam ENDOSCOPY, COLON, SCREENING Routine 09/12/2022 7:47 AM CDT Screen for colon cancer DEXA BONE DENSITY AXIAL SKELETON Routine 08/23/2022 9:54 AM EDUCATIONAL DIAGNOSTICIAN Post-menopausal from Last 3 Months or Most Recently Relevant to Health Maintenance Results * Mammo Bilat Diagnostic W Dionicio (08/04/2024 8:32 AM EDUCATIONAL DIAGNOSTICIAN) Anatomical Region Laterality Modality Breast Bilateral Mammography 08/04/2024 8:16 AM EDUCATIONAL DIAGNOSTICIAN Impressions 08/04/2024 9:04 AM EDUCATIONAL DIAGNOSTICIAN IMPRESSION: 1.Unchanged two adjacent benign groups of [...] BENIGN. Report dictated by Saeed Bhandari M.D. (radiology teacher). Silviano Johnson MD, PhD and [facility] also assisted in the evaluation and interpretation of the study. I, Rabia Del Castillo MD, FACR have personally reviewed and interpreted this examination/study. > Interpreting Provider: Rabia Del Castillo MD, FACR on 08/04/2024 9:04 AM Narrative 08/04/2024 9:04 AM EDUCATIONAL DIAGNOSTICIAN EXAMINATIONS: BILATERAL DIGITAL DIAGNOSTIC MAMMOGRAM AND BREAST TOMOSYNTHESIS LOCATION: [facility] EXAM DATE: 08/04/2024 HISTORY: Follow-up to [...] unchanged back to August 2022. Kay Tillman GAS APPLIANCE ADJUSTER-GATHERING WORKER MAMMO STELLA PORRAS * ENDOSCOPY, COLON, SCREENING [...] MD (Doctor), Toma Almaraz RN, Eloise Juan, Fuel Dock Attendant Referring MD: Luz Velasquez MD (Referring MD) [...] pathology results. Procedure Code(s): --- Professional --- 39455, Colonoscopy, flexible; with biopsy, single or multiple --- Technical --- 44515, Colonoscopy, flexible; with biopsy, single or multiple Diagnosis Code(s): --- Professional --- Z12.11, Encounter for screening for malignant neoplasm of colon K62.1, Rectal polyp --- Technical --- Z12.11, Encounter for screening for malignant neoplasm of colon K62.1, Rectal polyp CPT copyright 2019 [employer]. All rights reserved. The codes documented in this report are preliminary and upon tank car mechanic review may be revised to meet current compliance requirements. Osvaldo Santa MD 09/12/2022 9:42:19 AM This report has been signed electronically. Number of Addenda: 0 Note Initiated On: 09/12/2022 7:47 AM [facility] ENDOSCOPY 09/12/2022 7:47 AM CDT Eric Garcia MD GI PROCEDURE ORDERAB LES [facility] ENDOSCOPY * DEXA BONE DENSITY AXIAL SKELETON (08/23/2022 9:54 AM EDUCATIONAL DIAGNOSTICIAN) Anatomical Region Laterality Modality Other 08/23/2022 3:05 PM EDUCATIONAL DIAGNOSTICIAN Narrative 08/23/2022 3:07 PM EDUCATIONAL DIAGNOSTICIAN PROCEDURE: DEXA BONE DENSITY AXIAL SKELETON, DATE/TIME OF EXAM: 08/23/2022 9:54 AM, LOCATION [facility] INDICATION: Z78.0: Post-menopausal COMPARISON: No similar [...] and below > Dictated by Misael Wiggins (Larriman) 08/23/2022 3:07 PM Mathew Bowman DO have personally reviewed and interpreted this examination/study. > Interpreting Provider: Mathew Damian DO on 08/23/2022 3:07 PM Procedure Note Mathew Damian DO - 08/23/2022 PROCEDURE: DEXA BONE DENSITY AXIAL SKELETON, DATE/TIME OF EXAM:08/23/2022 9:54 AM, LOCATION [facility] INDICATION: Z78.0: Post-menopausal COMPARISON: No similar [...] and below > Dictated by Misael Wiggins (Larriman) 08/23/2022 3:07 PM Mathew Bowman DO have personally reviewed and interpreted this examination/study. > Interpreting Provider: Mathew Damian DO on 08/23/2022 3:07 PM Luz Velasquez MD DEXA ORDERABLES from Last 3 Months or Most Recently Relevant to Health Maintenance Advance Directives Documents on File Type Date Recorded Patient Amr Physician Expl anation Adv Directive/Living Will/POA 01/25/2022 9:54 AM * Full Code (Latest Code Status on File) Date Activated Date Inactivated Comments 01/19/2022 7:30 PM 01/31/2022 11:19 AM * Full Code Date Activated Date Inactivated Comments 01/08/2022 11:45 AM 01/19/2022 7:05 PM Care Teams Gift Manager Relationship Specialty Start Date End Date Samira Weinstein MD [address] [place] [phone] PCP - General Internal Medicine 09/01/24
--- OUTSIDE RECORDS SUMMARY | 2024-09-07 08:51 | XMS_ITS | Clinical Summary ---
Author Organization [facility] Address [address] [place] [address] Care Team Providers Care Audio Visual Collections Coordinator Name Role Phone Unavailable Primary Care Provider Unavailabl e Allergies Active Allergy Reactions Criticality Noted Date Comments Aspirin 01/08/2022 Other reaction(s): GI Discomfort Clindamycin Medium 07/06/2015 Other reaction(s): Unknown, Urticaria Doxycycline Medium 07/06/2015 Other reaction(s): Unknown, Urticaria Erythromycin Medium 01/08/2022 Other reaction(s): Urticaria Hydrocodone Medium 07/06/2015 Other reaction(s): Unknown, Urticaria Morphine Medium 03/12/2018 Other reaction(s): Urticaria Morphine And Codeine 01/19/2022 Nsaids High 01/11/2022 Other reaction(s): Angioedema Requiring intubation Penicillins Medium 07/06/2015 Other reaction(s): Unknown, Urticaria Propoxyphene Medium 01/08/2022 Other reaction(s): Urticaria Sulfa Antibiotics Swelling Medium 07/06/2015 Other reaction(s): Unknown Tramadol Medium 01/08/2022 Other reaction(s): Urticaria Medications rosuvastatin (Crestor) 40 MG tablet Take 40 mg by mouth in the morning. Active fexofenadine (ABRAHAM) 180 MG tablet 180 mg in the morning. Active amLODIPine (NORVASC) 5 MG tablet Take 1 tablet (5 mg total) by mouth daily. 30 tablet 01/31/2022 Active famotidine (PEPCID) 20 MG tablet Take 1 tablet (20 mg total) by mouth in the morning. 30 tablet 01/30/2022 Active ferrous sulfate 325 (65 FE) MG tablet Take 1 tablet by mouth daily with lunch. 0 01/31/2022 Active levothyroxine (SYNTHROID) 50 MCG tablet Take 1 tablet (50 mcg total) by mouth Daily at 6am. 30 tablet 01/31/2022 Active metoprolol tartrate (LOPRESSOR) 25 MG tablet Take 1 tablet (25 mg total) by mouth 2 (two) times a day. 60 tablet 01/30/2022 Active montelukast (SINGULAIR) 10 MG tablet Take 1 tablet (10 mg total) by mouth daily. 30 tablet 01/31/2022 Active potassium chloride (KLOR-CON) 20 MEQ CR tablet Take 1 tablet (20 mEq total) by mouth daily. 30 tablet 01/31/2022 Active risperiDONE (RisperDAL) 0.5 MG tablet Take 1 tablet (0.5 mg total) by mouth nightly. 30 tablet 01/30/2022 Active Active Problems Problem Noted Date Diagnosed Date Delirium due to another medical condition 2021 Psychosis 01/20/2022 Debility 01/19/2022 Angioedema 01/19/2022 Asthma 01/19/2022 Hyperlipidemia 01/19/2022 Essential hypertension 01/19/2022 Anxiety 01/19/2022 Delirium 01/19/2022 Hypothyroidism 01/19/2022 Toxic metabolic encephalopathy 01/19/2022 Immunizations Immunization Administration Dates Next Due Influenza, Unspecified 03/12/2018,05/22/2006 Pfizer SARS-CoV-2 Vaccination 01/19/2022 (Deferred: Offered and declined - Pt had 2 doses COVID vaccine) TD Preservative Free 11/28/1995 Family History Medical History Relation Name Comments Cancer Father Relation Name Status Comments Father Social History Tobacco Use Types Packs/Day Years Used Date Smoking Tobacco: Every Day Cigarettes Smokeless Tobacco: Never Alcohol Use Standard Drinks/Week Comments Not Currently 0 (1 standard drink = 0.6 oz pur e alcohol) past Comments Unknown Sex and Gender Information Value Date Recorded Sex Assigned at Not on file Legal Sex Female 12:35 PM EDT Gender Identity Not on file Sexual Orientation Not on file Last Filed Vital Signs Vital Sign Reading Time Taken Comments Blood Pressure 128/76 01/31/2022 7:20 AM CDT Pulse 168 01/31/2022 7:20 AM CDT Temperature 36.8 C (98.3 F) 01/31/2022 7:20 AM CDT Respiratory Rate 19 01/31/2022 7:20 AM CDT Oxygen Saturation 100% 01/31/2022 7:20 AM CDT Inhaled Oxygen Concentration - - Weight 72.6 kg (160 lb) 01/26/2022 10:00 AM CDT Height 167.6 cm (5' 6 ) 01/20/2022 7:00 AM CDT Body Mass Index 25.82 01/20/2022 7:00 AM CDT Plan of Treatment Health Maintenance Due Date Last Done Comments CT Colonography 1958 Colonoscopy 1958 Colorectal Cancer Screening 1958 FIT-DNA (Cologuard) 1958 FIT 1958 FOBT 1958 Sigmoidoscopy 1958 Annual Visit Topic 1959 MMR Vaccines (1 of 1 - Stand chacha series) 1959 DTaP/Tdap/Td Vaccines (1 - Tdap) 1965 Hepatitis C Screening 1976 Pneumococcal Vaccine: 65+ Ye ars (1 of 4 - PCV) 1977 HIB Vaccines Aged Out No longer eligi ble based on patient's age to complete this topic HPV Vaccines Aged Out No longer eligi ble based on patient's age to complete this topic Hepatitis A Vaccines Aged Out No long er eligible based on patient's age to complete this topic Hepatitis B Vaccines Aged Out No long er eligible based on patient's age to complete this topic IPV Vaccines Aged Out No longer eligi ble based on patient's age to complete this topic Meningococcal Vaccine Aged Out No katy yelitza eligible based on patient's age to complete this topic Advance Directives * Full Resuscitation (Latest Code Status on File) Date Activated Date Inactivated Comments 01/19/2022 8:28 PM 01/31/2022 1:22 PM
--- OUTSIDE RECORDS SUMMARY | 2024-09-07 08:52 | XMS_ITS | Clinical Summary ---
Author Organization [facility] Address [address] [place] [address] Care Team Providers Care Assistant Professor Nurse Education Name Role Phone Unavailable Primary Care Provider Unavailabl e Social History Tobacco Use Types Packs/Day Years Used Date Smoking Tobacco: Never Assessed Comments Unknown Sex and Gender Information Value Date Recorded Sex Assigned at Not on file Legal Sex Female 7:18 AM CUTTER OPERATOR BRICK Gender Identity Not on file Sexual Orientation Not on file Plan of Treatment Health Maintenance Due Date Last Done Comments DEXA Bone Density 1960 Hepatitis C Virus (HCV) Screening 1958 TdaP Immunization 1958 Pap Smear 1979 Cervical Cancer Screening (CCS) 1988 HPV/Cotest 1988 Colonoscopy 2003 Colorectal Cancer Screening 2003 Cologuard 2008 Immunochemical Fecal Occult Blood 2008 Mammogram 2008 Pneumococcal Immunization (5 0+ years) (1 of 1 - PCV) 2008 Zoster Immunization (1 of 2) 2008 Influenza Immunization (#1) 2024 SARS-COV-2 Immunization ( - 2023- season) 2024 Respiratory Syncytial Virus (RSV) Immunization (Adult) (1 - 1-dose 75+ series) 2033 Hepatitis B Immunization Aged Out No longer eligible based on patient's age to complete this topic Meningococcal Immunization (ACWY) Aged Out No longer eligible based on patient's age to complete this topic Rotavirus Immunization Aged Out No lo nger eligible based on patient's age to complete this topic
--- NOTE | 2024-09-07 09:09 | ED_ITS ---
HPI - Chest Pain General Chief Complaint: Chest Pain Stated Complaint: chest pain Time Seen by Provider: 09/07/24 09:09 Source: patient and family Mode of arrival: ambulatory Limitations: no limitations History of Present Illness HPI narrative: 64 years old female came to the ED from home complaining of intermittent retrosternal chest tightness for 1 week, radiating to the right upper extremity. Patient denies aggravating or relieving factors. Patient reports having flu-like symptoms 3 weeks ago. History of hypertension hyperlipidemia hypothyroidism TIA. Patient does smoke cigarettes and drink alcohol daily. No marijuana. Related Data Home Medications ?Medication ?Instructions ?Recorded ?Confirmed ?Last Taken ?Type ipratropium 0.5 mg-albuterol 3 mg 3 ml inhalation QID PRN Dyspnea 11/08/21 09/20/22 11/19/21 History (2.5 mg base)/3 mL nebulization soln Allergies Allergy/AdvReac Type Severity Reaction Status Date / Time NSAIDS (Non-Steroidal Allergy Severe Swelling Verified 09/07/24 09:06 Anti-Inflamma Sulfa (Sulfonamide Allergy Severe Swelling Verified 09/07/24 09:06 Antibiotics) of Lip/Tongue/Throat ampicillin Allergy Intermediate RASH/HIVES Verified 09/07/24 09:06 clindamycin Allergy Intermediate Hives Verified 09/07/24 09:06 doxycycline Allergy Intermediate Hives Verified 09/07/24 09:06 erythromycin base Allergy Intermediate RASH/HIVES Verified 09/07/24 09:06 hydrocodone Allergy Intermediate Rash Verified 09/07/24 09:06 Penicillins Allergy Intermediate Hives/AGITA Verified 09/07/24 09:06 TION tramadol Allergy Intermediate Hives Verified 09/07/24 09:06 morphine Allergy Mild ITCHING,RASH, Verified 09/07/24 09:06 HIVES propoxyphene Allergy Mild NIGHTMARES/ Verified 09/07/24 09:06 TREMORS/YORDY H/HIVES aspirin AdvReac Intermediate Abdominal Verified 09/07/24 09:06 Pain Review of Systems 2 Review of Systems: All systems reviewed & are unremarkable except as noted in HPI and below PMFSH Past Medical History Medical History Hypertension History of fall from ladder Migraine headache Asthma Chronic obstructive pulmonary disease Anxiety Degenerative disc disease Mild coronary artery disease Mild, nonobstructive coronary artery disease on cardiac catheterization in September 2017. Followed by Dr. Mireles. Collagenous colitis Alcohol use disorder Significantly cut back on alcohol consumption in May 2021. Irritable bowel syndrome with diarrhea Chronic interstitial cystitis without hematuria Chronic kidney disease, stage III (moderate) Major depressive disorder, single episode, moderate Other hyperlipidemia Postprocedural hypothyroidism Tobacco abuse Surgical History Surgical History History of resection of rib Bilateral for thoracic outlet obstruction. History of left breast biopsy History of cardiac catheterization (09/2017) Mild, nonobstructive coronary artery disease. About 30% stenosis in the mid- LAD with minor irregularities in the proximal mid RCA. History of total right hip arthroplasty (11/22/21) anterior approach November 22, 2021 History of cervical spinal surgery History of hysterectomy History of cholecystectomy Family History Family History Father Family history of malignant neoplasm Family history of heart disease in male family member before age 55 Other Sickle cell anemia Social History Social History Social History: Code status: Full code. Caffeine-daily Smoking packs per day: 0.5 Smoking cigarettes per day: 10.0 Years smoked: 20 Smoking pack-years: 10.00 Smoking status: Former smoker Tobacco type: cigarettes Second hand tobacco smoke exposure: No Smoking end date: 05/02/21 Additional smoking assessment comments: SMOKING INTERMITTENLY, LAST CIG 10/06/21 Alcohol intake: former Drinks per week: 1 Alcohol use details: QUIT MAY 2021 Substance use: never Substance use type: does not use Lack of Transportation: No Lack of Food: Never True Current Housing: I Have Housing Concerned About Future Housing: No Difficulty Paying Gas/Electric Bills: No Difficulty Paying for Meds: No Currently Unemployed: No Education: Bachelor's Degree Difficulty w/ Childcare or Family Care: No Living arrangements: with family Additional living arrangements comments: Lives in [place] with her and son. Occupation/Education: retired Spiritual care concerns: No Exam 2 Narrative: General appearance: Well-developed, well-nourished Skin: Normal color Head: Normocephalic, nontraumatic Eyes: Clear conjunctiva ENT: Oropharynx normal, ears normal, nose normal Neck: Supple, nontender Chest and respiratory: Airway patent, no respiratory distress, no accessory muscle use Heart: Regular rate/rhythm Abdomen: Soft, nontender, no organomegaly, quiet bowel sounds Vascular: Normal peripheral pulses, normal capillary refill. Musculoskeletal: Normal range of motion, nontender back Neurologic: Alert and oriented ?3, [employer] is normal as tested, no gross motor deficit Course Vital Signs Vital signs: Vital Signs Temperature 36.7 C 09/07/24 09:02 Pulse Rate 60 09/07/24 09:02 Respiratory Rate 16 09/07/24 09:02 Blood Pressure 140/74 09/07/24 09:02 Pulse Oximetry 99 09/07/24 09:02 Oxygen Delivery Room Air 09/07/24 09:02 Temperature 36.7 C 09/07/24 09:02 Pulse Rate 51 L 09/07/24 10:56 Respiratory Rate 19 09/07/24 10:56 Blood Pressure 132/62 09/07/24 10:56 Pulse Oximetry 100 09/07/24 10:56 Oxygen Delivery Room Air 09/07/24 09:06 MDM - Chest Pain MDM Narrative Medical decision making narrative: Patient came with intermittent retrosternal chest pain Vital signs are stable Physical examination showing slight tenderness right chest, 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 Chest CT advised to further evaluate. EKG showed sinus bradycardia at 58 beats per minute, nonspecific ST T-wave abnormalities, no previous EKG available for comparison CT head showed no acute abnormalities Differential Diagnosis Differential diagnosis: Likely other (As above) Medical Records Data Attestation: I reviewed the patient's medical records. Lab Data Attestation: I reviewed the patient's lab results. 09/07/24 09:13 09/07/24 09:13 Labs: Lab Results 09/07/24 09/07/24 Range/Units 09:13 09:43 WBC 4.9 (4.5-10.0) K/mm3 RBC 4.38 (4.2-5.4) M/mm3 Hgb 13.5 (12.0-15.0) g/dL Hct 39.3 (37.0-47.0) % MCV 89.7 (80-100) fl MCH 30.8 (26-34) pg MCHC 34.4 (32-36) g/dl RDW 13.3 (11.5-14.5) % Plt Count 173 (150-375) k/mm3 MPV 9.6 (7.4-10.4) fl Immature Gran % (Auto) 0.2 (0-0.5) % Neut % (Auto) 52.0 (45.5-73.1) % Lymph % (Auto) 34.9 (18.3-44.2) % Kaufman % (Auto) 7.8 (2.6-8.5) % Eos % (Auto) 4.7 H (0-4.4) % Baso % (Auto) 0.4 (0.2-1.2) % Lymph # (Auto) 1.70 (0.9-3.2) K/mm3 Kaufman # (Auto) 0.4 (0.1-0.6) K/mm3 Eos # (Auto) 0.2 (0-0.3) K/mm3 Baso # (Auto) 0.0 (0.0-0.1) K/mm3 Abs Immat Gran (auto) 0.01 (0.00-0.031) K/mm3 Absolute Neuts (auto) 2.5 (1.3-6.7) K/mm3 Absolute Nucleated RBC 0.000 (0.0-0.012) K/mm3 Nucleated RBC % 0.0 (0.0-0.2) % PT 12.9 (11.1-14.7) Seconds INR 0.9 APTT 34.0 (22.3-36.8) Seconds Sodium 140 (137-145) mmol/L Potassium 3.8 (3.4-5.0) mmol/L Chloride 106 (98-107) mmol/L Carbon Dioxide 27 (22-30) mmol/L Anion Gap 7 (4-12) mmol/L BUN 16 (7-17) mg/dL Creatinine 0.75 (0.7-1.0) mg/dL Estim Creat Clear Calc 55 ml/min Estimated GFR > 60 (59 - ) Glucose 96 (65-110) mg/dL POC Capillary Glucose 91 (65-105) mg/dl Calcium 9.9 (8.4-10.2) mg/dL Total Bilirubin 0.7 (0.2-1.3) mg/dL AST 37 H (14-36) U/L ALT 32 (6-35) U/L Alkaline Phosphatase 95 (38-126) U/L Troponin I < 0.012 (0.000-0.034) ng/mL Total Protein 7.0 (6.3-8.2) g/dL Albumin 4.4 (3.5-5.1) g/dL Imaging Data Radiologist's impression: Impressions Chest X-Ray 09/07/24 09:25 Impression: Questionable 1.7 cm right upper lobe nodule, likely calcified, versus shadow related to the anterior first rib. Chest CT advised to further evaluate. Head CT 09/07/24 09:28 Impression: No significant abnormality seen. Chest CT 09/07/24 11:06 Impression: Clear lungs. No pulmonary abnormality evident. ECG Data EKG #1: Attestation: I personally reviewed and interpreted this ECG as follows: ECG completion date: 09/07/24 Interpretation: Sinus bradycardia at 58 beats per minute, nonspecific ST T-wave abnormality, abnormal EKG, no previous EKG available for comparison Discharge Plan Discharge Clinical Impression: Chest pain Patient Disposition: Still a Patient Condition: Stable Patient Language: Czech Prescriptions: No Action rosuvastatin [Crestor] 40 mg tablet 40 mg PO DAILY Qty: 90 1RF omeprazole 10 mg capsule,delayed release(DR/EC) 10 mg PO DAILY Qty: 30 0RF Rx Instructions: Take around supper time azelastine 137 mcg (0.1 %) aerosol,spray 1 spray intranasal Q12H Qty: 30 0RF Rx Instructions: administer into each nostril ipratropium-albuterol 0.5 mg-3 mg(2.5 mg base)/3 mL solution for nebulization 3 ml inhalation QID PRN (Reason: Dyspnea) metoprolol tartrate 25 mg tablet 25 mg PO BID Qty: 180 4RF albuterol sulfate 90 mcg/actuation HFA aerosol inhaler 2 inh INHALATION Q4-6H PRN (Reason: Wheezing) Qty: 6.7 2RF potassium chloride 10 mEq tablet extended release 10 meq PO BID Qty: 180 4RF amlodipine 5 mg tablet 5 mg PO DAILY Qty: 90 1RF fluticasone propionate 50 mcg/actuation spray,suspension 1 spray INTRANASAL DAILY PRN (Reason: Congestion) Qty: 16 1RF prednisone 5 mg tablet 5 mg PO DAILY Qty: 10 0RF Rx Instructions: take in am for 10 days prior to surgery montelukast 10 mg tablet 10 mg PO DAILY Qty: 90 0RF Rx Instructions: Take 1 tablet by mouth once daily levothyroxine 50 mcg tablet 50 mcg PO DAILY Qty: 30 2RF ferrous sulfate 325 mg (65 mg iron) tablet,delayed release (DR/EC) 325 mg PO DAILY Qty: 30 2RF citalopram [Celexa] 20 mg tablet 20 mg PO DAILY Qty: 90 1RF hydrochlorothiazide 25 mg tablet 25 mg PO DAILY Qty: 30 0RF Follow-up/Referrals: John,Tl Bergman DO [Non-Staff] - Quality HEART score for chest pain patients History: moderately suspicious ECG: normal Age: > or = to 65 years Risk factors: > or = to 3 risk factors of atherosclerotic disease Troponin: < or = to 1x normal limit Heart score: 5
--- NOTE | 2024-09-07 09:10 | ECG_ITS ---
Test Date: 2024-09-07 09:18:00 Measurements Intervals [place] Rate: 58 P: -4 ME: 177 QRS: 1 QRSD: 90 T: 13 QT: 449 QTc: 443 Interpretive Statements SINUS BRADYCARDIA MODERATE T-WAVE ABNORMALITY, CONSIDER ANTERIOR ISCHEMIA [-0.1+ mV T WAVE IN V3/V4] No previous ECG available for comparison Electronically Signed On 09-08-2024 11:10:11 CDT by Juan Alberto Samayoa M.D.
[2024-09-07 09:24] LABS: Basophils Percent Auto 0.4 % (0.2-1.2); Eosinophils Absolute Auto 0.2 K/mm3 (0-0.3); Eosinophils Percent Auto 4.7 % (0-4.4); Hematocrit 39.3 % (37.0-47.0); Hemoglobin 13.5 g/dL (12.0-15.0); Immature Granulocyte Absolute 0.01 K/mm3 (0.00-0.031); Immature Granulocyte Percent A 0.2 % (0-0.5); Lymphocytes Percent Auto 34.9 % (18.3-44.2); Mean Corpuscular HGB Conc 34.4 g/dl (32-36); Mean Corpuscular Hemoglobin 30.8 pg (26-34); Mean Corpuscular Volume 89.7 fl (80-100); Mean Platelet Volume 9.6 fl (7.4-10.4); Monocytes Absolute Auto 0.4 K/mm3 (0.1-0.6); Monocytes Percent Auto 7.8 % (2.6-8.5); Neutrophils Absolute Auto 2.5 K/mm3 (1.3-6.7); Platelet Count Result 173 k/mm3 (150-375); Red Blood Count 4.38 M/mm3 (4.2-5.4); Red Cell Distribution Width 13.3 % (11.5-14.5); White Blood Count 4.9 K/mm3 (4.5-10.0)
[2024-09-07 09:37] LABS: Alanine Aminotransferase 32 U/L (6-35); Albumin Level 4.4 g/dL (3.5-5.1); Alkaline Phosphatase 95 U/L (38-126); Anion Gap 7 mmol/L (4-12); Aspartate Amino Transferase 37 U/L (14-36); Bilirubin,Total 0.7 mg/dL (0.2-1.3); Blood Urea Nitrogen 16 mg/dL (7-17); Calcium 9.9 mg/dL (8.4-10.2); Carbon Dioxide 27 mmol/L (22-30); Chloride 106 mmol/L (98-107); Estimated CRCL calculation 55 ml/min; Estimated Glomerular Filt Rate > 60; Glucose 96 mg/dL (65-110); Potassium 3.8 mmol/L (3.4-5.0); Sodium 140 mmol/L (137-145)
[2024-09-07 09:39] LABS: INR 0.9; Prothrombin Time 12.9 Seconds (11.1-14.7)
--- OUTSIDE RECORDS SUMMARY | 2024-09-07 09:39 | XMS_ITS | Encounter Summary ---
Author Organization [facility] Address [facility] [place] [address] Care Team Providers Care Stencil Printer Name Role Phone Mamadou Momin MD Primary Care Provider + [phone] Encounter Details Date Type Department Care Team (Latest Contact Info) Description 01/19/2022 11:28 AM CDT Hospital Encounter [address] [place] [address] [place] [address] [place] [address] Select Direct Social History Tobacco Use Types [...] Sex Assigned at Female 05/24/2024 12:37 PM DIRECTOR EXTERNAL COMMUNICATIONS Gender Identity Female 05/24/2024 12:37 PM DIRECTOR EXTERNAL COMMUNICATIONS Sexual Orientation Straight 05/24/2024 12 :37 PM DIRECTOR EXTERNAL COMMUNICATIONS COVID-19 Exposure Response Date Recorded In the [...] Description 03/09/2025 8:20 AM CDT Office Visit [facility] - Internal Medicine [address] [facility] [address] [place] [id number] Samira Weinstein MD [address] [place] [address] [address] [place] [phone] 03/11/2025 12:50 PM CDT Office Visit [facility] - Dermatology [address] [place] [address], [facility] [place] [phone] Paul Velazquez MD [address] [place] [address] [place] [phone] 08/10/2025 8:00 AM DIRECTOR EXTERNAL COMMUNICATIONS Appointment [address] [place] [address] documented as of this encounter Visit Diagnoses Not on filedocumented in this encounter Care Teams Stencil Printer Relationship Specialty Start Date End Date Mamadou Momin MD [address] [place] [address] PCP - General 05/19/08 06/12/22 documented as of this encounter
--- OUTSIDE RECORDS SUMMARY | 2024-09-07 09:39 | XMS_ITS | Referral Summary ---
Author Organization [facility] al Address [address] [place] [address] Care Team Providers Care Refrigerated Cargo Clerk Name Role Phone Unavailable Primary Care Provider [...] 40 mg tabletIndicatio ns:Coronary artery disease involving muckleshoot coronary artery of muck[place]oot heart without angina pectoris Take 1 tablet [...] on file Legal Sex Female 1:01 AM ONLINE PROGRAM COORDINATOR Gender Identity Not on file Sexual Orientation [...] Plan of Treatment Not on file Insurance [employer] OPEN ACCESS [employer] [facility]
--- OUTSIDE RECORDS SUMMARY | 2024-09-07 09:39 | XMS_ITS | Clinical Summary ---
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
--- OUTSIDE RECORDS SUMMARY | 2024-09-07 09:39 | XMS_ITS | Clinical Summary ---
Author Organization [facility] Address [address] [place] [id number] Phone Care Team Providers Care Chief Gauger Name Role Phone Unavailable Primary Care Provider [...] Comments Blood Pressure 92/60 05/20/2014 12:01 AM DRIER OPERATOR HEAD Pulse 72 05/20/2014 12:01 AM DRIER OPERATOR HEAD Temperature 36.6 C (97.8 F) 05/20/2014 12:01 AM DRIER OPERATOR HEAD Respiratory Rate - - Oxygen Saturation - - Inhaled Oxygen Concentration - - Weight 74.4 kg (164 lb) 05/20/2014 12:01 AM DRIER OPERATOR HEAD Height 167.6 cm (5' 6 ) 05/20/2014 12:01 AM DRIER OPERATOR HEAD Body Mass Index 26.47 05/20/2014 12:01 AM DRIER OPERATOR HEAD Plan of Treatment Not on file
--- OUTSIDE RECORDS SUMMARY | 2024-09-07 09:39 | XMS_ITS | Patient Health Summary ---
Author Organization [facility] Address [address] [place] [address] Care Team Providers Care Reporting Lead Name Role Phone Samira Weinstein MD Primary Care Provider [phone] [facility],non-owned Affiliates and Associated Physician Practices is amultiple site organization consisting of ambulatory clinics and hospital sitesin [place], [place], [place] and [place]. This disclosure is being madepursuant to the Care Everywhere program and may not contain all information available regarding this patient. Last updated 18.[facility] Allergies * Ampicillin(Urticaria) -Medium Criticality * Aspirin(GI [...] propionate (Flonase) 50 MCG/ACT nasal spray(Started 05/26/2024) [place] 2 (two) sprays into each nostril once [...] Sex Assigned at Female 05/24/2024 12:37 PM SENIOR RESIDENT CARE DIRECTOR Gender Identity Female 05/24/2024 12:37 PM SENIOR RESIDENT CARE DIRECTOR Sexual Orientation Straight 05/24/2024 12 :37 PM SENIOR RESIDENT CARE DIRECTOR Last Filed Vital Signs Vital Sign Reading Time Taken Comments Blood Pressure 138/78 09/01/2024 8:46 AM SENIOR RESIDENT CARE DIRECTOR Pulse 54 09/01/2024 8:46 AM SENIOR RESIDENT CARE DIRECTOR Temperature 36.6 C (97.9 F) 09/01/2024 8:46 AM SENIOR RESIDENT CARE DIRECTOR Respiratory Rate 14 09/01/2024 8:46 AM SENIOR RESIDENT CARE DIRECTOR Oxygen Saturation 100% 09/01/2024 8:46 AM SENIOR RESIDENT CARE DIRECTOR Inhaled Oxygen Concentration 21% 01/16/2022 6 :15 AM CDT Weight 65.8 kg (145 lb) 09/01/2024 8:46 AM SENIOR RESIDENT CARE DIRECTOR Height 162.6 cm (5' 4.02 ) 09/01/2024 8:46 AM CS T Body Mass Index 24.88 09/01/2024 8:46 AM SENIOR RESIDENT CARE DIRECTOR Procedures * MAMMO BILAT DIAGNOSTIC W DIONICIO(Performed [...] DIONICIO(Performed 03/19/2023) Performed for Abnormal mammogram * NM LARYNGOSCOPY,FLEX FIBER,DIAGNOSTIC(Performed 02/06/2023) Performed for Laryngeal granuloma, [...] Bilat Diagnostic W Dionicio (08/04/2024 8:32 AM SENIOR RESIDENT CARE DIRECTOR) Only the most recent of2 resultswithin the time period is included. Anatomical Region Laterality Modality Breast Bilateral Mammography 08/04/2024 8:16 AM SENIOR RESIDENT CARE DIRECTOR Impressions 08/04/2024 9:04 AM SENIOR RESIDENT CARE DIRECTOR IMPRESSION: 1.Unchanged two adjacent benign groups of [...] BENIGN. Report dictated by Saeed Bhandari M.D. (vice president of customer service). Silviano Johnson MD, PhD and Willian Hwang [facility] also assisted in the evaluation and interpretation of the study. I, Rabia Del Castillo MD, FACR have personally reviewed and interpreted this examination/study. > Interpreting Provider: Rabia Del Castillo MD, FACR on 08/04/2024 9:04 AM Narrative 08/04/2024 9:04 AM SENIOR RESIDENT CARE DIRECTOR EXAMINATIONS: BILATERAL DIGITAL DIAGNOSTIC MAMMOGRAM AND BREAST TOMOSYNTHESIS LOCATION: [facility] EXAM DATE: 08/04/2024 HISTORY: Follow-up to [...] unchanged back to August 2022. Kay Tillman APRN-ELEMENTARY ESL TEACHER MAMMO ORDE CHIQUITA * (ABNORMAL) MAMMO LEFT [...] MAMMOGRAM AND BREAST TOMOSYNTHESIS WITH CAD LOCATION: [facility] EXAM DATE: 01/14/2024 HISTORY: Follow-up to a [...] unchanged back to August 2022. Kay Tillman BUSINESS SERVICES INTERN-ELEMENTARY ESL TEACHER MAMMO ORDE CHIQUITA * XR LUMBAR SPINE [...] on 12/04/2023 9:42 AM Kay Cooper Primo BUSINESS SERVICES INTERN-ELEMENTARY ESL TEACHER DIAGNOSTIC IMAGING ORDERABLES * HEMOGLOBIN A1C (12/03/2023 [...] or women. Falsely low HbA The [employer] assay for the measurement of HbA1c is a [facility] Glycohemoglobin Standardization Program (NGSP) certified method. FASTING Blood BLOOD SPECIMEN / Unknown 12/03/2023 9:40 AM CDT 12/03/2023 Narrative Resulting Agency Comment Lab Testing performed at: [address] [phone] Luz Velasquez MD LAB - CHEMISTRY ORDE UVALDOLES [facility] INSURANCE BILL [address] [place] [address] * VITAMIN D 25-HYDROXY (12/03/2023 9:40 AM CDT) Only the most recent of2 resultswithin the time period is included. Pathologist [facility] Vitamin D, 25 Hydroxy 78.5 30 - 80 ng/mL [facility] INSURANCE BILL Comment: Vitamin D Status: Deficiency <20 ng/mL Insufficiency 20-30 ng/mL Sufficiency 30-100 ng/mL Toxicity >100 ng/mL FASTING Blood BLOOD SPECIMEN / Unknown 12/03/2023 9:40 AM CDT 12/03/2023 Narrative Resulting Agency Comment Lab Testing performed at: [address] [phone] Luz Velasquez MD LAB - CHEMISTRY STELLA PORRAS Performing Organization Address [facility]/ZIP Co de Phone Number [facility] INSURANCE BILL [address] [place] [address] * (ABNORMAL) COMPREHENSIVE METABOLIC PANEL (12/03/2023 9:40 AM CDT) Only the most recent of5 resultswithin the time period is included. Pathologist [facility] Glucose 82 70 - 105 mg/dL [facility] [...] Resulting Agency Comment Lab Testing performed at: [address] [phone] Luz Velasquez MD LAB - CHEMISTRY STELLA PORRAS Performing Organization Address City/[facility]/ZIP Co de Phone Number [facility] INSURANCE BILL [address] [place] [address] * TSH (12/03/2023 9:40 AM CDT) Only the most recent of2 resultswithin the time period is included. TSH 0.4522 0.35 - 4.94 uIU/mL [facility] INSURANCE BILL Comment:FASTING Blood BLOOD SPECIMEN / Unknown 12/03/2023 9:40 AM CDT 12/03/2023 Narrative Resulting Agency Comment Lab Testing performed at: [address] [phone] Luz Velasquez MD LAB - CHEMISTRY STELLA PORRAS [facility] INSURANCE BILL [address] [place] [address] * T4 FREE (12/03/2023 9:40 AM CDT) Only the most recent of3 resultswithin the time period is included. T4 Free 1.14 0.70 - 1.50 ng/dL [facility] INSURANCE BILL Comment:FASTING Blood BLOOD SPECIMEN / Unknown 12/03/2023 9:40 AM CDT 12/03/2023 Narrative Resulting Agency Comment Lab Testing performed at: [address] [phone] Luz Velasquez MD LAB - CHEMISTRY STELLA PORRAS Performing Organization Address City/[facility]/ZIP Co de Phone Number [facility] INSURANCE BILL [address] [place] [address] * LIPID PROFILE (12/03/2023 9:40 AM CDT) [...] Resulting Agency Comment Lab Testing performed at: [address] [id number] Luz Velasquez MD LAB - CHEMISTRY STELLA PORRAS Performing Organization Address [facility] Co de Phone Number [facility] INSURANCE BILL [address] [place] [address] * NM LARYNGOSCOPY,FLEX FIBER,DIAGNOSTIC (02/06/2023 8:29 AM CDT) Narrative Claudio Vaughn MD - 02/06/2023 8:29 AM CDT Claudio Vaughn MD 02/06/2023 10:08 AM Procedure Note Endoscopy Type: Laryngoscopy without stroboscopy 08170 Endoscope: Flexible 4mm Scope Anesthesia: Lidocaine 2% [...] Patient tolerated procedure well. Complications: None Dr. Bazan was present for the entirety of the procedure. Moe Bazan MD PROCEDURE/MINOR SURG ICAL ORDERABLES * SUREAB VAGINOSIS/VAGINITIS PLUS (10/13/2022 1:00 AM CDT) Pathologist [facility] Bacterial Vaginosis NEGATIVE NEGATIVE [facility] Mirna species [...] Comment: For additional information, please refer to https://education.AMGas/faq/HXW827 (This link is being provided for information/ educational purposes only.) NO COLLECTION DATE RECEIVED. WE HAVE USED THE DATE THE SPECIMEN WAS RECEIVED BY THIS LABORATORY THE COLLECTION DATE. IF THIS IS INCORRECT, PLEASE CONTACT CLIENT SERVICES. PHONE NUMBER: [phone] Test Performed at: [facility] [address] [place] [address] OLIVERIO HOLMAN MD Microbiology VAGINAL SWAB / Unknown 10/12/2022 1:01 AM CDT Susi Cordova BUSINESS SERVICES INTERN-ELEMENTARY ESL TEACHER LAB - MICROBIOLOGY ORDERABLES [facility] [address] [place] [address] * (ABNORMAL) HPV DETECTION HIGH RISK BRISSA (10/11/2022 3:17 PM CDT) Pathologist [facility] High Risk Human Papilloma Result Detected( A) Not detected 10/13/2022 4:[address] [facility] High Risk Human Papilloma Interp [...] LAB - MICROBIOLOGY ORDERABLES Performing Organization Address City/State/[facility] Co de Phone Number [facility] [address] [phone] * PAP IMAGE-GUIDED W HPV (10/11/2022 3:17 PM CDT) Case Report Gynecologic Cytology Report Case: [id number] Authorizing Provider: Susi Cordova APRN-CNP Collected: 10/11/2022 03:17 PM Ordering Location: [facility] Obstetrics Received: 10/12/2022 11:40 AM Gynecology and [...] 3:28 PM CDT [facility] Interpretation ELECTROMECHANICAL ASSEMBLY TECHNICIAN Negative for intraepithelial lesion or malignancy. 10/18/2022 3:28 PM CDT [facility] Pap Footnote The Pap Smear is a screening test. False positive and false negative results occur. Negative results do not preclude abnormalities, thus clinical correlation is required. This specimen was evaluated by the ThinPrep Imaging System along with an additional manual rescreening by a plastics fabrication supervisor and/or pathologist. 10/18/2022 3:[address] [facility] Embedded Images 3:[address] [facility] Pathology/Cytolo gy MISCELLANEOUS SAMPLES / Unknown 10/11/2022 3:17 PM CDT 10/12/2022 11:40 AM CDT Susi Cordova APRN-ELEMENTARY ESL TEACHER LAB - PATHOLOGY/CY TOLOGY ORDERABLES Performing Organization Address City/State/[facility] Co de Phone Number [facility] [address] [phone] * HPV GENOTYPES 16,18/45 (10/11/2022 3:17 PM CDT) Human papillomavirus Genotype 16 by TMA Not detected Not detected 10/16/2022 12:[address] [facility] Human papillomavirus Genotype 18/45 by TMA Not detected Not detected 10/16/2022 12:[address] [facility] Pathology/Cytolo gy MISCELLANEOUS SAMPLES / Unknown 10/11/2022 3:17 PM CDT 10/12/2022 11:40 AM CDT N[address] [facility] - 10/16/2022 12:10 PM CDT [...] available laboratory and clinical data. Susi Cordova APRN-ELEMENTARY ESL TEACHER LAB - MICROBIOLOGY ORDERABLES [facility] [address] [phone] * PATHOLOGY TISSUE EXAM (STL) (09/12/2022 9:37 AM CDT) Case Report Surgical Pathology Report Case: [id number] Authorizing Provider: Eric Garcia MD Collected: 09/12/2022 09:37 AM Ordering Location: [facility] Received: 09/12/2022 10:35 AM Pathologist: Nava Shook MD Specimen: Polyp Rectal 09/13/2022 11:58 AM CDT [facility] Final Diagnosis Polyp, rectum, polypectomy: - Hyperplastic polyp 09/13/2022 11:58 AM CDT [facility] Clinical History Screening for colon cancer. 09/13/2022 11:58 AM CDT [facility] Gross Description The specimen is identified with patient's name and date of . Received in formalin, specimen A, polyp rectal is a light-willis mucosal tissue, 0.4 x 0.3 x 0.2 cm. Entirely submitted in cassette A1. LJ 09/13/2022 11:58 AM CDT [facility] Microscopic Description There is no diagnostic evidence of dysplasia, or malignancy 09/13/2022 11:58 AM CDT [facility] Disclaimer All histochemical and/or immunohistochemical results are interpreted with controls that demonstrate appropriate staining reactions before reporting results. Note on use of immunocytochemistry reagents: This test was developed and its performance characteristic determined by [facility], Department of Laboratory Medicine. It has not [...] interpreted with caution. 09/13/2022 11:58 AM CDT [facility] Embedded Images 09/13/2022 11:58 AM CDT [facility] Pathology/Cytolo gy RECTAL POLYP / Unknown 09/12/2022 9:37 AM CDT 09/12/2022 10:35 AM CDT Comment:Pre-op diagnosis: Screen for colon cancer [Z12.11] Eric Garcia MD LAB - PATHOLOGY/CYTO LOGY ORDERABLES [facility] [address] [place], [place] [id number] * ENDOSCOPY, COLON, SCREENING (09/12/2022 7:47 AM CDT) Report Endoscopy POC _ Patient Name: Phyllis Torre Procedure Date: 09/12/2022 7:47 AM Date of : 1960 Admit Type: Outpatient Age: 62 Gender: Female Ethnicity: Not or Race: Black or Attending MD: Osvaldo Santa MD _ Procedure: Colonoscopy Indications: Screening for colorectal malignant neoplasm Providers: Osvaldo Santa MD (Doctor), Toma Almaraz RN, Eloise Juan, Share Holder Referring MD: Luz Velasquez MD (Referring MD) [...] pathology results. Procedure Code(s): --- Professional --- 38983, Colonoscopy, flexible; with biopsy, single or multiple --- Technical --- 32729, Colonoscopy, flexible; with biopsy, single or multiple Diagnosis Code(s): --- Professional --- Z12.11, Encounter for screening for malignant neoplasm of colon K62.1, Rectal polyp --- Technical --- Z12.11, Encounter for screening for malignant neoplasm of colon K62.1, Rectal polyp CPT copyright 2019 [employer]. All rights reserved. The codes documented in this report are preliminary and upon elevator tender review may be revised to meet current compliance requirements. Osvaldo Santa MD 09/12/2022 9:42:19 AM This report has been signed electronically. Number of Addenda: 0 Note Initiated On: 09/12/2022 7:47 AM [facility] 09/12/2022 7:47 AM CDT Eric Garcia MD GI PROCEDURE ORDERAB LES [facility] * DEXA BONE DENSITY AXIAL SKELETON (08/23/2022 9:54 AM SENIOR RESIDENT CARE DIRECTOR) Anatomical Region Laterality Modality Other 08/23/2022 3:05 PM SENIOR RESIDENT CARE DIRECTOR Narrative 08/23/2022 3:07 PM SENIOR RESIDENT CARE DIRECTOR PROCEDURE: DEXA BONE DENSITY AXIAL SKELETON, DATE/TIME OF EXAM: 08/23/2022 9:54 AM, LOCATION [facility] INDICATION: Z78.0: Post-menopausal COMPARISON: No similar [...] and below > Dictated by Misael Wiggins (Ebd Teacher) 08/23/2022 3:07 PM Mathew Bowman DO have personally reviewed and interpreted this examination/study. > Interpreting Provider: Mathew Damian DO on 08/23/2022 3:07 PM Procedure Note Mathew Damian DO - 08/23/2022 PROCEDURE: DEXA BONE DENSITY AXIAL SKELETON, DATE/TIME OF EXAM:08/23/2022 9:54 AM, LOCATION [facility] INDICATION: Z78.0: Post-menopausal COMPARISON: No similar [...] and below > Dictated by Misael Wiggins (Ebd Teacher) 08/23/2022 3:07 PM Mathew Bowman DO have personally reviewed and interpreted this examination/study. > Interpreting Provider: Mathew Damian DO on 08/23/2022 3:07 PM Luz Velasquez MD DEXA ORDERABLES * MAMMO BILAT SCREENING W DIONICIO (08/23/2022 9:53 AM SENIOR RESIDENT CARE DIRECTOR) Anatomical Region Laterality Modality Breast Bilateral Mammography 08/23/2022 10:3 7 AM SENIOR RESIDENT CARE DIRECTOR Impressions 08/23/2022 12:02 PM SENIOR RESIDENT CARE DIRECTOR : 1. Two small adjacent groups of [...] EVALUATION. Report dictated by Saw Sykes M.D. (vice president of customer service) with assistance from Stephanie Grimaldo M.D. (vice president of customer service). I, Rabia Del Castillo MD have personally reviewed and interpreted this examination/study. > Interpreting Provider: Rabia Del Castillo MD on 08/23/2022 12:02 PM Narrative 08/23/2022 12:02 PM SENIOR RESIDENT CARE DIRECTOR EXAMINATION: DIGITAL MAMMO BILAT SCREENING W DIONICIO [...] * CBC W/O DIFFERENTIAL (08/15/2022 11:36 AM SENIOR RESIDENT CARE DIRECTOR) WBC 6.8 3.4 - 10.8 x10E3/uL [facility] [...] BLOOD SPECIMEN / Unknown 08/15/2022 11:36 AM SENIOR RESIDENT CARE DIRECTOR 08/15/2022 Narrative Resulting Agency Comment Lab Testing performed at: [facility] [place] [address] [phone] Luz Velasquez MD LAB - HEMATOLOGY ORD ERABLES Performing Organization Address City/[facility]/ZIP Co de Phone Number [facility] ACCOUNT BILL [address] [place] [address] * VITAMIN B12 (08/15/2022 11:36 AM SENIOR RESIDENT CARE DIRECTOR) [facility] Vitamin B12 712 232 - 1,245 pg/mL [facility] ACCOUNT BILL Blood BLOOD SPECIMEN / Unknown 08/15/2022 11:36 AM SENIOR RESIDENT CARE DIRECTOR 08/15/2022 Narrative Resulting Agency Comment Lab Testing performed at: [facility] [place] [address] [phone] Luz Velasquez MD LAB - CHEMISTRY ORDE RABLES [facility] ACCOUNT BILL [address] [place] [address] * IMMUNOSCORE IGE INTERP (06/16/2022 12:30 PM SENIOR RESIDENT CARE DIRECTOR) Only the most recent of2 resultswithin the time period is included. [facility] Immunocap Score See Note 8:51 PM SENIOR RESIDENT CARE DIRECTOR [facility] [employer] ([facility]) Comment: REFERENCE INTERVAL: Allergen, Interpretation Less than [...] clinical allergy or even anaphylaxis. Performed By: [employer] [address] [place] [address] Summer Intern: Cedrick Suresh MD, PhD Blood BLOOD SPECIMEN / Unknown Lab Venipuncture / Unknown 06/16/2022 12:30 PM SENIOR RESIDENT CARE DIRECTOR 06/17/2022 11:25 AM SENIOR RESIDENT CARE DIRECTOR Barrett Sharma MD LAB - SEROLOGY ORDER BETH [facility]) [address] [place] [address], [facility] * ALLERGEN RESPIRATORY PROF (IL,MO,IA) IGE (06/16/2022 12:30 PM SENIOR RESIDENT CARE DIRECTOR) IgE Total 10 <=214 kU/L 06/18/2022 8:33 PM SENIOR RESIDENT CARE DIRECTOR [facility] ([facility]) Comment: REFERENCE INTERVAL: Immunoglobulin E, Serum Access complete set of age- and/or gender-specific reference intervals for this test in the [facility] Test Directory ([email or web address]). Allergen [place] Elder <0.10 <=0.34 kU/L 06/18/2022 8:33 PM SENIOR RESIDENT CARE DIRECTOR [facility] ([facility]) Allergen Alternaria alternata <0.10 <=0.34 kU/L 06/18/2022 8:33 PM SENIOR RESIDENT CARE DIRECTOR [facility] ([facility]) Allergen [place] Maple <0.10 <=0.34 kU/L 06/18/2022 8:33 PM SENIOR RESIDENT CARE DIRECTOR [facility] ([facility]) Allergen Cat Dander <0.10 <=0.34 kU/L 06/18/2022 8:33 PM SENIOR RESIDENT CARE DIRECTOR [facility] ([facility]) Allergen [place] <0.10 <=0.34 kU/L 06/18/2022 8:33 PM SENIOR RESIDENT CARE DIRECTOR [facility] ([facility]) Allergen Douglas Tree <0.10 <=0.34 kU/L 06/18/2022 8:33 PM SENIOR RESIDENT CARE DIRECTOR [facility] ([facility]) Allergen Rough Pigweed <0.10 <=0.34 kU/L 06/18/2022 8:33 PM SENIOR RESIDENT CARE DIRECTOR [facility] ([facility]) Allergen Tristanian Thistle <0.10 <=0.34 kU/L 06/18/2022 8:33 PM SENIOR RESIDENT CARE DIRECTOR [facility] ([facility]) Allergen Cristiano Grass <0.10 <=0.34 kU/L 06/18/2022 8:33 PM SENIOR RESIDENT CARE DIRECTOR [facility] ([facility]) Allergen Hormodendrum <0.10 <=0.34 kU/L 06/18/2022 8:33 PM SENIOR RESIDENT CARE DIRECTOR [facility] ([facility]) Allergen Elm <0.10 <=0.34 kU/L 06/18/2022 8:33 PM SENIOR RESIDENT CARE DIRECTOR [facility] ([facility]) Allergen Mullan <0.10 <=0.34 kU/L 06/18/2022 8:33 PM SENIOR RESIDENT CARE DIRECTOR [facility] ([facility]) Allergen A fumigatus IgE <0.10 <=0.34 kU/L 06/18/2022 8:33 PM SENIOR RESIDENT CARE DIRECTOR [facility] ([facility]) Allergen Dermatophagoides pteronyssinus <0.10 <=0.34 kU/L 06/18/2022 8:33 PM SENIOR RESIDENT CARE DIRECTOR [facility] ([facility]) Allergen Dermatophagoides farinae <0.10 <=0.34 kU/L 06/18/2022 8:33 PM SENIOR RESIDENT CARE DIRECTOR [facility] ([facility]) Allergen Bermuda Grass <0.10 <=0.34 kU/L 06/18/2022 8:33 PM SENIOR RESIDENT CARE DIRECTOR [facility] ([facility]) Allergen White Navjot <0.10 <=0.34 kU/L 06/18/2022 8:33 PM SENIOR RESIDENT CARE DIRECTOR [facility] ([facility]) Allergen P. Notatum <0.10 <=0.34 kU/L 06/18/2022 8:33 PM SENIOR RESIDENT CARE DIRECTOR [facility] ([facility]) Allergen Common Ragweed <0.10 <=0.34 kU/L 06/18/2022 8:33 PM SENIOR RESIDENT CARE DIRECTOR [facility]) Allergen Cockroach Yakut <0.10 <=0.34 kU/L 06/18/2022 8:33 PM [facility]) Allergen [place] Tree <0.10 <=0.34 kU/L 06/18/2022 8:33 PM [facility] ([facility]) Allergen [place] Tree <0.10 <=0.34 kU/L 06/18/2022 8:33 PM [facility]) Allergen Pecan Tree <0.10 <=0.34 kU/L 06/18/2022 8:33 PM [facility]) Allergen Mouse Epithelium IgE <0.10 <=0.34 kU/L 06/18/2022 8:33 PM SENIOR RESIDENT CARE DIRECTOR [facility]) Allergen Mucor racemosus <0.10 <=0.34 kU/L 06/18/2022 8:33 PM SENIOR RESIDENT CARE DIRECTOR [facility]) Allergen White Gamaliel Tree IgE <0.10 <=0.34 kU/L 06/18/2022 8:33 PM SENIOR RESIDENT CARE DIRECTOR [facility]) Allergen Dog Dander <0.10 <=0.34 kU/L 06/18/2022 8:33 PM SENIOR RESIDENT CARE DIRECTOR [facility] ([facility]) Comment: Performed By: [employer] [address] [place] [address] Summer Intern: Cedrick Suresh MD, PhD Blood BLOOD SPECIMEN / Unknown Lab Venipuncture / Unknown 06/16/2022 12:30 PM SENIOR RESIDENT CARE DIRECTOR 06/17/2022 11:25 AM SENIOR RESIDENT CARE DIRECTOR aBrrett Sharma MD LAB - CHEMISTRY ORDSandra PORRAS [facility] ([facility]) [address] [place] [address], [facility] * (ABNORMAL) BASIC METABOLIC PANEL (CALCIUM TOTAL) (01/30/2022 4:59 AM CDT) Only the most recent of6 resultswithin the time period is included. Glucose 132(H) 70 - 105 mg/dL 01/30/2022 11:17 AM CDT [facility] Sodium 139 136 - 145 mmol/L 01/30/2022 11:17 AM CDT [facility] Potassium 3.5 3.5 - 5.1 mmol/L 01/30/2022 11:17 AM CDT [facility] Chloride 108(H) 98 - 107 mmol/L 01/30/2022 11:17 AM CDT [facility] CO2 21(L) 23 - 31 mmol/L 01/30/2022 11:17 AM CDT [facility] Calcium 9.5 8.4 - 10.4 mg/dL 01/30/2022 11:17 AM CDT [facility] Anion Gap 10 8 - 18 mmol/L 01/30/2022 11:17 AM CDT [facility] BUN 4(L) 9.8 - 20.1 mg/dL 01/30/2022 11:17 AM CDT [facility] Creatinine 0.72 0.57 - 1.11 mg/dL 01/30/2022 11:17 AM CDT [facility] eGFR by CKD-EPI >90 >=90 mL/min/1.7 3 m2 01/30/2022 11:17 AM CDT [facility] Blood BLOOD SPECIMEN / Unknown Venipuncture / Unknown 01/30/2022 4:59 AM CDT 01/30/2022 10:34 AM CDT Augustin Chapman MD LAB - CHEMISTRY STELLA PORRAS [facility] [address] [place] [phone] * CARDIAC EKG ORDER (01/25/2022 11:43 AM CDT) Narrative 01/25/2022 11:43 AM CDT Ordered by an unspecified provider. Scanned Document CARDIAC SERVICES ORD ERABLES * (ABNORMAL) CBC W AUTO DIFFERENTIAL (01/20/2022 4:08 AM CDT) Only the most recent of13 resultswithin the time period is included. WBC 11.9(H) 4.4 - 10.7 x10E9/L 01/20/2022 4:45 AM CDT [facility] WBC Corrected 01/20/2022 4:45 AM CDT [facility] RBC 4.85 3.80 - 5.20 x10E12/L 01/20/2022 4:45 AM CDT [facility] Hemoglobin 14.5 12.0 - 15.6 gm/dL 01/20/2022 4:45 AM CDT [facility] Hematocrit 42.8 35.9 - 45.5 % 01/20/2022 4:45 AM CDT [facility] MCV 88.2 80.7 - 98.3 fl 01/20/2022 4:45 AM CDT [facility] MCH 29.9 26.7 - 34.0 pg 01/20/2022 4:45 AM CDT [facility] MCHC 33.9 30.8 - 35.9 gm/dL 01/20/2022 4:45 AM CDT [facility] Platelet Count 240 153 - 416 x10E9/L 01/20/2022 4:45 AM CDT [facility] RDW-CV 14.1 12.1 - 14.9 % 01/20/2022 4:45 AM CDT [facility] [facility] MPV 9.7 9.4 - 12.9 fl 01/20/2022 4:45 AM CDT [facility] Neutrophils % 61.6 44.0 - 73.0 % 01/20/2022 4:45 AM CDT [facility] Lymphocytes % 29.8 20.0 - 43.0 % 01/20/2022 4:45 AM CDT [facility] Monocytes % 7.6 5.0 - 13.0 % 01/20/2022 4:45 AM CDT [facility] Eosinophils % 0.2 0.0 - 6.0 % 01/20/2022 4:45 AM CDT [facility] Basophils % 0.1 0.0 - 2.0 % 01/20/2022 4:45 AM CDT [facility] Immature Granulocytes 0.7 0 - 1 % 01/20/2022 4:45 AM CDT [facility] Neutrophil Absolute 7.31(H) 2.01 - 7.14 x10E9/L 01/20/2022 4:45 AM CDT [facility] Lymphocytes Absolute 3.54 1.07 - 3.94 x10E9/L 01/20/2022 4:45 AM CDT [facility] Monocytes Absolute 0.90 0.26 - 1.07 x10E9/L 01/20/2022 4:45 AM CDT [facility] Eosinophils Absolute 0.02 0 - 0.47 x10E9/L 01/20/2022 4:45 AM CDT [facility] Basophils Absolute 0.01 0 - 0.08 x10E9/L 01/20/2022 4:45 AM CDT [facility] Immature Granulocytes Absolute 0.08(H) 0.00 - 0.06 x10E9/L 01/20/2022 4:45 AM CDT [facility] nRBC Auto 0 /100 WBC 01/20/2022 4:45 AM CDT [facility] Blood BLOOD SPECIMEN / Unknown Venipuncture / Unknown 01/20/2022 4:08 AM CDT 01/20/2022 4:34 AM CDT Christian Victoria MD LAB - HEMATOLOGY ORD ERABLES [facility] [address] [place] [address] * GLUCOSE - POINT OF CARE (01/19/2022 10:45 AM CDT) Only the most recent of53 resultswithin the time period is included. [facility] Glucose WB/POC 92 70 - 115 mg/dL 01/19/2022 11:38 AM CDT [facility] Specimen Type Cap Fingerstick 2021 11:38 AM CDT [facility] Blood BLOOD SPECIMEN / Unknown 01/19/2022 10:45 AM CDT 01/19/2022 11:38 AM CDT Carlitos Barton MD LAB - POINT OF CARE ORDERABLES Performing Organization Address City/[facility]/ZIP Co de Phone Number [address] [address], [facility] [phone] * PHOSPHORUS BLOOD (01/19/2022 3:16 AM CDT) Only the most recent of2 resultswithin the time period is included. Phosphorus 3.2 2.9 - 5.1 mg/dL 01/19/2022 4:19 AM CDT [facility] Blood BLOOD SPECIMEN / Unknown Lab Venipuncture / Unknown 01/19/2022 3:16 AM CDT 01/19/2022 3:54 AM CDT Carlitos Barton MD LAB - CHEMISTRY STELLA PORRAS Performing Organization Address [facility] Co de Phone Number [address] [address], [facility] [phone] * MAGNESIUM BLOOD (01/19/2022 3:16 AM CDT) Only the most recent of12 resultswithin the time period is included. Magnesium 2.1 1.6 - 2.6 mg/dL 01/19/2022 4:19 AM CDT [facility] Blood BLOOD SPECIMEN / Unknown Lab Venipuncture / Unknown 01/19/2022 3:16 AM CDT 01/19/2022 3:54 AM CDT Maximus Escalera MD LAB - CHEMISTRY STELLA PORRAS Performing Organization Address City/[facility]/ZIP Co de Phone Number [address] [address], [facility] [phone] * (ABNORMAL) RENAL FUNCTION PANEL (01/18/2022 3:39 AM T) Only the most recent of10 resultswithin the time period is included. BUN 21 7 - 26 mg/dL 01/18/2022 4:28 AM [facility] Creatinine 0.80 0.56 - 0.96 mg/dL 01/18/2022 4:28 AM [facility] Sodium 145 136 - 145 mmol/L 01/18/2022 4:28 AM [facility] Potassium 3.2(L) 3.5 - 4.5 mmol/L 01/18/2022 4:28 AM [facility] Chloride 106 98 - 107 mmol/L 01/18/2022 4:28 AM [facility] CO2 21(L) 22 - 29 mmol/L 01/18/2022 4:28 AM [facility] Glucose 73 70 - 115 mg/dL 01/18/2022 4:28 AM [facility] Albumin 3.7 3.4 - 5.0 g/dL 01/18/2022 4:28 AM [facility] Calcium 10.1 8.4 - 10.2 mg/dL 01/18/2022 4:28 AM [facility] Phosphorus 3.4 2.9 - 5.1 mg/dL 01/18/2022 4:28 AM [facility] Anion Gap 21(H) 8 - 18 01/18/2022 4:28 AM [facility] BUN/Creatinine Ratio 26(H) 7 - 23 01/18/2022 4:28 AM [facility] Osmolality Calculated 302(H) 270 - 300 mOsm/kg 01/18/2022 4:28 AM [facility] eGFR by CKD-EPI 83(L) >=90 mL/min/1.7 3 m2 01/18/2022 4:28 AM [facility] Blood BLOOD SPECIMEN / Unknown Lab Venipuncture / Unknown 01/18/2022 3:39 AM CDT 01/18/2022 3:58 AM T Maximus Escalera MD LAB - CHEMISTRY STELLA PORRAS [facility] Organization Address City/State/ZIP Co de Phone Number [facility] [address] [place] [address], [facility] [phone] * MRI BRAIN WWO CONTRAST (01/16/2022 7:27 PM CDT) Anatomical Region Laterality Modality Head Magnetic Resonan ce 01/17/2022 8:4 4 AM CDT Impressions 01/17/2022 9:41 AM CDT IMPRESSION: 1.Motion limited study. 2.No demonstrated acute intracranial abnormality. Dictated by Cristo Calles MD (vice president of customer service) I, Dr. MARYJANE MORALES M.D. have personally [...] intracranial abnormality. Dictated by Cristo Calles MD (vice president of customer service) I, Dr. MARYJANE MORALES M.D. have personally reviewed and interpreted this examination/study. This report was electronically signed by MARYJANE MORALES M.D. on 01/17/2022 9:41 AM . Selam Diaz MD MR ORDERABLES * (ABNORMAL) URINE MICROSCOPIC ONLY REFLEX TO CULTURE (01/16/2022 10:35 AM CDT) Reflex Status Culture to follow 01/16/2022 10:49 AM CDT [facility] RBC UA 11-20(A) None Seen, 0-2, 3-5 /HPF 01/16/2022 10:49 AM [facility] WBC UA 51-100(A) None Seen, 0-5 /HPF 01/16/2022 10:49 AM CDT [facility] Bacteria UA Trace(A) None /HPF 01/16/2022 10:49 AM [facility] Squamous Epithelial Cells UA 0-2 None Seen, 0-2, 3-5 /HPF 01/16/2022 10:49 AM T [facility] Amorphous Crystals Rare(A) None /HPF 01/16/2022 10:49 AM T [facility] Urine URINE SPECIMEN OBTAINED BY CLEAN CATCH PROCEDURE / Unknown Collection / Unknown 01/16/2022 10:35 AM CDT 01/16/2022 10:41 AM CDT [facility] - 01/16/2022 10:49 AM CDT Selam Diaz MD LAB - URINALYSI S ORDERABLES Performing Organization Address City/[facility]/ZIP Co de Phone Number [facility] [address] [place] [address], [facility] [phone] * (ABNORMAL) URINALYSIS REFLEX MICROSCOPIC REFLEX CULTURE (01/16/2022 10:35 AM CDT) Color UA Straw Straw, Yellow 01/16/2022 10:49 AM CDT [facility] Clarity UA t Cloudy(A) Clear 01/16/2022 10:49 AM CDT [facility] Specific Pettigrew UA 1.015 1.005 - 1.030 01/16/2022 10:49 AM CDT [facility] pH UA 7.0 5.0 - 8.0 pH 01/16/2022 10:49 AM T [facility] Protein UA Negative Negative 01/16/2022 10:49 AM T [facility] Glucose UA Negative Negative 01/16/2022 10:49 AM CDT [facility] Ketone UA Negative Negative 01/16/2022 10:49 AM T [facility] Bilirubin UA Negative Negative 01/16/2022 10:49 AM T [facility] Blood UA 2+(A) Negative 01/16/2022 10:49 AM [facility] Nitrite UA Negative Negative 01/16/2022 10:49 AM T [facility] Leukocyte Esterase 2+(A) Negative 01/16/2022 10:49 AM [facility] Urobilinogen UA Negative Negative mg/dL 01/16/2022 10:49 AM [facility] Urine URINE SPECIMEN OBTAINED BY CLEAN CATCH PROCEDURE / Unknown Collection / Unknown 01/16/2022 10:35 AM CDT 01/16/2022 10:41 AM CDT Selam Diaz MD LAB - URINALYSI S ORDERABLES [facility] [address] [place] [address], [facility] [phone] * CULTURE URINE (01/16/2022 10:35 AM CDT) Culture Urine 10,000-50,000 CFU/mL urogenital kathleen SHARRON 01/17/2022 6:12 PM CDT [facility] Urine URINE SPECIMEN OBTAINED BY CLEAN CATCH PROCEDURE / Unknown Collection / Unknown 01/16/2022 10:35 AM CDT 01/16/2022 10:49 AM CDT Selam Diaz MD LAB - MICROBIOL OGY ORDERABLES [facility] [address] [place] [address], [facility] [phone] * EKG 12-LEAD (01/12/2022 9:05 PM CDT) Pathologist [facility] Ventricular Rate 70 BPM [facility] Atrial Rate 70 BPM [facility] P-R Interval 136 ms [facility] QRS Duration ms 70 ms [facility] Q-T Interval ms 434 ms [facility] QTC Calculation (Bezet) 468 ms [facility] MUSE Calculated P [place] 9 degrees [facility] MUSE Calculated R [place] 65 degrees [facility] MUSE Calculated T [place] 98 degrees [facility] MUSE Interpretation EKG NORMAL SINUS RHYTHM NORMAL ECG NO PREVIOUS ECGS AVAILABLE Confirmed by fellow LISBETH GALLEGO MD ([id number]) on 01/16/2022 9:30:43 AM Confirmed by Kary Gold Deana ([id number]) on 01/16/2022 10:13:16 PM [facility] 01/12/2022 9:05 PM CDT 01/16/2022 10:13 PM CDT Selam Diaz MD ECG ORDERABLES Performing Organization Address [facility] Co de Phone Number [facility] MUSE * CT NECK SOFT TISSUE WO [...] bulge/disc osteophyte complex resulting in mild or gfsw-nd-malbximy spinal canal stenosis at multiple levels. The [...] bulge/disc osteophyte complex resulting in mild or kotk-vh-ubyqonbjobizks canal stenosis at multiple levels. The visualized [...] GAL IGE (01/10/2022 5:07 AM CDT) Pathologist [facility] Allergen Alpha Gal IgE <0.10 <=0.09 kU/L 01/11/2022 9:39 PM CDT [facility] ([facility]) Comment: INTERPRETIVE INFORMATION: Allergen, Food, Alpha-Gal, IgE [...] clinical allergy or even anaphylaxis. Performed By: [facility] Where Was it Filmed [address] [place] [address] Summer Intern: Cedrick Suresh MD, PhD Blood BLOOD SPECIMEN / Unknown Venipuncture / Unknown 01/10/2022 5:07 AM CDT 01/10/2022 5:19 AM CDT Selam Diaz MD LAB - SEROLOGY ORDERABLES Performing Organization Address City/[facility]/ZIP Co de Phone Number [facility]) [address] [place] [address] * (ABNORMAL) TSH REFLEX FREE T4 (01/09/2022 4:23 AM CDT) [facility] TSH 0.093(L) 0.350 - 4.940 uIU/mL 01/09/2022 5:45 AM CDT [facility] Blood BLOOD SPECIMEN / Unknown Venipuncture / Unknown 01/09/2022 4:23 AM CDT 01/09/2022 4:45 AM CDT Maximus Escalera MD LAB - CHEMISTRY ORDSandra PORRAS [address] [address], [facility] [phone] * COMPLEMENT C1 ESTERASE INHIBITOR FUNCTION ACTIVITY (01/09/2022 4:23 AM CDT) [facility] Complement C1 Esterase Inhibitor Functional 119 >=41 % 01/11/2022 4:42 PM CDT [facility] ([facility]) Comment: INTERPRETIVE INFORMATION: Y-6-Bfncxgba Inhib. Functional 68% or greater ........ Normal 41% - 67% ............. Indeterminate 40% or less ........... Abnormal Performed By: [facility] [address] [place] [address] Summer Intern: Cedrick Suresh MD, PhD Blood BLOOD SPECIMEN / Unknown Venipuncture / Unknown 01/09/2022 4:23 AM CDT 01/09/2022 4:50 AM CDT Maximus Escalera MD LAB - CHEMISTRY STELLA PORRAS [facility]) [address] [place] [address] * (ABNORMAL) COMPLEMENT C1 ESTERASE INHIBITOR ANTIGEN (01/09/2022 4:23 AM CDT) [facility] C1 Esterase Inhibitor 44(H) 21 - 39 mg/dL 01/11/2022 1:09 PM CDT [facility] ([facility]) Blood BLOOD SPECIMEN / Unknown Venipuncture / Unknown 01/09/2022 4:23 AM CDT 01/09/2022 4:50 AM CDT Narrative [facility] ([facility]) - 01/11/2022 1:09 PM CDT Performed at: [facility] [id number] [employer] Goods Repairer: Sandrine Lyman MD, Phone: [phone] Maximus Escalera MD LAB - CHEMISTRY STELLA PORRAS [facility] ([facility]) [address] [place] [address], [facility] * COMPLEMENT C4 (01/09/2022 4:23 AM CDT) [facility] Complement C4 41 15 - 57 mg/dL 01/09/2022 5:28 AM CDT [facility] Blood BLOOD SPECIMEN / Unknown Venipuncture / Unknown 01/09/2022 4:23 AM CDT 01/09/2022 4:45 AM CDT Maximus Escalera MD LAB - SEROLOGY ORDER [place] [facility] [address] [place] [address], [facility] [phone] * (ABNORMAL) IRON + TRANSFERRIN PANEL (01/09/2022 4:23 AM CDT) [facility] Iron 38(L) 40 - 150 ug/dL 01/09/2022 6:02 AM CDT [facility] Transferrin 245 174 - 382 mg/dL 01/09/2022 6:02 AM CDT [facility] Transferrin Saturation % 12(L) 16 - 50 % 01/09/2022 6:02 AM T [facility] TIBC Calculated 306 240 - 450 ug/dL 01/09/2022 6:02 AM CDT [facility] Blood BLOOD SPECIMEN / Unknown Venipuncture / Unknown 01/09/2022 4:23 AM CDT 01/09/2022 4:50 AM CDT Maximus Escalera MD LAB - CHEMISTRY ORDE RABTRINO [facility] [address] [place] [address], [facility] [phone] * (ABNORMAL) BLOOD GASES ART + COOX PANEL (01/08/2022 5:13 PM CDT) Only the most recent of2 resultswithin the time period is included. Pathologist [facility] pH Arterial 7.46(H) 7.35 - 7.45 pH 01/08/2022 5:29 PM CDT [facility] pO2 Arterial 81 80 - 100 mmHg 01/08/2022 5:29 PM CDT [facility] pCO2 Arterial 36 35 - 45 mmHg 5:29 PM [facility] HCO3 Arterial 26 20 - 30 mmol/l 01/08/2022 5:29 PM [facility] BE Arterial 1.8 -2.0 - 2.0 mmol/L 01/08/2022 5:29 PM [facility] Oxyhemoglobin Arterial 95.3 % 01/08/2022 5:29 PM [facility] Dexoyhemoglobin (HHB) % 2.0 % 01/08/2022 5:29 PM [facility] Methemoglobin 1.2 0.0 - 2.0 % 01/08/2022 5:29 PM [facility] Carboxyhemoglobin 1.4 0.0 - 2.0 % 2021 5:29 PM [facility] O2 Content Arterial 13.9 Interpret within clinical context mg/dL 01/08/2022 5:29 PM [facility] Hemoglobin by COOX 10.3(L) 12.0 - 15.6 g/dL 01/08/2022 5:29 PM [facility] O2 Saturation Arterial 98 90 - 100 % 01/08/2022 5:29 PM [facility] FI O2 Arterial 40.0 % 01/08/2022 5:29 PM [facility] Blood, arterial ARTERIAL BLOOD SPECIMEN / Unknown Arterial Puncture / Unknown 01/08/2022 5:13 PM CDT 01/08/2022 5:26 PM CDT [facility] - 01/08/2022 5:29 PM CDT Carboxyhemoglobin Normal Concentration: Non-smokers: 0-2%; Smokers: 0-9%; Toxic: >20% Jose Osuan MD LAB - BLOOD GAS ES ORDERABLES [facility] [address] [place] [address], [facility] [phone] * XR ABDOMEN KUB PORTABLE (01/08/2022 12:45 PM CDT) Anatomical Region Laterality Modality Abdomen Radiographic Vale ging 01/08/2022 7:12 PM CDT Impressions 01/08/2022 10:25 PM CDT IMPRESSION: An enteric tube courses below the diaphragm with the tip and side port positioned in the gastric body. Report drafted by Fern Danielle MD (Ebd Teacher). Dr. PB Bowman have personally reviewed and [...] body. Report drafted by Fern Danielle MD (Ebd Teacher). Dr. PB Bowman have personally reviewed and [...] visualized. Report drafted by Fern Danielle MD (Ebd Teacher). Dr. PB Bowman have personally reviewed and [...] visualized. Report drafted by Fern Danielle MD (Ebd Teacher). I, Dr. PB MONTGOMERY have personally reviewed and interpreted this examination/study. This report was electronically signed by PB MONTGOMERY on 01/08/2022 10:25 PM . Maximus Escalera MD DIAGNOSTIC IMAGING O RDERABLES * GIARDIA SCREEN DFA (05/13/2014 6:15 AM SENIOR RESIDENT CARE DIRECTOR) Pathologist [facility] Giardia Antigen Screen No Giardia Lamblia Cysts seen. Negative [facility] Stool specimen (specimen) STOOL SPECIMEN / Unknown 05/13/2014 6:15 AM SENIOR RESIDENT CARE DIRECTOR 05/13/2014 2:06 PM SENIOR RESIDENT CARE DIRECTOR Narrative [facility] - 05/14/2014 1:54 PM SENIOR RESIDENT CARE DIRECTOR AndersonSpecimen#[id number] Paulino Loc/Rm/Bed: NONPATLAB// Historical Provider LAB - MICROBIOLOG Y ORDERABLES [address] [phone] * CULTURE STOOL+ E COLI SHIGA-LIKE TOXIN (05/13/2014 6:15 AM SENIOR RESIDENT CARE DIRECTOR) Culture Feces No Salmonella, Shigella, Yersinia, Campylobacter or Escherichia Coli 0157:H7 isolated. Negative for Shiga Toxin by Immunoassay. [facility] Stool specimen (specimen) STOOL SPECIMEN / Unknown 05/13/2014 6:15 AM SENIOR RESIDENT CARE DIRECTOR 05/13/2014 2:06 PM SENIOR RESIDENT CARE DIRECTOR [facility] - 05/16/2014 2:31 PM SENIOR RESIDENT CARE DIRECTOR AndersonSpecimen#[id number] Paulino Loc/Rm/Bed: NONPATLAB// Historical Provider LAB - MICROBIOLOG Y ORDERABLES Performing Organization Address [facility] Co de Phone Number [address] [phone] * CLOSTRIDIUM DIFFICILE [facility] AG + TOXIN A+B (05/13/2014 6:15 AM SENIOR RESIDENT CARE DIRECTOR) C difficile Antigen Negative Negative [facility] C difficile Toxin Negative Negative [facility] Stool specimen (specimen) STOOL SPECIMEN / Unknown 05/13/2014 6:15 AM SENIOR RESIDENT CARE DIRECTOR 05/13/2014 2:06 PM SENIOR RESIDENT CARE DIRECTOR [facility] - 05/13/2014 7:50 PM SENIOR RESIDENT CARE DIRECTOR AndersonSpecimen#[id number] Paulino Loc/Rm/Bed: NONPATLAB// Historical Provider LAB - MICROBIOLOG Y ORDERABLES Performing Organization Address [facility] Co de Phone Number [address] [phone] * FECAL LEUKOCYTES (05/13/2014 6:15 AM SENIOR RESIDENT CARE DIRECTOR) Fecal Leukocytes No White Blood Cells seen. [facility] Stool specimen (specimen) STOOL SPECIMEN / Unknown 05/13/2014 6:15 AM SENIOR RESIDENT CARE DIRECTOR 05/13/2014 2:06 PM SENIOR RESIDENT CARE DIRECTOR [facility] - 05/13/2014 4:24 PM SENIOR RESIDENT CARE DIRECTOR AndersonSpecimen#[id number] Paulino Loc/Rm/Bed: NONPATLAB// Historical Provider LAB - BODY FLUID ORDERABLES [address] [phone] * CRYPTOSPORIDIUM ANTIGEN (05/13/2014 6:15 AM SENIOR RESIDENT CARE DIRECTOR) Cryptosporidium Antigen Screen No Cryptosporidium Oocysts seen. Negative [facility] Stool specimen (specimen) STOOL SPECIMEN / Unknown 05/13/2014 6:15 AM SENIOR RESIDENT CARE DIRECTOR 05/13/2014 2:06 PM SENIOR RESIDENT CARE DIRECTOR Narrative [facility] - 05/14/2014 1:53 PM SENIOR RESIDENT CARE DIRECTOR AndersonSpecimen#[id number] Paulino Loc/Rm/Bed: NONPATLAB// Historical Provider LAB - MICROBIOLOG Y ORDERABLES Performing Organization Address City/[facility] Co de Phone Number [address] [phone] Care Teams Reporting Lead Relationship Specialty Start Date End Date Samira Weinstein MD [address] [place] [phone] PCP - General Internal Medicine 09/01/24
--- OUTSIDE RECORDS SUMMARY | 2024-09-07 09:39 | XMS_ITS | Clinical Summary ---
Author Organization [facility] al Address [address] [place] [address] Care Team Providers Care Printed Circuit Board Pcb Draftsman Name Role Phone Unavailable Primary Care Provider [...] 40 mg tabletIndicatio ns:Coronary artery disease involving iqugmiut coronary artery of iqugmiut heart without angina pectoris Take 1 tablet [...] on file Legal Sex Female 1:01 AM MUSIC DIRECTOR Gender Identity Not on file Sexual Orientation [...] Plan of Treatment Not on file Insurance Prezma OPEN ACCESS Prezma [facility]
--- OUTSIDE RECORDS SUMMARY | 2024-09-07 09:39 | XMS_ITS | Clinical Summary ---
Author Organization [facility] Address [address] [place] [address] Care Team Providers Care Educational Programming Director Name Role Phone Samira Weinstein MD Primary Care Provider [phone] Source Comments [facility],non-owned Affiliates and Associated Physician Practices is amultiple site organization consisting of ambulatory clinics and hospital sitesin [place], [place], [place] and [place]. This disclosure is being madepursuant to the Care Everywhere program and may not contain all information available regarding this patient. Last updated 18.[facility] Allergies Active Allergy Reactions Criticality Noted Date [...] MCG/ACT nasal sprayIndications :Nasal Congestion,Nonal lergic Rhinitis [place] 2 (two) sprays into each nostril once [...] Department Care Team Description 09/03/2024 8:40 AM BATH STEWARD Office Visit [facility] - Dermatology [address] [facility], [facility] [place] [address] Paul Velazquez MD Other specified nonscarring hair loss (Primary Dx); Hair loss 09/02/2024 Travel 09/01/2024 8:40 AM BATH STEWARD Office Visit [facility] Internal Medicine [address] [place] [phone] Samira Weinstein MD Primary hypertension (Primary Dx); Asthma-COPD overlap syndrome (HCC); Hypothyroidism due to acquired atrophy of thyroid; KEISHA (generalized anxiety disorder); History of right hip replacement; Tobacco use disorder; Hyperlipidemia, unspecified hyperlipidemia type; Hair loss; Need for shingles vaccine 08/26/2024 Refill [facility] Internal Medicine [address] [place] [phone] Luz Velasquez MD Refill Request 08/24/2024 Refill [facility] Internal Medicine [address] [place] [phone] Luz Velasquez MD MEDICATION REFILL 08/04/2024 7:45 AM BATH STEWARD - 08/04/2024 11:59 PM [facility] Hospital Encounter [address] [address] Kay Tillman, OLIMPIA-EXTRUSION PRESS OPERATOR Discharge Disposition: Home or Self Care 08/04/2024 Refill [facility] Internal Medicine [address] [place] [phone] Luz Velasquez MD Refill Request 08/04/2024 Refill [facility] Internal Medicine [address] [place] [phone] Samira Weinstein MD MEDICATION REFILL 08/04/2024 Travel [...] Sex Assigned at Female 05/24/2024 12:37 PM BATH STEWARD Gender Identity Female 05/24/2024 12:37 PM BATH STEWARD Sexual Orientation Straight 05/24/2024 12 :37 PM BATH STEWARD Last Filed Vital Signs Vital Sign Reading Time Taken Comments Blood Pressure 138/78 09/01/2024 8:46 AM BATH STEWARD Pulse 54 09/01/2024 8:46 AM BATH STEWARD Temperature 36.6 C (97.9 F) 09/01/2024 8:46 AM BATH STEWARD Respiratory Rate 14 09/01/2024 8:46 AM BATH STEWARD Oxygen Saturation 100% 09/01/2024 8:46 AM BATH STEWARD Inhaled Oxygen Concentration 21% 01/16/2022 6 :15 AM CDT Weight 65.8 kg (145 lb) 09/01/2024 8:46 AM BATH STEWARD Height 162.6 cm (5' 4.02 ) 09/01/2024 8:46 AM CS T Body Mass Index 24.88 09/01/2024 8:46 AM BATH STEWARD Plan of Treatment Upcoming Encounters Date Type Department Care Team (Late st Contact Info) Description 03/09/2025 8:20 AM CDT Office Visit [facility] Medical [facility] - Internal Medicine [address] [facility] [address] [place] [phone] Samira Weinstein MD [address] [place] [address] [address] [place] [phone] 03/11/2025 12:50 PM CDT Office Visit [facility] - Dermatology [address] [place] [address], [place] [phone] Paul Velazquez MD [address] [place] [address] [place] [phone] 08/10/2025 8:00 AM BATH STEWARD Appointment [address] [address] Health Maintenance Due Date Last Done Comments [...] DIAGNOSTIC W DIONICIO Routine 08/04/2024 8:32 AM BATH STEWARD Follow-up exam ENDOSCOPY, COLON, SCREENING Routine 09/12/2022 7:47 AM CDT Screen for colon cancer DEXA BONE DENSITY AXIAL SKELETON Routine 08/23/2022 9:54 AM BATH STEWARD Post-menopausal from Last 3 Months or Most Recently Relevant to Health Maintenance Results * Mammo Bilat Diagnostic W Dionicio (08/04/2024 8:32 AM BATH STEWARD) Anatomical Region Laterality Modality Breast Bilateral Mammography 08/04/2024 8:16 AM BATH STEWARD Impressions 08/04/2024 9:04 AM BATH STEWARD IMPRESSION: 1.Unchanged two adjacent benign groups of [...] BENIGN. Report dictated by Saeed Bhandari M.D. (presidential support specialist). Silviano Johnson MD, PhD and [facility] [place] also assisted in the evaluation and interpretation of the study. I, Rabia Del Castillo MD, FACR have personally reviewed and interpreted this examination/study. > Interpreting Provider: Rabia Del Castillo MD, FACR on 08/04/2024 9:04 AM Narrative 08/04/2024 9:04 AM BATH STEWARD EXAMINATIONS: BILATERAL DIGITAL DIAGNOSTIC MAMMOGRAM AND BREAST TOMOSYNTHESIS LOCATION: [facility] EXAM DATE: 08/04/2024 HISTORY: Follow-up to [...] unchanged back to August 2022. Kay Tillman RN SECURITY-EXTRUSION PRESS OPERATOR MAMMO STELLA PORRAS * ENDOSCOPY, COLON, SCREENING [...] MD (Doctor), Toma Almaraz RN, Eloise Juan, Harness Brusher Referring MD: Luz Velasquez MD (Referring MD) [...] pathology results. Procedure Code(s): --- Professional --- 19994, Colonoscopy, flexible; with biopsy, single or multiple --- Technical --- 68592, Colonoscopy, flexible; with biopsy, single or multiple Diagnosis Code(s): --- Professional --- Z12.11, Encounter for screening for malignant neoplasm of colon K62.1, Rectal polyp --- Technical --- Z12.11, Encounter for screening for malignant neoplasm of colon K62.1, Rectal polyp CPT copyright 2019 [employer] [place] [employer]. All rights reserved. The codes documented in this report are preliminary and upon manager exchange review may be revised to meet current compliance requirements. Osvaldo Santa MD 09/12/2022 9:42:19 AM This report has been signed electronically. Number of Addenda: 0 Note Initiated On: 09/12/2022 7:47 AM [facility] 09/12/2022 7:47 AM CDT Eric Garcia MD GI PROCEDURE ORDERAB LES [facility] * DEXA BONE DENSITY AXIAL SKELETON (08/23/2022 9:54 AM BATH STEWARD) Anatomical Region Laterality Modality Other 08/23/2022 3:05 PM BATH STEWARD Narrative 08/23/2022 3:07 PM BATH STEWARD PROCEDURE: DEXA BONE DENSITY AXIAL SKELETON, DATE/TIME OF EXAM: 08/23/2022 9:54 AM, LOCATION [facility] INDICATION: Z78.0: Post-menopausal COMPARISON: No similar [...] and below > Dictated by Misael Wiggins (Construction Project Administrator) 08/23/2022 3:07 PM Mathew Bowman DO have personally reviewed and interpreted this examination/study. > Interpreting Provider: Mathew Damian DO on 08/23/2022 3:07 PM Procedure Note Mathew Damian DO - 08/23/2022 PROCEDURE: DEXA BONE DENSITY AXIAL SKELETON, DATE/TIME OF EXAM:08/23/2022 9:54 AM, LOCATION [facility] INDICATION: Z78.0: Post-menopausal COMPARISON: No similar [...] and below > Dictated by Misael Wiggins (Construction Project Administrator) 08/23/2022 3:07 PM Mathew Bowman DO have personally reviewed and interpreted this examination/study. > Interpreting Provider: Mathew Damian DO on 08/23/2022 3:07 PM Luz Velasquez MD DEXA ORDERABLES from Last 3 Months or Most Recently Relevant to Health Maintenance Advance Directives Documents on File Type Date Recorded Patient Change Manager Expl anation Adv Directive/Living Will/POA 01/25/2022 9:54 AM * Full Code (Latest Code Status on File) Date Activated Date Inactivated Comments 01/19/2022 7:30 PM 01/31/2022 11:19 AM * Full Code Date Activated Date Inactivated Comments 01/08/2022 11:45 AM 01/19/2022 7:05 PM Care Teams Educational Programming Director Relationship Specialty Start Date End Date Samira Weinstein MD [address] [place] [phone] PCP - General Internal Medicine 09/01/24
--- OUTSIDE RECORDS SUMMARY | 2024-09-07 09:39 | XMS_ITS | Encounter Summary ---
Author Organization [facility] Address [facility] [place] [address] Care Team Providers Care Agricultural Education Instructor Name Role Phone Luz Velasquez MD Primary Care Provider Unavail Pcp, [facility] Primary Care Provider Unavailable Samira Weinstein MD Primary Care Provider [phone] Reason for Visit * Reason Onset Date Comments MEDICATION REFILL 03/20/2024 Encounter Details Date Type Department Care Team (Late st Contact Info) Description 03/20/2024 Refill [facility] - Internal Medicine [address] [place] [phone] Luz Velasquez MD MEDICATION REFILL Social History [...] Sex Assigned at Female 05/24/2024 12:37 PM MISSILE CONTROL PILOT Gender Identity Female 05/24/2024 12:37 PM MISSILE CONTROL PILOT Sexual Orientation Straight 05/24/2024 12 :37 PM MISSILE CONTROL PILOT documented as of this encounter Functional Status [...] Description 03/09/2025 8:20 AM CDT Office Visit [facility] - Internal Medicine [address] [facility] [address] [place] [phone] [place] [address] [place] [address] [address] [place] [phone] 03/11/2025 12:50 PM CDT Office Visit [facility] - Dermatology [address] [place] [address], [place] [phone] Paul Velazquez MD [address] [place] [address] [place] [phone] 08/10/2025 8:00 AM MISSILE CONTROL PILOT Appointment [address] [address] documented as of this encounter Visit Diagnoses Not on filedocumented in this encounter Care Teams Agricultural Education Instructor Relationship Specialty Start Date End Date Luz Velasquez MD PCP - General Internal Medicine 08/15/22 04/30/24 Pcp, [facility] PCP - General 05/01/24 5 Samira Weinstein MD [address] [phone] PCP - General Internal Medicine 09/01/24 documented as of this encounter
--- OUTSIDE RECORDS SUMMARY | 2024-09-07 09:39 | XMS_ITS | Encounter Summary ---
Author Organization [facility] Address [facility] [place] [address] Care Team Providers Care Foxer Name Role Phone Luz Velasquez MD Primary Care Provider Unavail Pcp, [facility] Primary Care Provider Unavailable Samira Weinstein MD Primary Care Provider [phone] Reason for Visit * Reason Onset Date Comments MEDICATION REFILL 03/18/2024 Encounter Details Date Type Department Care Team (Late st Contact Info) Description 03/18/2024 Refill [facility] - Internal Medicine [address] [place] [phone] Luz Velasquez MD MEDICATION REFILL Social History [...] Sex Assigned at Female 05/24/2024 12:37 PM TENTER Gender Identity Female 05/24/2024 12:37 PM TENTER Sexual Orientation Straight 05/24/2024 12 :37 PM TENTER documented as of this encounter Functional Status [...] Description 03/09/2025 8:20 AM CDT Office Visit [facility] - Internal Medicine [address] [facility] [address] [place] [phone] [place] [address] [place] [address] 400 [place] [phone] 03/11/2025 12:50 PM CDT Office Visit [facility] - Dermatology [address] [place] [address], [place] [phone] Paul Velazquez MD [address] [place] [address] [place] [phone] 08/10/2025 8:00 AM TENTER Appointment [address] [address] documented as of this encounter Visit Diagnoses Not on filedocumented in this encounter Care Teams Foxer Relationship Specialty Start Date End Date Luz Velasquez MD PCP - General Internal Medicine 08/15/22 04/30/24 Pcp, [facility] PCP - General 05/01/24 5 Samira Weinstein MD [address] [phone] PCP - General Internal Medicine 09/01/24 documented as of this encounter
--- OUTSIDE RECORDS SUMMARY | 2024-09-07 09:39 | XMS_ITS | Clinical Summary ---
Author Organization [facility] Address [address] [place] [address] Care Team Providers Care [employer] Name Role Phone Unavailable Primary Care Provider [...]
--- OUTSIDE RECORDS SUMMARY | 2024-09-07 09:39 | XMS_ITS | Referral Summary ---
Author Organization [facility] Address [facility] [place] [address] Care Team Providers Care Volleyball Assembler Name Role Phone Samira Weinstein MD Primary Care Provider [phone] Source Comments [facility],non-owned Affiliates and Associated Physician Practices is amultiple site organization consisting of ambulatory clinics and hospital sitesin [place], [place], [place] and [place]. This disclosure is being madepursuant to the Care Everywhere program and may not contain all information available regarding this patient. Last updated 18.[facility] Encounters Date Type Department Care Team Description 09/03/2024 8:40 AM ROD BENDING MACHINE OPERATOR Office Visit [facility] - Dermatology [address] [place] [phone] Paul Velazquez MD Other specified nonscarring hair loss (Primary Dx); Hair loss 09/02/2024 Travel 09/01/2024 8:40 AM ROD BENDING MACHINE OPERATOR Office Visit [facility] - Internal Medicine [address] [phone] Samira Weinstein MD Primary hypertension (Primary Dx); Asthma-COPD overlap syndrome (HCC); Hypothyroidism due to acquired atrophy of thyroid; KEISHA (generalized anxiety disorder); History of right hip replacement; Tobacco use disorder; Hyperlipidemia, unspecified hyperlipidemia type; Hair loss; Need for shingles vaccine 08/26/[address] [facility] Internal Medicine [address] [place] [phone] Luz Velasquez MD Refill Request 08/24/[address] [facility] Internal Medicine [address] [place] [address] 400 [place] [phone] Luz Velasquez MD MEDICATION REFILL 08/04/[address] [facility] Internal Medicine [address] [place] [phone] Luz Velasquez MD Refill Request 08/04/[address] [facility] Internal Medicine [address] [place] [phone] Samira Weinstein MD MEDICATION REFILL 08/04/2024 Travel 08/04/2024 7:45 AM ROD BENDING MACHINE OPERATOR - 08/04/2024 11:59 PM ROD BENDING MACHINE OPERATOR Hospital Encounter [facility] [address] [place] [phone] Kay Tillman, JAVA TECHNICAL MANAGER-BI TECHNICAL LEAD Discharge Disposition: Home or Self Care from [...] MCG/ACT nasal sprayIndications :Nasal Congestion,Nonal lergic Rhinitis [place] 2 (two) sprays into each nostril once [...] Sex Assigned at Female 05/24/2024 12:37 PM ROD BENDING MACHINE OPERATOR Gender Identity Female 05/24/2024 12:37 PM ROD BENDING MACHINE OPERATOR Sexual Orientation Straight 05/24/2024 12 :37 PM ROD BENDING MACHINE OPERATOR Last Filed Vital Signs Vital Sign Reading Time Taken Comments Blood Pressure 138/78 09/01/2024 8:46 AM ROD BENDING MACHINE OPERATOR Pulse 54 09/01/2024 8:46 AM ROD BENDING MACHINE OPERATOR Temperature 36.6 C (97.9 F) 09/01/2024 8:46 AM ROD BENDING MACHINE OPERATOR Respiratory Rate 14 09/01/2024 8:46 AM ROD BENDING MACHINE OPERATOR Oxygen Saturation 100% 09/01/2024 8:46 AM ROD BENDING MACHINE OPERATOR Inhaled Oxygen Concentration 21% 01/16/2022 6 :15 AM CDT Weight 65.8 kg (145 lb) 09/01/2024 8:46 AM ROD BENDING MACHINE OPERATOR Height 162.6 cm (5' 4.02 ) 09/01/2024 8:46 AM CS T Body Mass Index 24.88 09/01/2024 8:46 AM ROD BENDING MACHINE OPERATOR Functional Status Functional Status Response Date of [...] Description 03/09/2025 8:20 AM CDT Office Visit [facility] Medical [facility] - Internal Medicine [address] [place] [address] [address] [place] [address] Samira Weinstein MD [address] [place] [phone] 03/11/2025 12:50 PM CDT Office Visit [facility] - Dermatology [address] [place] [address], [place] [phone] Paul Velazquez MD [address] [place] [address] [place] [phone] 08/10/2025 8:00 AM ROD BENDING MACHINE OPERATOR Appointment [address] [phone] Procedures Procedure Name Priority Date/Time Associated Diagnosis Comments MAMMO BILAT DIAGNOSTIC W DIONICIO Routine 08/04/2024 8:32 AM ROD BENDING MACHINE OPERATOR Follow-up exam ENDOSCOPY, COLON, SCREENING Routine 09/12/2022 7:47 AM CDT Screen for colon cancer DEXA BONE DENSITY AXIAL SKELETON Routine 08/23/2022 9:54 AM ROD BENDING MACHINE OPERATOR Post-menopausal from Last 3 Months or Most Recently Relevant to Health Maintenance Results * Mammo Bilat Diagnostic W Dionicio (08/04/2024 8:32 AM ROD BENDING MACHINE OPERATOR) Anatomical Region Laterality Modality Breast Bilateral Mammography 08/04/2024 8:16 AM ROD BENDING MACHINE OPERATOR Impressions 08/04/2024 9:04 AM ROD BENDING MACHINE OPERATOR IMPRESSION: 1.Unchanged two adjacent benign groups of [...] BENIGN. Report dictated by Saeed Bhandari M.D. (resident care spec). Silviano Johnson MD, PhD and Willian Hwang [facility] also assisted in the evaluation and interpretation of the study. I, Rabia Del Castillo MD, FACR have personally reviewed and interpreted this examination/study. > Interpreting Provider: Rbaia Del Castillo MD, FACR on 08/04/2024 9:04 AM Narrative 08/04/2024 9:04 AM ROD BENDING MACHINE OPERATOR EXAMINATIONS: BILATERAL DIGITAL DIAGNOSTIC MAMMOGRAM AND BREAST TOMOSYNTHESIS LOCATION: [facility] EXAM DATE: 08/04/2024 HISTORY: Follow-up to [...] back to August 2022. Kay Cooper Primo JAVA TECHNICAL MANAGER-BI TECHNICAL LEAD MAMMO STELLA PORRAS * ENDOSCOPY, COLON, SCREENING [...] MD (Doctor), Toma Almaraz RN, Eloise Juan, Executive Assistant To General Counsel Referring MD: Luz Velasquez MD (Referring MD) [...] pathology results. Procedure Code(s): --- Professional --- 17456, Colonoscopy, flexible; with biopsy, single or multiple --- Technical --- 07004, Colonoscopy, flexible; with biopsy, single or multiple Diagnosis Code(s): --- Professional --- Z12.11, Encounter for screening for malignant neoplasm of colon K62.1, Rectal polyp --- Technical --- Z12.11, Encounter for screening for malignant neoplasm of colon K62.1, Rectal polyp CPT copyright 2019 [employer]. All rights reserved. The codes documented in this report are preliminary and upon biological sciences professor review may be revised to meet current compliance requirements. Osvaldo Santa MD 09/12/2022 9:42:19 AM This report has been signed electronically. Number of Addenda: 0 Note Initiated On: 09/12/2022 7:47 AM [facility] 09/12/2022 7:47 AM CDT Eric Garcia MD GI PROCEDURE ORDERAB LES [facility] * DEXA BONE DENSITY AXIAL SKELETON (08/23/2022 9:54 AM ROD BENDING MACHINE OPERATOR) Anatomical Region Laterality Modality Other 08/23/2022 3:05 PM ROD BENDING MACHINE OPERATOR Narrative 08/23/2022 3:07 PM ROD BENDING MACHINE OPERATOR PROCEDURE: DEXA BONE DENSITY AXIAL SKELETON, DATE/TIME OF EXAM: 08/23/2022 9:54 AM, LOCATION [facility] INDICATION: Z78.0: Post-menopausal COMPARISON: No similar [...] and below > Dictated by Misael Wiggins (Research Hydrologist) 08/23/2022 3:07 PM Mathew Bowman DO have personally reviewed and interpreted this examination/study. > Interpreting Provider: Mathew Damian DO on 08/23/2022 3:07 PM Procedure Note Mathew Damian DO - 08/23/2022 PROCEDURE: DEXA BONE DENSITY AXIAL SKELETON, DATE/TIME OF EXAM:08/23/2022 9:54 AM, LOCATION [facility] INDICATION: Z78.0: Post-menopausal COMPARISON: No similar [...] and below > Dictated by Misael Wiggins (Research Hydrologist) 08/23/2022 3:07 PM Mathew Bowman DO have personally reviewed and interpreted this examination/study. > Interpreting Provider: Mathew Damian DO on 08/23/2022 3:07 PM Luz HERRERA ORDERABLES from Last 3 Months or Most Recently Relevant to Health Maintenance Advance Directives Documents on File Type Date Recorded Patient Test Preparer Expl anation Adv Directive/Living Will/POA 01/25/2022 9:54 AM * Full Code (Latest Code Status on File) Date Activated Date Inactivated Comments 01/19/2022 7:30 PM 01/31/2022 11:19 AM * Full Code Date Activated Date Inactivated Comments 01/08/2022 11:45 AM 01/19/2022 7:05 PM Care Teams Volleyball Assembler Relationship Specialty Start Date End Date Samira Weinstein MD [address] [place] [phone] PCP - General Internal Medicine 09/01/24
--- OUTSIDE RECORDS SUMMARY | 2024-09-07 09:39 | XMS_ITS | Clinical Summary ---
Author Organization [facility] Address [address] [place] [address] Care Team Providers Care Registration Rep Name Role Phone John Clinton MD Primary [...] age to complete this topic Care Teams Registration Rep Relationship Specialty Start Date End Date John Clinton MD PCP - General 08/11/10
[2024-09-07 09:47] LABS: Glucose Point of Care 91 mg/dl (65-105)
[2024-09-07 09:48] LABS: Troponin I < 0.012 ng/mL (0.000-0.034)
[2024-09-07] MEDS: NITROGLYCERIN SL 0.4 MG TABLET SUBLINGUAL (10:55)
--- NOTE | 2024-09-07 12:19 | ECG_ITS ---
Test Date: 2024-09-07 12:37:29 Measurements Intervals [place] Rate: 47 P: -4 WI: 182 QRS: 0 QRSD: 85 T: -1 QT: 473 QTc: 420 Interpretive Statements SINUS BRADYCARDIA MODERATE T-WAVE ABNORMALITY, CONSIDER ANTERIOR ISCHEMIA [-0.1+ mV T WAVE IN V3/V4] Compared to ECG 09/07/2024 09:18:00 No significant changes Electronically Signed On 09-08-2024 11:13:16 CDT by Juan Alberto Samayoa M.D.
[2024-09-07] MEDS: CLOPIDOGREL BISULFATE 300 MG TABLET PO (12:26)
[2024-09-07 13:09] LABS: Troponin I < 0.012 ng/mL (0.000-0.034)
--- NOTE | 2024-09-07 14:13 | P.HP_ITS ---
H&P: HPI History of Present Illness Date/Time: 09/07/24 14:13 Chief Complaint: Chest pain Narrative: 64-year-old female past medical history of coronary artery disease, hypertension, COPD, CKD stage 3, and hypertension, presents the hospital for chest pain. Patient states that she had is chest pressure and low back pain. She states that this is been going on for a couple days. So she decided to come to the emergency room to get checked out because she cannot get comfortable. Patient states the nitro tab did help some with the pain. Lab work in the ED is unremarkable, troponins are negative, EKG shows sinus bradycardia with moderate T-wave abnormalities rate of 47. Head and chest CT shows no acute process.a. Patient being admitted for symptomatic bradycardia and cardiac workup. Review of Systems Review of Systems: 12 systems were reviewed and are negativ e except for as per HPI. [facility] Past Medical History Medical History Hypertension History of fall from ladder Migraine headache Asthma Chronic obstructive pulmonary disease Anxiety Degenerative disc disease Mild coronary artery disease Mild, nonobstructive coronary artery disease on cardiac catheterization in September 2017. Followed by Dr. Mireles. Collagenous colitis Alcohol use disorder Significantly cut back on alcohol consumption in May 2021. Irritable bowel syndrome with diarrhea Chronic interstitial cystitis without hematuria Chronic kidney disease, stage III (moderate) Major depressive disorder, single episode, moderate Other hyperlipidemia Postprocedural hypothyroidism Tobacco abuse Surgical History Surgical History History of resection of rib Bilateral for thoracic outlet obstruction. History of left breast biopsy History of cardiac catheterization (09/2017) Mild, nonobstructive coronary artery disease. About 30% stenosis in the mid- LAD with minor irregularities in the proximal mid RCA. History of total right hip arthroplasty (11/22/21) anterior approach November 22, 2021 History of cervical spinal surgery History of hysterectomy History of cholecystectomy Family History Family History Father Family history of malignant neoplasm Family history of heart disease in male family member before age 55 Other Sickle cell anemia Social History Social History Social History: Code status: Full code. Caffeine-daily Smoking packs per day: 1 Smoking cigarettes per day: 20.0 Years smoked: 25 Smoking pack-years: 25.00 Smoking status: Current every day smoker Tobacco type: cigarettes Second hand tobacco smoke exposure: No Smoking end date: 05/02/21 Additional smoking assessment comments: SMOKING INTERMITTENLY, LAST CIG 10/06/21 Alcohol intake: current Drinks per week: 14 Alcohol use details: QUIT MAY 2021 Substance use: never Substance use type: does not use Do You Feel Safe in your Home?: Yes Lack of Transportation: No Lack of Food: Never True Current Housing: I Have Housing Concerned About Future Housing: No Difficulty Paying Gas/Electric Bills: No Difficulty Paying for Meds: No Currently Unemployed: No Education: High School Diploma/GED Difficulty w/ Childcare or Family Care: No Living arrangements: with family Additional living arrangements comments: Lives in [place] with her and son. Occupation/Education: retired Spiritual care concerns: No Meds Home Medications and Allergies Home Medications ?Medication ?Instructions ?Recorded ?Confirmed ?Type metoprolol tartrate 25 mg tablet 25 mg PO BID #180 tabs 06/06/21 09/07/24 Rx albuterol sulfate 90 mcg/actuation 2 inh inhalation Q4-6H PRN 08/16/21 09/07/24 Rx aerosol inhaler Wheezing #6.7 grams ipratropium 0.5 mg-albuterol 3 mg 3 ml inhalation QID PRN Dyspnea 11/08/21 09/07/24 History (2.5 mg base)/3 mL nebulization soln amlodipine 5 mg tablet 5 mg PO DAILY #90 tabs 02/28/22 09/07/24 Rx fluticasone propionate 50 1 spray intranasal DAILY PRN 03/14/22 09/07/24 Rx mcg/actuation nasal Congestion #16 grams spray,suspension rosuvastatin 40 mg tablet (Crestor) 40 mg PO DAILY #90 tabs 03/20/22 09/07/24 Rx montelukast 10 mg tablet 10 mg PO DAILY #90 tabs 05/24/22 09/07/24 Rx levothyroxine 50 mcg tablet 50 mcg PO DAILY #30 tabs 06/12/22 09/07/24 Rx ferrous sulfate 325 mg (65 mg 325 mg PO DAILY #30 tabs 06/27/22 09/07/24 Rx iron) tablet,delayed release citalopram 20 mg tablet (Celexa) 20 mg PO DAILY #90 tabs 08/07/22 09/07/24 Rx azelastine 137 mcg (0.1 %) nasal 1 spray intranasal Q12H #30 mL 09/20/22 09/07/24 Rx spray omeprazole 10 mg capsule,delayed 10 mg PO DAILY #30 caps 09/20/22 09/07/24 Rx release hydrochlorothiazide 25 mg tablet 25 mg PO DAILY #30 tabs 02/07/23 09/07/24 Rx minoxidil 2.5 mg tablet 1.25 mg PO DAILY 09/07/24 09/07/24 History potassium chloride 10 mEq 10 meq PO DAILY 09/07/24 09/07/24 History tablet,extended release Allergies Allergy/AdvReac Type Severity Reaction Status Date / Time NSAIDS (Non-Steroidal Allergy Severe Swelling Verified 09/07/24 09:06 Anti-Inflamma Sulfa (Sulfonamide Allergy Severe Swelling Verified 09/07/24 09:06 Antibiotics) of Lip/Tongue/Throat ampicillin Allergy Intermediate RASH/HIVES Verified 09/07/24 09:06 clindamycin Allergy Intermediate Hives Verified 09/07/24 09:06 doxycycline Allergy Intermediate Hives Verified 09/07/24 09:06 erythromycin base Allergy Intermediate RASH/HIVES Verified 09/07/24 09:06 hydrocodone Allergy Intermediate Rash Verified 09/07/24 09:06 Penicillins Allergy Intermediate Hives/AGITA Verified 09/07/24 09:06 TION tramadol Allergy Intermediate Hives Verified 09/07/24 09:06 morphine Allergy Mild ITCHING,RASH, Verified 09/07/24 09:06 HIVES propoxyphene Allergy Mild NIGHTMARES/ Verified 09/07/24 09:06 TREMORS/YORDY H/HIVES aspirin AdvReac Intermediate Abdominal Verified 09/07/24 09:06 Pain Vital Signs Vital Signs - 24 hr 09/07/24 09:02 09/07/24 09:06 09/07/24 09:06 Temperature 98.0 F Pulse Rate 60 62 Respiratory Rate 16 Blood Pressure 140/74 Pulse Oximetry 99 99 Oxygen Delivery Room Air Room Air 09/07/24 09:45 09/07/24 10:56 09/07/24 11:00 Temperature Pulse Rate 62 51 L 64 Respiratory Rate 16 19 14 Blood Pressure 118/73 132/62 Pulse Oximetry 98 100 97 Oxygen Delivery 09/07/24 11:01 09/07/24 11:15 09/07/24 11:16 Temperature Pulse Rate 70 60 65 Respiratory Rate 16 18 16 Blood Pressure 105/66 115/73 Pulse Oximetry 97 98 99 Oxygen Delivery 09/07/24 11:30 09/07/24 11:31 09/07/24 11:52 Temperature Pulse Rate 58 L 51 L 51 L Respiratory Rate 13 15 17 Blood Pressure 125/74 Pulse Oximetry 100 100 Oxygen Delivery 09/07/24 12:00 09/07/24 12:01 09/07/24 12:15 Temperature Pulse Rate 54 L 53 L 56 L Respiratory Rate 16 16 12 Blood Pressure 131/62 Pulse Oximetry Oxygen Delivery 09/07/24 12:16 09/07/24 12:30 09/07/24 12:31 Temperature Pulse Rate 52 L 56 L 63 Respiratory Rate 14 16 18 Blood Pressure 131/67 141/72 H Pulse Oximetry Oxygen Delivery Exam Narrative: General: well appearing, appears stated age. HEENT: normocephalic, atraumatic. Mucous membranes moist. EOMI, PERRLA, bilateral sclera anicteric, no conjunctival injection. Neck supple without JVD, lymphadenopathy, or bruit. Respiratory: clear to ascultation bilaterally. No rales/rhonic/wheezes. Cardiovascular: Regular rate and rhythm, normal S1-S2 upon ascultation. No murmurs, rubs, or clicks. PMI is nondisplaced, capillary refill less than 3 second. Abdomen: Soft, round, no pulsatile masses, nondistended and nontender. No rebound, no guarding. No CVA tenderness, no hepatosplenomegaly. Bowel sounds present to all four quadrants. No high pitch or tinkling sounds, resonant to percussion. Extremities: No cyanosis, clubbing, or edema present. Pulses are palpable 2/2. Active ROM to all four extremities. Neuro: Alert and orientated x 4. PERRLA. Cranial nerves 2-12 intact without focal deficit. Skin: Warm, dry, and intact, without rash, erythema, or lesion. Psych: pleasant, cooperative, normal speech, normal affect, no hallucinations, no dysarthia H&P: Results Labs Labs: Short CBC 09/07/24 Range/Units 09:13 WBC 4.9 (4.5-10.0) K/mm3 Hgb 13.5 (12.0-15.0) g/dL Hct 39.3 (37.0-47.0) % Plt Count 173 (150-375) k/mm3 BMP 09/07/24 09:13 Sodium 140 Potassium 3.8 Chloride 106 Carbon Dioxide 27 BUN 16 Creatinine 0.75 Glucose 96 Calcium 9.9 Cardiac Enzymes 09/07/24 09/07/24 Range/Units 09:13 12:31 Troponin I < 0.012 < 0.012 (0.000-0.034) ng/mL Liver Function 09/07/24 Range/Units 09:13 Total Bilirubin 0.7 (0.2-1.3) mg/dL AST 37 H (14-36) U/L ALT 32 (6-35) U/L Alkaline Phosphatase 95 (38-126) U/L Albumin 4.4 (3.5-5.1) g/dL Assessment and Plan Assessment and plan (1) Bradycardia: Code(s): R00.1 - Bradycardia, unspecified Status: Acute Assessment and Plan: Telemetry monitoring Hold blood pressure meds and metoprolol (2) Chest pain: Code(s): R07.9 - Chest pain, unspecified Status: Acute Assessment and Plan: Trend troponins-negative 300 dose Plavix given in ED Nitro paste q.6 (3) Hypertension: Qualifiers: Hypertension type: primary hypertension Qualified Code(s): I10 - Essential (primary) hypertension Code(s): I10 - Essential (primary) hypertension Status: Acute Assessment and Plan: Blood pressures soft Hold blood pressure meds (4) Hypothyroidism: Qualifiers: Hypothyroidism type: unspecified Qualified Code(s): E03.9 - Hypothyroidism, unspecified Code(s): E03.9 - Hypothyroidism, unspecified Status: Acute Assessment and Plan: Check TSH pending Continue levothyroxine (5) Chronic kidney disease, stage III (moderate): Code(s): N18.3 - Chronic kidney disease, stage 3 (moderate) Status: Acute Assessment and Plan: Daily BMP Quality VTE Prophylaxis VTE prophylaxis: mechanical ordered and pharmacologic ordered Hospitalist MIPS Advance Care Plan I have confirmed that the patient's Advanced Care Plan is present, code status is documented, or surrogate decision maker is listed in patient medical record.: Yes Medication Reconciliation I have utilized all available resources to obtain, update and review the patients current medications (includes all prescriptions, OTC, herbals, cannabis, and nutritional supplements).: Yes
--- NOTE | 2024-09-07 15:32 | ECG_ITS ---
Test Date: 2024-09-07 15:46:12 Measurements Intervals [place] Rate: 57 P: 8 TX: 180 QRS: 45 QRSD: 77 T: 55 QT: 444 QTc: 435 Interpretive Statements SINUS BRADYCARDIA MODERATE T-WAVE ABNORMALITY, CONSIDER ANTERIOR ISCHEMIA [-0.1+ mV T WAVE IN V3/V4] Compared to ECG 09/07/2024 12:37:29 No significant changes Electronically Signed On 09-08-2024 11:16:16 CDT by Juan Alberto Samayoa M.D.
[2024-09-07 16:12] LABS: Troponin I < 0.012 ng/mL (0.000-0.034)
[2024-09-07 17:48] LABS: Thyroid Stimulating Hormone 0.417 uIU/mL (0.465-4.680)
[2024-09-07] MEDS: ROSUVASTATIN 20 MG TABLET 40 MG PO (19:39)
[2024-09-07] MEDS: CITALOPRAM HYDROBROMIDE 20 MG TABLET PO (19:39)
--- NOTE | 2024-09-07 21:24 | ADMGEN ---
This patient, Phyllis Torre, was admitted to IMU Room 202-01. Patient/family oriented to hospital policies and general routines including ID bracelet, bed and alarms, visiting hours, pain management, procedures, bathroom and other care routines, personal items, smoking policy, room service/diet, and visiting hours. Information on how to activate the Rapid Response Team has been discussed. Patient/Family are encouraged to report perceived risks to care and to ask questions if they do not understand what they are told or what they should do.
[2024-09-07] MEDS: NITROGLYCERIN OINTMENT 1 INCH DOSE 0.5 INCH TRANSDERM (23:14)
[2024-09-08] VITALS (8 sets, daily range): BP systolic 108–128; BP diastolic 59–62; PULSE 68–87; RESP 16–100; TEMP 36.6–36.8; O2SAT 93–100
[2024-09-08 04:56] LABS: Basophils Percent Auto 0.2 % (0.2-1.2); Eosinophils Absolute Auto 0.2 K/mm3 (0-0.3); Eosinophils Percent Auto 4.5 % (0-4.4); Hematocrit 36.8 % (37.0-47.0); Hemoglobin 12.6 g/dL (12.0-15.0); Immature Granulocyte Absolute 0.01 K/mm3 (0.00-0.031); Immature Granulocyte Percent A 0.2 % (0-0.5); Lymphocytes Absolute Auto 1.26 K/mm3 (0.9-3.2); Mean Corpuscular HGB Conc 34.2 g/dl (32-36); Mean Corpuscular Hemoglobin 31.2 pg (26-34); Mean Corpuscular Volume 91.1 fl (80-100); Mean Platelet Volume 10.1 fl (7.4-10.4); Monocytes Absolute Auto 0.4 K/mm3 (0.1-0.6); Monocytes Percent Auto 8.9 % (2.6-8.5); Neutrophils Absolute Auto 2.9 K/mm3 (1.3-6.7); Neutrophils Percent Auto 60.2 % (45.5-73.1); Platelet Count Result 168 k/mm3 (150-375); Red Blood Count 4.04 M/mm3 (4.2-5.4); Red Cell Distribution Width 13.3 % (11.5-14.5); White Blood Count 4.9 K/mm3 (4.5-10.0)
[2024-09-08 05:07] LABS: Anion Gap 7 mmol/L (4-12); Blood Urea Nitrogen 14 mg/dL (7-17); Calcium 9.5 mg/dL (8.4-10.2); Carbon Dioxide 27 mmol/L (22-30); Chloride 105 mmol/L (98-107); Cholesterol 174 mg/dL (0-200); Estimated CRCL calculation 53 ml/min; Estimated Glomerular Filt Rate > 60; Glucose 91 mg/dL (65-110); HDL Direct 60 mg/dL; Potassium 3.6 mmol/L (3.4-5.0); Sodium 139 mmol/L (137-145); Triglycerides 66 mg/dL (<150)
[2024-09-08 05:18] LABS: LDL Cholesterol Direct 89 mg/dL
[2024-09-08] MEDS: LEVOTHYROXINE SODIUM 50 MCG TABLET PO (06:12)
[2024-09-08] MEDS: NITROGLYCERIN OINTMENT 1 INCH DOSE 0.5 INCH TRANSDERM ×2 (06:12→12:41)
[2024-09-08] MEDS: CITALOPRAM HYDROBROMIDE 20 MG TABLET PO (09:24)
[2024-09-08] MEDS: ROSUVASTATIN 20 MG TABLET 40 MG PO (09:24)
--- NOTE | 2024-09-08 09:24 | PM.IMPN ---
Progress Note: A&P Assessment and Plan (1) Bradycardia: Code(s): R00.1 - Bradycardia, unspecified Status: Acute (2) Chest pain: Code(s): R07.9 - Chest pain, unspecified Status: Acute (3) Hypertension: Qualifiers: Hypertension type: primary hypertension Qualified Code(s): I10 - Essential (primary) hypertension Code(s): I10 - Essential (primary) hypertension Status: Acute (4) Hypothyroidism: Qualifiers: Hypothyroidism type: unspecified Qualified Code(s): E03.9 - Hypothyroidism, unspecified Code(s): E03.9 - Hypothyroidism, unspecified Status: Acute (5) Chronic kidney disease, stage III (moderate): Code(s): N18.3 - Chronic kidney disease, stage 3 (moderate) Status: Acute Plan This is a 64-year-old female who presented to the ED with complaint of intermittent retrosternal chest tightness for 1 week radiating to the right upper extremity. No aggravating or relieving factor. She had flu-like symptoms 3 weeks ago. She did receive nitro tab which helped with the pain. In the ED her vitals were stable except for mild bradycardia in 50s. Laboratory workup revealed normal WBC at 4.9. Hemoglobin of 13.5 BMP unremarkable. Troponin serial has been negative. LFTs were normal. EKG showed sinus bradycardia with nonspecific ST-T changes in mostly anterior inferior leads. Similar changes were noted in the past EKGs. CT head was unremarkable. Chest x-ray showed questionable 1.7 cm right upper lobe nodule likely calcified versus shadow related to the anterior 1st rib. Chest CT is advised. CT chest revealed clear lungs with no pulmonary abnormality evident. Chest pain rule out for non-STEMI. Does have risk factors. History of mild coronary artery disease in the past. Continues to smoke. 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 Will consult Cardiology. Hypertension Hyperlipidemia Hypothyroidism History of TIA Tobacco abuse Alcohol use History of migraine COPD/asthma Degenerative disc disease Irritable bowel syndrome with diarrhea Chronic interstitial cystitis CKD stage 3 Anxiety depression History of resection of rib for thoracic outlet bowel obstruction Coronary artery disease mild non obstructive 30% stenosis in mid LAD with minor irregularities in 2018 DVT prophylaxis SCDs Code status full code Subjective Date/time seen: 09/08/24 09:24 Interval history: Chart reviewed. No further chest pain. She feels better. Patient on nitro paste that was placed in the ER. Review of Systems Review of Systems: All systems reviewed & are unremarkable except as noted in HPI and below Exam Narrative: General: well appearing, appears stated age. HEENT: normocephalic, atraumatic. Mucous membranes moist. EOMI, PERRLA Respiratory: clear to auscultation bilaterally. No rales/rhonic/wheezes. Cardiovascular: Regular rate and rhythm, normal S1-S2 upon ascultation. No murmurs, rubs, or clicks. Abdomen: Soft, round, no pulsatile masses, nondistended and nontender. No rebound, no guarding. No CVA tenderness, no hepatosplenomegaly. Extremities: No cyanosis, clubbing, or edema present. Neuro: Alert and orientated x 4. PERRLA. Cranial nerves 2-12 intact without focal deficit. Skin: Warm, dry, and intact, without rash, erythema, or lesion. Psych: pleasant, cooperative, normal speech Objective Data Vital Signs Vital Signs: Vital Signs - 24 hr 09/07/24 09:45 09/07/24 10:56 09/07/24 11:00 Temperature Pulse Rate 62 51 L 64 Respiratory Rate 16 19 14 Blood Pressure 118/73 132/62 Pulse Oximetry 98 100 97 Oxygen Delivery 09/07/24 11:01 09/07/24 11:15 09/07/24 11:16 Temperature Pulse Rate 70 60 65 Respiratory Rate 16 18 16 Blood Pressure 105/66 115/73 Pulse Oximetry 97 98 99 Oxygen Delivery 09/07/24 11:30 09/07/24 11:31 09/07/24 11:52 Temperature Pulse Rate 58 L 51 L 51 L Respiratory Rate 13 15 17 Blood Pressure 125/74 Pulse Oximetry 100 100 Oxygen Delivery 09/07/24 12:00 09/07/24 12:01 09/07/24 12:15 Temperature Pulse Rate 54 L 53 L 56 L Respiratory Rate 16 16 12 Blood Pressure 131/62 Pulse Oximetry Oxygen Delivery 09/07/24 12:16 09/07/24 12:30 09/07/24 12:31 Temperature Pulse Rate 52 L 56 L 63 Respiratory Rate 14 16 18 Blood Pressure 131/67 141/72 H Pulse Oximetry Oxygen Delivery 09/07/24 13:00 09/07/24 13:03 09/07/24 13:15 Temperature Pulse Rate 76 79 72 Respiratory Rate 21 H 14 19 Blood Pressure 137/88 Pulse Oximetry Oxygen Delivery 09/07/24 14:14 09/07/24 14:15 09/07/24 14:30 Temperature Pulse Rate 81 85 63 Respiratory Rate 21 H 25 H 19 Blood Pressure Pulse Oximetry 99 99 100 Oxygen Delivery 09/07/24 14:45 09/07/24 15:00 09/07/24 15:05 Temperature Pulse Rate 65 56 L 65 Respiratory Rate 19 19 20 Blood Pressure 122/69 Pulse Oximetry 100 100 100 Oxygen Delivery 09/07/24 15:23 09/07/24 15:24 09/07/24 15:32 Temperature Pulse Rate 61 60 76 Respiratory Rate 19 18 20 Blood Pressure 116/59 L Pulse Oximetry 100 100 99 Oxygen Delivery 09/07/24 15:49 09/07/24 16:18 09/07/24 16:30 Temperature Pulse Rate 63 71 61 Respiratory Rate 19 17 16 Blood Pressure Pulse Oximetry 100 98 99 Oxygen Delivery 09/07/24 16:50 09/07/24 17:11 09/07/24 17:15 Temperature Pulse Rate 60 72 66 Respiratory Rate 17 17 17 Blood Pressure Pulse Oximetry 97 100 100 Oxygen Delivery 09/07/24 17:18 09/07/24 17:30 09/07/24 18:03 Temperature Pulse Rate 63 66 90 Respiratory Rate 18 18 14 Blood Pressure 128/72 Pulse Oximetry 100 100 Oxygen Delivery 09/07/24 18:28 09/07/24 18:30 09/07/24 18:45 Temperature Pulse Rate 79 80 81 Respiratory Rate 20 21 H 21 H Blood Pressure Pulse Oximetry 98 98 99 Oxygen Delivery 09/07/24 19:14 09/07/24 19:15 09/07/24 19:30 Temperature Pulse Rate 82 77 80 Respiratory Rate 17 20 20 Blood Pressure Pulse Oximetry 100 100 98 Oxygen Delivery 09/07/24 20:03 09/07/24 20:05 09/07/24 20:25 Temperature Pulse Rate 91 66 70 Respiratory Rate 19 20 19 Blood Pressure 145/69 H Pulse Oximetry 100 100 100 Oxygen Delivery 09/07/24 20:30 09/07/24 20:45 09/07/24 21:15 Temperature 97.8 F Pulse Rate 71 64 83 Respiratory Rate 18 19 18 Blood Pressure 145/83 H Pulse Oximetry 100 99 100 Oxygen Delivery 09/07/24 21:45 09/07/24 22:00 09/07/24 23:19 Temperature Pulse Rate 64 62 72 Respiratory Rate 18 18 Blood Pressure Pulse Oximetry 100 100 Oxygen Delivery Room Air Room Air 09/07/24 23:19 09/07/24 23:58 09/08/24 01:54 Temperature 97.9 F Pulse Rate 72 80 68 Respiratory Rate 16 Blood Pressure 125/51 L Pulse Oximetry 100 Oxygen Delivery 09/08/24 04:00 09/08/24 04:00 09/08/24 04:00 Temperature 98.1 F Pulse Rate 82 87 87 Respiratory Rate 18 18 Blood Pressure 108/59 L Pulse Oximetry 100 100 Oxygen Delivery Room Air 09/08/24 06:00 09/08/24 08:00 Temperature 98.3 F Pulse Rate 82 69 Respiratory Rate 16 Blood Pressure 113/61 Pulse Oximetry 98 Oxygen Delivery Intake/Output Intake/Output: Intake & Output 09/05/24 09/06/24 09/08/24 09/08/24 23:59 23:59 00:59 23:59 Intake Total 120 Balance 120 Meds/Results Medications: Active Medications Generic Name Dose Route Start Last Admin Trade Name Freq PRN Reason Stop Dose Admin Acetaminophen 650 mg 09/07/24 14:19 Acetaminophen 325 Mg Tablet PO Q4H PRN Mild Pain (1-3) or Fever Albuterol/Ipratropium 3 ml 09/07/24 16:50 Ipratropium 0.5 Mg/Albuterol Sulfate 2.5 Mg Ampul.Neb 3 Ml INHALATION Q6HRT PRN Dyspnea Amlodipine Besylate 5 mg 09/08/24 09:00 Amlodipine Besylate 5 Mg Tablet PO DAILY JIM Citalopram Hydrobromide 20 mg 09/07/24 16:20 09/07/24 19:39 Citalopram Hydrobromide 20 Mg Tablet PO 20 mg DAILY JIM Administration Enoxaparin Sodium 40 mg 09/08/24 09:00 Enoxaparin 40 Mg/0.4 Ml Syringe SUB-Q DAILY JIM Hydrochlorothiazide 25 mg 09/07/24 16:20 09/07/24 19:39 Hydrochlorothiazide 25 Mg Tablet PO Not Given DAILY JIM Levothyroxine Sodium 50 mcg 09/08/24 06:30 09/08/24 06:12 Levothyroxine Sodium 50 Mcg Tablet PO 50 mcg DAILY@0630 JIM Administration Metoprolol Tartrate 25 mg 09/07/24 21:00 Metoprolol Tartrate 25 Mg Tablet PO Q12HR JIM Nitroglycerin 0.4 mg 09/07/24 14:19 Nitroglycerin Sl 0.4 Mg Tablet SUBLINGUAL Q5MIN PRN Chest Pain Nitroglycerin 0.5 inch 09/08/24 00:00 09/08/24 06:12 Nitroglycerin Ointment 1 Inch Dose TRANSDERM 0.5 inch Q6HR JIM Administration Rosuvastatin Calcium 40 mg 09/07/24 16:20 09/07/24 19:39 Rosuvastatin 20 Mg Tablet PO 40 mg DAILY JIM Administration Radiology Results: ITS Impressions Chest X-Ray 09/07/24 09:25 Impression: Questionable 1.7 cm right upper lobe nodule, likely calcified, versus shadow related to the anterior first rib. Chest CT advised to further evaluate. Head CT 09/07/24 09:28 Impression: No significant abnormality seen. Chest CT 09/07/24 11:06 Impression: Clear lungs. No pulmonary abnormality evident. Labs Labs: Laboratory Results - last 24 hr 09/07/24 09/07/24 09/07/24 09:13 09:43 12:31 WBC 4.9 RBC 4.38 Hgb 13.5 Hct 39.3 MCV 89.7 MCH 30.8 MCHC 34.4 RDW 13.3 Plt Count 173 MPV 9.6 Immature Gran % (Auto) 0.2 Neut % (Auto) 52.0 Lymph % (Auto) 34.9 [place] % (Auto) 7.8 Eos % (Auto) 4.7 H Baso % (Auto) 0.4 Lymph # (Auto) 1.70 [place] # (Auto) 0.4 Eos # (Auto) 0.2 Baso # (Auto) 0.0 Abs Immat Gran (auto) 0.01 Absolute Neuts (auto) 2.5 Absolute Nucleated RBC 0.000 Nucleated RBC % 0.0 PT 12.9 INR 0.9 APTT 34.0 Sodium 140 Potassium 3.8 Chloride 106 Carbon Dioxide 27 Anion Gap 7 BUN 16 Creatinine 0.75 Estim Creat Clear Calc 55 Estimated GFR > 60 Glucose 96 POC Capillary Glucose 91 Calcium 9.9 Total Bilirubin 0.7 AST 37 H ALT 32 Alkaline Phosphatase 95 Troponin I < 0.012 < 0.012 Total Protein 7.0 Albumin 4.4 Triglycerides Cholesterol LDL Cholesterol Direct HDL Direct TSH 09/07/24 09/07/24 09/08/24 15:42 15:43 03:51 WBC 4.9 RBC 4.04 L Hgb 12.6 Hct 36.8 L MCV 91.1 MCH 31.2 MCHC 34.2 RDW 13.3 Plt Count 168 MPV 10.1 Immature Gran % (Auto) 0.2 Neut % (Auto) 60.2 Lymph % (Auto) 26.0 [place] % (Auto) 8.9 H Eos % (Auto) 4.5 H Baso % (Auto) 0.2 Lymph # (Auto) 1.26 [place] # (Auto) 0.4 Eos # (Auto) 0.2 Baso # (Auto) 0.0 Abs Immat Gran (auto) 0.01 Absolute Neuts (auto) 2.9 Absolute Nucleated RBC 0.000 Nucleated RBC % 0.0 PT INR APTT Sodium 139 Potassium 3.6 Chloride 105 Carbon Dioxide 27 Anion Gap 7 BUN 14 Creatinine 0.79 Estim Creat Clear Calc 53 Estimated GFR > 60 Glucose 91 POC Capillary Glucose Calcium 9.5 Total Bilirubin AST ALT Alkaline Phosphatase Troponin I < 0.012 Total Protein Albumin Triglycerides 66 Cholesterol 174 LDL Cholesterol Direct 89 HDL Direct 60 TSH 0.417 L
[2024-09-08] MEDS: ENOXAPARIN 40 MG/0.4 ML SYRINGE SUB-Q (09:25)
--- NOTE | 2024-09-08 13:36 | P.CONCA_ITS ---
Assessment and Plan Assessment and plan (1) Chest pain: Code(s): R07.9 - Chest pain, unspecified Status: Acute (2) Other hyperlipidemia: Code(s): E78.49 - Other hyperlipidemia Status: Acute (3) Hypertension: Qualifiers: Hypertension type: primary hypertension Qualified Code(s): I10 - Essential (primary) hypertension Code(s): I10 - Essential (primary) hypertension Status: Acute Plan 64-year-old woman with hypertension/hyperlipidemia presents with chest discomfort Chest discomfort -has resolved and she has been ruled out for acute GA -we discussed the possible etiologies and in a shared decision-making process, to proceed with outpatient cardiac workup -we discussed symptoms to be aware of that should prompt her to return the hospital -patient conveyed understanding and would like to proceed with outpatient cardiac workup Hypertension -on amlodipine and metoprolol Hyperlipidemia -on rosuvastatin Active tobacco user -we discussed tobacco cessation for approximately 3 minutes History of Present Illness History of Present Illness Consult date/time: 09/08/24 13:36 Requesting physician: Siva Clark MD Consult reason: chest pain Reason For Visit: Chest pain Narrative: 64-year-old woman with hypertension/hyperlipidemia presents with chest discomfort. 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 Since then she had this substernal chest pressure/sensation without any aggravating factors such as exertion/physical activity. The sensation also does not worsen with any deep breathing or positional changes. Denies any orthopnea or loss of consciousness. Currently no longer has any chest discomfort. 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 She presented due to the duration of the chest discomfort. Review of Systems 2 Cardiovascular: Cardiovascular: Reports as per HPI Respiratory: Respiratory: Reports as per HPI [facility] Past Medical History Medical History Hypertension History of fall from ladder Migraine headache Asthma Chronic obstructive pulmonary disease Anxiety Degenerative disc disease Mild coronary artery disease Mild, nonobstructive coronary artery disease on cardiac catheterization in September 2017. Followed by Dr. Mireles. Collagenous colitis Alcohol use disorder Significantly cut back on alcohol consumption in May 2021. Irritable bowel syndrome with diarrhea Chronic interstitial cystitis without hematuria Chronic kidney disease, stage III (moderate) Major depressive disorder, single episode, moderate Other hyperlipidemia Postprocedural hypothyroidism Tobacco abuse Surgical History Surgical History History of resection of rib Bilateral for thoracic outlet obstruction. History of left breast biopsy History of cardiac catheterization (09/2017) Mild, nonobstructive coronary artery disease. About 30% stenosis in the mid- LAD with minor irregularities in the proximal mid RCA. History of total right hip arthroplasty (11/22/21) anterior approach November 22, 2021 History of cervical spinal surgery History of hysterectomy History of cholecystectomy Family History Family History Father Family history of malignant neoplasm Family history of heart disease in male family member before age 55 Other Sickle cell anemia Social History Social History Social History: Code status: Full code. Caffeine-daily Smoking packs per day: 1 Smoking cigarettes per day: 20.0 Years smoked: 25 Smoking pack-years: 25.00 Smoking status: Current every day smoker Tobacco type: cigarettes Second hand tobacco smoke exposure: No Smoking end date: 05/02/21 Additional smoking assessment comments: SMOKING INTERMITTENLY, LAST CIG 10/06/21 Alcohol intake: current Drinks per week: 14 Alcohol use details: QUIT MAY 2021 Substance use: never Substance use type: does not use Do You Feel Safe in your Home?: Yes Lack of Transportation: No Lack of Food: Never True Current Housing: I Have Housing Concerned About Future Housing: No Difficulty Paying Gas/Electric Bills: No Difficulty Paying for Meds: No Currently Unemployed: No Education: High School Diploma/GED Difficulty w/ Childcare or Family Care: No Living arrangements: with family Additional living arrangements comments: Lives in [place] with her and son. Occupation/Education: retired Spiritual care concerns: No Meds Home Medications and Allergies Home Medications ?Medication ?Instructions ?Recorded ?Confirmed ?Type metoprolol tartrate 25 mg tablet 25 mg PO BID #180 tabs 06/06/21 09/07/24 Rx albuterol sulfate 90 mcg/actuation 2 inh inhalation Q4-6H PRN 08/16/21 09/07/24 Rx aerosol inhaler Wheezing #6.7 grams ipratropium 0.5 mg-albuterol 3 mg 3 ml inhalation QID PRN Dyspnea 11/08/21 09/07/24 History (2.5 mg base)/3 mL nebulization soln amlodipine 5 mg tablet 5 mg PO DAILY #90 tabs 02/28/22 09/07/24 Rx fluticasone propionate 50 1 spray intranasal DAILY PRN 03/14/22 09/07/24 Rx mcg/actuation nasal Congestion #16 grams spray,suspension rosuvastatin 40 mg tablet (Crestor) 40 mg PO DAILY #90 tabs 03/20/22 09/07/24 Rx montelukast 10 mg tablet 10 mg PO DAILY #90 tabs 05/24/22 09/07/24 Rx levothyroxine 50 mcg tablet 50 mcg PO DAILY #30 tabs 06/12/22 09/07/24 Rx ferrous sulfate 325 mg (65 mg 325 mg PO DAILY #30 tabs 06/27/22 09/07/24 Rx iron) tablet,delayed release citalopram 20 mg tablet (Celexa) 20 mg PO DAILY #90 tabs 08/07/22 09/07/24 Rx azelastine 137 mcg (0.1 %) nasal 1 spray intranasal Q12H #30 mL 09/20/22 09/07/24 Rx spray omeprazole 10 mg capsule,delayed 10 mg PO DAILY #30 caps 09/20/22 09/07/24 Rx release hydrochlorothiazide 25 mg tablet 25 mg PO DAILY #30 tabs 02/07/23 09/07/24 Rx minoxidil 2.5 mg tablet 1.25 mg PO DAILY 09/07/24 09/07/24 History potassium chloride 10 mEq 10 meq PO DAILY 09/07/24 09/07/24 History tablet,extended release Allergies Allergy/AdvReac Type Severity Reaction Status Date / Time NSAIDS (Non-Steroidal Allergy Severe Swelling Verified 09/07/24 09:06 Anti-Inflamma Sulfa (Sulfonamide Allergy Severe Swelling Verified 09/07/24 09:06 Antibiotics) of Lip/Tongue/Throat ampicillin Allergy Intermediate RASH/HIVES Verified 09/07/24 09:06 clindamycin Allergy Intermediate Hives Verified 09/07/24 09:06 doxycycline Allergy Intermediate Hives Verified 09/07/24 09:06 erythromycin base Allergy Intermediate RASH/HIVES Verified 09/07/24 09:06 hydrocodone Allergy Intermediate Rash Verified 09/07/24 09:06 Penicillins Allergy Intermediate Hives/AGITA Verified 09/07/24 09:06 TION tramadol Allergy Intermediate Hives Verified 09/07/24 09:06 morphine Allergy Mild ITCHING,RASH, Verified 09/07/24 09:06 HIVES propoxyphene Allergy Mild NIGHTMARES/ Verified 09/07/24 09:06 TREMORS/YORDY H/HIVES aspirin AdvReac Intermediate Abdominal Verified 09/07/24 09:06 Pain Vital Signs Vital Signs - 24 hr 09/07/24 14:14 09/07/24 14:15 09/07/24 14:30 Temperature Pulse Rate 81 85 63 Respiratory Rate 21 H 25 H 19 Blood Pressure Pulse Oximetry 99 99 100 Oxygen Delivery 09/07/24 14:45 09/07/24 15:00 09/07/24 15:05 Temperature Pulse Rate 65 56 L 65 Respiratory Rate 19 19 20 Blood Pressure 122/69 Pulse Oximetry 100 100 100 Oxygen Delivery 09/07/24 15:23 09/07/24 15:24 09/07/24 15:32 Temperature Pulse Rate 61 60 76 Respiratory Rate 19 18 20 Blood Pressure 116/59 L Pulse Oximetry 100 100 99 Oxygen Delivery 09/07/24 15:49 09/07/24 16:18 09/07/24 16:30 Temperature Pulse Rate 63 71 61 Respiratory Rate 19 17 16 Blood Pressure Pulse Oximetry 100 98 99 Oxygen Delivery 09/07/24 16:50 09/07/24 17:11 09/07/24 17:15 Temperature Pulse Rate 60 72 66 Respiratory Rate 17 17 17 Blood Pressure Pulse Oximetry 97 100 100 Oxygen Delivery 09/07/24 17:18 09/07/24 17:30 09/07/24 18:03 Temperature Pulse Rate 63 66 90 Respiratory Rate 18 18 14 Blood Pressure 128/72 Pulse Oximetry 100 100 Oxygen Delivery 09/07/24 18:28 09/07/24 18:30 09/07/24 18:45 Temperature Pulse Rate 79 80 81 Respiratory Rate 20 21 H 21 H Blood Pressure Pulse Oximetry 98 98 99 Oxygen Delivery 09/07/24 19:14 09/07/24 19:15 09/07/24 19:30 Temperature Pulse Rate 82 77 80 Respiratory Rate 17 20 20 Blood Pressure Pulse Oximetry 100 100 98 Oxygen Delivery 09/07/24 20:03 09/07/24 20:05 09/07/24 20:25 Temperature Pulse Rate 91 66 70 Respiratory Rate 19 20 19 Blood Pressure 145/69 H Pulse Oximetry 100 100 100 Oxygen Delivery 09/07/24 20:30 09/07/24 20:45 09/07/24 21:15 Temperature 36.6 C Pulse Rate 71 64 83 Respiratory Rate 18 19 18 Blood Pressure 145/83 H Pulse Oximetry 100 99 100 Oxygen Delivery 09/07/24 21:45 09/07/24 22:00 09/07/24 23:19 Temperature Pulse Rate 64 62 72 Respiratory Rate 18 18 Blood Pressure Pulse Oximetry 100 100 Oxygen Delivery Room Air Room Air 09/07/24 23:19 09/07/24 23:58 09/08/24 01:54 Temperature 36.6 C Pulse Rate 72 80 68 Respiratory Rate 16 Blood Pressure 125/51 L Pulse Oximetry 100 Oxygen Delivery 09/08/24 04:00 09/08/24 04:00 09/08/24 04:00 Temperature 36.7 C Pulse Rate 82 87 87 Respiratory Rate 18 18 Blood Pressure 108/59 L Pulse Oximetry 100 100 Oxygen Delivery Room Air 09/08/24 06:00 09/08/24 08:00 09/08/24 08:00 Temperature 36.8 C Pulse Rate 82 69 76 Respiratory Rate 16 Blood Pressure 113/61 Pulse Oximetry 98 Oxygen Delivery 09/08/24 09:41 09/08/24 10:00 09/08/24 12:00 Temperature 36.6 C Pulse Rate 82 69 Respiratory Rate 100 H Blood Pressure 128/62 Pulse Oximetry 93 100 Oxygen Delivery Room Air Exam 2 Const: General: comfortable HENMT: Mouth: Yes moist mucous membranes Eyes: EOM: EOMs intact bilaterally Neck: Neck: no JVD Resp: Effort & Inspection: normal respiratory effort Auscultation: rhonchi Cardio: Rate: regular rate Rhythm: regular rhythm GI: Other: Hyperactive bowel sounds Extrem: General: no pedal edema Results Labs and Meds 09/08/24 03:51 09/08/24 03:51 Lab results: Cardiac Enzymes 09/07/24 Range/Units 15:42 Troponin I < 0.012 (0.000-0.034) ng/mL Lipids 09/08/24 Range/Units 03:51 Triglycerides 66 (<150) mg/dL Cholesterol 174 (0-200) mg/dL CBC 09/08/24 Range/Units 03:51 WBC 4.9 (4.5-10.0) K/mm3 RBC 4.04 L (4.2-5.4) M/mm3 Hgb 12.6 (12.0-15.0) g/dL Hct 36.8 L (37.0-47.0) % Plt Count 168 (150-375) k/mm3 Lymph # (Auto) 1.26 (0.9-3.2) K/mm3 [place] # (Auto) 0.4 (0.1-0.6) K/mm3 Eos # (Auto) 0.2 (0-0.3) K/mm3 Baso # (Auto) 0.0 (0.0-0.1) K/mm3 Comprehensive Metabolic Panel 09/08/24 Range/Units 03:51 Sodium 139 (137-145) mmol/L Potassium 3.6 (3.4-5.0) mmol/L Chloride 105 (98-107) mmol/L Carbon Dioxide 27 (22-30) mmol/L BUN 14 (7-17) mg/dL Creatinine 0.79 (0.7-1.0) mg/dL Glucose 91 (65-110) mg/dL Calcium 9.5 (8.4-10.2) mg/dL Intake and Output 09/07/24 09/08/24 09/08/24 23:59 07:59 15:59 Intake Total 120 Balance 120 Intake: Oral 120 Other: # Unmeasured Voids 2 Number of Bowel Movements Today 1 Patient Weight 09/08/24 23:59 Weight 66.8 kg
--- NOTE | 2024-09-08 13:59 | P.DS_ITS ---
DS: Admitting Diagnosis Discharge Date 09/08/2024 Admitting Diagnosis Chest pain DS: Discharge Diagnosis Discharge Diagnosis (1) Bradycardia: Code(s): R00.1 - Bradycardia, unspecified Status: Acute (2) Chest pain: Code(s): R07.9 - Chest pain, unspecified Status: Acute (3) Hypertension: Qualifiers: Hypertension type: primary hypertension Qualified Code(s): I10 - Essential (primary) hypertension Code(s): I10 - Essential (primary) hypertension Status: Acute (4) Hypothyroidism: Qualifiers: Hypothyroidism type: unspecified Qualified Code(s): E03.9 - Hypothyroidism, unspecified Code(s): E03.9 - Hypothyroidism, unspecified Status: Acute (5) Chronic kidney disease, stage III (moderate): Code(s): N18.3 - Chronic kidney disease, stage 3 (moderate) Status: Acute DS: Summary Hospital Course Hospital Course: This is a 64-year-old female who presented to the ED with complaint of intermitt ent retrosternal chest tightness for 1 week radiating to the right upper extremity. No aggravating or relieving factor. She had flu-like symptoms 3 weeks ago. She did receive nitro tab which helped with the pain. In the ED her vitals were stable except for mild bradycardia in 50s. Laboratory workup revealed normal WBC at 4.9. Hemoglobin of 13.5 BMP unremarkable. Troponin serial has been negative. LFTs were normal. EKG showed sinus bradycardia with nonspecific ST-T changes in mostly anterior inferior leads. Similar changes were noted in the past EKGs. CT head was unremarkable. Chest x-ray showed questionable 1.7 cm right upper lobe nodule likely calcified versus shadow related to the anterior 1st rib. Chest CT is advised. CT chest revealed clear lungs with no pulmonary abnormality evident. Chest pain rule out for non-STEMI. Does have risk factors. History of mild coronary artery disease in the past. Continues to smoke. 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 Consulted Cardiology. Plan for outpatient cardiac workup. She will follow-up with her bleach boiler packer at [facility] Hypertension Hyperlipidemia Hypothyroidism History of TIA Tobacco abuse Alcohol use History of migraine COPD/asthma Degenerative disc disease Irritable bowel syndrome with diarrhea Chronic interstitial cystitis CKD stage 3 Anxiety depression History of resection of rib for thoracic outlet bowel obstruction Coronary artery disease mild non obstructive 30% stenosis in mid LAD with minor irregularities in 2018 DVT prophylaxis SCDs Code status full code Time Spent with Patient Time attestation: Total time spent providing and/or coordinating discharge services: 35 minutes Exam Narrative: General: well appearing, appears stated age. HEENT: normocephalic, atraumatic. Mucous membranes moist. EOMI, PERRLA Respiratory: clear to auscultation bilaterally. No rales/rhonic/wheezes. Cardiovascular: Regular rate and rhythm, normal S1-S2 upon ascultation. No murmurs, rubs, or clicks. Abdomen: Soft, round, no pulsatile masses, nondistended and nontender. No rebound, no guarding. No CVA tenderness, no hepatosplenomegaly. Extremities: No cyanosis, clubbing, or edema present. Neuro: Alert and orientated x 4. PERRLA. Cranial nerves 2-12 intact without focal deficit. Skin: Warm, dry, and intact, without rash, erythema, or lesion. Psych: pleasant, cooperative, normal speech DS: Data Data Completed and Pending Labs on day of discharge: Labs from last 24 hours 09/08/24 09/07/24 09/07/24 03:51 15:43 15:42 WBC 4.9 RBC 4.04 L Hgb 12.6 Hct 36.8 L MCV 91.1 MCH 31.2 MCHC 34.2 RDW 13.3 Plt Count 168 MPV 10.1 Immature Gran % (Auto) 0.2 Neut % (Auto) 60.2 Lymph % (Auto) 26.0 [place] % (Auto) 8.9 H Eos % (Auto) 4.5 H Baso % (Auto) 0.2 Lymph # (Auto) 1.26 [place] # (Auto) 0.4 Eos # (Auto) 0.2 Baso # (Auto) 0.0 Abs Immat Gran (auto) 0.01 Absolute Neuts (auto) 2.9 Absolute Nucleated RBC 0.000 Nucleated RBC % 0.0 Sodium 139 Potassium 3.6 Chloride 105 Carbon Dioxide 27 Anion Gap 7 BUN 14 Creatinine 0.79 Estim Creat Clear Calc 53 Estimated GFR > 60 Glucose 91 Calcium 9.5 Troponin I < 0.012 Triglycerides 66 Cholesterol 174 LDL Cholesterol Direct 89 HDL Direct 60 TSH 0.417 L Imaging Radiologist's impression: ITS Impressions Chest X-Ray 09/07/24 09:25 Impression: Questionable 1.7 cm right upper lobe nodule, likely calcified, versus shadow related to the anterior first rib. Chest CT advised to further evaluate. Head CT 09/07/24 09:28 Impression: No significant abnormality seen. Chest CT 09/07/24 11:06 Impression: Clear lungs. No pulmonary abnormality evident. Discharge Plan Discharge Attending physician on discharge: Siva Clark Consulting providers: Sebastian Weinstein; Leta Allen Discharging Clinician: Siva Clark Anticipated Discharge Date/Time: 09/08/24 14:01 Patient Disposition: Home, Self-Care Activity: as tolerated Diet: heart healthy Patient Instructions: Antibiotic Form, Chest Pain (DC) Patient Language: Ecuadorean Stand Alone Forms: General Discharge Information Follow-up/Referrals: PHYSICIAN NOT ON STAFF,NONSTAFF [Primary Care Provider] - 1 Week Discharge Medications: Continued rosuvastatin [Crestor] 40 mg tablet 40 mg PO DAILY Qty: 90 1RF omeprazole 10 mg capsule,delayed release(DR/EC) 10 mg PO DAILY Qty: 30 0RF Rx Instructions: Take around supper time azelastine 137 mcg (0.1 %) aerosol,spray 1 spray intranasal Q12H Qty: 30 0RF Rx Instructions: administer into each nostril minoxidil 2.5 mg tablet 1.25 mg PO DAILY potassium chloride 10 mEq tablet extended release 10 meq PO DAILY ipratropium-albuterol 0.5 mg-3 mg(2.5 mg base)/3 mL solution for nebulization 3 ml inhalation QID PRN (Reason: Dyspnea) metoprolol tartrate 25 mg tablet 25 mg PO BID Qty: 180 4RF albuterol sulfate 90 mcg/actuation HFA aerosol inhaler 2 inh INHALATION Q4-6H PRN (Reason: Wheezing) Qty: 6.7 2RF amlodipine 5 mg tablet 5 mg PO DAILY Qty: 90 1RF fluticasone propionate 50 mcg/actuation spray,suspension 1 spray INTRANASAL DAILY PRN (Reason: Congestion) Qty: 16 1RF montelukast 10 mg tablet 10 mg PO DAILY Qty: 90 0RF Rx Instructions: Take 1 tablet by mouth once daily levothyroxine 50 mcg tablet 50 mcg PO DAILY Qty: 30 2RF ferrous sulfate 325 mg (65 mg iron) tablet,delayed release (DR/EC) 325 mg PO DAILY Qty: 30 2RF citalopram [Celexa] 20 mg tablet 20 mg PO DAILY Qty: 90 1RF hydrochlorothiazide 25 mg tablet 25 mg PO DAILY Qty: 30 0RF Date of admission: 09/07/24 11:16 Primary Care Provider: PHYSICIAN NOT ON STAFF,NONSTAFF Admitting Provider: Lluvia Nugent Attending physician on admission: Lluvia Nugent Condition: Stable
== END 2024-09-08 14:54 | disposition home or self-care (01) ==
LOC: ANHED 11:09 → ANHIMU 09-08 05:57
PROVIDERS: Nurse Practitioner Gerontology; Admitting Provider Family Medicine; Emergency Provider Emergency Medicine; Visit Provider Internal Medicine
DX: R00.1 Bradycardia, unspecified (principal); R07.89 Other chest pain; M54.50 Low back pain, unspecified; E78.5 Hyperlipidemia, unspecified; E03.9 Hypothyroidism, unspecified; Z86.73 Personal history of transient ischemic attack (TIA), and cerebral infarction without residual deficits; F17.210 Nicotine dependence, cigarettes, uncomplicated; J45.909 Unspecified asthma, uncomplicated; J44.9 Chronic obstructive pulmonary disease, unspecified; I25.10 Atherosclerotic heart disease of native coronary artery without angina pectoris; N18.30 Chronic kidney disease, stage 3 unspecified; I12.9 Hypertensive chronic kidney disease with stage 1 through stage 4 chronic kidney disease, or unspecified chronic kidney disease; Z96.641 Presence of right artificial hip joint
CPT/HCPCS: 36415; 70450; 71045; 71250; 80048; 80053; 80061; 82948; 84443; 84484; 85025; 85610; 85730; 93005; 96372; 99285; A9270; G0378; J1650